=== PATIENT | male | born 1950 | race Caucasian/White ===

== ENCOUNTER 2023-05-03 11:11 | Outpatient (AMB) | payer MEDICARE, SELFPAY ==
--- NOTE | 2023-05-03 11:14 | HO.NEPHOV ---
HPI HPI Comments History of Present Illness Details I had the pleasure of seeing Peter in follow-up of his chronic kidney disease and hypertension. He recently had been in [place]. At that time he had 1 spike of uncontrolled blood pressure and had to be kept in the hospital overnight. He also had some left breast pain. He is currently not taking his spironolactone. He underwent ultrasound and mammogram. He was found to have a cyst. He is going to undergo further studies. He has not been strict with a low-sodium diet. His creatinine had been near baseline of 1.9 while he was in [place]. He does not have any hematuria, kidney stones, dysuria, pedal edema, shortness of breath, proximal nocturnal dyspnea, orthopnea, nausea, vomiting or diarrhea. He is not taking any nonsteroidal anti-inflammatory medications. He had been on carvedilol in the past which has been discontinued due to low heart rate. His blood pressure is currently well controlled. He has not had any further gout attacks. [facility] Medical History (Updated 05/03/23 @ 11:48 by Fletcher Mckay MD) Essential (primary) hypertension Chronic kidney disease, stage 3a Surgical History (Updated 05/03/23 @ 11:24 by Gale Vitale MA) History of ankle surgery History of knee replacement Family History (Updated 05/03/23 @ 11:23 by Gale Vitale MA) Father Heart disease Hypertension Brother Heart disease Hypertension Social History (Updated 05/03/23 @ 11:22 by Gale Vitale MA) Alcohol intake: never Patient Tobacco Use Status: Never used Tobacco Vital Signs 05/03/23 11:16 Height 5 ft 8 in Weight 168 lb BMI 25.5 BP 134/70 Blood Pressure Location Rt brachial Position Sitting Pulse 57 Pulse Source Pulse Oximeter Physical Exam Vital Signs: Last Vital Signs Pulse 57 05/03/23 11:16 BP 134/70 05/03/23 11:16 BMI result Body Mass Index 25.5 Const General: comfortable and no acute distress Orientation/consciousness: patient oriented x3 HEENT Head: Yes normocephalic Mouth: Normal oral and palatal mucosa present Eyes EOM: EOMs intact bilaterally Neck Neck: Yes supple Resp Auscultation: clear to auscultation bilaterally Cardio Jugular venous distension: no JVD Rate: regular rate GI Palpation (GI): Soft to palpation Auscultation: normal bowel sounds General: Yes no CVA tenderness Back/Spine/Pelvis Back: no CVA tenderness Skin General skin exam: no rashes or lesions noted Neuro General: patient oriented x3 and moves all extremities Extrem General: Yes no pedal edema Assessment & Plan Assessment & Plan (1) Essential (primary) hypertension: Code(s): I10 - Essential (primary) hypertension (2) Chronic kidney disease, stage 3a: Code(s): N18.31 - Chronic kidney disease, stage 3a [place] has chronic kidney disease most likely due to vascular disease. He had a Doppler of his renal arteries in the past which did not show any significant renal artery stenosis. He is compliant with his medications. He should be on a low-sodium diet. He should remain well hydrated. He had a coronary angiogram in the past, the results of which are unavailable for review at the time this office visit. Given 1 episode of spike in blood pressure during his time in [place], I have ordered a renin as well as aldosterone. He is not on any beta-mik given his low heart rate. He is off spironolactone. I plan to repeat is Doppler renal arteries after next visit. He should avoid nonsteroidal anti-inflammatory medications. I did not make any other medication changes today. Follow-up lab work ordered. Time spend with encounter, retrieving data and documentation 31 minutes. Orders: Orders Renin Today I10 - Essential (primary) hypertension, N18.31 - Chronic kidney disease, stage 3a Electrolytes Today I10 - Essential (primary) hypertension, N18.31 - Chronic kidney disease, stage 3a Blood Urea Nitrogen Today I10 - Essential (primary) hypertension, N18.31 - Chronic kidney disease, stage 3a Creatinine Today I10 - Essential (primary) hypertension, N18.31 - Chronic kidney disease, stage 3a Calcium Today I10 - Essential (primary) hypertension, N18.31 - Chronic kidney disease, stage 3a Aldosterone Today I10 - Essential (primary) hypertension, N18.31 - Chronic kidney disease, stage 3a Coding Level of Care Code Est Pt Level 3 (20431) Diagnoses Essential (primary) hypertension I10 Chronic kidney disease, stage 3a N18.31
[2023-05-03 11:16] VITALS: BP 134/70; PULSE 57; BMI 25.5
== END 2023-05-03 11:58 | disposition home or self-care (01) ==
PROVIDERS: Visit Provider Internal Medicine Nephrology
DX: I12.9 Hypertensive chronic kidney disease with stage 1 through stage 4 chronic kidney disease, or unspecified chronic kidney disease (principal); N18.31 Chronic kidney disease, stage 3a
CPT/HCPCS: 99214

== ENCOUNTER → 2023-05-03 11:11 | Outpatient (BNVA) | payer MEDICARE, SELFPAY | PROVIDERS: Visit Provider Internal Medicine Nephrology | DX: I12.9 Hypertensive chronic kidney disease with stage 1 through stage 4 chronic kidney disease, or unspecified chronic kidney disease (principal); N18.31 Chronic kidney disease, stage 3a | CPT/HCPCS: 99212 ==

== ENCOUNTER 2023-06-01 11:10 | Outpatient (AMB) | payer MEDICARE, SELFPAY ==
[2023-06-01 11:35] VITALS: BP 142/70; PULSE 58; O2SAT 97; BMI 26.1
--- NOTE | 2023-06-01 11:35 | HO.NEPHOV_ITS ---
HPI HPI Comments History of Present Illness Details I had the pleasure of seeing Peter in follow-up of his chronic kidney disease and hypertension. He recently had been in [place]. At that time he had 1 spike of uncontrolled blood pressure and had to be kept in the hospital overnight. He also had some left breast pain. He is currently not taking his spironolactone. He underwent ultrasound and mammogram. He was found to have a cyst which is found to be benign. He has not been strict with a low-sodium diet. His creatinine had been near baseline of 1.9 while he was in [place]. He does not have any hematuria, kidney stones, dysuria, pedal edema, shortness of breath, proximal nocturnal dyspnea, orthopnea, nausea, vomiting or diarrhea. He is not taking any nonsteroidal anti-inflammatory medications. He had been on carvedilol in the past which has been discontinued due to low heart rate. His blood pressure is currently well controlled. He has not had any further gout attacks. He had couple of dizzy episodes at home and he stopped his losartan. [facility] Medical History (Updated 05/03/23 @ 11:48 by Fletcher Mckay MD) Essential (primary) hypertension Chronic kidney disease, stage 3a Surgical History History of ankle surgery History of knee replacement Family History Father Heart disease Hypertension Brother Heart disease Hypertension Social History Alcohol intake: never Patient Tobacco Use Status: Never used Tobacco Vital Signs 06/01/23 11:35 Height 5 ft 8 in Weight 171 lb 8 oz BMI 26.1 BP 142/70 H Blood Pressure Location Lt brachial Position Sitting Pulse 58 Pulse Source Pulse Oximeter Pulse Oximetry (%) 97 Oxygen Delivery Method Room Air Physical Exam Vital Signs: Last Vital Signs Pulse 58 06/01/23 11:35 BP 142/70 H 06/01/23 11:35 Pulse Ox 97 06/01/23 11:35 Oxygen Delivery Method Room Air 06/01/23 11:35 BMI result Body Mass Index 26.1 Const General: comfortable and no acute distress Orientation/consciousness: patient oriented x3 HEENT Head: Yes normocephalic Mouth: Normal oral and palatal mucosa present Eyes EOM: EOMs intact bilaterally Neck Neck: Yes supple Resp Auscultation: clear to auscultation bilaterally Cardio Jugular venous distension: no JVD Rate: regular rate GI Palpation (GI): Soft to palpation Auscultation: normal bowel sounds General: Yes no CVA tenderness Back/Spine/Pelvis Back: no CVA tenderness Skin General skin exam: no rashes or lesions noted Neuro General: patient oriented x3 and moves all extremities Extrem General: Yes no pedal edema Assessment & Plan Assessment & Plan (1) Chronic kidney disease, stage 3a: Code(s): N18.31 - Chronic kidney disease, stage 3a (2) Essential (primary) hypertension: Code(s): I10 - Essential (primary) hypertension Plan Peter has chronic kidney disease most likely due to vascular disease. He had a Doppler of his renal arteries in the past which did not show any significant renal artery stenosis. He should be on a low-sodium diet. He should remain well hydrated. He had a coronary angiogram in the past, the results of which are unavailable for review at the time this office visit. Given 1 episode of spike in blood pressure during his time in [place], I have ordered a renin as well as aldosterone which were unremarkable. He is not on any beta-mik given his low heart rate. He is off spironolactone. I plan to repeat is Doppler renal arteries after next visit. He should avoid nonsteroidal anti-inflammatory medications. He has held losartan himself. If his blood pressure is going to go up, I asked him to increase his hydralazine to 50 mg twice daily if necessary. I did not make any other medication changes today. Follow-up lab work ordered. Orders: Orders Creatinine Today I10 - Essential (primary) hypertension, N18.31 - Chronic kidney disease, stage 3a Electrolytes Today I10 - Essential (primary) hypertension, N18.31 - Chronic kidney disease, stage 3a Blood Urea Nitrogen Today I10 - Essential (primary) hypertension, N18.31 - Chronic kidney disease, stage 3a Coding Level of Care Code Est Pt Level 3 (15057) Diagnoses Chronic kidney disease, stage 3a N18.31 Essential (primary) hypertension I10 Results Reviewed Nephrology Results: No Data to Display
== END 2023-06-01 12:03 | disposition home or self-care (01) ==
PROVIDERS: Visit Provider Internal Medicine Nephrology
DX: N18.31 Chronic kidney disease, stage 3a (principal); I10 Essential (primary) hypertension
CPT/HCPCS: 99213

== ENCOUNTER → 2023-06-01 11:10 | Outpatient (BNVA) | payer MEDICARE, SELFPAY | PROVIDERS: Visit Provider Internal Medicine Nephrology | DX: I12.9 Hypertensive chronic kidney disease with stage 1 through stage 4 chronic kidney disease, or unspecified chronic kidney disease (principal); N18.31 Chronic kidney disease, stage 3a | CPT/HCPCS: 99212 ==

== ENCOUNTER 2023-11-02 09:54 | Outpatient (AMB) | payer MEDICARE, SELFPAY ==
--- NOTE | 2023-11-02 10:04 | HO.NEPHOV ---
Vital Signs 11/02/23 10:05 Height 5 ft 8 in Weight 171 lb 8 oz BMI 26.1 BP 130/70 Blood Pressure Location Lt brachial Position Sitting Pulse 58 Pulse Source Pulse Oximeter Pulse Oximetry (%) 97 Oxygen Delivery Method Room Air Intake Visit Reasons: Follow up/ LVM Emergency Specialist Required: No Accompanied by: Self / Same As Patient Allergies amlodipine Allergy (Verified 11/02/23 10:07) Unknown codeine Allergy (Verified 11/02/23 10:07) Unknown Egg Derived Allergy (Verified 11/02/23 10:07) Unknown lisinopril Allergy (Verified 11/02/23 10:07) Unknown peanut Allergy (Verified 11/02/23 10:07) Unknown HPI Comments Details: I had the pleasure of seeing Peter in follow-up of his chronic kidney disease and hypertension. He recently had been in [place]. He also had some left breast pain from spironolactone. He underwent ultrasound and mammogram. He was found to have a cyst which is found to be benign. He has not been strict with a low-sodium diet. His creatinine had been near baseline of 1.9 while he was in [place]. He does not have any hematuria, kidney stones, dysuria, pedal edema, shortness of breath, proximal nocturnal dyspnea, orthopnea, nausea, vomiting or diarrhea. He is not taking any nonsteroidal anti-inflammatory medications. He had been on carvedilol in the past which has been discontinued due to low heart rate. His blood pressure is currently well controlled. He has not had any further gout attacks. He had couple of dizzy episodes at home and he stopped his losartan. [facility]LY [facility] Medical History (Updated 05/03/23 @ 11:48 by Fletcher Mckay MD) Essential (primary) hypertension Chronic kidney disease, stage 3a Surgical History History of ankle surgery History of knee replacement Family History Father Heart disease Hypertension Brother Heart disease Hypertension Social History Alcohol intake: never Patient Tobacco Use Status: Never used Tobacco Physical Exam Vital Signs: Last Vital Signs Pulse 58 11/02/23 10:05 BP 130/70 11/02/23 10:05 Pulse Ox 97 11/02/23 10:05 Oxygen Delivery Method Room Air 11/02/23 10:05 BMI result Body Mass Index 26.1 Const General: comfortable and no acute distress Orientation/consciousness: patient oriented x3 HEENT Head: Yes normocephalic Mouth: Normal oral and palatal mucosa present Eyes EOM: EOMs intact bilaterally Neck Neck: Yes supple Resp Auscultation: clear to auscultation bilaterally Cardio Jugular venous distension: no JVD Rate: regular rate GI Palpation (GI): Soft to palpation Auscultation: normal bowel sounds General: Yes no CVA tenderness Back/Spine/Pelvis Back: no CVA tenderness Skin General skin exam: no rashes or lesions noted Neuro General: patient oriented x3 and moves all extremities Extrem General: Yes no pedal edema Results Reviewed Nephrology Results: No Data to Display Assessment & Plan Assessment & Plan (1) Chronic kidney disease, stage 3a: Code(s): N18.31 - Chronic kidney disease, stage 3a Category: Medical (2) Essential (primary) hypertension: Code(s): I10 - Essential (primary) hypertension Category: Medical Plan Peter has chronic kidney disease most likely due to vascular disease. He had a Doppler of his renal arteries in the past which did not show any significant renal artery stenosis. He should be on a low-sodium diet. He should remain well hydrated. Given 1 episode of spike in blood pressure during his time in [place], I have ordered a renin as well as aldosterone which were unremarkable. He is not on any beta-mik given his low heart rate. He is off spironolactone. I plan to repeat is Doppler renal arteries after next visit . He should avoid nonsteroidal anti-inflammatory medications. He has held losartan himself. I did not make any other medication changes today. Follow-up lab work ordered. Orders: Orders Creatinine Today I10 - Essential (primary) hypertension, N18.31 - Chronic kidney disease, stage 3a Electrolytes Today I10 - Essential (primary) hypertension, N18.31 - Chronic kidney disease, stage 3a Blood Urea Nitrogen Today I10 - Essential (primary) hypertension, N18.31 - Chronic kidney disease, stage 3a Coding Level of Care Code Est Pt Level 4 (64909) Diagnoses Chronic kidney disease, stage 3a N18.31 Essential (primary) hypertension I10
[2023-11-02 10:05] VITALS: BP 130/70; PULSE 58; O2SAT 97; BMI 26.1
== END 2023-11-02 10:25 | disposition home or self-care (01) ==
PROVIDERS: Visit Provider Internal Medicine Nephrology
DX: N18.31 Chronic kidney disease, stage 3a (principal); I10 Essential (primary) hypertension
CPT/HCPCS: 99214

== ENCOUNTER → 2023-11-02 09:54 | Outpatient (BNVA) | payer MEDICARE, SELFPAY | PROVIDERS: Visit Provider Internal Medicine Nephrology | DX: I12.9 Hypertensive chronic kidney disease with stage 1 through stage 4 chronic kidney disease, or unspecified chronic kidney disease (principal); N18.31 Chronic kidney disease, stage 3a | CPT/HCPCS: 99212 ==

== ENCOUNTER 2024-01-27 09:49 | Outpatient (AMB) | payer MEDICARE, SELFPAY ==
--- NOTE | 2024-01-27 10:32 | HO.NEPHOV_ITS ---
Vital Signs 01/27/24 10:33 Height 5 ft 8 in Weight 161 lb BMI 24.5 BP 124/60 Blood Pressure Location Lt brachial Position Sitting Pulse 54 Pulse Source Pulse Oximeter Pulse Oximetry (%) 98 Oxygen Delivery Method Room Air Intake Visit Reasons: 3 mon follow up/ Conf Customer Care Coordinator Required: No Accompanied by: Self / Same As Patient Allergies amlodipine Allergy (Verified 01/27/24 10:35) Unknown codeine Allergy (Verified 01/27/24 10:35) Unknown Egg Derived Allergy (Verified 01/27/24 10:35) Unknown lisinopril Allergy (Verified 01/27/24 10:35) Unknown peanut Allergy (Verified 01/27/24 10:35) Unknown HPI Comments Details: I had the pleasure of seeing Peter in follow-up of his chronic kidney disease and hypertension. He also had some left breast pain from spironolactone. He underwent ultrasound and mammogram. He was found to have a cyst which is found to be benign. He has not been strict with a low-sodium diet. His creatinine had been near baseline of 1.9 while he was in [place]. He does not have any hematuria, kidney stones, dysuria, pedal edema, shortness of breath, proximal nocturnal dyspnea, orthopnea, nausea, vomiting or diarrhea. He is not taking any nonsteroidal anti-inflammatory medications. He had been on carvedilol in the past which has been discontinued due to low heart rate. His blood pressure is currently well controlled. He had recurrent gout attacks. He was taking prednisone as needed. He had his Allopurinol dose increased which was causing him dizziness. So he reduced his Allopurinol to 100 mg daily. He had seen Urology and underwent USS and MRI. He had dizziness with losartan which has been on hold for a long time. He has B/L small renal stones and renal cysts. [facility] Medical History Essential (primary) hypertension Chronic kidney disease, stage 3a Surgical History History of ankle surgery History of knee replacement Family History Father Heart disease Hypertension Brother Heart disease Hypertension Social History Alcohol intake: never Patient Tobacco Use Status: Never used Tobacco Review of Systems Const All systems reviewed & are unremarkable except as noted in HPI and below Physical Exam Vital Signs: Last Vital Signs Pulse 54 01/27/24 10:33 BP 124/60 01/27/24 10:33 Pulse Ox 98 01/27/24 10:33 Oxygen Delivery Method Room Air 01/27/24 10:33 BMI result Body Mass Index 24.5 Const General: comfortable Orientation/consciousness: patient oriented x3 HEENT Head: Yes normocephalic Mouth: Normal oral and palatal mucosa present Eyes EOM: EOMs intact bilaterally Neck Neck: Yes supple Resp Auscultation: clear to auscultation bilaterally Cardio Jugular venous distension: no JVD Rate: regular rate GI Palpation (GI): Soft to palpation Auscultation: normal bowel sounds General: Yes no CVA tenderness Back/Spine/Pelvis Back: no CVA tenderness Skin General skin exam: no rashes or lesions noted Neuro General: patient oriented x3 and moves all extremities Extrem General: Yes no pedal edema Results Reviewed Nephrology Results: No Data to Display Assessment & Plan Assessment & Plan (1) Chronic kidney disease, stage 3a: Code(s): N18.31 - Chronic kidney disease, stage 3a Category: Medical (2) Essential (primary) hypertension: Code(s): I10 - Essential (primary) hypertension Category: Medical (3) Renal calculus: Code(s): N20.0 - Calculus of kidney Category: Medical (4) Renal cyst: Code(s): N28.1 - Cyst of kidney, acquired Category: Medical Plan Peter has chronic kidney disease most likely due to vascular disease. He had a Doppler of his renal arteries in the past which did not show any significant renal artery stenosis. He should be on a low-sodium diet. He should remain well hydrated. Given 1 episode of spike in blood pressure during his time in [place], I have ordered a renin as well as aldosterone which were unremarkable. He is not on any beta-mik given his low heart rate. He is off spironolactone. I plan to repeat is Doppler renal arteries with time. He can take Allopurinol 200 mg daily . He should avoid nonsteroidal anti-inflammatory medications. He has held losartan himself. I did not make any other medication changes today. Follow-up lab work ordered. Orders: Orders Creatinine Today I10 - Essential (primary) hypertension, N18.31 - Chronic kidney disease, stage 3a, N20.0 - Calculus of kidney, N28.1 - Cyst of kidney, acquired Blood Urea Nitrogen Today I10 - Essential (primary) hypertension, N18.31 - Chronic kidney disease, stage 3a, N20.0 - Calculus of kidney, N28.1 - Cyst of kidney, acquired Electrolytes Today I10 - Essential (primary) hypertension, N18.31 - Chronic kidney disease, stage 3a, N20.0 - Calculus of kidney, N28.1 - Cyst of kidney, acquired Coding Level of Care Code Est Pt Level 4 (36533) Diagnoses Chronic kidney disease, stage 3a N18.31 Essential (primary) hypertension I10 Renal calculus N20.0 Renal cyst N28.1
[2024-01-27 10:33] VITALS: BP 124/60; PULSE 54; O2SAT 98; BMI 24.5
== END 2024-01-27 11:04 | disposition home or self-care (01) ==
PROVIDERS: Visit Provider Internal Medicine Nephrology
DX: N18.31 Chronic kidney disease, stage 3a (principal); I10 Essential (primary) hypertension; N20.0 Calculus of kidney; N28.1 Cyst of kidney, acquired
CPT/HCPCS: 99214

== ENCOUNTER → 2024-01-27 09:49 | Outpatient (BNVA) | payer MEDICARE, SELFPAY | PROVIDERS: Visit Provider Internal Medicine Nephrology | DX: I12.9 Hypertensive chronic kidney disease with stage 1 through stage 4 chronic kidney disease, or unspecified chronic kidney disease (principal); N18.31 Chronic kidney disease, stage 3a; N20.0 Calculus of kidney; N28.1 Cyst of kidney, acquired | CPT/HCPCS: 99212 ==

== ENCOUNTER 2024-06-15 11:50 | Outpatient (AMB) | payer MEDICARE, SELFPAY ==
--- NOTE | 2024-06-15 12:10 | HO.NEPHOV_ITS ---
Vital Signs 06/15/24 12:12 Height 5 ft 8 in Weight 169 lb 4 oz BMI 25.7 BP 132/60 Blood Pressure Location Lt brachial Position Sitting Pulse 59 Pulse Source Pulse Oximeter Pulse Oximetry (%) 97 Oxygen Delivery Method Room Air Intake Visit Reasons: 3 mon follow up/Conf Maple Products Maker Required: No Accompanied by: Self / Same As Patient Allergies amlodipine Allergy (Verified 06/15/24 12:12) Unknown codeine Allergy (Verified 06/15/24 12:12) Unknown Egg Derived Allergy (Verified 06/15/24 12:12) Unknown lisinopril Allergy (Verified 06/15/24 12:12) Unknown peanut Allergy (Verified 06/15/24 12:12) Unknown HPI Comments Details: Peter in follow-up of his chronic kidney disease and hypertension. He also had some left breast pain from spironolactone. He underwent ultrasound and mammogram. He was found to have a cyst which is found to be benign. He has not been strict with a low-sodium diet. His creatinine had been near baseline of 1.9. He does not have any hematuria, kidney stones, dysuria, pedal edema, shortness of breath, proximal nocturnal dyspnea, orthopnea, nausea, vomiting or diarrhea. He is not taking any nonsteroidal anti-inflammatory medications. He had been on carvedilol in the past which has been discontinued due to low heart rate. His blood pressure is currently well controlled. He had recurrent gout attacks. He is on Allopurinol & Colchicine . He had seen Urology and underwent USS and MRI. He has B/L small renal stones and renal cysts [facility] Medical History Essential (primary) hypertension Chronic kidney disease, stage 3a Surgical History History of ankle surgery History of knee replacement Family History Father Heart disease Hypertension Brother Heart disease Hypertension Social History Alcohol intake: never Patient Tobacco Use Status: Never used Tobacco Review of Systems Const All systems reviewed & are unremarkable except as noted in HPI and below Physical Exam Vital Signs: Last Vital Signs Pulse 59 06/15/24 12:12 BP 132/60 01/02/25 12:12 Pulse Ox 97 06/15/24 12:12 Oxygen Delivery Method Room Air 06/15/24 12:12 BMI result Body Mass Index 25.7 Const General: comfortable and no acute distress Orientation/consciousness: patient oriented x3 HEENT Head: Yes normocephalic Mouth: Normal oral and palatal mucosa present Eyes EOM: EOMs intact bilaterally Neck Neck: Yes supple Resp Auscultation: clear to auscultation bilaterally Cardio Jugular venous distension: no JVD Rate: regular rate GI Palpation (GI): Soft to palpation Auscultation: normal bowel sounds General: Yes no CVA tenderness Back/Spine/Pelvis Back: no CVA tenderness Skin General skin exam: no rashes or lesions noted Neuro General: patient oriented x3 and moves all extremities Extrem General: Yes no pedal edema Results Reviewed Nephrology Results: No Data to Display Assessment & Plan Assessment & Plan (1) Chronic kidney disease, stage 3a: Code(s): N18.31 - Chronic kidney disease, stage 3a Category: Medical (2) Essential (primary) hypertension: Code(s): I10 - Essential (primary) hypertension Category: Medical (3) Renal calculus: Code(s): N20.0 - Calculus of kidney Category: Medical (4) Renal cyst: Code(s): N28.1 - Cyst of kidney, acquired Category: Medical Plan Peter has chronic kidney disease most likely due to vascular disease. He had a Doppler of his renal arteries in the past which did not show any significant renal artery stenosis. He should be on a low-sodium diet. He should remain well hydrated. Given 1 episode of spike in blood pressure during his time in [place], I have ordered a renin as well as aldosterone which were unremarkable. He is not on any beta-mik given his low heart rate. He is off spironolactone. I plan to repeat is Doppler renal arteries with time. He can take Allopurinol 200 mg daily . He should avoid nonsteroidal anti-inflammatory medications. ( He has stopped losartan ) I did not make any other medication c hanges today. Follow-up lab work ordered. Orders: Orders Creatinine 6 Months I10 - Essential (primary) hypertension, N18.31 - Chronic kidney disease, stage 3a, N20.0 - Calculus of kidney, N28.1 - Cyst of kidney, acquired Blood Urea Nitrogen 6 Months I10 - Essential (primary) hypertension, N18.31 - Chronic kidney disease, stage 3a, N20.0 - Calculus of kidney, N28.1 - Cyst of kidney, acquired Electrolytes 6 Months I10 - Essential (primary) hypertension, N18.31 - Chronic kidney disease, stage 3a, N20.0 - Calculus of kidney, N28.1 - Cyst of kidney, acquired Coding Level of Care Code Est Pt Level 4 (42492) Diagnoses Chronic kidney disease, stage 3a N18.31 Essential (primary) hypertension I10 Renal calculus N20.0 Renal cyst N28.1
[2024-06-15 12:12] VITALS: BP 132/60; PULSE 59; O2SAT 97; BMI 25.7
--- OUTSIDE RECORDS SUMMARY | 2024-06-15 12:58 | XMS_ITS | Continuity of Care Document ---
Author Organization [facility] Address [address] [place] [address] Phone Care Team Providers Care Aba Therapist Name Role Phone Darwin Melo MD Unavailable Unavailable Allergies, Adverse Reactions, Alerts Substance Reaction Status Criticality lisinopril Cough Active No Information amlodipine Swelling Active No Information codeine Active No Information Medications Medication Instructions Dosage Effective Dates (start - stop) Status Comments ROSUVASTATIN CALCIUM 20 MG TAB TAKE 1 TABLET BY MOUTH EVERY DAY - Active HYDROCHLOROTHIAZIDE 25 MG TAB TAKE 1 TABLET BY MOUTH EVERY DAY - Active isosorbide mononitrate ER 60 mg tablet,extended release 24 hr take 1 tablet by oral route every day in the morning 60 MG - Active Edarbi 80 mg tablet take 1 tablet by oral route every day 80 MG - Active allopurinol 200 mg tablet take 1 tablet by oral route every day 200 MG - Active aspirin 81 mg tablet,delayed release take 1 tablet by oral route every day 81 MG - Active allopurinol 100 mg tablet take 1 tablet by oral route every day 100 MG - Active prednisone 10 mg tablet take 1 tablet by oral route as needed - Active Procedures Procedure Date Initial hospital care, moderate 023 Office/outpatient visit,est, mod 2022 TTE W/DOPPLER, COMPLETE Electrocardiogram, complete (ECG) Office/outpatient visit,est, mod 2022 Office/outpatient visit,est, mod Mar-04- 2022 Electrocardiogram, complete (ECG) Office/outpatient visit,est, mod 2021 Office/outpatient visit,est, mod 2020 Office/outpatient visit,est, mod 2020 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 [address], [place], [place], [address] , [place]. tel: [phone] [facility], [address], [place], [place], [address], [place] tel: [phone] No Information 4 Kameron Granados. [address], [place], [place], [address] , [place]. tel: [phone] [facility], [address], [place], [address], [place] tel: [phone] [address] No Information 4 Moses Shetty. [address], [place], [id number] , [place]. tel: [phone] [facility], [address], [place], [place], [address], [place] tel: [phone] No Information 3 Moses Shetty. [address], [place], [place], [address] , [place]. tel: [phone] Initial hospital care, moderate [facility], [address], [place], [place], [address], [place] tel:[phone] [facility] No Information 3 Karen Sam. [address], [place], [place], [address] , [place]. tel:[phone] Referring Provider: Dagoberto Esparza, [address] [place], [address] . tel:[phone] [facility], [address], [place], [place], [address], [place] tel:[phone] [address] No Information 3 Julia Murray. [address], [place], [place], [address] , [place]. tel:[phone] Referring Provider: Diogenes Lopes, [address], [place], [address] . tel:[phone] Office/outpa tient visit,est, mod [facility], [address], [place], [place], [address], [place] tel:[phone] [facility] Hypertension (chief complaint) Essential hypertensionNon rheumatic mitral valve regurgitation Sep- 3 Eric Pollard. [address], [place], [address], [place]. tel: [phone] Referring Provider: Diogenes Lopes, [address], [place], [address] . tel:[phone] [facility], [address], [place], [place], [address], [place] tel:[phone] [facility] Nonrheumatic mitral (valve) insufficiencyAt hscl heart disease of algaaciq coronary artery w/o ang pctrs 3 Raphael Tirado. [address], [place], [address] , [place]. tel: [phone] Referring Provider: Diogenes Lopes, [address], [place], [address] . tel:[phone] [facility], [address], [place], [place], [address], [place] tel: [phone] No Information b-2 3 Leo Green. [address], [place], [place], [address] , [place]. tel: [phone] Office/outpa tient visit,est, [facility], [address], [place], [place], [address], [place] tel:[phone] [facility] [address] Hypertension (chief complaint) Coronary artery disease involving algaaciq coronary artery of algaaciq heart without angina pectorisEssenti al hypertensionMix ed hyperlipidemiaC hronic gout without tophus, unspecified cause, unspecified siteNonrheumati c mitral valve regurgitation 3 Moses Shetty. [address], [place], [place], [address] , [place]. tel: [phone] Referring Provider: Diogenes Lopes, [address], [place], [address] . tel:[phone] Office/outpa tient visit,[facility], [facility], [address], [place], [place], [address], [place] tel:[phone] [facility] [address] Hypertension (chief complaint) Coronary artery disease involving algaaciq coronary artery of algaaciq heart without angina pectorisEssenti al hypertensionMix ed hyperlipidemiaC hronic gout without tophus, unspecified cause, unspecified siteModerate mitral regurgitation Aug-0 2 Ganesh Leos. [address], [place], [place], [address] , [place]. tel: [phone] Referring Provider: Dafne Andersen, [address], [place], [address] . tel:[phone] Office/outpa tient visit,est, [facility], [address], [place], [place], [address], [place] tel: [phone] [facility] Hypertension (chief complaint) Coronary artery disease involving algaaciq coronary artery of algaaciq heart without angina pectorisEssenti al hypertensionMix ed hyperlipidemiaC hronic gout without tophus, unspecified cause, unspecified siteModerate mitral regurgitation 2 Ganesh Leos. [address], [place], [place], [address] , [place]. tel: [phone] Referring Provider: Danfe Andersen, [address], [place], [address] . tel:[phone] Office/outpa tient visit,est, [facility], [address], [place], [place], [address], [place] tel:[phone] [facility] HPI (chief complaint) Coronary artery disease involving algaaciq coronary artery of algaaciq heart without angina pectorisEssenti al hypertensionMix ed hyperlipidemia 1 Ganesh Leos. [address], [place], [place], [address] , [place]. tel: [phone] Referring Provider: Dafne Andersen, [address], [place], [address] . tel:[phone] Office/outpa tient visit,est, [facility], [address], [place], [place], [address], [place] tel:[phone] [facility] No Information Mar-0 1 Eric Pollard. [address], [place], [address], [place]. tel: [phone] Referring Provider: Gustabo Ribeiro MD, [address], [place], [address] . tel:[phone] [facility], [address], [address], tel:[phone] [address] No Information 1 Ganesh Leos. [address], [place], [place], [address] , [place]. tel:[phone] Referring Provider: Dafne Andersen, [address], [place], [address] . tel:[phone] Office/outpa tient visit, [facility], [address], [place], [place], [address], tel:[phone] [facility] HPI (chief complaint) Coronary artery disease involving algaaciq coronary artery of algaaciq heart without angina pectorisEssenti al hypertensionMix ed hyperlipidemia 1 Ganesh Leos. [address], [place], [place], [address] , [place]. tel:[phone] Referring Provider: Dafne Andersen, [address], [place], [address] . tel:[phone] Family History Family Member Type Diagnosis Age At Onset Father Problem myocardial infar ct in 1st degree male relative <55 years 39 Brother Problem Myocardial infarction 60 Payers Payer name Insurance type Covered alliance party ID Authoriza tion(s) Medicare Part B Primary MB [id number] AARP SUPPLEMENT CI [id number] Social History Type Description Quantity Date Captured Comments Sex Male Smoking Status No Information Chief Complaint And Reason For Visit No Information Reason For Referral Reason For Referral No Information History Of Present Illness Encounter Date Complaint History Of Prese nt Illness Hypertension This is a 72-yea r-old male with a history of hyperlipidemia, hypertension, coronary artery disease status post PCI with residual 80% lesion in the right acute marginal, mitral valve prolapse and moderate mitral regurgitation. He presents today for 2 month follow-up of hypertension. At his last visit losartan was switched to a Edarbi. Patient reports that Edarbi was a very high co-pay any only picked up a month supply. He has been alternating taking Edarbi and losartan. His blood pressures remains suboptimally controlled ranging from 128/68 to 165/88. His average blood pressures are in the 150s to 160s systolic. He denies any recurrent extreme elevations as previously noted with systolics in the 200s.Echo completed on September 17 notes normal LV function with moderate mitral valve prolapse involving the posterior leaflet with moderate to severe MR, mild aortic insufficiency and mild left ventricular hypertrophy and normal PA pressures. He denies any symptoms suggestive of congestive heart failure. He does report an inability to lie flat or perform sit ups resulting in a headache of unknown etiology.Labs completed on July 28 note elevated uric acid level of 8.4 and normal thyroid studies. He was started on allopurinol. He denies any recurrent gout symptoms. Hypertension This is a 72-yea r-old male with a history of hyperlipidemia, hypertension, coronary artery disease status post PCI with residual 80% lesion in the right acute marginal, mitral valve prolapse and moderate mitral regurgitation. Presented due to severely elevated blood pressures. He was 2020 with chest pain. Cardiac enzymes and EKG were unremarkable. His blood pressure was still moderately elevated he was most likely due to gastroesophageal reflux. He was switched to enteric-coated aspirin with meals. He had upper endoscopy. Blood pressure has been better controlled on losartan, isosorbide mononitrate and hydrochlorothiazide.Blood pressures been out of control. This has been going on since he had COVID at 1-1/2 months ago. His blood pressure has been as high as 215/90 on multiple occasions. About 2 weeks ago he had some left precordial pulsing sharp pain that was off and on for 2 days. It has since resolved. He has had swelling in the past from amlodipine. He has a history of asthma. An EKG performed interpreted by me reveals normal sinus rhythm, within normal limits.. Hypertension This is a follow -up for blood pressure medications. The patient is a very pleasant 70-year-old gentleman with a prior history of hyperlipidemia, hypertension, coronary artery disease status post PCI with residual 80% lesion of a right acute marginal, mitral valve prolapse and mitral valve regurgitation moderate. He initially presented due to severely elevated blood pressures.He previously admitted to the hospital on 08/12/2020 due to chest pain. Cardiac enzymes and EKG were unremarkable. His blood pressure was still moderately elevated. Was most likely due to GERD. He switched over to taking aspirin enteric-coated with meals and he also underwent endoscopies with his GI doctorBlood pressures were remaining moderately elevated in the 150s to 160 s. He takes that prednisone once a month due to gout exacerbations. He is planning to switch the allopurinol back to feboxustat. We discussed switching him from hydrochlorothiazide to nifedipine given his frequent gout exacerbations. He thought about the side effect of ankle swelling and because he had experience that in the past he did not want to go down that road. He has resumed hydrochlorothiazide. No further gout attacks. Blood pressure has been controlled He has been exercising. We also discussed a low-sodium diet. He denies any alcohol or other pain medications. Hypertension This is routine 6-month follow-up. The patient is a very pleasant 70-year-old gentleman with a prior history of hyperlipidemia, hypertension, coronary artery disease status post PCI with residual 80% lesion of a right acute marginal, mitral valve prolapse and mitral valve regurgitation moderate. He initially presented due to severely elevated blood pressures.He previously admitted to the hospital on 08/12/2020 due to chest pain. Cardiac enzymes and EKG were unremarkable. His blood pressure was still moderately elevated. Was most likely due to GERD. He switched over to taking aspirin enteric-coated with meals and he also underwent endoscopies with his GI doctorHis blood pressure remains moderately elevated in the 150s to 160 s. He takes that prednisone once a month due to gout exacerbations. He is planning to switch the allopurinol back to feboxustat. He has been on hydrochlorothiazide which we can hold at this time to decrease gout exacerbations. He has been exercising. We also discussed a low-sodium diet. He denies any alcohol or other pain medications. We will add on nifedipine at this time.His blood pressure is elevated today. Freeform HPI This is a follow -up visit after hospital discharge. The patient is a very pleasant 70-year-old gentleman with a prior history of hyperlipidemia, hypertension, coronary artery disease status post PCI with residual 80% lesion of a right acute marginal. He initially presented due to severely elevated blood pressures.He recently admitted to the hospital on 08/12/2020 due to chest pain. Cardiac enzymes and EKG were unremarkable. His blood pressure was still moderately elevated. Was most likely due to GERD. He will be following up with a cloth folder hand for possible endoscopy soon. We discussed taking the aspirin enteric-coated with mealsHis blood pressure remains moderately elevated in the 140s to 150s. We discussed possible culprits including the prednisone. He has been exercising. We also discussed a low-sodium diet. He denies any alcohol or other pain medications. We will add on nifedipine at this time.His blood pressure today is 144/60. His EKG shows sinus bradycardia from the hospitalHe also had a recent echocardiogram in May 2020 from his maintenance planner in clinic kit show a preserved left ventricular ejection fraction with moderate mitral regurgitation which is an interval change from mild regurgitation. His blood pressure supposedly at the time was in the 140s systolics. [facility] This is an initi al visit to establish care with our cardiology practice. The patient is a very pleasant 70-year-old gentleman with a prior history of hyperlipidemia, hypertension, coronary artery disease status post PCI with residual 80% lesion of a right acute marginal.The patient has been struggling with elevated blood pressure in the 180s systolics to 200 systolics over the last several weeks. He has not noticed any changes in stress or diet. He has not been exercising for the past year. Otherwise he was previously quite active and fit. He has been experiencing some headaches as well as 2 episodes of reflux type symptoms which reminds him of prior angina.He is on losartan 100 mg daily at this time. We did discuss low-sodium diet extensively. He will be making changes to this. We also will start him on hydrochlorothiazide as well as long-acting nitrate. His heart rate is low which precludes the use of AV claudio mik at this time. He gets leg swelling with amlodipine.His EKG shows normal sinus rhythm.He also had a recent echocardiogram in May 2020 from his maintenance planner in clinic kit show a preserved left ventricular ejection fraction with moderate mitral regurgitation which is an interval change from mild regurgitation. His blood pressure supposedly at the time was in the 140s systolics. Functional Status Date Functional Assessmen t No Information Instructions Date Instruction Additional Infor sunshine Blood Pressure Diary Assessments Type Assessment Date No Information Patient Care Teams Name Effective Dates (start - stop) Status Members No Information
--- OUTSIDE RECORDS SUMMARY | 2024-06-15 12:58 | XMS_ITS ---
Author Name [facility] Organization Unknown History of Medication Use Medication Directions Dispensed Refills Start Date End Date Status polyethylene glycol-electrolytes (NuLYTELY, TRILYTE) 420 g solution 4 06/13/99 99 active allopurinol (ZYLOPRIM) 100 mg tablet Take 200 mg by mouth in the morning. 4 06/13/99 99 active polyethylene glycol-electrolytes (NULYTELY) 420 gram solution Take 4,000 mL by mouth once for 1 dose. Follow office instructions 4 06/13/99 99 active colchicine 0.6 mg tablet Take 0.6 mg by mouth every other day. 4 06/13/99 99 active methylPREDNISolone acetate (DEPO-Medrol) 40 mg/mL injection 40 mg 4 completed allopurinol (ZYLOPRIM) 100 mg tablet Take 1 tablet (100 mg total) by mouth daily. 4 active gadobutrol (GADAVIST) injection 7 mL 7 mL, Intravenous, Once in imaging, contrast, Starting on Keisha 01/20/24 at 1129, For 1 dose, Radiology Appointment 4 completed colchicine (COLCRYS) 0.6 mg tablet 1.2 mg at the first sign of flare, followed by 0.6 mg after 1 hour 4 active tamsulosin (FLOMAX) 0.4 MG capsule Take 1 capsule (0.4 mg total) by mouth daily. 4 active allopurinol (ZYLOPRIM) 300 MG tablet Take 1 tablet (300 mg total) by mouth daily. 4 active tiZANidine (ZANAFLEX) 2 MG tablet Take 1 tablet (2 mg total) by mouth 3 (three) times a day as needed for muscle spasms (in back). 4 active isosorbide mononitrate (IMDUR) 60 MG 24 hr tablet Take 1 tablet (60 mg total) by mouth every morning. 4 active allopurinol (ZYLOPRIM) 100 mg tablet TAKE 2 TABLETS BY MOUTH EVERY DAY 3 active hydrALAZINE (APRESOLINE) 25 MG tablet Take 1 tablet (25 mg total) by mouth twice daily (every 12 hours). 3 active omeprazole (PriLOSEC) 40 mg capsule Take 1 capsule (40 mg total) by mouth in the morning. take 1/2 hour before breakfast. 2 active losartan (COZAAR) 50 mg tablet Take 100 mg by mouth. 2 active ProAir HFA 108 (90 Base) MCG/ACT inhaler Inhale 2 puffs every 4 (four) hours as needed for wheezing. 3 active aspirin 81 MG chewable tablet Chew 1 tablet (81 mg total) daily. 3 active Edarbi 80 MG Tab tablet Take 80 mg by mouth daily. 3 active hydroCHLOROthiazide (HYDRODIURIL) tablet Take 25 mg by mouth. 2 active allopurinol (ZYLOPRIM) 100 mg tablet TAKE 3 TABLETS BY MOUTH DAILY 3 active rosuvastatin (CRESTOR) 20 MG tablet Take 1 tablet (20 mg total) by mouth daily. 3 active losartan (COZAAR) 50 MG tablet Take 1 tablet (50 mg total) by mouth. 3 active isosorbide mononitrate (IMDUR) 30 mg 24 hr tablet TAKE 1 TABLET BY MOUTH EVERY DAY IN THE MORNING 2 active predniSONE (DELTASONE) 5 mg tablet Take 1 tablet by mouth daily as needed. 2 active simvastatin (ZOCOR) 10 mg tablet Take 10 mg by mouth. 2 active EPINEPHrine (EPIPEN) 0.3 mg/0.3 mL injection syringe Inject 0.3 mg into the muscle once daily as needed. 2 active isosorbide mononitrate (IMDUR) 30 MG 24 hr tablet Take 1 tablet (30 mg total) by mouth. 3 active EPINEPHrine 0.3 mg/0.3 mL IJ auto-injection Inject 0.3 mL (0.3 mg total) into the shoulder, thigh, or buttocks once as needed for allergic reaction. 3 active omeprazole (PriLOSEC) 20 mg capsule daily as needed. Takes PRN 2 active predniSONE (DELTASONE) 5 MG tablet TAKE 1 TABLET BY MOUTH EVERY DAY WITH FOOD X5DAYS WITH GOUT FLARES 3 active amLODIPine (NORVASC) 5 mg tablet Take 5 mg by mouth daily. 2 active LORazepam (ATIVAN) 0.5 MG tablet Take 1 tablet (0.5 mg total) by mouth 3 times daily (every 8 hours) as needed for anxiety. 4 active OMEprazole (PriLOSEC) 40 MG capsule Take 1 tablet by mouth daily. 3 active aspirin 81 mg chewable tablet Take 81 mg by mouth daily. 2 active allopurinol (ZYLOPRIM) 100 mg tablet Take 100 mg by mouth daily. 2 active MethylPREDNISolone (MEDROL) 4 mg tablet Take 4 mg by mouth. 2 active OMEprazole (PriLOSEC) 20 MG capsule TAKE 1 CAPSULE BY MOUTH EVERY DAY 3 active Medrol Dosepak 4mg Tablet 3 active Prednisone 10mg tablet 3 active amoxicillin-clavulanate (AUGMENTIN) 875-125 MG per tablet Take 1 tablet by mouth 2 (two) times a day. 3 active losartan (COZAAR) 50 MG tablet Take 2 tablets (100 mg total) by mouth daily. 3 active hydrochlorothiazide (HYDRODIURIL) 25 MG tablet Take 1 tablet (25 mg total) by mouth. 3 active spironolactone (ALDACTONE) 25 MG tablet 02 3 active carvedilol (COREG) 6.25 MG tablet Take 1 tablet (6.25 mg total) by mouth 2 (two) times a day with meals. 3 active rosuvastatin (CRESTOR) 20 mg tablet Take 20 mg by mouth. 2 active Uloric 40mg tablet 3 active EPINEPHrine 0.15 mg/0.3 mL IJ auto-injection Inject 0.3 mL (0.15 mg total) into the shoulder, thigh, or buttocks once as needed for allergic reaction. 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 active 2021-01-28 [facility]Act [facility] History of colonic polyps active 2021-01-28 ProblemAct [facility] Coronary artery disease of [place] artery of [place] heart with stable angina pectoris active 2019-01-27 [facility] Sciatica of right side active 2015-10-11 ProblemAct [facility] 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 active 2019-01-10 [facility] Gastroesophageal reflux disease with apnea active 2020-08-12 ProblemAct [facility] Stage 3 chronic kidney disease, unspecified whether stage 3a or 3b CKD active 2021-11-04 ProblemAct [facility] Left wrist pain active 2016-01-03 ProblemAct [facility] Polyarticular gout active 2015-10-11 Problem[facility] Overweight with body mass index (BMI) 25.0-29.9 active 2018-01-21 ProblemAct [facility] Gastroesophageal reflux disease without esophagitis active 2021-01-28 ProblemAct [facility] Eosinophilic esophagitis active 2024-06-01 ProblemAct [facility] Congenital pes cavus, left foot active 2022-11-23 [facility]Act [facility] [place] - Short Achilles tendon, LEFT active 2024-01-14 EncounterDiagnosisAct [facility] Heel pain active 2024-01-14 ProblemAct [facility] [place] - Short Achilles tendon, RIGHT active 2024-01-14 EncounterDiagnosisAct [facility] Heel pain active 2022-01-22 ProblemAct [facility] T Tinea unguium, onychomycosis active 2023-01-05 ProblemAct [facility] Achilles tendinitis, right leg active 2017-07-30 ProblemAct [facility] Plantar fasciitis active 2024-01-14 EncounterDiagnosisAct [facility] Cellulitis of right toe, paronychia active 2023-01-05 ProblemAct [facility] Idiopathic gout, right ankle and foot active 2017-07-30 [facility]Act [facility] Calcaneal spur, right foot active 2017-07-30 ProblemAct [facility] Ingrowing nail active 2023-01-05 ProblemAct [facility] Congenital pes cavus, right foot active 2022-11-23 ProblemAct [facility] Tendonitis of left ankle active 2022-01-22 ProblemAct [facility] Anginal equivalent active 2023-02-23 ProblemAct [facility] Long-term use of high-risk medication active [facility]Act [facility] Chronic heart failure active 2020-04-12 ProblemAct [facility] Immunizations Vaccine Date Source Lot Number Status Rabies Immune Globulin 05/08/2018 [facility] [id number] co mpleted Rabies 05/08/2018 [facility] [id number] completed Rabies 05/15/2018 [facility] [id number] completed Covid-19 mRNA Dipak-sucrose S easonal Vaccine - myMatrixx 30 mcg/0.3 mL 12 years and older 06/16/2023 [facility] [id number] completed Rabies 05/22/2018 [facility] [id number] completed Zoster Vaccine Recombinant (Shingrix) 08/15/2022 [facility] [id number] completed Rabies 05/11/2018 [facility] [id number] completed Pneumococcal Conjugate 20-Valent 11/04/2021 [facility] [id number] completed Zoster Vaccine Recombinant (Shingrix) 11/18/2021 [facility] [id number] completed Tdap 06/14/2019 [facility] completed
--- OUTSIDE RECORDS SUMMARY | 2024-06-15 12:58 | XMS_ITS | Continuity of Care Document ---
Author Organization [facility] Address [address] [place] [address] Phone Care Team Providers Care Payroll Clerk Name Role Phone Woody Boo MD Unavailable Unavailable Allergies, Adverse Reactions, Alerts Substance Reaction Status Criticality egg yolk Active No Information peanut Active No Information codeine Active No Information Medications Medication Instructions Dosage Effective Dates (start - stop) Status Comments methylprednisolone 4 mg tablets in a dose pack take by oral route as directed per package instructions for 6 days - Active tizanidine 4 mg tablet take 1 tablet by oral route every 8 hours as needed for spasms - Active isosorbide dinitrate 20 mg tablet take 1 tablet by oral route 2 times every day 20 MG - Active hydrochlorothiazide 12.5 mg tablet take 1 tablet by oral route every day 12.5 MG - Active losartan 50 mg tablet take 1 tablet by oral route every day 50 MG - Active aspirin 81 mg tablet,delayed release take 1 tablet by oral route every day 81 MG - Active omeprazole 10 mg capsule,delayed release take 2 capsule by oral route every day before a meal 20 MG - Active lisinopril 5 mg tablet take 1 tablet by oral route every day 5 MG - Active Uloric 40 mg tablet take 1 tablet by oral route every day 40 MG - Active prednisone 1 mg tablet take 5 tablet by oral route every day 5 MG - Active rosuvastatin 10 mg tablet take 1 tablet by oral route every day 10 MG - Active Procedures Procedure Date Translaminar Lumbar\Sacral Or Caudal W/ Image Guidance Fluoro Guide & Local For Diag Or Therap Inj Of Spine DepoMedrol 1mg MRI Cervical Spine Technical Component w /o cntrs Office/outpatient visit,est, high Translaminar Lumbar\Sacral Or Caudal W/ Image Guidance DepoMedrol 1mg Office/outpatient visit,est, high X-ray Exam Of Shoulder 2+ Views - Comple te Office/outpatient visit,est, mod 2023 X-ray exam of neck spine, 4-5 views Office/outpatient visit,est, mod 2023 Translaminar Lumbar\Sacral Or Caudal W/ Image Guidance Methylprednisolone 80 Mg Office/outpatient visit,est, high Translaminar Lumbar\Sacral Or Caudal W/ Image Guidance Methylprednisolone 80 Mg Office/outpatient visit,est, high X_RAY EXAM OF SHOULDER 2 VIEWS-COMPLETE Office/outpatient visit,est, mod 2022 X Ray Exam Hip Unilateral W/ Pelvis If P erf, 2-3 Views Office/outpatient visit,est, mod 2021 Dexamethasone Sod Phos, Decadron 4mg/1mg Toradol Per 15mg Office/outpatient visit,est, mod 2020 Translaminar Lumbar\Sacral Methylprednisolone 80 Mg Office/outpatient visit,est, mod 2020 MRI Lumbar Spine Office/outpatient visit,est, mod 2020 X-ray exam of hand, 3+ views Office/outpatient visit,new, mod 2020 Decadron 4mg/1ml Drain/inject intermed joint/bursa Drain/inject small joint or bursa Office/outpatient visit,est, mod 2020 SoftTec Genu /Donjoy Trom/Genu Train S-H inged Knee Brace Patella Stabilizer Control, Addition To Knee Sleeve SoftTec Genu /Donjoy Trom/Genu Train S-H inged Knee Brace Patella Stabilizer Control, Addition To Knee Sleeve Decadron 4mg Drain/inject major joint or bursa X-ray exam of knee, 3 views Office/outpatient visit,est, mod 2020 X-ray exam of lower spine, complete Office/outpatient visit,new, mod 2019 Decadron 4mg Toradol 15mg Injection, Intramuscular Or Subcutaneous Advance Directives Directive Yes / No Effective Date File Name No Information Encounters Encounter Description Practice Location Reason(s) For Visit Diagnoses Date Provider Providers Copied on Encounter [facility], [address], [place], [place], [address], tel:[phone] [place] - [address] Spinal stenosis, lumbar region with neurogenic claudicationLumb ar radiculopathy Sep-3 4 Ema Mckay. [address], [address], [place], [place], [address] , [place]. tel:[phone] Referring Provider: Woody Boo MD, [address], [place], [address] . tel:[phone] [facility], [address], [place], [place], [address], [place] tel:[phone] [facility] MRI [address] No Information Sep-1 4 Mike Faust. [address], [place], [place], [address] , [place]. tel:[phone] Referring Provider: Woody Boo MD, [address], [place], [address] . tel:[phone] Office/outpa tient visit,[facility], [address], [place], [place], [address], [place] tel:[phone] [address] cervical spine (chief complaint) lumbar spine (chief complaint) Spinal stenosis, lumbar region with neurogenic claudicationCerv ical painLumbar radiculopathy Sep-1 6-202 4 Ema Mckay. [address], [address], [place], [place], [address] , [place]. tel: [phone] Referring Provider: Woody Boo MD, [address], [place], [address] . tel:[phone] [facility], [address], [place], [address], [place] tel:[phone] [place] - Procedure [address] Lumbar radiculopathySpi nal stenosis, lumbar region with neurogenic claudication Apr-0 8 4 Ema Mckay. [address], [address], [place], [place], [address] , [place]. tel: [phone] Referring Provider: Woody Boo MD, [address], [place], [address] . tel:[phone] Office/outpa tient visit,[facility], [address], [place], [place], [address], [place] tel:[phone] cervical spine (chief complaint) lumbar spine (chief complaint) Lumbar radiculopathySpi nal stenosis, lumbar region with neurogenic claudicationCerv ical pain Apr-0 3-202 4 Ema Mckay. [address], [address], [place], [place], [address] , [place]. tel: [phone] Referring Provider: Woody Boo MD, [address], [place], [address] . tel:[phone] Office/outpa tient visit,[facility], [address], [place], [place], [address], [place] tel:[phone] - [address] left shoulder pain (chief complaint) Body mass index [BMI] 25.0-25.9, adultPain of left scapulaAcute pain of left shoulderCervical pain 4 Alfredo Katz. [address], [place], [place], [address] , [place]. [phone] Referring Provider: Sterling Batista, [address], [place], [address] . tel:[phone] Office/outpa tient visit,[facility], [address], [place], [place], [address], [place] tel:[phone] lumbar spine (chief complaint) cervical spine (chief complaint) Lumbar radiculopathySpi nal stenosis, lumbar region with neurogenic claudicationCerv ical pain 4 Ema Mckay. [address], [address], [place], [address] , [place]. tel:[phone] Referring Provider: Woody Boo MD, [address], [place], [address] . tel:[phone] [facility], [address], [place], [place], [address], [place] tel:[phone] [place] - [address] Lumbar radiculopathySpi nal stenosis, lumbar region with neurogenic claudication 3 Ema Mckay. [address], [address], [place], [place], [address] , [place]. [phone] Referring Provider: Woody Boo MD, [address], [place], [address] . tel:[phone] [facility], [address], [place], [place], [address], [place] tel:[phone] Lumbar radiculopathy 3 Ema Mckay. [address], [address], [place], [place], [address] , [place]. tel:[phone] Referring Provider: Woody Boo MD, [address], [place], [address] . tel:[phone] Office/outpa tient visit,[facility], [address], [place], [place], [address], [place] tel:[phone] lumbar spine (chief complaint) Spinal stenosis, lumbar region with neurogenic claudicationLumb ar radiculopathyCer vical pain 3 Ema Mckay. [address], [address], [place], [place], [address] , [place]. tel:[phone] Referring Provider: Woody Boo MD, [address], [place], [address] . tel:[phone] [facility], [address], [place], [address], [place] tel:[phone] [facility] Procedure [address] Spinal stenosis, lumbar region with neurogenic claudicationLumb ar radiculopathy 3 Ema Mckay. [address], [address], [place], [place], [address] , [place]. tel:[phone] Referring Provider: Woody Boo MD, [address], [place], [address] . tel:[phone] Office/outpa tient visit,[facility], [address], [place], [address], [place] tel:[phone] [place] [address] lumbar spine (chief complaint) Lumbar radiculopathySpi nal stenosis, lumbar region with neurogenic claudication 3 Ema Mckay. [address], [address], [place], [address] , [place]. tel:[phone] Referring Provider: Woody Boo MD, [address], [place], [address] . tel:[phone] Office/outpa tient visit,rust, [facility], [address], [place], [place], [address], [place] tel:[phone] [address] right shoulder pain (chief complaint) Pain in right shoulderThoracic spine pain 3 Earl Murray. [address], [place], [place], [address] , [place]. tel:[phone] Referring Provider: Trevor Bautista, [address], [place], [address] . tel:[phone] Office/outpa tient visit,rust, [facility], [address], [place], [place], [address], [place] tel:[phone] [facility] [address] right hip pain (chief complaint) Pain in right hipPrimary osteoarthritis of right hip 2 Earl Murray. [address], [place], [place], [address] , [place]. [phone] Referring Provider: Trevor Bautista, [address], [place], [address] . tel:[phone] Office/outpa tient visit,[facility], [address], [place], [address], [place] tel:[phone] [place] [address] lumbar spine (chief complaint) Left flank pain 1 Noe CONNER Moore. [address], [place], [address] , [place]. tel: [phone] Referring Provider: Teresa PRIETO, [address], [place], [address] . tel:[phone] [facility], [address], [place], [address], [place] tel:[phone] [place] - Procedure [address] Lumbar radiculopathySpi nal stenosis, lumbar region with neurogenic claudication 1 Ema Mckay. [address], [address], [place], [address] , [place]. tel: [phone] Referring Provider: Woody Boo MD, [address], [place], [address] . tel:[phone] Office/outpa tient visit,rust, [facility], [address], [place], [address], [place] tel:[phone] [facility] [address] lumbar spine (chief complaint) Lumbar radiculopathySpi nal stenosis, lumbar region with neurogenic claudication 1 Ema Mckay. [address], [address], [place], [place], [address] , [place]. tel: [phone] Referring Provider: Woody Boo MD, [address], [place], [address] . tel:[phone] [facility], [address], [place], [address], [place] tel:[phone] [place] - MRI [address] No Information 1 Christi Smith. [address], [place], [place], [address] , [place]. tel: [phone] Referring Provider: Evaristo Batista, [address], [place], [address] . tel:[phone] Office/outpa tient visit,[facility], [address], [place], [place], [address], [place] tel:[phone] [facility] [address] lumbar spine (chief complaint) Lumbar radiculopathy 0 1 Bruce Loera. [address], [place], [place], [address] , [place]. tel: [phone] Referring Provider: Woody Boo MD, [address], [place], [address] . tel:[phone] Office/outpa tient visit,[facility], [address], [place], [place], [address], [place] tel:[phone] [facility] - [address] right hand pain (chief complaint) Right hand painPrimary OA of 1st carpometacarpal joint of right handArthritis of wrist, right 1 Vinod Sorensen. [address], [place], [address] , [place]. tel: [phone] Referring Provider: Franchesca Brock MD, [address], [place], [address] . tel:[phone] Office/outpa tient visit,[facility], [address], [place], [place], [address], [place] tel:[phone] knee pain equally on both sides (chief complaint) Acute pain of left kneeSprain of medial collateral ligament of right knee, initial encounterSprain of medial collateral ligament of left knee, initial encounterHistory of knee replacement procedure of right knee 1 Earl Murray. [address], [place], [place], [address] , [place]. tel: [phone] Referring Provider: Sterling Batista, [address], [place], [address] . tel:[phone] Office/outpa tient visit,[facility], [address], [place], [place], [address], [place] tel:[phone] - [address] left knee pain (chief complaint) Body mass index (BMI) 25.0-25.9, adultAcute pain of left knee 1 Alfredo Katz. [address], [place], [address] , [place]. tel: [phone] Referring Provider: Sterling Batista, [address], [place], [address] . tel:[phone] Office/outpa tient visit,[facility], [address], [place], [address], [place] tel:[phone] [place] [address] lumbar spine (chief complaint) Lumbar radiculopathy 0 Ema Mckay. [address], [address], [place], [place], [address] , [place]. tel:[phone] Referring Provider: Woody Boo MD, [address], [place], [address] . tel:[phone] [facility], [address], [place], [place], [address], tel:[phone] [facility] 400 No Information 0 Ema Mckay. [address], [address], [place], [address] , [place]. tel: [phone] Family History Family Member Type Diagnosis Age At Onset No Information Payers Payer name Insurance type Covered alliance party ID Alfredo juares(s) MEDICARE MB [id number] [facility] SUPPLEMENT CI [id number] Social History Type Description Quantity Date Captured Comments Alcohol Use Details Unknown Caffeine Use Details Unknown Tobacco Use Status No Information Smoking Status No Information Sex Male Vital Signs Date / Time: Height Weight BMI Pulse Rate Blood Pressure Temperature Respiratory Rate Body Surface Area Head Circumference Head Circ. Percentile Wt./Sukhdev. Percentile BMI percentile Pulse Ox Inhaled Ox 11:30 AM 68.00 in 77.111 kg (170.00 lbs) 25.8 5 kg/m eter (2) 51 /min 160/76 mm[Hg] 96.80 F 98 % 12:39 PM 68.00 in 50 /min 165/66 mm[Hg] 98 % Chief Complaint And Reason For Visit No Information Reason For Referral Reason For Referral No Information Plan Of Treatment Date Type Action Status Goal Dietary manageme nt education, guidance, and counseling completed Goal Dietary manageme nt education, guidance, and counseling completed Referral Ordered: MRI of cervical spine W/o Contrast spine, cervical ordered Referral Ordered: X-ray Exam Of Shoulder 2+ Views - Complete LT ordered Referral Ordered: X-ray exam of neck spine, 4-5 views ordered Referral Ordered: X_RAY EXAM OF SHOULDER 2 VIEWS-COMPLETE RT ordered Referral Ordered: X Ray Exam Hip Unilateral W/ Pelvis If Perf, 2-3 Views RT ordered Referral Ordered: MRI of lumbar spine W/o Cntrst spine, lumbar ordered Referral Ordered: X-ray exam of hand, 3+ views RT hand ordered Referral Ordered: X-ray exam of knee, 3 views LT ordered Referral Ordered: X-ray exam of lower spine, complete ordered Patient Education Knee Pain or Injury: Ca re Instructions completed Patient Education A Healthy Lifestyle: Ca re Instructions completed History Of Present Illness Encounter Date Complaint History Of Prese nt Illness lumbar spine Mickey Washington is a 73 year old male. He presents with pain. Patient presents for a clinical recheck. Patient had a L3/4, L4/5 Translaminar injection performed by Dr. Boo on 09/20/23 and reports 80% relief. The symptoms occur constantly. The problem is fluctuating. Currently the patient states that the symptoms are moderate. The pain is described as aching. The patient is experiencing pain in the following location: lower back. He rates his current pain as 7/10. The pain radiates to the lower extremities on the right side. The symptoms are aggravated by daily activities. cervical spine Mickey Washington is a 73 year old male. He presents with pain. Patient presents for a clinical recheck. Patient says his pain only occurs when golfing. The symptoms occur rarely. The problem is fluctuating. Currently the patient states that the symptoms are moderate. The pain is described as aching, burning and sharp. The patient is experiencing pain in the following location: neck. He rates his worst pain as 7/10. He rates his current pain as 0/10. The pain radiates to the shoulder blades on the right and left side equally. The symptoms are aggravated by golfing. cervical spine Mickey Washington is a 73 year old male. He presents with pain. Patient states he has done therapy on his own with no relief. He would like ot discuss an injection as an option The symptoms occur constantly. The problem is fluctuating. Currently the patient states that the symptoms are mild-moderate. The pain is described as aching, deep and dull. The patient is experiencing pain in the following location: neck. He rates his current pain as 6/10. The pain does not radiate. The symptoms are aggravated by daily activities. In addition to cervical spine the patient is also experiencing stiffness. lumbar spine Mickey Washington is a 73 year old male. He presents with pain. Patient states he has done therapy on his own with no relief. He would like ot discuss an injection as an option The symptoms occur constantly. The problem is fluctuating. Currently the patient states that the symptoms are mild-moderate. The pain is described as aching, deep and dull. The patient is experiencing pain in the following location: lower back. He rates his current pain as 7/10. The pain radiates to the lower extremities on the right side. The symptoms are aggravated by daily activities. In addition to lumbar spine the patient is also experiencing decreased mobility. left shoulder pain Mr Washington is a 73 year old male who complains of left shoulder pain. He presents with pain on the left side. He states that the symptoms have been acute non-traumatic and began 2 months ago. Patient complains of onset of left posterior shoulder/scapular pain beginning 2 months ago. He denies injury or trauma to the left shoulder. He is very active in golfing and believes his symptoms to be caused by overuse. He has no prior history of left shoulder injury but is currently under the care of Dr. Boo for cervical spine symptoms, last evaluated in 06/2023. Xrays of the cervical spine are on file; PT was ordered at this visit. Patient has been taking OTC NSAIDs and self-medicating with prednisone, which has been prescribed for management of gout. He reports improvement in pain with prednisone and rest but symptoms return when he resumes golfing. He denies radicular pain. The symptoms occur intermittently. Currently the patient states that the symptoms are moderate-severe. The pain is described as aching and throbbing. The symptoms occur with activity. He rates his current pain as 7/10. The symptoms are aggravated by daily activities, lifting, pulling, pushing, repetitive activities, sleeping on the affected side and sports. Mickey states that the symptoms are relieved by rest. cervical spine Mickey Washington is a 73 year old male. He presents with pain. Patient reports on and off pain for years that has become worse overtime without injury The symptoms occur constantly. The problem is fluctuating. Currently the patient states that the symptoms are mild-moderate. The pain is described as aching, deep and dull. The patient is experiencing pain in the following location: neck. He rates his current pain as 7/10. The pain does not radiate. The symptoms are aggravated by daily activities. In addition to cervical spine the patient is also experiencing stiffness. lumbar spine Mickey Washington is a 73 year old male. He presents with pain. Patient is s/p a Translaminar Lumbar three-four, Lumbar four-five injection performed by Dr. Boo on 04/21/2023 and reports 100% relief. He states he is doing well and denies any pain or discomfort at this time. The problem is stable. The patient is experiencing pain in the following location: lower back. He rates his current pain as 0/10. The pain does not radiate. He denies having any associated symptoms. lumbar spine Mickey Washington is a 72 year old male. Patient presents today for clinical recheck of his lumbar spine. He had an epidural on 07/29/22 which provided 80% relief. He reports he aggravated his back about 1 month ago while playing golf. He presents with pain. The symptoms occur intermittently. The problem is fluctuating. Currently the patient states that the symptoms are moderate-severe. The pain is described as aching. The patient is experiencing pain in the following location: lower back. He rates his current pain as 6/10. The pain radiates to the lower extremities on the right side. The symptoms are aggravated by daily activities. Mickey states that the symptoms are relieved by rest and injections. lumbar spine Mickey Washington is a 72 year old male. He presents with pain. Patient had a L3/4, L4/5 Translaminar injection performed by Dr. Boo on 08/14/20. Patient presents for a clinical recheck. Patient says his pain began to return in May 2022. The symptoms occur intermittently. The problem is fluctuating. Currently the patient states that the symptoms are moderate. The pain is described as aching. The patient is experiencing pain in the following location: lower back. He rates his worst pain as 8/10. He rates his current pain as 5/10. The pain does not radiate. The symptoms are aggravated by daily activities and sports. right shoulder pain Mickey bragg is a 72 year old male. Patient presents today with right shoulder pain that started in May when he was playing golf. He denies any recent treatment for this problem. He presents with pain on the right side. The symptoms occur constantly with intermittent worsening. The problem is fluctuating. Currently the patient states that the symptoms are moderate. The pain is described as aching. The patient is experiencing pain in the following location: entire shoulder on the right side. The symptoms are aggravated by daily activities. Mickey states that the symptoms are relieved by rest. right hip pain Mickey Washington is a 71 year old male. Patient presents with right hip pain that began about 1-2 wks ago without injury or fall. He plays golf and feels it gets re-aggravated when he plays. He denies radiating pain. He presents with pain on the right side. The symptoms occur intermittently. The problem is fluctuating. Currently the patient states that the symptoms are mild-moderate. The pain is described as discomforting. The symptoms occur intermittently. The patient is experiencing pain in the following location: lateral region on the right side. He rates his worst pain as 7/10. He rates his current pain as 2/10. The pain does not radiate. The symptoms are aggravated by repetitive activities and golf and twisting. Mickey states that the symptoms are relieved by rest. In addition to right hip pain the patient is also experiencing decreased mobility. lumbar spine Mickey Washington is a 70 year old male. He presents with pain. The symptoms occur intermittently. The problem is unchanged. The pain is described as aching. The symptoms occur intermittently. He also reports additional pain in the left flank. He rates his current pain as 5/10. The pain does not radiate. The symptoms are aggravated by daily activities. Mickey states that the symptoms are relieved by rest. In addition to lumbar spine the patient is also experiencing decreased mobility. lumbar spine Mickey Washington is a 70 year old male. He presents with pain. The symptoms occur intermittently. The problem is unchanged. Currently the patient states that the symptoms are mild-moderate. The pain is described as aching. The symptoms occur continuously. The patient is experiencing pain in the following location: lower back. He rates his current pain as 8/10. The patient has had a previous MRI. lumbar spine Mickey Washington is a 70 year old male. He presents with pain. Patient last saw Dr. Boo on 05/17/20 where he prescribed PT and neurontin and patient reports 0% relief. Patient states his pain has gotten worse. The symptoms occur constantly. The problem is fluctuating. Currently the patient states that the symptoms are moderate. The pain is described as sharp and shooting. The symptoms occur continuously. He rates his current pain as 8/10. The pain does not radiate. The symptoms are aggravated by daily activities and walking. Mickey states that the symptoms are relieved by rest. In addition to lumbar spine the patient is also experiencing decreased mobility. right hand pain Mickey Washington is a 70 year old male. Patient presents for right hand pain ongoing for 3 weeks. 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 He states was referred by Dr. Elliott. He presents with pain on the right side. The symptoms occur intermittently. The problem is fluctuating. Currently the patient states that the symptoms are mild-moderate. The pain is described as aching. The symptoms occur intermittently. The symptoms are aggravated by daily activities. Mickey states that the symptoms are relieved by rest. In addition to right hand pain the patient is also experiencing decreased mobility. knee pain equally on both sides Mickey Washington is a 70 year old male. Patient presents with bilateral knee pain. He has seen Sterlign Fuentes PA-C who gave him a cortisone injection on 06/20/20. He reports very mild improvement after the injection but this has worn off. He continues to have daily constant medial pain in both knees. His right knee was replaced in [place] in November of 2019. He has been taking Prednisone which provides some relief. He presents with pain on the right and left side equally. He states that the symptoms have been chronic non-traumatic. The symptoms occur constantly. The problem is unchanged. Currently the patient states that the symptoms are moderate. The pain is described as aching and discomforting. The symptoms occur continuously. He also reports additional pain in the entire knee region on the right and left side equally. He rates his current pain as 6/10. The pain does not radiate. The symptoms are aggravated by daily activities, walking and movement. Mickey states that the symptoms are relieved by NSAIDs. In addition to knee pain equally on both sides the patient is also experiencing decreased mobility and tenderness. The patient has had a previous x-ray. He has been treated with a corticosteroid injection on the left side. left knee pain Mr Washington is a 69 year old male who complains of left knee pain. He presents with pain on the left side. He states that the symptoms have been acute non-traumatic and began 2 to 3 months ago. Patient complains of chronic left knee pain worsening over the past several months. He is s/p right total knee replacement 3 months ago in [place] and has a history of left knee arthroscopic surgery more than 5 years ago. Since worsening of pain, patient has been applying Voltaren Gel. The symptoms occur constantly with intermittent worsening. Currently the patient states that the symptoms are moderate-severe. The pain is described as aching, discomforting and localized. The symptoms occur continuously. The patient is experiencing pain in the following location: anterior aspect of knee on the left side. He rates his current pain as 9/10. The pain does not radiate. The symptoms are aggravated by daily activities, movement, walking, standing and sports. Mickey states that the symptoms are relieved by no specific activity. In addition to left knee pain the patient is also experiencing limping and joint pain. lumbar spine Mickey Washington is a 69 year old male. He presents with pain. He states that the symptoms have been chronic non-traumatic. The problem is fluctuating. Currently the patient states that the symptoms are moderate-severe. The pain is described as aching. The symptoms occur continuously. The patient is experiencing pain in the following location: lower back. He rates his worst pain as 7/10. He rates his current pain as 5/10. The pain does not radiate. The symptoms are aggravated by daily activities. Mickey states that the symptoms are relieved by rest. In addition to lumbar spine the patient is also experiencing decreased mobility. Functional Status Date Functional Assessmen t Pain Score 7/10 Pain Score 0/10 Instructions Date Instruction Additional Infor mation Low back and right l eg pain with worsening severity over years with now worsening pain with sitting. Xray is benign. I ordered PT and neurontin.His pain persists despite PT and medicationMRI demonstrates stenosis L3-4, L4-5I performed an epidural 08/2020 with 100% reliefThe pain has returned since 05/2022I repeated the epidural 07/29/2022 with 80% relief and repeat epidural 04/2023 provided 80% reliefThe pain has returnedI repeated the epidural 09/2023 with 80% relief but return of painProcedure notes reviewed MRI images and reports were discussed with the patient. Extensive discussion and treatment options was performed with the patient. Epidurals were discussed along with the risks and benefits.I discussed laminectomy foraminotomy L3-4, L4-5 with risks and benefits discussedSurgery is indicated due to pain refractory to PT, epidurals, medication and time All questions were answered. Risks and benefits were discussed. Alternatives discussed. Procedure described in detail. We will proceed forward in May. Discussion with patient ensued with regards to whether surgery is to be performed at the hospital versus outpatient surgery center. Risks and benefits of both were described, along with discussion of increased occurence of nosocomial infection and morbidity at the hospital as compared with an outpatient setting. The patient wished to proceed forward with surgery at an outpatient facility. Thus, [facility] the [facility] in the interim Related to Spinal stenosis, lumbar region with neurogenic claudication Neck pain, trapezial pain, interscapular pain refractory to PTPT notes reviewedWe discussed targeted epiduralI will order MRI Related to Cervical pain Neck pain, trapezial pain, interscapular pain refractory to PTPT notes reviewedWe discussed targeted epiduralI will order MRI Related to Cervical pain Low back and right l eg pain with worsening severity over years with now worsening pain with sitting. Xray is benign. I ordered PT and neurontin.His pain persists despite PT and medicationMRI demonstrates stenosis L3-4, L4-5I performed an epidural 08/2020 with 100% reliefThe pain has returned since 05/2022I repeated the epidural 07/29/2022 with 80% relief and repeat epidural 04/2023 provided 80% reliefThe pain has returnedProcedure notes reviewed MRI images and reports were discussed with the patient. Extensive discussion and treatment options was performed with the patient. Epidurals were discussed along with the risks and benefits. Decision for epidural was made. I will perform this myself. We will proceed forward. It should be noted that pain level of patient is marked with >7 on VAS scale, had prior marked improvement from the epidural (75%), the pain has been refractory to formal PT and the patient has been performing ongoing physician directed home exercise program over at least 6 weeksTO BE CLEAR, THE PATIENT HAS BEEN DOING THERAPY EXERCISES INSTRUCTED THROUGH [facility] AT LEAST 3 TIMES WEEKLY, WITH WORSENING PAIN AND NOW INTOLERANCE TO THE EXERCISES DUE TO PAIN.Of note the level of function increased for at least two weeks and the patient was able to decrease the amount of medication used and therapy for at least 2 weeks Related to Lumbar radiculopathy The x-rays were revi ewed with the patient. I believe his symptoms are coming from his neck and not his shoulder. I prescribed a Medrol Dosepak for him. He has taken in the past without adverse side effect. Tizanidine 4 mg tablets were also prescribed for him to use but only at home due to possible sedation. We talked about a cervical pillow that may aid his sleep quality. Shoulder rolls and chin tucks were also prescribed. Heat may also help him loosen up. He will follow-up with Dr. Fuller in 2 weeks if symptoms persist Related to Cervical pain Dietary management e ducation, guidance, and counseling Related to Body mass index [BMI] 25.0-25.9, adult Low back and right l eg pain with worsening severity over years with now worsening pain with sitting. Xray is benign. I ordered PT and neurontin.His pain persists despite PT and medicationMRI demonstrates stenosis L3-4, L4-5I performed an epidural 08/2020 with 100% reliefThe pain has returned since 05/2022I repeated the epidural 07/29/2022 with 80% reliefHe returns after 8 monthsI repeated the epidural 04/2023 with 80% reliefHe returns with neck pain, trapezial painXray demonstrates anterior syndesmophytesProcedure notes reviewed MRI images and reports were discussed with the patient. Extensive discussion and treatment options was performed with the patient. Epidurals were discussed along with the risks and benefits. I will order PT cervical Related to Lumbar radiculopathy Low back and right l eg pain with worsening severity over years with now worsening pain with sitting. Xray is benign. I ordered PT and neurontin.His pain persists despite PT and medicationMRI demonstrates stenosis L3-4, L4-5I performed an epidural 08/2020 with 100% reliefThe pain has returned since 05/2022I repeated the epidural 07/29/2022 with 80% reliefHe returns after 8 monthsProcedure notes reviewed MRI images and reports were discussed with the patient. Extensive discussion and treatment options was performed with the patient. Epidurals were discussed along with the risks and benefits. Decision for epidural was made. I will perform this myself. We will proceed forward. It should be noted that pain level of patient is marked with >7 on VAS scale, had prior marked improvement from the epidural (75%), the pain has been refractory to formal PT and the patient has been performing ongoing physician directed home exercise program over at least 6 weeksTO BE CLEAR, THE PATIENT HAS BEEN DOING THERAPY EXERCISES INSTRUCTED THROUGH [facility] AT LEAST 3 TIMES WEEKLY, WITH WORSENING PAIN AND NOW INTOLERANCE TO THE EXERCISES DUE TO PAIN.Of note the level of function increased for at least two weeks and the patient was able to decrease the amount of medication used and therapy for at least 2 weeks Related to Lumbar radiculopathy Low back and right l eg pain with worsening severity over years with now worsening pain with sitting. Xray is benign. I ordered PT and neurontin.His pain persists despite PT and medicationMRI demonstrates stenosis L3-4, L4-5I performed an epidural 08/2020 with 100% reliefThe pain has returned since 05/2022I repeated the epidural 07/29/2022 with 80% reliefHe returns after 8 monthsProcedure notes reviewed MRI images and reports were discussed with the patient. Extensive discussion and treatment options was performed with the patient. Epidurals were discussed along with the risks and benefits. Decision for epidural was made. I will perform this myself. We will proceed forward. It should be noted that pain level of patient is marked with >7 on VAS scale, had prior marked improvement from the epidural (75%), the pain has been refractory to formal PT and the patient has been performing ongoing physician directed home exercise program over at least 6 weeksTO BE CLEAR, THE PATIENT HAS BEEN DOING THERAPY EXERCISES INSTRUCTED THROUGH [facility] AT LEAST 3 TIMES WEEKLY, WITH WORSENING PAIN AND NOW INTOLERANCE TO THE EXERCISES DUE TO PAIN.Of note the level of function increased for at least two weeks and the patient was able to decrease the amount of medication used and therapy for at least 2 weeks Related to Lumbar radiculopathy Low back and right l eg pain with worsening severity over years with now worsening pain with sitting. Xray is benign. I ordered PT and neurontin.His pain persists despite PT and medicationMRI demonstrates stenosis L3-4, L4-5I performed an epidural 08/2020 with 100% reliefThe pain has returned since 05/2022 MRI images and reports were discussed with the patient. Extensive discussion and treatment options was performed with the patient. Epidurals were discussed along with the risks and benefits. Decision for epidural was made. I will perform this myself. We will proceed forward. It should be noted that pain level of patient is marked with >7 on VAS scale, had prior marked improvement from the epidural (75%), the pain has been refractory to formal PT and the patient has been performing ongoing physician directed home exercise program over at least 6 weeksTO BE CLEAR, THE PATIENT HAS BEEN DOING THERAPY EXERCISES INSTRUCTED THROUGH [facility] AT LEAST 3 TIMES WEEKLY, WITH WORSENING PAIN AND NOW INTOLERANCE TO THE EXERCISES DUE TO PAIN.Of note the level of function increased for at least two weeks and the patient was able to decrease the amount of medication used and therapy for at least 2 weeks Related to Lumbar radiculopathy I discussed my findi ng as well as the x-rays with the patient. While he does have a fair amount of arthritis in the glenohumeral joint. He does not have pain associated with the shoulder glenohumeral joint at all. His pain is more in the periscapular area and medial border of the scapula and upper thoracic spine. He states he injured his golfing and felt like he pulled a muscle. We discussed that this type of pain is not typically related with a primary shoulder pathology. This could be referred pain from the cervical spine versus thoracic spine versus truly a muscle pull. We discussed treatment options and recommendations. We discussed the pain likely comes from inflammation and he is quite irritated. I recommended a Medrol Dosepak to be followed by nonsteroidal anti-inflammatories. I reviewed the patient's medication list and we have discussed any potential conflicts or contraindications to anti-inflammatory use. I have recommended Mobic 15 mg by mouth daily with food. I have reinforced GI precautions. I have recommended taking it for at least 3 weeks and then weaning off as tolerated. I have cautioned against long-term use of nonsteroidal anti-inflammatories with the increased risk of harmful side effects with long-term use. I recommended physical therapy with modalities to try to help alleviate the problem. If his pain persist, I would recommend follow-up with Dr. Boo who he has seen in the past for his spine for further work-up and treatment options Related to Thoracic spine pain I discussed my findi ngs as well as the x-rays with the patient. He has evidence of flareup of his right hip arthritis. Ironically, his left hip is worse on the x-ray but it has [place] no pain with motion, therefore it is not flared up. He has had a history of lumbar issues, but his symptoms are reproduced with range of motion of the hip, therefore I do feel that the symptoms are coming from the hip flareup. We discussed treatment options including surgical intervention with hip replacement versus conservative management. The patient prefers conservative management at this time. We discussed all of the other conservative options. We discussed the risks and benefits of intramuscular injection. The patient wished to proceed. Therefore he had an intramuscular injection under sterile conditions with dexamethasone and Toradol. He tolerated that well. A Band-Aid was placed. We discussed his medication list and any potential contraindications or interactions. I recommended a Medrol dose pack followed by nonsteroidal anti-inflammatories. I have recommended Mobic 15 mg by mouth daily with food. I have reinforced GI precautions. I have recommended taking it for at least 3 weeks and then weaning off as tolerated. I have cautioned against long-term use of nonsteroidal anti-inflammatories with the increased risk of harmful side effects with long-term use. We discussed activity modification. I would expect his symptoms to improve once inflammation is calmed down. Follow-up as needed. Related to Primary osteoarthritis of right hip Low back and right l eg pain with worsening severity over years with now worsening pain with sitting. Xray is benign. I ordered PT and neurontin.His pain persists despite PT and medicationMRI demonstrates stenosis L3-4, L4-5 MRI images and reports were discussed with the patient. Extensive discussion and treatment options was performed with the patient. Epidurals were discussed along with the risks and benefits. Decision for epidural was made. I will perform this myself. We will proceed forward. Related to Lumbar radiculopathy patient returns to t he office today with complaints of continued low back pain. Patient denies lower extremity radicular complaints. He has been using prednisone intermittently for gouty arthritis and getting some relief of his low back pain. He is also using gabapentin 300 mg daily with no relief. He has tried a course of physical therapy which gave him some temporary relief but does continue to have breakthrough low back pain. His exam today demonstrates no evidence of focal weakness. Since the patient has been intractable to conservative management MRI will be ordered without contrast. Patient will return to Dr. Boo following the MRI completion. We did not renew the anti-inflammatories today as the patient is telling me his lab work related to kidney function has been elevated. Continue gabapentin as prescribed. Tramadol 50 mg #28 one tablet every 6 hours for pain control. Related to Lumbar radiculopathy The patient's pathol ogy was discussed in great detail including natural history and the likely etiology. The x-rays were reviewed with the patient. The patient was encouraged to ask questions and all questions were answered.After discussing risks, benefits, and alternatives, the patient elected to proceed with conservative treatment of the thumb CMC arthritis. Should conservative treatment fail, we may consider surgery. We will begin with a corticosteroid injection to the thumb carpometacarpal joint (see procedure note below). In addition we'll provide the patient with a hand-based thumb spica support brace to help with pain.Patient will follow-up as needed for evaluation of symptoms, possible re-injection, and discussion about continuing with nonoperative versus operative treatment.Procedure Note:Prior to corticosteroid injection(s), risks, common side effects, and expected benefits were reviewed. Discussion of risks and side effects included but were not limited to transient elevation in blood glucose, flushing, infection, bleeding, skin discoloration, or allergic reaction. Patient was counseled that multiple or frequently repeated injections into the same joint/site are generally discouraged. A temporary increase in pain for 24-72 hours is expected, diabetic patients should especially expect an increase in blood glucose levels for a transient period of time. All questions were answered to patient's satisfaction and they wished to proceed. Verbal consent obtained. Sterile technique was utilized with Chloraprep for skin. Band-Aid(s) applied following injection(s). Injection(s) well tolerated and without apparent complication. The following injection(s) was/were provided:.5 cc of Dexamethasone 4mg/ml and 1 cc of 2% lidocaine was injected into the right thumb CMC joint through an injection point at the juncture of the glabrous and non-glabrous skin.Also,.5 cc of Dexamethasone 4mg/ml and 1 cc of 2% lidocaine was injected into the right wrist radiocarpal joint through an injection point distal to Junior's tubercle dorsally. 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 The x-rays were reviewed with the patient. The patient was encouraged to ask questions and all questions were answered.After discussing risks, benefits, and alternatives, the patient elected to proceed with conservative treatment of the thumb CMC arthritis. Should conservative treatment fail, we may consider surgery. We will begin with a corticosteroid injection to the thumb carpometacarpal joint (see procedure note below). In addition we'll provide the patient with a hand-based thumb spica support brace to help with pain.Patient will follow-up as needed for evaluation of symptoms, possible re-injection, and discussion about continuing with nonoperative versus operative treatment.Procedure Note:Prior to corticosteroid injection(s), risks, common side effects, and expected benefits were reviewed. Discussion of risks and side effects included but were not limited to transient elevation in blood glucose, flushing, infection, bleeding, skin discoloration, or allergic reaction. Patient was counseled that multiple or frequently repeated injections into the same joint/site are generally discouraged. A temporary increase in pain for 24-72 hours is expected, diabetic patients should especially expect an increase in blood glucose levels for a transient period of time. All questions were answered to patient's satisfaction and they wished to proceed. Verbal consent obtained. Sterile technique was utilized with Chloraprep for skin. Band-Aid(s) applied following injection(s). Injection(s) well tolerated and without apparent complication. The following injection(s) was/were provided:.5 cc of Dexamethasone 4mg/ml and 1 cc of 2% lidocaine was injected into the right thumb CMC joint through an injection point at the juncture of the glabrous and non-glabrous skin.Also,.5 cc of Dexamethasone 4mg/ml and 1 cc of 2% lidocaine was injected into the right wrist radiocarpal joint through an injection point distal to Junior's tubercle dorsally. Related to Primary OA of 1st carpometacarpal joint of right hand Patient's left knee exam is benign. He has no laxity but does have irritation of the MCL and tenderness over the medial epicondyle. He may have strained his MCL with golfing, but there is no instability. We have discussed treatment options. We discussed icing the knees on a regular basis. We discussed use of anti-inflammatory medications. I recommended a knee brace that will give both compressive and structural support for both knees. We also discussed the importance of maintaining good flexibility and strengthening exercises for both quadriceps. Follow-up in 6 weeks for clinical recheck. Related to Sprain of medial collateral ligament of left knee, initial encounter I discussed my findi ngs and the x-rays with the patient. His right total knee replacement has good range of motion and has no swelling no signs of any complication. He has no laxity but does have irritation of the MCL and tenderness over the medial epicondyle. He may have strained his MCL with golfing, but there is no instability. We have discussed treatment options. We discussed icing the knees on a regular basis. We discussed use of anti-inflammatory medications. I recommended a knee brace that will give both compressive and structural support for both knees. We also discussed the importance of maintaining good flexibility and strengthening exercises for both quadriceps. Follow-up in 6 weeks for clinical recheck. Related to Sprain of medial collateral ligament of right knee, initial encounter I offered a cortison e injection to the knee and he consented. In the sitting position the anterolateral joint line was prepped with Betadine. A refrigerant spray proceeded injection of 1 cc of 4 mg dexamethasone, 2 cc of Marcaine and 2 cc of lidocaine. Tolerated the procedure well and usual postinjection instructions including icing to the injection site were discussed. Up in 2-3 weeks for reevaluation. Related to Acute pain of left knee Dietary management e ducation, guidance, and counseling Related to Body mass index [BMI] 25.0-25.9, adult Low back and right l eg pain with worsening severity over years with now worseningpain with sitting. Xray is benign. An extensive discussion was performed with the patient about their symptoms, images, diagnosis and treatment options. A complex medical discussion of treatment choices such as PT, home exercise, epidurals, medication, pain management, lifestyle and activity modification, and possible surgical intervention was performed. All patient questions were answered. I will order PT and neurontin Related to Lumbar radiculopathy Assessments Type Assessment Date assessment Spinal stenosis, lumbar region w ith neurogenic claudication assessment Lumbar radiculopathy Patient Care Teams Name Effective Dates (start - stop) Status Members No Information
== END 2024-06-15 12:31 | disposition home or self-care (01) ==
PROVIDERS: Visit Provider Internal Medicine Nephrology
DX: N18.31 Chronic kidney disease, stage 3a (principal); I10 Essential (primary) hypertension; N20.0 Calculus of kidney; N28.1 Cyst of kidney, acquired
CPT/HCPCS: 99214

== ENCOUNTER → 2024-06-15 11:50 | Outpatient (BNVA) | payer MEDICARE, SELFPAY | PROVIDERS: Visit Provider Internal Medicine Nephrology | DX: I12.9 Hypertensive chronic kidney disease with stage 1 through stage 4 chronic kidney disease, or unspecified chronic kidney disease (principal); N18.31 Chronic kidney disease, stage 3a; N20.0 Calculus of kidney; N28.1 Cyst of kidney, acquired | CPT/HCPCS: 99212 ==

== ENCOUNTER 2024-11-07 09:34 | Outpatient (AMB) | payer MEDICARE, SELFPAY ==
--- NOTE | 2024-11-07 09:38 | HO.NEPHOV ---
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 He has H/O some left breast pain from spironolactone. He underwent ultrasound and mammogram. He was found to have a cyst which is found to be benign. He has not been strict with a low-sodium diet. His creatinine had been near baseline of 1.9. He does not have any hematuria, kidney stones, dysuria, pedal edema, shortness of breath, proximal nocturnal dyspnea, orthopnea, nausea, vomiting or diarrhea. He is not taking any nonsteroidal anti-inflammatory medications. He had been on carvedilol in the past which has been discontinued due to low heart rate. His blood pressure is currently well controlled. He had recurrent gout attacks. He is on Allopurinol & Colchicine . He had seen Urology and underwent USS and MRI. He has B/L small renal stones and renal cysts. He had back surgery in [place]. [facility] Medical History Essential (primary) hypertension Chronic kidney disease, stage 3a Surgical History History of ankle surgery History of knee replacement Family History Father Heart disease Hypertension Brother Heart disease Hypertension Social History Alcohol intake: never Patient Tobacco Use Status: Never used Tobacco Review of Systems Const All systems reviewed & are unremarkable except as noted in HPI and below Physical Exam Vital Signs: Last Vital Signs Pulse 53 11/07/24 09:40 BP 140/60 H 11/07/24 09:40 Pulse Ox 97 11/07/24 09:40 Oxygen Delivery Method Room Air 11/07/24 09:40 BMI result Body Mass Index 24.6 Const General: comfortable and no acute distress Orientation/consciousness: patient oriented x3 HEENT Head: Yes normocephalic Mouth: Normal oral and palatal mucosa present Eyes EOM: EOMs intact bilaterally Neck Neck: Yes supple Resp Auscultation: clear to auscultation bilaterally Cardio Jugular venous distension: no JVD Rate: regular rate GI Palpation (GI): Soft to palpation Auscultation: normal bowel sounds General: Yes no CVA tenderness Back/Spine/Pelvis Back: no CVA tenderness Skin General skin exam: no rashes or lesions noted Neuro General: patient oriented x3 and moves all extremities Extrem General: Yes no pedal edema Results Reviewed Nephrology Results: No Data to Display Assessment & Plan Assessment & Plan (1) Renal cyst: Code(s): N28.1 - Cyst of kidney, acquired Category: Medical (2) Renal calculus: Code(s): N20.0 - Calculus of kidney Category: Medical (3) Essential (primary) hypertension: Code(s): I10 - Essential (primary) hypertension Category: Medical (4) Chronic kidney disease, stage 3a: Code(s): N18.31 - Chronic kidney disease, stage 3a Category: Medical Plan Peter has chronic kidney disease most likely due to vascular disease. He had a Doppler of his renal arteries in the past which did not show any significant renal artery stenosis. He should be on a low-sodium diet. He should remain well hydrated. He is not on any beta-mik given his low heart rate. He is off spironolactone. I plan to repeat is Doppler renal arteries with time. He can take Allopurinol 300 mg daily . He should avoid nonsteroidal anti-inflammatory medications. ( He has stopped losartan ) I did not make any other medication changes today. Follow-up lab work ordered. Orders: Orders Creatinine 3 Months I10 - Essential (primary) hypertension, N18.31 - Chronic kidney disease, stage 3a, N20.0 - Calculus of kidney, N28.1 - Cyst of kidney, acquired Blood Urea Nitrogen 3 Months I10 - Essential (primary) hypertension, N18.31 - Chronic kidney disease, stage 3a, N20.0 - Calculus of kidney, N28.1 - Cyst of kidney, acquired Electrolytes 3 Months I10 - Essential (primary) hypertension, N18.31 - Chronic kidney disease, stage 3a, N20.0 - Calculus of kidney, N28.1 - Cyst of kidney, acquired Calcium 3 Months I10 - Essential (primary) hypertension, N18.31 - Chronic kidney disease, stage 3a, N20.0 - Calculus of kidney, N28.1 - Cyst of kidney, acquired Coding Level of Care Code Est Pt Level 4 (59350) Diagnoses Renal cyst N28.1 Renal calculus N20.0 Essential (primary) hypertension I10 Chronic kidney disease, stage 3a N18.31
[2024-11-07 09:40] VITALS: BP 130/60; PULSE 53; O2SAT 97; BMI 24.6
--- OUTSIDE RECORDS SUMMARY | 2024-11-07 10:11 | XMS_ITS | Encounter Summary ---
Author Organization [facility] Address [address] [place] [address] Care Team Providers Care Non Garment Sewing Machine Operator Name Role Phone Audie Cota MD Unavailable [phone] Ankita Vinson [facility] Unavailable Gerardo Leblanc MD Unavailable Rolando Topete MD Unavailable Danielle Stubbs MD Unavailable Juan Manuel Patino MD Unavailable Fletcher Mckay MD Unavailable Nerissa Pham MD Primary Care Provider + Victor Hugo Leigh MD Unavailable [phone] Nerissa Pham MD Unavailable [phone] Encounter Details Date Type Department Care Team (Late st Contact Info) Description 05/19/[address] [phone] Nerissa Pham MD 2 [facility] [address] [id number] Social History Tobacco Use Types Packs/Day Years Used Date Smoking Tobacco: Never Smokeless Tobacco: Never Alcohol Use Standard Drinks/Week Comments Not Currently 0 (1 standard drink = 0.6 oz pur e alcohol) rarely AUDIT-C Answer Date Recorded Q1: How often do you have a drink containing alcohol? Never 02/24/2023 Q2: How many drinks containi ng alcohol do you have on a typical day when you are drinking? Patient does not drink Q3: How often do you have si x or more drinks on one occasion? Never 02/24/2023 PHQ-2 Answer Date Recorded PHQ-2 Total Score 0 11/04/2021 Sex and Gender Information Value Date Recorded Sex Assigned at Male 11/06/2022 4:25 PM EDT Legal Sex Male 2:53 PM EDT Gender Identity Male 11/06/2022 4:25 PM EDT Sexual Orientation Heterosexual (straight) 11/06 4:25 PM EDT documented as of this encounter Plan of Treatment Upcoming Encounters Date Type Department Care Team (Late st Contact Info) Description 11/23/2024 2:30 PM EDT Consult [facility] Plastic & Reconstructive Surgery [address] [place] [phone] Cheli Lopez PA-C [address] [address] Ad Lubin MD [address] [place] [phone] 11/29/2024 10:30 AM EDT Office Visit [facility] [address] [phone] Nerissa Pham MD [address] [address] 02/06/2025 9:20 AM EDT Office Visit [facility] Rheumatology [address] [phone] Maximino Gomez MD 31 [facility] [address] [place] [address] documented as of this encounter Visit Diagnoses Not on filedocumented in this encounter Care Teams Non Garment Sewing Machine Operator Relationship Specialty Start Date End Date Nerissa Pham MD [address] [facility] [address] [place] [address] PCP - General Internal Medicine 11/06/20 Nerissa Pham MD [address] [facility] [address] [place] [address] PCP - MSSP Attributed 12/12/22 Audie Cota MD 85 [facility] [address] [place] [address] Cardiovascular Disease 01/11/19 Ankita Vinson, [facility] [address] [facility] 4 [place] [address] [facility] Community Broommaking Supervisor 06/23/19 Gerardo Leblanc MD [address] [place] [phone] Ophthalmology 07/04/19 Rolando Topete MD [address] [facility] [address] [place] [address] Cardiovascular Disease 07/10/19 Danielle Stubbs MD [address] [place] [address] [place] [address] Dermatology 07/10/19 Juan Manuel Patino MD [address] [place] [address] Physician Pulmonary Medicine 09/22/19 Fletcher Mckay MD [address] [place] [address] Physician Nephrology 03/18/20 Victor Hugo Leigh MD [address] [place] [address] Neurology 11/05/22 documented as of this encounter
== END 2024-11-07 10:02 | disposition home or self-care (01) ==
LOC: HO.HKAS 09:35
PROVIDERS: Visit Provider Internal Medicine Nephrology
DX: N28.1 Cyst of kidney, acquired (principal); N20.0 Calculus of kidney; I10 Essential (primary) hypertension; N18.31 Chronic kidney disease, stage 3a
CPT/HCPCS: 99214

== ENCOUNTER → 2024-11-07 09:34 | Outpatient (BNVA) | payer MEDICARE, SELFPAY | PROVIDERS: Visit Provider Internal Medicine Nephrology | DX: I12.9 Hypertensive chronic kidney disease with stage 1 through stage 4 chronic kidney disease, or unspecified chronic kidney disease (principal); N18.31 Chronic kidney disease, stage 3a; N28.1 Cyst of kidney, acquired; N20.0 Calculus of kidney | CPT/HCPCS: 99212 ==

== ENCOUNTER 2025-02-06 10:33 | Outpatient (AMB) | payer MEDICARE, SELFPAY ==
--- OUTSIDE RECORDS SUMMARY | 2024-09-22 06:12 | XMS_ITS | Continuity of Care Document ---
Author Organization [facility] Address [address] [place] [address] Phone Care Team Providers Care Surveying Teacher Name Role Phone Kaylie Bernard APRN Unavailable Unavaila ble Allergies, Adverse Reactions, Alerts Substance Reaction Status Criticality lisinopril Cough Active No Information amlodipine Swelling Active No Information codeine Active No Information Medications Medication Instructions Dosage Effective Dates (start - stop) Status Comments allopurinol 200 mg tablet take 1 tablet by oral route every day 200 MG - Active ROSUVASTATIN CALCIUM 20 MG TAB TAKE 1 TABLET BY MOUTH EVERY DAY - Active HYDROCHLOROTHIAZIDE 25 MG TAB TAKE 1 TABLET BY MOUTH EVERY DAY - Active isosorbide mononitrate ER 60 mg tablet,extended release 24 hr take 1 tablet by oral route every day in the morning 60 MG - Active aspirin 81 mg tablet,delayed release take 1 tablet by oral route every day 81 MG - Active prednisone 10 mg tablet take 1 tablet by oral route as needed - Active allopurinol 200 mg tablet take 1 tablet by oral route every day 200 MG - No Longer Active allopurinol 100 mg tablet take 1 tablet by oral route every day 100 MG - No Longer Active Procedures Procedure Date Electrocardiogram, complete (ECG) Office/outpatient visit,est, mod 2024 Initial hospital care, moderate - 023 Office/outpatient visit,est, mod 2022 TTE W/DOPPLER, COMPLETE Electrocardiogram, complete (ECG) Office/outpatient visit,est, mod 2022 Office/outpatient visit,est, mod 2021 Electrocardiogram, complete (ECG) Office/outpatient visit,est, mod 2021 Office/outpatient visit,est, mod 2020 Office/outpatient visit,est, mod 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 [address], [place], [place], [address] , [place]. tel:[phone] Referring Provider: [address], [place], [address] . tel:[phone] Office/outpa tient visit,est, mod [facility], [address], [place], [place], [address], [place] tel:[phone] [facility] Preop (chief complaint) Essential hypertensionNon rheumatic mitral valve regurgitationCo ronary artery disease involving [place] coronary artery of [place] heart without angina pectorisMixed hyperlipidemiaP reoperative cardiovascular examination 5 Joana Lott. [address], [address], [place], [place], [address] , [place]. tel:[phone] Referring Provider: Diogenes Lopes, [address], [place], [address] . tel:[phone] [facility], [address], [place], [place], [address], [place] tel: [phone] [facility] No Information 4 Kameron Granados. [address], [place], [place], [address] , [place]. tel: [phone] [facility], [address], [place], [place], [address], [place] tel: [phone] [facility] No Information 4 Moses Shetty. [address], [place], [place], [address] , [place]. tel: [phone] [facility], [address], [place], [place], [address], [place] tel: [phone] [address] [facility] [employer] [facility] No Information 3 Moses Shetty. [address], [address], [place], [place], [address] , [place]. tel: [phone] Initial hospital care, moderate [facility], [address], [place], [place], [address], [place] tel: [phone] [facility] No Information 3 Ezlydia Flaco. [address], [place], [place], [address] , [place]. tel: [phone] Referring Provider: Dagoberto Llanes MD Isai[facility], [address] [place], [address] . tel:[phone] Office/outpa tient visit,est, mod [facility], [address], [place], [place], [address], [place] tel:[phone] [facility] [address] Hypertension (chief complaint) Essential hypertensionNon rheumatic mitral valve regurgitation 3 Eric Pollard. [address], [place], [address], [place]. tel: [phone] Referring Provider: Diogenes Lopes, [address], [place], [address] . tel:[phone] [facility], [address], [place], [place], [address], [place] tel:[phone] [facility] Nonrheumatic mitral (valve) insufficiencyAt [facility] heart disease of [place] coronary artery w/o ang pctrs 3 Raphael Candida. [address], [address], [place], [place], [address] , [place]. tel: [phone] Referring Provider: Diogenes Lopes, [address], [place], [address] . tel:[phone] [facility], [address], [place], [place], [address], [place] tel: [phone] [facility] No Information 3 Leo Boonery. [address], [address], [place], [place], [address] , [place]. tel: [phone] Office/outpa tient visit,est, [facility], [address], [place], [place], [address], [place] tel:[phone] [facility] Hypertension (chief complaint) Coronary artery disease involving [place] coronary artery of [place] heart without angina pectorisEssenti al hypertensionMix ed hyperlipidemiaC hronic gout without tophus, unspecified cause, unspecified siteNonrheumati c mitral valve regurgitation 3 Moses Shetty. [address], [place], [place], [address] , [place]. tel: [phone] Referring Provider: Diogenes Lopes, [address], [place], [address] . tel:[phone] Office/outpa tient visit,est, [facility], [address], [place], [place], [address], [place] tel:[phone] [facility] Hypertension (chief complaint) Coronary artery disease involving [place] coronary artery of [place] heart without angina pectorisEssenti al hypertensionMix ed hyperlipidemiaC hronic gout without tophus, unspecified cause, unspecified siteModerate mitral regurgitation 2 Ganesh Leos. [address], [place], [place], [address] , [place]. tel:[phone] Referring Provider: Dafne Andersen, [address], [place], [address] . tel:[phone] Office/outpa tient visit,est, [facility], [address], [place], [place], [address], [place] tel:[phone] [facility] Hypertension (chief complaint) Coronary artery disease involving [place] coronary artery of [place] heart without angina pectorisEssenti al hypertensionMix ed hyperlipidemiaC hronic gout without tophus, unspecified cause, unspecified siteModerate mitral regurgitation 2 Ganesh Leos. [address], [place], [place], [address] , [place]. [phone] Referring Provider: Dafne Andersen, [address], [place], [address] . tel:[phone] Office/outpa tient visit,est, [facility], [address], [place], [place], [address], [place] tel:[phone] [facility] Freeform HPI (chief complaint) Coronary artery disease involving [place] coronary artery of [place] heart without angina pectorisEssenti al hypertensionMix ed hyperlipidemia 1 Ganesh Leos. [address], [place], [place], [address] , [place]. tel: [phone] Referring Provider: Dafne Andersen, [address], [place], [address] . tel:[phone] [facility], [address], [place], [place], [address], [place] tel: [phone] [facility] No Information Aug-0 1 Eric Pollard. [address], [address], [place], [address], [place]. tel: [phone] Referring Provider: Gustabo Ribeiro MD, [address], [place], [address] . tel:[phone] [facility], [address], [place], [place], [address], [place] tel: [phone] [address] No Information 1 Ganesh Leos. [address], [place], [place], [address] , [place]. tel: [phone] Referring Provider: Dafne Andersen, [address], [place], [address] . tel:[phone] Office/outpa tient visit, [facility], [address], [place], [place], [address], [place] tel: [phone] [facility] [address] Freeform HPI (chief complaint) Coronary artery disease involving [place] coronary artery of [place] heart without angina pectorisEssenti al hypertensionMix ed hyperlipidemia 1 Ganesh Leos. [address], [place], [place], [address] , [place]. tel: [phone] Referring Provider: Dafne Andersen, [address], [place], [address] . tel:[phone] Family History Family Member Type Diagnosis Age At Onset Father Problem myocardial infar ct in 1st degree male relative <55 years 39 Brother Problem Myocardial infarction 60 Payers Payer name Insurance type Covered republican ID Alfredo juares(s) Medicare Part B Primary MB [id number] AARP SUPPLEMENT CI [id number] Social History Type Description Quantity Date Captured Comments Sex Male Smoking Status No Information Chief Complaint And Reason For Visit No Information Reason For Referral Reason For Referral No Information Plan Of Treatment Date Type Action Status Appointment [facility] [place] BOOKED History Of Present Illness Encounter Date Complaint History Of Prese nt Illness Preop This is a 74-yea r-old male with a history of hyperlipidemia, hypertension, coronary artery disease status post PCI with residual 80% lesion in the right acute marginal, mitral valve prolapse and moderate mitral regurgitation. Patient presents today for preoperative clearance prior to undergoing laminectomy foraminotomy of the L3-L5 on 10/10/[address] Boo. He was last evaluated in office in September of 2022. 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 Cota in [place].Patient underwent repeat cardiac catheterization in February 2023 revealing no significant obstructive disease, mild disease in the LAD and distal RCA, mild InStent restenosis in prior left circumflex stent, mild InStent restenosis in prior mid RCA stent.Echo completed on September 17, 2022 notes normal LV function with moderate mitral valve prolapse involving the posterior leaflet with moderate to severe MR, mild aortic insufficiency and mild left ventricular hypertrophy and normal PA pressures. Transesophageal echocardiogram on 01/13/2023 revealed EF 61%, mild LVH, middle scallop (p2) of the posterior leaflet is severely prolapse with [id number] eccentric regurgitation, ER 080.2 cm2, mild AR.Repeat echo in April 2023 revealed ejection fraction 64%, mild LAE, mild MR, mild prolapse of the posterior mitral leaflet, mild AR. He denies any symptoms suggestive of congestive heart failure. Patient's blood pressure is under excellent control with isosorbide 60 mg daily and hydrochlorothiazide 25 mg daily.He was on rosuvastatin 20 mg daily for hyperlipidemia. No recent lipid panel for review.Patient is happy to report he feels well from a cardiac perspective. He denies any anginal complaints in the setting of CAD or symptoms of CHF in the setting of valvular disease. He is able to complete greater than 4 metabolic equivalents without exertional symptoms. He is returning to [place] in October and plans to follow up with his ob gyn physician assistant there. He plans to return to [place] in February. Patient denies any chest pain, shortness of breath, orthopnea, PND, palpitations, lightheadedness, dizziness, near-syncope/syncope. Hypertension This is a 72-yea r-old male [...] this time.His blood pressure is elevated today. [facility] This is a follow -up visit after [...] He will be following up with a pmp for possible endoscopy soon. We discussed taking [...] recent echocardiogram in May 2020 from his ob gyn physician assistant in [place] show a preserved left ventricular ejection fraction with moderate mitral regurgitation which is an interval change from mild regurgitation. His blood pressure supposedly at the time was in the 140s systolics. [facility] This is an initi al [...] recent echocardiogram in May 2020 from his ob gyn physician assistant in [place] show a preserved left [...]
--- OUTSIDE RECORDS SUMMARY | 2024-10-18 09:43 | XMS_ITS | Continuity of Care Document ---
Author Organization [facility] Address [address] [place] [address] Phone Care Team Providers Care Nick Setter Name Role Phone Evaristo Phelps Unavailable Unavailable Allergies, Adverse Reactions, Alerts Substance Reaction Status Criticality egg yolk Active No Information peanut Active No Information codeine Active No Information Medications Medication Instructions Dosage Effective Dates (start - stop) Status Comments tramadol 50 mg tablet take 1 tablet by oral route every 6 hours as needed to begin after surgery - Active acute pain exception tizanidine 4 mg tablet take 1 tablet by oral route every 8 hours as needed for spasms - Active isosorbide dinitrate 20 mg tablet take 1 tablet by oral route 2 times every day 20 MG - Active hydrochlorothiazide 12.5 mg tablet take 1 tablet by oral route every day 12.5 MG - Active aspirin 81 mg tablet,delayed release take 1 tablet by oral route every day 81 MG - Active omeprazole 10 mg capsule,delayed release take 2 capsule by oral route every day before a meal 20 MG - Active prednisone 1 mg tablet take 5 tablet by oral route every day 5 MG - Active rosuvastatin 10 mg tablet take 1 tablet by oral route every day 10 MG - Active cyclobenzaprine 10 mg tablet take 1 tablet by oral route 2 times every day to begin after surgery - No Longer Active Procedures Procedure Date Postop followup visit Laminectomy/foraminotomy Laminectomy/foraminotomy Addtl Level Apr -22-2025 Laminectomy/foraminotomy Laminectomy/foraminotomy Addtl Level Sep Office/outpatient visit,est, high Office/outpatient visit,est, high Office/outpatient visit,est, high Translaminar Lumbar\Sacral Or Caudal W/ Image Guidance DepoMedrol 1mg MRI Cervical Spine Technical Component [...] Date Provider Providers Copied on Encounter [facility], [address], [place], [place], [address], tel:[phone] [address] lumbar spine (chief complaint) Body mass index [BMI] 25.0-25.9, adultLumbar radiculopathy 5 Bruce Loera. [address], [place], [place], [address] , . tel:[phone] Referring Provider: Evaristo Batista, [address], [place], [address] . tel:[phone] [facility], [address], [place], [place], [address], tel:[phone] [facility] No Information Sep- 5 Ema Mckay. [address], [place], [place], [address] , [place]. tel: [phone] Referring Provider: Woody Boo MD, [address], [place], [address] . tel:[phone] [facility], [address], [place], [place], [address], [place] tel:[phone] [facility] [place] No Information 5 Bruce Loera. [address], [address], [place], [place], [address] , [place]. tel: [phone] Referring Provider: Woody Boo MD, [address], [place], [address] . tel:[phone] Office/outpa tient visit,est, high [facility], [address], [place], [place], [address], [place] tel:[phone] [facility] 400 lumbar spine (chief complaint) Body mass index [BMI] 25.0-25.9, adultLumbar radiculopathy Apr- 5 Bruce Loera. [address], [place], [place], [address] , [place]. tel: [phone] Referring Provider: Evaristo Batista, [address], [place], [address] . tel:[phone] [facility], [address], [place], [place], [address], [place] tel:[phone] [facility] [address] Lumbar radiculopathy Apr-0 5 Ema Mckay. [address], [address], [place], [place], [address] , [place]. tel: [phone] Referring Provider: Woody Boo MD, [address], [place], [address] . tel:[phone] Office/outpa tient visit,[facility], [address], [place], [place], [address], tel:[phone] [facility] 400 lumbar spine (chief complaint) Spinal stenosis, lumbar region with neurogenic claudicationLumb ar radiculopathy Mar-1 5 Ema Mckay. [address], [address], [place], [place], [address] , [place]. tel: [phone] Referring Provider: Woody Boo MD, [address], [place], [address] . tel:[phone] [facility], [address], [place], [place], [address], tel:[phone] [facility] 400 Spinal stenosis, lumbar region with neurogenic claudication Mar-0 5 Ema Mckay. [address], [address], [place], [place], [address] , [place]. tel: [phone] Referring Provider: Woody Boo MD, [address], [place], [address] . tel:[phone] Office/outpa tient visit,[facility], [address], [place], [place], [address], [place] tel:[phone] [facility] 400 cervical spine (chief complaint) lumbar spine (chief complaint) Lumbar radiculopathySpi nal stenosis, lumbar region with neurogenic claudication Feb-2 5 Ema Mckay. [address], [address], [place], [place], [address] , [place]. tel: [phone] Referring Provider: Woody Boo MD, [address], [place], [address] . tel:[phone] [facility], [address], [place], [address], [place] tel:[phone] [facility] [address] Spinal stenosis, lumbar region with neurogenic claudicationLumb ar radiculopathy Sep-3 0- 4 Ema Mckay. [address], [address], [place], [place], [address] , [place]. tel:[phone] Referring Provider: Woody Boo MD, [address], [place], [address] . tel:[phone] [facility], [address], [place], [place], [address], [place] tel:[phone] [facility] [address] No Information Sep-1 4 Mike Faust. [address], [address], [place], [place], [address] , [place]. tel:[phone] Referring Provider: Woody Boo MD, [address], [place], [address] . tel:[phone] Office/outpa tient visit,est, high [facility], [address], [place], [address], [place] tel:[phone] [place] [facility] [address] cervical spine (chief complaint) lumbar spine (chief complaint) Spinal stenosis, lumbar region with neurogenic claudicationCerv ical painLumbar radiculopathy Sep-1 4 Ema Mckay. [address], [address], [place], [address] , [place]. tel:[phone] Referring Provider: Woody Boo MD, [address], [place], [address] . tel:[phone] [facility], [address], [place], [place], [address], [place] tel:[phone] [facility] [address] Lumbar radiculopathySpi nal stenosis, lumbar region with neurogenic claudication Apr-0 4 Ema Mckay. [address], [place], [address] , [place]. tel:[phone] Referring Provider: Woody Boo MD, [address], [place], [address] . tel:[phone] Office/outpa tient visit,[facility], [address], [place], [address], [place] tel:[phone] [facility] [address] cervical spine (chief complaint) lumbar spine (chief complaint) Lumbar radiculopathySpi nal stenosis, lumbar region with neurogenic claudicationCerv ical pain Apr-0 4 Ema Mckay. [address], [address], [place], [place], [address] , [place]. tel:[phone] Referring Provider: Woody Boo MD, [address], [place], [address] . tel:[phone] Office/outpa tient visit,[facility], [address], [place], [place], [address], [place] tel:[phone] [facility] left shoulder pain (chief complaint) Body mass index [BMI] 25.0-25.9, adultPain of left scapulaAcute pain of left shoulderCervical pain Mar-2 4 Alfredo Katz. [address], [address], [place], [place], [address] , [place]. tel:[phone] Referring Provider: Sterling Batista, [address], [place], [address] . tel:[phone] Office/outpa tient visit,[facility], [address], [place], [place], [address], [place] tel:[phone] lumbar spine (chief complaint) cervical spine (chief complaint) Lumbar radiculopathySpi nal stenosis, lumbar region with neurogenic claudicationCerv ical pain 4 Ema Mckay. [address], [address], [place], [address] , [place]. tel:[phone] Referring Provider: Woody Boo MD, [address], [place], [address] . tel:[phone] [facility], [address], [place], [place], [address], [place] tel:[phone] [facility] [address] Lumbar radiculopathySpi nal stenosis, lumbar region with neurogenic claudication 3 Ema Mckay. [address], [address], [place], [place], [address] , [place]. tel:[phone] Referring Provider: Woody Boo MD, [address], [place], [address] . tel:[phone] [facility], [address], [place], [address], [place] tel:[phone] Lumbar radiculopathy 3 Ema Mckay. [address], [address], [place], [address] , [place]. tel:[phone] Referring Provider: Woody Boo MD, [address], [place], [address] . tel:[phone] Office/outpa tient visit,est, high [facility], [address], [place], [place], [address], [place] tel:[phone] lumbar spine (chief complaint) Spinal stenosis, lumbar region with neurogenic claudicationLumb ar radiculopathyCer vical pain Mar- 3 Ema Mckay. [address], [address], [place], [address] , [place]. tel:[phone] Referring Provider: Woody Boo MD, [address], [place], [address] . tel:[phone] [facility], [address], [place], [place], [address], [place] tel:[phone] [facility] [address] Spinal stenosis, lumbar region with neurogenic claudicationLumb ar radiculopathy 3 Ema Mckay. [address], [address], [place], [place], [address] , [place]. tel:[phone] Referring Provider: Woody Boo MD, [address], [place], [address] . tel:[phone] Office/outpa tient visit,[facility], [address], [place], [place], [address], [place] tel:[phone] lumbar spine (chief complaint) Lumbar radiculopathySpi nal stenosis, lumbar region with neurogenic claudication 3 Ema Mckay. [address], [address], [place], [address] , [place]. tel:[phone] Referring Provider: Woody Boo MD, [address], [place], [address] . tel:[phone] Office/outpa tient visit,[facility], [address], [place], [place], [address], [place] tel:[phone] [facility] 400 right shoulder pain (chief complaint) Pain in right shoulderThoracic spine pain 3 Earl Murray. [address], [address], [place], [place], [address] , [place]. tel:[phone] Referring Provider: Trevor Bautista, [address], [place], [address] . tel:[phone] Office/outpa tient visit,[facility], [address], [place], [place], [address], [place] tel:[phone] [place] [facility] [address] right hip pain (chief complaint) Pain in right hipPrimary osteoarthritis of right hip 2 Earl Murray. [address], [address], [place], [place], [address] , [place]. tel:[phone] Referring Provider: Trevor Bautista, [address], [place], [address] . tel:[phone] Office/outpa tient visit,[facility], [address], [place], [place], [address], [place] tel:[phone] [facility] [address] lumbar spine (chief complaint) Left flank pain Aug- 1 Kusum Moore. [address], [address], [place], [place], [address] , [place]. tel:[phone] Referring Provider: Teresa PRIETO, [address], [place], [address] . tel:[phone] [facility], [address], [place], [place], [address], [place] tel:[phone] [facility] Procedure [address] Lumbar radiculopathySpi nal stenosis, lumbar region with neurogenic claudication Aug-0 1 Ema Mckay. [address], [place], [place], [address] , [place]. tel:[phone] Referring Provider: Woody Boo MD, [address], [place], [address] . tel:[phone] Office/outpa tient visit,[facility], [address], [place], [place], [address], [place] tel:[phone] [facility] [address] lumbar spine (chief complaint) Lumbar radiculopathySpi nal stenosis, lumbar region with neurogenic claudication 1 Ema Mckay. [address], [place], [place], [address] , [place]. tel: [phone] Referring Provider: Woody Boo MD, [address], [place], [address] . tel:[phone] [facility], [address], [place], [address], [place] tel:[phone] [facility] MRI [address] No Information 1 Christi Smith. [address], [place], [place], [address] , [place]. tel: [phone] Referring Provider: Evaristo Batista, [address], [place], [address] . tel:[phone] Office/outpa tient visit,[facility], [address], [place], [place], [address], [place] tel:[phone] lumbar spine (chief complaint) Lumbar radiculopathy Feb-0 1 Bruce Loera. [address], [address], [place], [place], [address] , [place]. tel: [phone] Referring Provider: Woody Boo MD, [address], [place], [address] . tel:[phone] Office/outpa tient visit,[facility], [address], [place], [place], [address], [place] tel:[phone] right hand pain (chief complaint) Right hand painPrimary OA of 1st carpometacarpal joint of right handArthritis of wrist, right Feb-0 1 Vinod Sorensen. [address], [place], [place], [address] , [place]. tel: [phone] Referring Provider: Franchesca Brock MD, [address], [place], [address] . tel:[phone] Office/outpa tient visit,[facility], [address], [place], [place], [address], [place] tel:[phone] knee pain equally on both sides (chief complaint) Acute pain of left kneeSprain of medial collateral ligament of right knee, initial encounterSprain of medial collateral ligament of left knee, initial encounterHistory of knee replacement procedure of right knee 1 Earl Murray. [address], [place], [place], [address] , [place]. tel: [phone] Referring Provider: Sterling Batista, [address], [place], [address] . tel:[phone] Office/outpa tient visit,[facility], [address], [place], [place], [address], [place] tel:[phone] [address] [facility] [address] left knee pain (chief complaint) Body mass index (BMI) 25.0-25.9, adultAcute pain of left knee 1 Alfredo Katz. [address], [address], [place], [address] , [place]. tel: [phone] Referring Provider: Sterling Batista, [address], [place], [address] . tel:[phone] Office/outpa tient visit,[facility], [address], [place], [place], [address], [place] tel:[phone] [facility] [address] lumbar spine (chief complaint) Lumbar radiculopathy 0 Ema Mckay. [address], [place], [place], [address] , [place]. tel: [phone] Referring Provider: Woody Boo MD, [address], [place], [address] . tel:[phone] [facility], [address], [place], [place], [address], tel:[phone] [address] No Information 0 Ema Mckay. [address], [place], [place], [address] , [place]. tel: [phone] Family History Family Member Type Diagnosis Age At Onset No Information Payers Payer name Insurance type Covered republican ID Authoriza tivirgin[place](s) MEDICARE [id number] [facility] SUPPLEMENT CI [id number] Social History Type Description Quantity Date Captured Comments Alcohol Use Details No Caffeine Use Details soda Tobacco Use Status Current non-smoker Smoking Status Never smoker Sex Male Vital Signs Date / Time: Height Weight BMI Pulse Rate Blood Pressure Temperature Respiratory Rate Body Surface Area Head Circumference Head Circ. Percentile Wt./Sukhdev. Percentile BMI percentile Pulse Ox Inhaled Ox 1:59 PM 68.00 in 77.111 kg (170.00 lbs) 25.8 5 kg/m eter (2) 1.92 meter(2) Chief Complaint And Reason For Visit From encounter dated '10/18/2024 13:43'. lumbar spine (chief complaint). Description: Mickey [facility] is a 74 year old male. Patient is s/plaminectomy foraminotomy L3-4, L4-5 performed at [facility] by Dr Boo on 10/03/24. Patient stated he received 60% relief from procedure. He presents with pain. The symptoms occur intermittently. The problem is better. Currently the patient states that the symptoms are mild. The pain is described as zap feeling. The symptoms occur anytime. He rates his worst pain as 4/10. He rates his current pain as1/10. The pain radiates to the lower back. The symptoms are aggravated by daily activities. Reason For Referral Reason For Referral No Information Plan Of Treatment Date Type Action Status Goal Lifestyle education regardin g diet completed Goal Lifestyle education regardin g diet completed Goal Dietary manageme nt education, guidance, [...] X-ray exam of lower spine, complete ordered Appointment [facility] Est Lumbar Amrit BOOKED Patient Education Knee Pain or Injury: Ca re Instructions completed Patient Education A Healthy Lifestyle: Ca re Instructions completed History Of Present Illness Encounter Date Complaint History Of Prese nt Illness lumbar spine Mickey [facility] is a 74 year old male. Patient is s/p laminectomy foraminotomy L3-4, L4-5 performed at [facility] by Dr Boo on 10/03/24. Patient stated he received 60% relief from procedure. He presents with pain. The symptoms occur intermittently. The problem is better. Currently the patient states that the symptoms are mild. The pain is described as zap feeling. The symptoms occur anytime. He rates his worst pain as 4/10. He rates his current pain as 1/10. The pain radiates to the lower back. The symptoms are aggravated by daily activities. Comments: Patien ts concern are with flying. Patient is leaving town on Wednesday. lumbar spine Mr Washington is a 74 year old male who complains of lumbar spine. Patient is here for pre-op. Patient is scheduled for laminectomy foraminotomy L3-4, L4-5 with risks to b e done at [facility] by Dr Boo on 10/03/24. Patient denies history of MRSA or STAPH in the past. Patients' medications, allergies and histories were updated today. Patient denies cold symptoms, SOB, fever or allergies to metals. Patient agrees to a blood transfusion if needed. Patient denies DVT or blood clots in the past. He presents with pain. The problem is fluctuating. Currently the patient states that the symptoms are moderate. The pain is described as aching. The patient is experiencing pain in the following location: lower back. He also reports additional pain in the lower extremity on the right side. He rates his worst pain as 9/10. He rates his current pain as 5/10. The symptoms are aggravated by daily activities. Mickey states that the symptoms are relieved by rest. lumbar spine Mickey [facility] is a 74 year old male. Patient presents for a clinical recheck. Patient wants to discuss cancelling surgery because his radiating pain disappeared 2 weeks ago without any cause or reason. Patient states as of right now I do not need surgery. He presents with pain. The symptoms occur constantly. The problem is fluctuating. Currently the patient states that the symptoms are mild. The pain is described as aching and deep. The patient is experiencing pain in the following location: lower back. He rates his worst pain as 3/10. He rates his current pain as 2/10. The pain does not radiate. The symptoms are aggravated by daily activities. In addition to lumbar spine the patient is also experiencing decreased mobility. cervical spine Mickey Washington is a 74 year old male. He presents with pain. Patient presents for a clinical recheck. The symptoms occur constantly. The problem is fluctuating. The pain is described as aching. The patient is experiencing pain in the following location: neck. He rates his worst pain as 5/10. He rates his current pain as 5/10. The pain does not radiate. The symptoms are aggravated by daily activities. lumbar spine Mickey Washington is a 74 year old male. He presents with pain. Patient presents for a clinical recheck. Patient had a L3/4, L4/5 Translaminar injection performed by Dr. Boo on 03/13/24 and reports 50% relief. The symptoms occur constantly. The problem is fluctuating. The pain is described as aching. The patient is experiencing pain in the following location: lower back. He rates his worst pain as 8/10. He rates his current pain as 6/10. The pain radiates to the lower extremities on the right side. The symptoms are aggravated by daily activities. In addition to lumbar spine the patient is also experiencing decreased mobility. cervical spine Mickey Washington is a 73 [...] equally. The symptoms are aggravated by golfing. lumbar spine Mickey Washington is a 73 [...] that the symptoms are relieved by rest. lumbar spine Mickey Washington is a 73 [...] radiate. He denies having any associated symptoms. cervical spine Mickey Washington is a 73 [...] stiffness. lumbar spine Mickey Washington is a 72 [...] with bilateral knee pain. He has seen Sterling Fuentes PA-C who gave him a cortisone injection on 06/20/20. He reports very mild improvement after the injection but this has worn off. He continues to have daily constant medial pain in both knees. His right knee was replaced in [place] in November of 2019. He has been [...] total knee replacement 3 months ago in [place] and has a history of left knee [...] mobility. Functional Status Date Functional Assessmen t No Information Instructions Date Instruction Additional Infor sunshine . Patient is s/p ballard inectomy foraminotomy L3-4, L4-5 performed at [facility] by Dr Boo on 10/03/24 Low back and right leg pain with worsening severity over years with [...] 09/2023 with 80% relief but return of painI repeated the epidural Procedure notes reviewed MRI images and reports were discussed with the patient. Extensive discussion and treatment options was performed with the patient. Epidurals were discussed along with the risks and benefits.I again discussed laminectomy foraminotomy L3-4, L4-5 . . Patient stated he received 60% relief from procedure. Patient continues to have low residual back pain. His lower extremity radicular complaints have completely resolved. He is ambulating much longer distances now. He is happy with the results of the surgery. He is taking no pain medication. Examination today demonstrates the posterior lumbar incision to be well-healed. Motor strength is 5/5. Sensory exam is intact. Patient ambulates without antalgia. Patient will continue no bending lifting or twisting. He may discontinue brace immobilization. No lifting greater than 10 pounds. Patient will return in 4 weeks for his 8-week postoperative visit. Related to Lumbar radiculopathy Lifestyle education regarding di et Related to Body mass index [BMI] 25.0-25.9, adult Patient is scheduled for laminectomy foraminotomy L3-4, L4-5 with risks to b e done at [facility] by Dr Boo on 10/03/24 for history that includes Low back and right leg pain with worsening severity over years with [...] 09/2023 with 80% relief but return of painI repeated the epidural Procedure notes reviewed MRI images and reports were discussed with the patient. Extensive discussion and treatment options was performed with the patient. Epidurals were discussed along with the risks and benefits.I again discussed laminectomy foraminotomy L3-4, L4-5 . Patient has had medical clearance by history no laboratory work is available for review. We discussed risk complications and alternatives regarding the above-mentioned procedure to include but not limited to what is listed on the consent form the patient has signed in the office today. We discussed preoperative NPO. We discussed preoperative medications. Patient will be seen postoperatively as scheduled. All questions were answered. Patient would like to proceed as outlined above. Patient continues to have right lower extremity pain in an L4-5 distribution.. Patient's postoperative pain medication antibiotics and muscle relaxants will be called into the pharmacy 1 day prior to the surgery. I am ordering an LSO brace [id number] to reduce pain by restricting mobility of the trunk; OR to facilitate healing following a surgical procedure on the spine or related soft tissue; OR to otherwise support weak spinal muscles and/or a deformed spine. Related to Lumbar radiculopathy Lifestyle education regarding di et Related to Body mass index [BMI] 25.0-25.9, [...] 09/2023 with 80% relief but return of painI repeated the epidural Procedure notes reviewed MRI images and reports were discussed with the patient. Extensive discussion and treatment options was performed with the patient. Epidurals were discussed along with the risks and benefits.I again discussed laminectomy foraminotomy L3-4, L4-5 with risks and benefits discussedHis pain has since resolvedWe discussed observation and we will observeMedications were discussed. He will use OTC meds Related to Lumbar radiculopathy Low back and [...] 09/2023 with 80% relief but return of painI repeated the epidural Procedure notes reviewed MRI images and reports were discussed with the patient. Extensive discussion and treatment options was performed with the patient. Epidurals were discussed along with the risks and benefits.I discussed laminectomy foraminotomy L3-4, L4-5 with risks and benefits discussedWe will plan this for I will do IM steroid due to the severe painSurgery is indicated due to pain refractory to PT, epidurals, medication and time Discussion with patient ensued with regards to [...] we will proceed forward with surgery at [facility] Related to Lumbar radiculopathy Low back and [...] [facility] the [facility]ural in the interim [...] Lumbar radiculopathy Assessments Type Assessment Date assessment Body mass index [BMI] 25.0-25.9, adult impression Body mass index [BMI] 25.0-25.9, adult. assessment Lumbar radiculopathy impression Lumbar radiculopathy. 5 Patient Care Teams Name Effective Dates (start - stop) Status Members No Information
--- OUTSIDE RECORDS SUMMARY | 2025-02-05 11:15 | XMS_ITS | Encounter Summary ---
Author Organization [facility] Address [address] [place] [address] Care Team Providers Care Social Sciences Department Chair Name Role Phone Audie Cota MD Unavailable [phone] Ankita Vinson [facility] Unavailable Gerardo Leblanc MD Unavailable Rolando Topete MD Unavailable Danielle Stubbs MD Unavailable [phone] Juan Manuel Patino MD Unavailable Fletcher Mckay MD Unavailable Nerissa Pham MD Primary Care Provider + Victor Hugo Leigh MD Unavailable [phone] Reason for Visit * Reason Comments Nasal Congestion * ENT (Routine) - Closed Specialty Diagnoses / Procedures Referred By Ramona dodson Referred To Contact Otolaryngology Diagnoses Loss of taste Nerissa Pham MD 2 [facility] [address] [place] [address] Phone: tel: fax: [facility] [place] [address] [facility], [place] [address] Phone: tel: fax: Referral ID Status Reason Start Date Expiration Date V isits Requested Visits Authorized [id number] Closed Consult 11/29/2024 11/30/2025 1 1 Encounter Details Date Type Department Care Team (Late st Contact Info) Description 02/05/2025 11:15 AM EDT Office Visit [facility] [place] [address] [facility] [place] [address] Johnathan Bahena MD 15 [facility] [address] [place], [place] [id number] Dysgeusia (Primary Dx); Anosmia; Deviated nasal septum; Chronic rhinitis Social History Tobacco Use Types Packs/Day Years Used Date Smoking Tobacco: Never Smokeless Tobacco: Never Tobacco Cessation:Counseling Given: Not Answered Alcohol Use Standard Drinks/Week Comments Not Currently [...] Answer Date Recorded PHQ-2 Total Score 0 11/29/2024 Sex and Gender Information Value Date Recorded Sex Assigned at Male 11/06/2022 4:25 PM EDT Legal Sex Male 2:53 PM EDT Gender Identity Male 11/06/2022 4:25 PM EDT Sexual Orientation Heterosexual (straight) 11/06 4:25 PM EDT documented as of this encounter Last Filed Vital Signs Vital Sign Reading Time Taken Comments Blood Pressure - - Pulse - - Temperature - - Respiratory Rate - - Oxygen Saturation - - Inhaled Oxygen Concentration - - Weight 73.9 kg (163 lb) 02/05/2025 11:03 AM EDT Height 172.7 cm (5' 8 ) 02/05/2025 11:03 AM EDT Body Mass Index 24.78 02/05/2025 11:03 AM EDT documented in this encounter Progress Notes * Johnathan Bahena MD - 02/05/2025 11:15 AM EDT Images from the original note were not included. 15 [facility], FIRST FLOOR [facility] [address] Loc: [phone] Encounter Date: 02/05/2025 Chief Complaint Patient presents with Nasal Congestion 1. Dysgeusia 2. Anosmia 3. Deviated nasal septum 4. Chronic rhinitis ASSESSMENT AND PLAN Mickey Washington presents with anosmia and ageusia, which began after his back surgery in September. The etiology of his symptoms is unclear, but potential contributing factors include chronic rhinitisand dry mouth. There is no history of recent head imaging to rule out central causes. He has restarted using Flonase for congestion. Nasal endoscopy today shows no polyps, no mucosal lesions, no signs of infection. - Continue using Flonase nasal spray for six weeks - Consider MRI scan of the brain if no improvement or if nasal endoscopy is inconclusive - Follow-up appointment in six weeks to reassess symptoms and treatment efficacy HISTORY OF PRESENT ILLNESS Mickey Washington is a 73-year-old male presenting with a loss of sense of taste and smell. He reports that this issue began following back surgery in September. He has tried using lozenges, sprays, andgum, which have provided minimal improvement. He recently had dental surgery and was evaluated for any issues in the mouth, but none were found. He notes that he can taste some foods like fruit and ice cream, but not others like steak or hamburger. He has also experienced sinus problems and dry mouth, particularly in the mornings, which he attributes to air conditioning. He has recently restartedusing Flonase nasal spray to address his sinus issues. PHYSICAL EXAM The patient was in no acute distress and breathing comfortably on exam. Examination of the ears, nose, oral cavity, oropharynx, and neck was completed and found to be within normal limits with the following notable exceptions and findings highlighted here: - Examination of the ears and mouth conducted - Patient reports using Flonase nasal spray DIAGNOSTIC TESTING REVIEWED A nasal endoscopy is planned to check for nasal polyps or other intranasal pathology. An MRI scan of the brain may be considered if nasal endoscopy is inconclusive or if there is no improvement in symptoms. PROCEDURES Procedure: Diagnostic Nasal Endoscopy Indication: Ongoing sinonasal symptoms not improving with medical strategies and inability to fullyevaluate with anterior nasal exam Description: In order to evaluate the area of concern, and in the context of the patient's symptomsnot fully accounted for by anterior rhinoscopy, a nasal endoscopy was discussed with the patient. Following consent for the procedure, topical 50:50 4% lidocaine/oxymetazoline solution was used as a topical anesthesic and decongestant. After adequate time for this to take effect, an endoscope was used to evaluate the nasal passages, inferior/middle/superior meati, sphenoethmoid recess, nasopharynx, and sinus openings. Please see findings below for details. The endoscope was then removed and thepatient was observed without bleeding and with good respirations. The patient tolerated the procedure was and was discharged home in good condition. Findings: Nasal mucosa: Mild mucosal inflammation. No lesions. Clear nasal secretions throughout Nasal septum: moderate to severely deviated Right nasal turbinate: moderately enlarged Right inferior meatus: No significant inflammation or mucosal lesions Right middle meatus: clear, no significant edema, polyps, or mucopurulence Right superior meatus: clear, no significant edema, polyps, or mucopurulence Right sphenoethmoid recess: clear, no significant edema, polyps or mucopurulence Left nasal turbinate: moderately enlarged Left inferior meatus: No significant inflammation or mucosal lesions Left middle meatus: clear, no significant edema, polyps, or mucopurulence Left superior meatus: clear, no significant edema, polyps, or mucopurulence Left sphenoethmoid recess: clear, no significant edema, polyps or mucopurulence Nasopharynx: visualized without mass or mucosal lesions. Eustachian tubes appear patent.\ Floriculture Teacher Images: Johnathan Bahena 02/05/2025 PAST MEDICAL HISTORY Past Medical History: Diagnosis Date Acid reflux Angina pectoris with exersion Anxiety Arthritis knees Asthma Depression Gout Hyperlipidemia Hypertension Mitral valve prolapse Renal insufficiency Seasonal rhinitis Skin cancer nose Past Surgical History: Procedure Laterality Date CC CORONARY ANGIO W/LV N/A 02/25/2023 Procedure: CORONARY ANGIO W/LV; Surgeon: Zev Mckeon MD; Location: [facility]; Service: Cardiovascular; Laterality: N/A; 7 am arrival time H+P, CONSENT ON ARRIVAL, LABS PENDING CC CORONARY ANGIO W/LV+LT/RT CATH N/A 01/20/2019 Procedure: CC CORONARY ANGIO W/LV+LT/RT CATH; Surgeon: Rolando Topete MD; Location: [facility]; Service: Cardiovascular; Laterality: N/A; CC PERC CORONARY INTERVENTION N/A 02/01/2019 Procedure: PERCUTANEOUS CORONARY INTERVENTION; Surgeon: Rolando Topete MD; Location: [facility];Service: Cardiovascular; Laterality: N/A; Direct Admit! COLONOSCOPY ENDOSCOPY KNEE ARTHROSCOPY right x2 / left x1 MOHS SURGERY nose ORIF ANKLE Left Family History Problem Relation Age of Onset Heart attack Father 39 Heart attack Brother 40 Breast cancer Neg Hx Social History[1] MEDICATIONS Current Medications[2] ALLERGIES Allergies[3] VISIT ORDERS 1. Dysgeusia 2. Anosmia 3. Deviated nasal septum 4. Chronic rhinitis Johnathan Bahena MD [1] Social History Tobacco Use Smoking status: Never Smokeless tobacco: Never Vaping Use Vaping status: Never Used Substance Use Topics Alcohol use: Not Currently Alcohol/week: 0.0 standard drinks of alcohol Comment: rarely Drug use: No [2] Current Outpatient Medications: allopurinol (ZYLOPRIM) 300 MG tablet, TAKE 1 TABLET BY MOUTH EVERY DAY, Disp: 90 tablet, Rfl: 0 aspirin 81 MG chewable tablet, Chew 1 tablet (81 mg total) daily. (Patient not taking: Reported on 01/31/2025), Disp: , Rfl: colchicine (COLCRYS) 0.6 mg tablet, Three times a week on Wednesday, Wednesday and Wednesday, Disp: 45 tablet, Rfl: 1 EPINEPHrine 0.15 mg/0.3 mL IJ auto-injection, Inject 0.3 mL (0.15 mg total) into the shoulder, thigh, or buttocks once as needed for allergic reaction., Disp: 2 Device, Rfl: 1 hydrALAZINE (APRESOLINE) 25 MG tablet, Take 1 tablet (25 mg total) by mouth twice daily (every 12 hours)., Disp: , Rfl: hydroCHLOROthiazide (HYDRODIURIL) 25 MG tablet, TAKE 1 TABLET (25 MG TOTAL) BY MOUTH DAILY., Disp: 90 tablet, Rfl: 3 LORazepam (ATIVAN) 0.5 MG tablet, Take 1 tablet (0.5 mg total) by mouth 3 times daily (every 8 hours) as needed for anxiety. (Patient not taking: Reported on 01/31/2025), Disp: 30 tablet, Rfl: 0 OMEprazole (PriLOSEC) 20 MG capsule, TAKE 1 CAPSULE BY MOUTH EVERY DAY, Disp: 90 capsule, Rfl: 0 predniSONE (DELTASONE) 10 MG tablet, Take 2 tablets (20 mg total) by mouth daily. With food., Disp:10 tablet, Rfl: 0 ProAir HFA 108 (90 Base) MCG/ACT inhaler, Inhale 2 puffs every 4 (four) hours as needed for wheezing., Disp: 1 Inhaler, Rfl: 1 rosuvastatin (CRESTOR) 20 MG tablet, TAKE 1 TABLET BY MOUTH EVERY DAY, Disp: 90 tablet, Rfl: 3 tamsulosin (FLOMAX) 0.4 MG capsule, Take 1 capsule (0.4 mg total) by mouth daily. (Patient not taking: Reported on 01/31/2025), Disp: 90 capsule, Rfl: 3 triamcinolone (NASACORT AQ) 55 MCG/ACT Aerosol nasal spray, 2 sprays into each nostril daily., Disp: 1 each, Rfl: 0 [3] Allergies Allergen Reactions Egg-Derived Products Anaphylaxis and Shortness Of Breath Peanut-Containing Drug Products Anaphylaxis and Other (See Comments) Peanuts Anaphylaxis Amlodipine Swelling Codeine Unknown/Patient and Family Unable to Define, Nausea Only and Other (See Comments) Lisinopril Cough documented in this encounter Plan of Treatment Upcoming Encounters Date Type Department Care Team (Late st Contact Info) Description 02/08/2025 12:00 PM EDT Procedure visit MG PAIN MGMT [id number] [address] [facility] [address] [place] [address] Gerardo Roca MD [address] [facility] 5 [place] [address] 06/04/2025 9:00 AM EST Office Visit [address] [place] [address] Nerissa Pham MD 2 [facility] [address] [place] [address] Scheduled Referrals Name Type Priority Associated Diagnoses Orde r Schedule Amb referral to ENT Outpatient Referral Routine Loss of taste Ordered: 11/29/2024 documented as of this encounter Visit Diagnoses Diagnosis Dysgeusia- Primary Disturbances of sensation of smell and taste Anosmia Disturbances of sensation of smell and taste Deviated nasal septum Chronic rhinitis documented in this encounter Care Teams Social Sciences Department Chair Relationship Specialty Start Date End Date Nerissa Pham MD 2 [facility] [address] [address] PCP - General Internal Medicine 11/06/20 Audie Cota MD 85 [facility] [address] [place] [phone] Cardiovascular Disease 01/11/19 Ankita Vinson, [facility] [address] [facility] 4 [place] [address] [facility] Community Sequ[employer] Winder 06/23/19 Gerardo Leblanc MD [address] [place] [address] Ophthalmology 07/04/19 Rolando Topete MD [address] [place] [address] 10[address] [place] [address] Cardiovascular Disease 07/10/19 Danielle Stubbs MD [address] [place] [address] [place] [address] Dermatology 07/10/19 Juan Manuel Patino MD [address] [place] [address] [place] [address] Physician Pulmonary Disease 09/22/19 Fletcher Mckay MD [address] [place] [address] Physician Nephrology 03/18/20 Victor Hugo Leigh MD [address] [place] [address] Neurology 11/05/22 documented as of this encounter
--- NOTE | 2025-02-06 11:04 | HO.NEPHOV_ITS ---
Vital Signs 02/06/25 11:05 Height 5 ft 8 in Weight 162 lb 2 oz BMI 24.6 BP 142/70 H Blood Pressure Location Lt brachial Position Sitting Pulse 48 L Pulse Source Pulse Oximeter Pulse Oximetry (%) 97 Oxygen Delivery Method Room Air Intake Visit Reasons: 3 mo follow up-Conf [employer] Worker Required: No Accompanied by: Self / Same As Patient Allergies amlodipine Allergy (Verified 02/06/25 11:05) Unknown codeine Allergy (Verified 02/06/25 11:05) Unknown Egg Derived Allergy (Verified 02/06/25 11:05) Unknown lisinopril Allergy (Verified 02/06/25 11:05) Unknown peanut Allergy (Verified 02/06/25 11:05) Unknown HPI Comments Details: Peter in follow-up of his chronic kidney disease and hypertension. He has H/O some left breast pain from spironolactone. He underwent ultrasound and mammogram. He was found to have a cyst which is found to be benign. He has not been strict with a low-sodium diet. His creatinine had been near baseline of 1.9. He does not have any hematuria, kidney stones, dysuria, pedal edema, shortness of breath, proximal nocturnal dyspnea, orthopnea, nausea, vomiting or diarrhea. He is not taking any nonsteroidal anti-inflammatory medications. He had been on carvedilol in the past which has been discontinued due to low heart rate. His blood pressure is currently well controlled. He had recurrent gout attacks. He is on Allopurinol & Colchicine . He had seen Urology and underwent USS and MRI. He has B/L small renal stones and renal cysts. [facility] Medical History Essential (primary) hypertension Chronic kidney disease, stage 3a Surgical History History of ankle surgery History of knee replacement Family History Father Heart disease Hypertension Brother Heart disease Hypertension Social History Alcohol intake: never Patient Tobacco Use Status: Never used Tobacco Review of Systems Const All systems reviewed & are unremarkable except as noted in HPI and below Physical Exam Vital Signs: Last Vital Signs Pulse 48 L 02/06/25 11:05 BP 142/70 H 02/06/25 11:05 Pulse Ox 97 02/06/25 11:05 Oxygen Delivery Method Room Air 02/06/25 11:05 BMI result Body Mass Index 24.6 Const General: comfortable and no acute distress Orientation/consciousness: patient oriented x3 HEENT Head: Yes normocephalic Mouth: Normal oral and palatal mucosa present Eyes EOM: EOMs intact bilaterally Neck Neck: Yes supple Resp Auscultation: clear to auscultation bilaterally Cardio Jugular venous distension: no JVD Rate: regular rate GI Palpation (GI): Soft to palpation Auscultation: normal bowel sounds General: Yes no CVA tenderness Back/Spine/Pelvis Back: no CVA tenderness Skin General skin exam: no rashes or lesions noted Neuro General: patient oriented x3 and moves all extremities Extrem General: Yes no pedal edema Assessment & Plan Assessment & Plan (1) Chronic kidney disease, stage 3a: Code(s): N18.31 - Chronic kidney disease, stage 3a Category: Medical (2) Renal calculus: Code(s): N20.0 - Calculus of kidney Category: Medical (3) Renal cyst: Code(s): N28.1 - Cyst of kidney, acquired Category: Medical (4) Essential (primary) hypertension: Code(s): I10 - Essential (primary) hypertension Category: Medical Plan Peter has chronic kidney disease most likely due to vascular disease. He had a Doppler of his renal arteries in the past which did not show any significant renal artery stenosis. He should be on a low-sodium diet. He should remain well hydrated. He is not on any beta-mik given his low heart rate. He is off spironolactone. I plan to repeat is Doppler renal arteries with time. He can take Allopurinol 300 mg daily . He should avoid nonsteroidal anti-inflammatory medications. ( He has stopped losartan ) I did not make any other medication changes today. Follow-up lab work ordered. Orders: Orders Phosphorus 6 Months I10 - Essential (primary) hypertension, N18.31 - Chronic kidney disease, stage 3a, N20.0 - Calculus of kidney, N28.1 - Cyst of kidney, acquired Creatinine 6 Months I10 - Essential (primary) hypertension, N18.31 - Chronic kidney disease, stage 3a, N20.0 - Calculus of kidney, N28.1 - Cyst of kidney, acquired Blood Urea Nitrogen 6 Months I10 - Essential (primary) hypertension, N18.31 - Chronic kidney disease, stage 3a, N20.0 - Calculus of kidney, N28.1 - Cyst of kidney, acquired Electrolytes 6 Months I10 - Essential (primary) hypertension, N18.31 - Chronic kidney disease, stage 3a, N20.0 - Calculus of kidney, N28.1 - Cyst of kidney, acquired Protein Creatinine Ratio, Ur 6 Months I10 - Essential (primary) hypertension, N18.31 - Chronic kidney disease, stage 3a, N20.0 - Calculus of kidney, N28.1 - Cyst of kidney, acquired Parathyroid Hormone Intact 6 Months I10 - Essential (primary) hypertension, N18.31 - Chronic kidney disease, stage 3a, N20.0 - Calculus of kidney, N28.1 - Cyst of kidney, acquired Vitamin D 25-OH Total 6 Months I10 - Essential (primary) hypertension, N18.31 - Chronic kidney disease, stage 3a, N20.0 - Calculus of kidney, N28.1 - Cyst of kidney, acquired UA and rflx microscopic 6 Months I10 - Essential (primary) hypertension, N18.31 - Chronic kidney disease, stage 3a, N20.0 - Calculus of kidney, N28.1 - Cyst of kidney, acquired Coding Level of Care Code Est Pt Level 4 (21372) Diagnoses Chronic kidney disease, stage 3a N18.31 Renal calculus N20.0 Renal cyst N28.1 Essential (primary) hypertension I10
[2025-02-06 11:05] VITALS: BP 142/70; PULSE 48; O2SAT 97; BMI 24.6
--- OUTSIDE RECORDS SUMMARY | 2025-02-06 11:20 | XMS_ITS | Encounter Summary ---
Author Organization [facility] Address [address] [place] [address] Care Team Providers Care Supervisor Ticket Sales Name Role Phone Audie Cota MD Unavailable [phone] Ankita Vinson [facility] Unavailable Gerardo Leblanc MD Unavailable Rolando Topete MD Unavailable [phone] Danielle Stubbs MD Unavailable Juan Manuel Patino MD Unavailable Fletcher Mckay MD Unavailable Nerissa Pham MD Primary Care Provider + Victor Hugo Leigh MD Unavailable [phone] Nerissa Pham MD Unavailable Reason for Visit * Reason Comments Other Encounter Details Date Type Department Care Team (Late st Contact Info) Description 05/10/2023 Telephone [facility] [address] [place] [address] Linda Lei, BRIANA [address] [facility] [address] [place] [phone] Other Social History Tobacco Use Types Packs/Day Years [...] Procedure visit MG PAIN MGMT [id number] 65 [facility] 435 [place] [address] Gerardo Roca MD 35 [facility] 5 [place] [address] 06/04/2025 9:00 AM EST Office Visit [address] [place] [address] Nerissa Pham MD 2 [facility] [place] [phone] documented as of this encounter Visit Diagnoses Not on filedocumented in this encounter Care Teams Supervisor Ticket Sales Relationship Specialty Start Date End Date Nerissa Pham MD 2 [facility] [address] Garcia [address] [place] [address] PCP - General Internal Medicine 11/06/20 AlNerissa Wolf MD 2 [facility] [address] [address] PCP - MSSP Attributed 12/12/22 4 Audie oCta MD 85 [facility] [address] [place] [address] Cardiovascular Disease 01/11/19 Ankita Vinson, [facility] [address] [facility] 4 [place] [address] [facility] Community Shoe Repair Cobbler 06/23/19 Gerardo Leblanc MD [address] [place] [address] Ophthalmology 07/04/19 Rolando Topete MD [address] [place] [address] 10[address] [place] [address] Cardiovascular Disease 07/10/19 Danielle Stubbs MD [address] [place] [address] Dermatology 07/10/19 Juan Manuel Patino MD [address] [place] [address] Physician Pulmonary Disease 09/22/19 Fletcher Mckay MD [address] [place] [address] Physician Nephrology 03/18/20 Victor Hugo Leigh MD [address] [place] [address] Neurology 11/05/22 documented as of this encounter
--- OUTSIDE RECORDS SUMMARY | 2025-02-06 11:20 | XMS_ITS | Encounter Summary ---
Author Organization [facility] Address [address] [place] [address] Care Team Providers Care Signal Circuit Designer Name Role Phone Audie Cota MD Unavailable [phone] Ankita Vinson [facility] Unavailable Gerardo Leblanc MD Unavailable [phone] Rolando Topete MD Unavailable Danielle Stubbs MD Unavailable Juan Manuel Patino MD Unavailable Fletcher Mckay MD Unavailable Nerissa Pham MD Primary Care Provider + Victor Hugo Leigh MD Unavailable [phone] Nerissa Pham MD Unavailable Encounter Details Date Type Department Care Team (Late st Contact Info) Description 05/17/2023 Scanned Document [facility] [address] [place] [phone] Linda Lei APRN 399 [facility] [address] [place] [address] Social History Tobacco Use Types Packs/Day Years [...] Procedure visit MG PAIN MGMT [id number] 65 [facility] 435 [place] [address] Gerardo Roca MD [address] [address] 06/04/2025 9:00 AM EST Office Visit [address] [place] [address] Nerissa Pham MD 2 [facility] [address] [address] documented as of this encounter Visit Diagnoses Not on filedocumented in this encounter Care Teams Signal Circuit Designer Relationship Specialty Start Date End Date Nerissa Pham MD 2 [facility] Dr Garcia [address] [place] [address] PCP - General Internal Medicine 11/06/20 Nerissa Pham MD 2 [facility] [address] [address] PCP - MSSP Attributed 12/12/22 4 Audie Cota MD 85 [facility] 719 [place] [address] Cardiovascular Disease 01/11/19 Ankita Vinson, [facility] [address] [facility] 4 [place] [address] [facility] Community Engineer Intern 06/23/19 Gerardo Leblanc MD [address] [place] [address] Ophthalmology 07/04/19 Rolando Topete MD [address] [place] [address] 1022 [place] [address] Cardiovascular Disease 07/10/19 Danielle Stubbs MD [address] [place] [address] Dermatology 07/10/19 Juan Manuel Patino MD [address] [place] [address] Physician Pulmonary Disease 09/22/19 Fletcher Mckay MD [address] [place] [address] Physician Nephrology 03/18/20 Victor Hugo Leigh MD [address] [place] [address] Neurology 11/05/22 documented as of this encounter
--- OUTSIDE RECORDS SUMMARY | 2025-02-06 11:20 | XMS_ITS | Clinical Summary ---
Author Organization [facility] Address [address] [place] [address] Care Team Providers Care Metal Casket Maker Name Role Phone Xavier Corey MD Primary Care Provider [phone] Allergies Active Allergy Reactions Criticality Noted Date Comments Codeine Nausea Only Medium 09/05/2019 Egg-Derived Products 11/28/2015 Peanuts 11/28/2015 Medications Medication Sig Dispensed Refills Start Date End Date Status omeprazole (PRILOSEC) 20 MG capsule Take 20 mg by mouth. 0 11/10/2016 Active rosuvastatin (CRESTOR) tablet 20 mg Take 20 mg by mouth daily. 0 06/19/2019 Active lisinopril (PRINIVIL,ZESTRIL) tablet 5 mg Take 5 mg by mouth daily. 0 08/08/2019 Active Albuterol Sulfate (PROAIR HFA IN) Inhale 2 puffs into the lungs daily as needed. 0 Active febuxostat (ULORIC) 40 MG tablet Take 40 mg by mouth daily as needed. 0 Active aspirin EC 81 MG EC tablet Take 1 tablet (81 mg total) by mouth 2 (two) times a day after meals. 84 tablet 0 12/01/2019 Active senna-docusate (PERICOLACE) 8.6-50 MG Take 1 tablet by mouth 2 (two) times a day. 60 tablet 0 12/01/2019 Active oxyCODONE (ROXICODONE) 5 MG immediate release tablet Take 1 tablet (5 mg total) by mouth every 4 (four) hours as needed for pain. 40 tablet 0 12/01/2019 Active methocarbamol (ROBAXIN) 750 MG tablet Take 1 tablet (750 mg total) by mouth 3 (three) times a day as needed (muscle spasms). 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 Family History Medical History Relation Name Comments Heart disease Brother Heart disease Father No Sig Med Hx Mother Relation Name Status Comments Brother Alive Father (Age 62) Mother Alive Social History Tobacco Use Types Packs/Day Years Used Date Smoking Tobacco: Never Smokeless Tobacco: Never Alcohol Use Standard Drinks/Week Comments No 0 (1 standard drink = 0.6 oz pur e alcohol) rarely Sex and Gender Information Value Date Recorded Sex Assigned at Male 09/05/2019 9:18 AM EDT Gender Identity Male 09/05/2019 9:18 AM EDT Sexual Orientation Straight 11/21/2019 2: 06 PM EDT Last Filed Vital Signs Vital Sign Reading Time Taken Comments Blood Pressure 148/61 12/01/2019 8:17 AM EDT Pulse 53 12/01/2019 8:17 AM EDT Temperature 36.7 C (98.1 F) 12/01/2019 8:17 AM EDT Respiratory Rate 20 12/01/2019 8:17 AM EDT Oxygen Saturation 96% 12/01/2019 8:17 AM EDT Inhaled Oxygen Concentration - - Weight 76.2 kg (168 lb) 11/30/2019 6:01 AM EDT Height 172.7 cm (5' 8 ) 11/30/2019 6:01 AM EDT Body Mass Index 25.54 11/30/2019 6:01 AM EDT Plan of Treatment Health Maintenance Due Date Last Done Comments Hepatitis C Screening 1950 COVID-19 Vaccine (#1) 1950 Depression Screening 1962 Preventative Health Evaluation 1968 DTap / Tdap / Td (1 - Tdap) 1969 Colon Cancer Screening (Colonoscopy) 1995 Shingrix-Zoster Vaccine (1 of 2) 2000 Fall Risk Assessment 2015 Pneumococcal Vaccine (1 of 1 - PCV) 2015 Influenza Vaccine (#1) 2025 RSV Adult > 60+ Yrs or Pregn ant (1 - 1-dose 75+ series) 2025 Hepatitis B Vaccines Aged Out No long er eligible based on patient's age to complete this topic RSV Ped < 20 months Aged Out No longe r eligible based on patient's age to complete this topic Medical Devices Implanted Type Area Build Master Device Identifier Shelf Expiration Date Model / Serial / Lot Component Femoral Posterior Stabilized Rt Size 5 Beaded W\Pe - [id number] - [id number] Implanted:Qty: 1 on 11/30/2019 by Andres Pyle MD at [facility] Right: Knee [facility] [employer] 02/29/2024 [id number] / / [id number] Triathlon Tritanium Baseplate Size 6 - [id number] - [id number] Implanted:Qty: 1 on 11/30/2019 by Andres Pyle MD at [facility] and [facility] Right: Knee [employer] 07/30/2024 [id number] / / [id number] Insert Triathlon 6 9mm Posterior Stabilized Bearing X3 - [id number] - [id number] Implanted:Qty: 1 on 11/30/2019 by Andres Pyle MD at [facility] and [facility] Right: Knee [facility] 04/02/2024 [id number] / / [id number] Advance Directives For more information, please contact: [phone] Documents on File Type Date Recorded Patient Dye Room Helper Expl anation Advance Directive and Living Will 11/30/2019 Health Care Instruct ion and Rep Latest Code Status on File Code Status Date Activated Date Inactivated Comments Full Code 11/30/2019 11:48 AM 12/01/2019 4:59 PM This code status was ascertained in the following way: discussion with patient . Code Status History Code Status Date Activated Date Inactivated Comments Full Code 11/30/2019 5:14 AM 11/30/2019 11:48 AM . Care Teams Metal Casket Maker Relationship Specialty Start Date End Date Xavier Corey MD 2 [facility] [address] [place] [address] PCP - General Internal Medicine 12/16/16
--- OUTSIDE RECORDS SUMMARY | 2025-02-06 11:20 | XMS_ITS | Encounter Summary ---
Author Organization [facility] Address [address] [place] [address] Care Team Providers Care Sand Hauler Name Role Phone Audie Cota MD Unavailable [phone] Ankita Vinson [facility] Unavailable [phone] Gerardo Leblanc MD Unavailable Rolando Topete MD Unavailable [phone] Danielle Stubbs MD Unavailable Juan Manuel Patino MD Unavailable Fletcher Mckay MD Unavailable Nerissa Pham MD Primary Care Provider + Victor Hugo Leigh MD Unavailable [phone] Nerissa Pham MD Unavailable [phone] Reason for Visit * Reason Comments Appointment Results Request Encounter Details Date Type Department Care Team (Late st Contact Info) Description 01/10/2024 Telephone [place] [id number] [place] [address] Nerissa Pham MD 2 [facility] [address] [id number] Appointment; Results Request Social History Tobacco Use Types Packs/Day Years [...] Answer Date Recorded PHQ-2 Total Score 0 06/16/2023 Sex and Gender Information Value Date Recorded [...] Procedure visit MG PAIN MGMT [id number] [address] [place] [address] [place] [phone] Gerardo Roca MD [address] [address] 06/04/2025 9:00 AM EST Office Visit [address] [place] [address] Nerissa Pham MD 2 [facility] [address] [address] documented as of this encounter Visit Diagnoses Not on filedocumented in this encounter Care Teams Sand Hauler Relationship Specialty Start Date End Date Nerissa Pham MD 2 [facility] [address] [address] PCP - General Internal Medicine 11/06/20 Nerissa Pham MD 2 [facility] [address] [address] PCP - MSSP Attributed 12/12/22 4 Audie Cota MD 85 [facility] [address] [id number] Cardiovascular Disease 01/11/19 Ankita Vinson, [facility] [address] [place] [address] [facility] 4 [place] [address] [facility] Community Tractor Sweeper Driver 06/23/19 Gerardo Leblanc MD [address] [place] [address] Ophthalmology 07/04/19 Rolando Topete MD [address] [place] [address] 1022 [place] [address] Cardiovascular Disease 07/10/19 Danielle Stubbs MD [address] [place] [address] Dermatology 07/10/19 Juan Manuel Patino MD [address] [place] [address] Physician Pulmonary Disease 09/22/19 Fletcher Mckay MD [address] [place] [address] Physician Nephrology 03/18/20 Victor Hugo Leigh MD [address] [place] [address] Neurology 11/05/22 documented as of this encounter
--- OUTSIDE RECORDS SUMMARY | 2025-02-06 11:20 | XMS_ITS | Encounter Summary ---
Author Organization [facility] Address [address] [place] [address] Care Team Providers Care Leather Patcher Name Role Phone Audie Cota MD Unavailable [phone] Ankita Vinson [facility] Unavailable [phone] Gerardo Leblanc MD Unavailable [phone] Rolando Topete MD Unavailable Danielle Stubbs MD Unavailable [phone] Juan Manuel Patino MD Unavailable Fletcher Mckay MD Unavailable Nerissa Pham MD Primary Care Provider + Victor Hugo Leigh MD Unavailable [phone] Nerissa Pham MD Unavailable Encounter Details Date Type Department Care Team (Late st Contact Info) Description 05/19/[address] [address] Nerissa Pham MD 2 [facility] [address] [id number] Social History Tobacco Use Types Packs/Day Years [...] Procedure visit MG PAIN MGMT [id number] 65 [facility] [address] [facility] 435 [place] [address] Gerardo Roca MD 35 [facility] 5 [place] [address] 06/04/2025 9:00 AM EST Office Visit [address] [place] [phone] Nerissa Pham MD 2 [facility] [place] [phone] documented as of this encounter Visit Diagnoses Not on filedocumented in this encounter Care Teams Leather Patcher Relationship Specialty Start Date End Date Nerissa Pham MD 2 [facility] [address] [address] PCP - General Internal Medicine 11/06/20 Nerissa Pham MD 2 [facility] [address] [address] PCP - MSSP Attributed 12/12/22 4 Audie Cota MD 85 [facility] [place] 719 [place] [address] Cardiovascular Disease 01/11/19 Ankita Vinson, [facility] [address] [facility] 4 [place] [address] [facility] Community Focuser 06/23/19 Gerardo Leblanc MD [address] [place] [address] Ophthalmology 07/04/19 Rolando Topete MD [address] [place] [address] 1022 [place] [address] Cardiovascular Disease 07/10/19 Danielle Stubbs MD [address] [place] [address] Dermatology 07/10/19 Juan Manuel Patino MD [address] [place] [address] Physician Pulmonary Disease 09/22/19 Fletcher Mckay MD [address] [place] [address] Physician Nephrology 03/18/20 Victor Hugo Leigh MD [address] [place] [address] Neurology 11/05/22 documented as of this encounter
--- OUTSIDE RECORDS SUMMARY | 2025-02-06 11:20 | XMS_ITS | Encounter Summary ---
Author Organization [facility] Address [address] [place], [place] [address] Care Team Providers Care Publications Inspector Name Role Phone Audie Cota MD Unavailable [phone] Ankita Vinson [facility] Unavailable Gerardo Leblanc MD Unavailable Rolando Topete MD Unavailable Danielle Stubbs MD Unavailable [phone] Juan Manuel Patino MD Unavailable Fletcher Mckay MD Unavailable Nerissa Pham MD Primary Care Provider + Victor Hugo Leigh MD Unavailable [phone] Cheli Lopez PA-C Unavailable [phone] Nerissa Pham MD Unavailable [phone] Encounter Details Date Type Department Care Team (Late st Contact Info) Description 08/16/2022 Scanned Document [address] [place] [address] Nerissa Pham MD [address] [place] [address] 100 [place], [place] [phone] Social History Tobacco Use Types Packs/Day Years Used Date Smoking Tobacco: Never Smokeless Tobacco: Never Alcohol Use Standard Drinks/Week Comments Not Currently 0 (1 standard drink = 0.6 oz pur e alcohol) rarely PHQ-2 Answer Date Recorded PHQ-2 Total Score [...] Procedure visit MG PAIN MGMT [id number] 65 [facility] 435 [place] [phone] Gerardo Roca MD 35 [facility] 5 [place] [address] 06/04/2025 9:00 AM EST Office Visit [facility] [address] [phone] Nerissa Pham MD 2 [facility] [address] [address] documented as of this encounter Visit Diagnoses Not on filedocumented in this encounter Care Teams Publications Inspector Relationship Specialty Start Date End Date Nerissa Pham MD 2 [facility] [address] [address] PCP - General Internal Medicine 11/06/20 Cheli Lopez PA-C [address] [address] PCP - MSSP Attributed 09/12/22 12/11/22 Al-Nerissa Noble MD 2 [facility] [address] [address] PCP - MSSP Attributed 12/12/22 4 Audie Cota MD 85 [facility] 719 [place] [address] Cardiovascular Disease 01/11/19 Ankita Vinson, [facility] [address] [facility] 4 [place] [address] [facility] Community Production Drilling Machine Operator 06/23/19 Gerardo Leblanc MD [address] [place] [address] Ophthalmology 07/04/19 Rolando Topete MD [address] [place] [address] 1022 [place] [address] Cardiovascular Disease 07/10/19 Danielle Stubbs MD [address] [place] [address] Dermatology 07/10/19 Juan Manuel Patino MD [address] [place] [address] Physician Pulmonary Disease 09/22/19 Fletcher Mckay MD [address] [place] [address] Physician Nephrology 03/18/20 Victor Hugo Leigh MD [address] [place] [address] Neurology 11/05/22 documented as of this encounter
--- OUTSIDE RECORDS SUMMARY | 2025-02-06 11:20 | XMS_ITS | Encounter Summary ---
Author Organization [facility] Address [address] [place] [address] Care Team Providers Care Flatwork Ironer Name Role Phone Audie Cota MD Unavailable [phone] Ankita Vinson [facility] Unavailable [phone] Gerardo Leblanc MD Unavailable Rolando Topete MD Unavailable Danielle Stubbs MD Unavailable [phone] Juan Manuel Patino MD Unavailable Fletcher Mckay MD Unavailable Nerissa Pham MD Primary Care Provider + Victor Hugo Leigh MD Unavailable [phone] Nerissa Pham MD Unavailable [phone] Encounter Details Date Type Department Care Team (Late st Contact Info) Description 12/08/2023 Scanned Document [facility] CARDIOLOGY SCAN Cardiology, Scan Social History Tobacco Use Types Packs/Day Years [...] Procedure visit MG PAIN MGMT [id number] 65 [facility] 435 [place] [phone] Gerardo Roca MD 35 [facility] 5 [place] [address] 06/04/2025 9:00 AM EST Office Visit [facility] 2 [facility] [address] [place] [phone] Nerissa Pham MD 2 [facility] [address] [address] documented as of this encounter Visit Diagnoses Not on filedocumented in this encounter Care Teams Flatwork Ironer Relationship Specialty Start Date End Date Nerissa Pham MD [address] [facility] [address] [place] [address] PCP - General Internal Medicine 11/06/20 Nerissa Pham MD 2 [facility] [address] [address] PCP - MSSP Attributed 12/12/22 4 Audie Cota MD 85 [facility] 719 [place] [address] Cardiovascular Disease 01/11/19 Ankita Vinson, [facility] [address] [place] 4 [place] [address] [facility] Community Die Turner 06/23/19 Gerardo Leblanc MD 178 [place] [address] Ophthalmology 07/04/19 Rolando Topete MD 85 [facility] [address] [place] [id number] Cardiovascular Disease 07/10/19 Danielle Stubbs MD [address] [place] [address] Dermatology 07/10/19 Juan Manuel Patino MD [address] [place] [address] Physician Pulmonary Disease 09/22/19 Fletcher Mckay MD [address] [place] [address] [place] [address] Physician Nephrology 03/18/20 Victor Hugo Leigh MD [address] [place] [address] Neurology 11/05/22 documented as of this encounter
--- OUTSIDE RECORDS SUMMARY | 2025-02-06 11:20 | XMS_ITS | Clinical Summary ---
Author Organization [facility] Address [address] [place] [address] Care Team Providers Care Paper Twister Name Role Phone Audie Cota MD Unavailable [phone] Ankita Vinson [facility] Un[place] Gerardo Leblanc MD Unavailable Rolando Topete MD Unavailable [phone] Danielle Stubbs MD Unavailable [phone] Juan Manuel Patino MD Unavailable Fletcher Mckay MD Unavailable Nerissa Pham MD Primary Care Provider + Victor Hugo Leigh MD Unavailable [phone] Allergies Active Allergy Reactions Criticality Noted Date Comments Amlodipine Swelling Medium 08/09/2020 Codeine Unknown/Patient and Family Unable to Define,Nausea Only,Other (See Comments) Medium 01/02/2011 Egg-Derived Products Anaphylaxis,Shortne ss Of Breath High 04/09/2015 Lisinopril Cough Low 08/09/2020 Peanut-Containing Drug Products Anaphylaxis,Other (See Comments) High 04/09/2015 Peanuts Anaphylaxis High 04/09/2015 Medications aspirin 81 MG chewable tablet Chew 1 tablet (81 mg total) daily. Active EPINEPHrine 0.15 mg/0.3 mL IJ auto-injectionI ndications:Pean ut allergy Inject 0.3 mL (0.15 mg total) into the shoulder, thigh, or buttocks once as needed for allergic reaction. 2 Device 1 06/17/19 21 Active ProAir HFA 108 (90 Base) MCG/ACT inhalerIndicati ons:Shortness of breath Inhale 2 puffs every 4 (four) hours as needed for wheezing. 1 Inhaler 1 11/07/19 21 Active hydrALAZINE (APRESOLINE) 25 MG tablet Take 1 tablet (25 mg total) by mouth twice daily (every 12 hours). 04/15/20 23 Active LORazepam (ATIVAN) 0.5 MG tabletIndicatio ns:Anxiety Take 1 tablet (0.5 mg total) by mouth 3 times daily (every 8 hours) as needed for anxiety. 30 tablet 06/16/19 24 Active Additional Information Patient not taking.Reported on 01/31/2025 tamsulosin (FLOMAX) 0.4 MG capsuleIndicati ons:Benign prostatic hyperplasia with lower urinary tract symptoms, symptom details unspecified Take 1 capsule (0.4 mg total) by mouth daily. 90 capsule 3 01/20/20 24 Active Additional Information Patient not taking.Reported on 01/31/2025 OMEprazole (PriLOSEC) 20 MG capsuleIndicati ons:Gastroesoph ageal reflux disease without esophagitis TAKE 1 CAPSULE BY MOUTH EVERY DAY 90 capsule 02/21/20 24 Active colchicine (COLCRYS) 0.6 mg tabletIndicatio ns:Chronic gout due to renal impairment without tophus, unspecified site,Long-term use of high-risk medication Three times a week on Wednesday, Wednesday and Wednesday 45 tablet 1 06/23/19 25 Active rosuvastatin (CRESTOR) 20 MG tabletIndicatio ns:Coronary artery disease TAKE 1 TABLET BY MOUTH EVERY DAY 90 tablet 3 10/31/19 25 Active triamcinolone (NASACORT AQ) 55 MCG/ACT Aerosol nasal sprayIndication s:Dysfunction of both eustachian tubes 2 sprays into each nostril daily. 1 each 12/07/19 25 Active predniSONE (DELTASONE) 10 MG tabletIndicatio ns:Dysfunction of both eustachian tubes Take 2 tablets (20 mg total) by mouth daily. With food. 10 tablet 12/07/19 25 Active hydroCHLOROthia zide (HYDRODIURIL) 25 MG tabletIndicatio ns:Essential hypertension TAKE 1 TABLET (25 MG TOTAL) BY MOUTH DAILY. 90 tablet 3 01/25/20 25 Active allopurinol (ZYLOPRIM) 300 MG tabletIndicatio ns:Idiopathic chronic gout of multiple sites without tophus TAKE 1 TABLET BY MOUTH EVERY DAY 90 tablet 02/03/20 25 Active febuxostat (ULORIC) 40 MG tabletIndicatio ns:Idiopathic gout, unspecified chronicity, unspecified site Take 1 tablet (40 mg total) by mouth daily. 90 tablet 1 04/12/20 20 2020 Discontinued(R eorder) allopurinol (ZYLOPRIM) 300 MG tabletIndicatio ns:Idiopathic chronic gout of multiple sites without tophus Take 1 tablet (300 mg total) by mouth daily. 90 tablet 1 07/18/19 25 2024 Discontinued hydroCHLOROthia zide (HYDRODIURIL) 25 MG tabletIndicatio ns:Essential hypertension TAKE 1 TABLET (25 MG TOTAL) BY MOUTH DAILY. 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 Assessment & Plan (10/23/2024 10:29 AM EDT): 05/2023 biopsy benign. 07/31/2024 ultrasound performed out of state with benign results Exam benign with no tenderness to palpation on exam, no lymphadenopathy on exam There is no family history of breast cancer. There is low suspicion for breast cancer. Reassurance provided. Patient reports intermittent transient pain, x months, stable. Will refer back for re-evaluation, [place] office. Stage 3b chronic kidney disease 11/04/2021 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 021 History of colonic polyps 01/28/2021 Gastroesophageal reflux disease with apnea 08/12 Hyperlipemia 08/11/2020 Chronic heart failure 04/12/2020 Coronary artery disease of n ative artery of [place] heart with stable angina pectoris 01/27/2019 Overview (01/27/2019): Added automatically from request for surgery [id number] 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 01/11/20 19 Overweight (BMI 25.0-29.9) 01/21/2018 Overweight with body mass index (BMI) 25.0-29.9 01/21/2018 Primary osteoarthritis involving multiple joints 12/16/2016 Left wrist pain 01/03/2016 Primary gout 01/03/2016 Gout of foot 10/11/2015 Sciatica of right side 10/11/2015 Polyarticular gout 10/11/2015 Essential hypertension 04/09/2015 Assessment & Plan (10/23/2024 10:29 AM EDT): Controlled. Stable. Responding to treatment. Continue current treatment. Resolved Problems Problem Noted Date Diagnosed Date Resolved Date Stage 3a chronic kidney disease 10/28/2022 3 01/11/2023 Acute nontraumatic kidney injury 08/11/2020 06/01/2022 Chest pain 08/11/2020 06/01/2022 Essential hypertension 08/11/202011/06 Coronary artery disease 01/20/201905/14 Coronary arteriosclerosis 06/14/2018 Overview (11/06/2020): Added automatically from request for surgery [id number] Degenerative joint disease i nvolving multiple joints 12/16/2016 06/01/2022 Other acute sinusitis 01/03/20162016 Left wrist pain 01/03/2016 06/01/2022 Chronic renal disease, stage 2, mildly decreased glomerular filtration rate between 60-89 mL/min/1.73 square meter 04/09/2015 0 Encounters Date Type Department Care Team Description 02/05/2025 11:15 AM EDT Office Visit [facility] [address] [place] [phone] Johnathan Bahena MD Dysgeusia (Primary Dx); Anosmia; Deviated nasal septum; Chronic rhinitis 02/05/2025 Telephone [facility] [address] [address] Maximino Gomez MD 02/02/[address] [address] Maximino Gomez MD Idiopathic chronic gout of multiple sites without tophus 01/31/2025 11:30 AM EDT Office Visit [facility] [id number] [place] [address] [address] [place] [address] Amber Marshall MD Lucarelli, Richard T, MD Sacroiliac dysfunction (Primary Dx); Spondylosis of lumbar region without myelopathy or radiculopathy 01/31/2025 Travel 01/24/[address] [address] Nerissa Pham MD Essential hypertension 12/25/2024 Scanned Document [address] [place] [address] Shanika Del Valle MA 12/22/2024 10:40 AM EDT Ancillary Procedure [facility] [address] [phone] 12/22/2024 9:15 AM EDT Consult [facility] [address] [phone] Amber Marshall MD Acute low back pain, unspecified back pain laterality, unspecified whether sciatica present (Primary Dx); Facet arthropathy; Sacroiliitis, not elsewhere classified 12/06/2024 9:40 AM EDT Office Visit [facility] [address] [place] [address] Trell Okeefe MD Duncan, Kiersten B, BRIANA Dysfunction of both eustachian tubes (Primary Dx) 12/06/2024 Travel 12/05/2024 Scanned Document [facility] [address] [address] Maximino Gomez MD 11/29/2024 10:30 AM EDT Office Visit [address] [place] [address] Nerissa Pham MD Encounter for Medicare annual wellness exam (Primary Dx); Chronic heart failure, unspecified heart failure type (HCC); Stage 3b chronic kidney disease (HCC); Coronary artery disease of [place] artery of [place] heart with stable angina pectoris ; Essential hypertension ; 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, unspecified laterality; Loss of taste 11/29/2024 Travel 11/23/2024 2:30 PM EDT Consult [facility] [address] [address] Cheli Lopez PA-C Cech, Alex C, MD Subareolar mass of left breast (Primary Dx); Gynecomastia, male; Chronic heart failure, unspecified heart failure type (HCC); Stage 3b chronic kidney disease (HCC) 11/23/2024 Travel 11/07/2024 9:00 AM EDT Office Visit [facility] [address] [address] Maximino Gomez MD 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, unspecified laterality (Primary Dx); Long-term use of high-risk medication; Primary osteoarthritis involving multiple joints 11/07/2024 Scanned Document [facility] [address] [phone] Maximino Gomez MD 11/07/2024 Travel from Last 3 Months Immunizations Immunization Administration Dates Next Due Covid-19 mRNA Dipak-sucrose S easonal Vaccine - Pfizer 30 mcg/0.3 mL 12 years and older 06/16/2023 Pneumococcal Conjugate 20-Valent 11/04/2021 Rabies 05/22/2018, 8,05/11/2018,2017 Rabies Immune Globulin 05/08/2018 Tdap 06/14/2019 Zoster Vaccine Recombinant (Shingrix) 08/15/2022 ,11/18/2021 Family History Medical History Relation Name Comments Heart attack Brother Heart attack Father Breast cancer Neg Hx Relation Name Status Comments Brother Alive Father Social History Tobacco Use Types Packs/Day Years [...] Orientation Heterosexual (straight) 11/06 4:25 PM EDT Last Filed Vital Signs Vital Sign Reading Time Taken Comments Blood Pressure 145/71 01/31/2025 11:12 AM EDT Pulse 55 01/31/2025 11:12 AM EDT Temperature 36.7 C (98.1 F) 12/06/2024 9:50 AM EDT Respiratory Rate 18 12/06/2024 9:50 AM EDT Oxygen Saturation 97% 01/31/2025 11:12 AM EDT Inhaled Oxygen Concentration - - Weight 73.9 kg (163 lb) 02/05/2025 11:03 AM EDT Height 172.7 cm (5' 8 ) 02/05/2025 11:03 AM EDT Body Mass Index 24.78 02/05/2025 11:03 AM EDT Plan of Treatment Upcoming Encounters Date Type Department Care Team (Late st Contact Info) Description 02/08/2025 12:00 PM EDT Procedure visit [facility] [id number] [address] [place] [phone] Gerardo Roca MD [address] [place] [address] 06/04/2025 9:00 AM EST Office Visit [facility] [address] [facility] [address] [place] [phone] Nerissa Pham MD 2 [facility] [address] [place], [place] [phone] Health Maintenance Due Date Last Done Comments Advance Care Planning 1950 RSV Vaccine 60 years and older and Patients (1 - Risk 60-74 years 1-dose series) 2010 Physical 04/09/2016 04/09/2015 COVID-19 Vaccine (2 - 2023- season) 2024 06/16/2023 Annual Wellness Visit 11/30/2025 11/29/2024 , 06/16/2023, 11/04/2021, Additional history exists DTaP/Tdap/Td Vaccines (2 - Td or Tdap) 06/14/2029 06/14/2019 Colonoscopy 12/06/2031 12/05/2021 (Prev iously Completed), 05/18/2018, 05/18/2018 Hepatitis C Virus Screening Completed 11/11/2019 Pneumococcal Vaccines 50+ Completed 11/04/2021 Zoster (Shingles) Vaccine Completed 08/15/2022, 12/2021 Hepatitis B Vaccines Aged Out No long er eligible based on patient's age to complete this topic Influenza Vaccine Discontinued Medical Devices Implanted Type Area Point Of Care Specialist Device Identifier Shelf Expiration Date Model / Serial / Lot Screw Screw Left: Ankle Description:left ankle ORIF in the 1980s details of screw/nail unknown [id number] System Coronary Stent 22mm 2.5mm Rslt [place] Sv [employer]olinx - [id number] Implanted:Qty : 1 on 02/01/2019 by Rolando Topete MD at [facility] Stent N/A: Coronary [employer] MINIMALLY INVASIVE T [id number] 09/05/2020 [id number] / / [id number] Description:CIRC [id number] System Coronary Stent 22mm 3mm Rslt Paolo Med Vessel Biolinx - [id number] Implanted:Qty : 1 on 02/01/2019 by Rolando Topete MD at [facility] Stent N/A: Coronary [employer] MINIMALLY INVASIVE T [id number] 09/05/2020 [id number] / / [id number] Description:RCA Procedures Procedure Name Priority Date/Time Associated Diagnosis Comments XR LUMBAR SPINE COMPLETE W/FLEX,EXT 4+VIEWS Routine 12/22/2024 10:50 AM EDT Acute low back pain, unspecified back pain laterality, unspecified whether sciatica present HEPATITIS C VIRUS (HCV) ANTIBODY Routine 11/11/2019 8:26 AM EDT Essential hypertension Chronic renal disease, stage 2, mildly decreased glomerular filtration rate between 60-89 mL/min/1.73 square meter Routine medical exam HX GASTROENTEROLOGY COLONOSCOPY-SCAN 05/18/2018 from Last 3 Months or Most Recently Relevant to Health Maintenance Results * XR Lumbar spine complete w/Flex,Ext, 4+Views (12/22/2024 10:50 AM EDT) Narrative OA - 12/22/2024 10:50 AM EDT This exam was performed in office at [facility] and images reviewed by orthopedic provider. Any findings are documented within ambulatory encounter note on date of service. Amber Marshall MD IMG DIAGNOSTIC IMAGING ORDER IVÁN Final Result OAH * Hepatitis C Virus (HCV) Antibody (11/11/2019 8:26 AM EDT) Hepatitis C Antibody NON-REACT KWABENA NON-REACT KWABENA [facility] Hepatitis C Antibody (s/co) 0.01 <1.00 [facility] Comment: HCV antibody was non-reactive. There is no laboratory evidence of HCV infection. In most cases, no further action is required. However, if recent HCV exposure is suspected, a test for HCV RNA (test code 10047) is suggested. For additional information please refer to http://education.[facility]/faq/YQM02m7 (This link is being provided for informational/ educational purposes only.) Blood specimen (specimen) Blood specimen / Unknown 11/11/2019 8:26 AM EDT 11/11/2019 8:28 AM EDT Narrative Resulting Agency Comment Performing Organization Information: Site ID: [id number] Name: [facility] Address: [address] [place] [address], [place] [address] Director: Tamara Castellanos MD Xavier Corey MD LAB BLOOD ORDERABLES Final R esult Performing Organization Address [facility] Co de Phone Number [employer] [facility] [place] [address], [place], [place] [id number] * HX GASTROENTEROLOGY COLONOSCOPY-SCAN (05/18/2018) Narrative 05/18/2018 Ordered by an unspecified provider. Generic Provider HX AMB PROCEDURES Edited Result - Final from Last 3 Months or Most Recently Relevant to Health Maintenance Insurance AARP Member Subscriber Plan / Payer (Ef fective 2015-Present) Name:Mickey Washington Relation to Subscriber:Self Name:Mickey Washington Payer ID:Not on file Group ID:Not on file Type:Not on file Address: [place] [id number] MEDICARE PART A & B MEDICARE PART A & B [employer] MEDICARE PART A & B [employer] MEDIC[employer] PART A & B [employer] MEDICARE PART A & B AARP Advance Directives * Full Code (Latest Code Status on File) Date Activated Date Inactivated Comments 02/25/2023 7:08 AM * Full Code Date Activated Date Inactivated Comments 02/01/2019 7:06 AM 12/05/2019 4:54 PM * Full Code Date Activated Date Inactivated Comments 01/20/2019 6:46 AM 02/01/2019 6:39 AM Care Teams Paper Twister Relationship Specialty Start Date End Date Nerissa Pham MD 2 [facility] [address] [address] PCP - General Internal Medicine 11/06/20 Audie Cota MD 85 [facility] [place] [address] [place] [address] Cardiovascular Disease 01/11/19 Ankita Vinson, [employer] ST[employer]ER [address] [facility] 4 [place] [address] [facility] Community Regional Driver 06/23/19 Gerardo Leblanc MD [address] [place] [address] Ophthalmology 07/04/19 Rolando Topete MD [address] [place] [address] 10[address] [place] [address] Cardiovascular Disease 07/10/19 Danielle Stubbs MD [address] [place] [address] Dermatology 07/10/19 Juan Manuel Patino MD [address] [place] [address] [place] [address] Physician Pulmonary Disease 09/22/19 Fletcher Mckay MD [address] [place] [address] Physician Nephrology 03/18/20 Victor Hugo Leigh MD [address] [place] [address] Neurology 11/05/22
--- OUTSIDE RECORDS SUMMARY | 2025-02-06 11:20 | XMS_ITS | Encounter Summary ---
Author Organization [facility] Address [address] [place] [address] Care Team Providers Care Blower Feeder Dyed Raw Stock Name Role Phone Xavier Corey MD Unavailable Unavailable Marisela Jackman [facility] Unavailable Audie Cota MD Unavailable [phone] Xavier Corey MD Primary Care Provider Unava ilable Ankita Vinson [facility] Unavailable Gerardo Leblanc MD Unavailable [phone] Rolando Topete MD Unavailable Danielle Stubbs MD Unavailable Juan Manuel Patino MD Unavailable Juan Manuel Patino MD Unavailable Fletcher Mckay MD Unavailable Nerissa Pham MD Unavailable [phone] Nerissa Pham MD Primary Care Provider + Nerissa Pham MD Unavailable [phone] Rodriguez Granados PA-C Unavailable UnavailNerissa Oconnor MD Unavailable Xavier Corey MD Primary Care Provider Unava ilable Victor Hugo Leigh MD Unavailable [phone] Cheli Lopez PA-C Unavailable Nerissa Pham MD Unavailable [phone] Encounter Details Date Type Department Care Team (Late st Contact Info) Description 05/18/2018 Scanned Document [facility] [address] [place] [phone] Provider, Generic Social History Tobacco Use Types Packs/Day Years Used Date Smoking Tobacco: Never Smokeless Tobacco: Never Alcohol Use Standard Drinks/Week Comments No 0 (1 standard drink = 0.6 oz pur e alcohol) Sex and Gender Information Value Date Recorded [...] [facility] PA[facility] MGMT [id number] [address] [facility] [address] [facility] [address] [place] [phone] Gerardo Roca MD [address] [place] [address] 06/04/2025 9:00 AM EST Office Visit [address] [place] [phone] Nerissa Pham MD 2 [facility] [address] [place], [place] [phone] documented as of this encounter Procedures Procedure Name Priority Date/Time Associated Diagnosis Comments HX GASTROENTEROLOGY UPPER ENDOSCOPY-SCAN 05/18/2018 documented in this encounter Results * HX GASTROENTEROLOGY UPPER ENDOSCOPY-SCAN (05/18/2018) Narrative 05/18/2018 Ordered by an unspecified provider. us Generic Provider HX AMB PROCEDURES Edited Result - Final documented in this encounter Visit Diagnoses Not on filedocumented in this encounter Care Teams Blower Feeder Dyed Raw Stock Relationship Specialty Start Date End Date Xavier Corey MD PCP - MSSP Attributed 12/12/18 06/13/19 Xavier Corey MD 85 [facility] [address] [place] [address] PCP - General Internal Medicine 01/20/19 11/05/20 Nerissa Pham MD [address] [facility] [address] [place] [address] PCP - MSSP Attributed 06/14/19 0 Nerissa Pham MD [address] [facility] [address] [place] [address] PCP - General Internal Medicine 11/06/20 Nerissa Pham MD [address] [facility] [address] [place] [address] PCP - MSSP Attributed 09/12/20 1 Rodriguez Granados PA-C PCP - MSSP Attributed 06/14/21 09/11/21 Nerissa Pham MD [address] [facility] [address] [place] [address] PCP - MSSP Attributed 09/12/21 2 Xavier Corey MD PCP - General 01/19/19 Cheli Lopez PA-C 2 [facility] [place] [address] [address] PCP - MSSP Attributed 09/12/22 12/11/22 Nerissa Pham MD 2 [facility] [address] [address] PCP - MSSP Attributed 12/12/22 4 Marisela Jackman, [facility] [address] [facility] 4 [place] [address] ICP Community Hostess Host 02/02/17 06/23/19 Audie Cota MD [address] [place], [place] [address] [place] [address] Cardiovascular Disease 01/11/19 Ankita Vinson, [facility] [facility] 4 [place] [address] [facility] Community Hostess Host 06/23/19 Gerardo Leblanc MD [address] [place] [address] Ophthalmology 07/04/19 Rolando Topete MD [address] [place] [address] 1022 [place] [address] Cardiovascular Disease 07/10/19 Danielle Stubbs MD [address] [place] [address] [place] [address] Dermatology 07/10/19 Juan Manuel Patino MD [address] [place] [address] [place] [address] Physician Pulmonary Disease 09/22/19 Juan Manuel Patino MD [address] [facility] [place] [address] Physician Pulmonary Disease 10/04/19 10/04/19 Fletcher Mckay MD [address] [place] [address] [place] [address] Physician Nephrology 03/18/20 Victor Hugo Leigh MD [address] [place] [address] Neurology 11/05/22 documented as of this encounter
--- OUTSIDE RECORDS SUMMARY | 2025-02-06 11:20 | XMS_ITS ---
Author Organization [facility] Address [address] [place] [address] Care Team Providers Care Social Sciences Professor Name Role Phone Audie Cota MD Unavailable [phone] Ankita Vinson [facility] Unavailable [phone] Gerardo Leblanc MD Unavailable Rolando Topete MD Unavailable Danielle Stubbs MD Unavailable [phone] Juan Manuel Patino MD Unavailable Fletcher Mckay MD Unavailable Nerissa Pham MD Primary Care Provider + Victor Hugo Leigh MD Unavailable [phone] Active Problems Problem Noted Date Diagnosed Date [...] months, stable. Will refer back for re-evaluation, [place] office. Stage 3b chronic kidney disease 11/04/2021 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 021 History of colonic polyps 01/28/2021 Gastroesophageal reflux disease with apnea 08/12 Hyperlipemia 08/11/2020 Chronic heart failure 04/12/2020 Coronary artery disease of n ative artery of [place] heart with stable angina pectoris 01/27/2019 Overview (01/27/2019): Added automatically from request for surgery [id number] 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 [...] Stable. Responding to treatment. Continue current treatment. Current Treatment and Therapy Plans No current plan information found. Past Treatment and Therapy Plans No past plan information found. Lifetime Dose Tracking * Chemical Lifetime Dose Automatic Entry Manual Entr y Air Kerma-mGy 333 mGy 0 mGy 333 mGy Dose Area Product(DAP)-Gy-cm2 20.6 Gy-cm2 0 Gy-cm2 20.6 Gy-cm2 Resolved Problems Problem Noted Date Diagnosed Date Resolved Date Stage 3a chronic kidney disease 10/28/2022 3 01/11/2023 Acute nontraumatic kidney injury 08/11/2020 06/01/2022 Chest pain 08/11/2020 06/01/2022 Essential hypertension 08/11/202011/06 Coronary artery disease 01/20/201905/14 Coronary arteriosclerosis 06/14/2018 Overview (11/06/2020): Added automatically from request for surgery [id number] Degenerative joint disease i nvolving multiple joints 12/16/2016 06/01/2022 Other acute sinusitis 01/03/20162016 Left wrist pain 01/03/2016 06/01/2022 Chronic renal disease, stage 2, mildly decreased glomerular filtration rate between 60-89 mL/min/1.73 square meter 04/09/2015 0
--- OUTSIDE RECORDS SUMMARY | 2025-02-06 11:20 | XMS_ITS | Encounter Summary ---
Author Organization [facility] Address [address] [place] [address] Care Team Providers Care Housesmith Name Role Phone Audie Cota MD Unavailable [phone] Xavier Corey MD Primary Care Provider Unava ilable Ankita Vinson [facility] Unavailable [phone] Gerardo Leblanc MD Unavailable [phone] Rolando Topete MD Unavailable [phone] Danielle Stubbs MD Unavailable Juan Manuel Patino MD Unavailable Fletcher Mckay MD Unavailable Nerissa Pham MD Unavailable Nerissa Pham MD Primary Care Provider + Nerissa Pham MD Unavailable Rodriguez Granados PA-C Unavailable UnavailNerissa Oconnor MD Unavailable [phone] Victor Hugo Leigh MD Unavailable [phone] Cheli oLpez PA-C Unavailable Nerissa Pham MD Unavailable [phone] Reason for Visit * Reason Comments Appointment Encounter Details Date Type Department Care Team (Late Contact Info) Description 04/15/2020 Telephone [facility] [address] [place] [address] Xavier Corey MD Appointment Social History Tobacco Use Types Packs/Day Years [...] Orientation Heterosexual (straight) 11/06 4:25 PM EDT COVID-19 Exposure Response Date Recorded In the last month, have you been in contact with someone who was confirmed or suspected to have Coronavirus / COVID-19? No / Unsure 04/12/2020 8:40 AM EDT documented as of this encounter Miscellaneous Notes * Telephone Encounter - Shanika Del Valle MA - 04/15/2020 2:03 PM EST Please see below * Telephone Encounter - Shanika Del Valle MA - 04/15/2020 1:53 PM EST Please contact pt to reschedule based on next availability. Add pt to cancellation list as well documented in this encounter Plan of Treatment Upcoming Encounters Date Type Department Care Team (Late st Contact Info) Description 02/08/2025 12:00 PM EDT Procedure visit MG PAIN MGMT [id number] 65 [facility] [address] [place] [address] Gerardo Roca MD 35 [facility] [address] 5 [place] [address] 06/04/2025 9:00 AM EST Office Visit [facility] 2 [facility] 100 [place] [address] Nerissa Pham MD [address] [facility] [address] [place] [address], [place] [address] documented as of this encounter Visit Diagnoses Not on filedocumented in this encounter Care Teams Housesmith Relationship Specialty Start Date End Date Xavier Corey MD 85 [facility] 719 [place] [address] PCP - General Internal Medicine 01/20/19 11/05/20 Nerissa Pham MD 2 [facility] [address] [place] [address] PCP - MSSP Attributed 06/14/19 0 Nerissa Pham MD 2 [facility] [address] [place] [address] PCP - General Internal Medicine 11/06/20 Nerissa Pham MD 2 [facility] [address] [place] [address] PCP - MSSP Attributed 09/12/20 1 Rodriguez Granados PA-C PCP - MSSP Attributed 06/14/21 09/11/21 Nerissa Pham MD 2 [facility] [address] [place] [address] PCP - MSSP Attributed 09/12/21 2 Cheli Lopez PA-C [address] [address] PCP - MSSP Attributed 09/12/22 12/11/22 Nerissa Pham MD 2 [facility] [address] [address] PCP - MSSP Attributed 12/12/22 Audie Cota MD 85 [facility] [address] [place] [id number] Cardiovascular Disease 01/11/19 Ankita Vinson, [facility] [address] [facility] 4 [place] [address] [facility] Community Optimization Specialist 06/23/19 Gerardo Leblanc MD [address] [place] [address] Ophthalmology 07/04/19 Rolando Toepte MD [address] [place] [address] [address] [place] [id number] Cardiovascular Disease 07/10/19 Danielle Stubbs MD [address] [place] [address] Dermatology 07/10/19 Juan Manuel Patino MD [address] [place] [address] Physician Pulmonary Disease 09/22/19 Fletcher Mckay MD [address] [place] [address] Physician Nephrology 03/18/20 Victor Hugo Leigh MD [address] [place] [address] Neurology 11/05/22 documented as of this encounter
--- OUTSIDE RECORDS SUMMARY | 2025-02-06 11:20 | XMS_ITS | Encounter Summary ---
Author Organization [facility] Address [address] [place] [address] Care Team Providers Care Entrepreneurial Finance Professor Name Role Phone Audie Cota MD Unavailable [phone] Ankita Vinson [facility] Unavailable Gerardo Leblanc MD Unavailable [phone] Rolando Topete MD Unavailable Danielle Stubbs MD Unavailable [phone] Juan Manuel Patino MD Unavailable Fletcher Mckay MD Unavailable Nerissa Pham MD Primary Care Provider + Victor Hugo Leigh MD Unavailable [phone] Nerissa Pham MD Unavailable Encounter Details Date Type Department Care Team (Late st Contact Info) Description 05/17/2023 Scanned Document [facility] [place] [address] [place] [address] Linda Lei APRN [address] [facility] [address] [place] [address] Social History Tobacco Use Types Packs/Day Years [...] Procedure visit MG PAIN MGMT [id number] 65 [facility] 435 [place] [address] Gerardo Roca MD [address] [address] 06/04/2025 9:00 AM EST Office Visit [address] [place] [address] Nerissa Pham MD 2 [facility] [address] [address] documented as of this encounter Visit Diagnoses Not on filedocumented in this encounter Care Teams Entrepreneurial Finance Professor Relationship Specialty Start Date End Date Nerissa Pham MD [address] [facility] [address] [place] [address] PCP - General Internal Medicine 11/06/20 Nerissa Pham MD 2 [facility] [address] [address] PCP - MSSP Attributed 12/12/22 4 Audie Cota MD 85 [facility] 719 [place] [address] Cardiovascular Disease 01/11/19 Ankita Vinson, [facility] [address] [facility] 4 [place] [address] [facility] Community Whirley Operator 06/23/19 Gerardo Leblanc MD [address] [place] [address] Ophthalmology 07/04/19 Rolando Topete MD [address] [place] [address] 1022 [place] [address] Cardiovascular Disease 07/10/19 Danielle Stubbs MD [address] [place] [address] Dermatology 07/10/19 Juan Manuel Patino MD [address] [place] [address] Physician Pulmonary Disease 09/22/19 Fletcher Mckay MD [address] [place] [address] Physician Nephrology 03/18/20 Victor Hugo Leigh MD [address] [place] [address] Neurology 11/05/22 documented as of this encounter
--- OUTSIDE RECORDS SUMMARY | 2025-02-06 11:20 | XMS_ITS | Encounter Summary ---
Author Organization [facility] Address [address] [place] [address] Care Team Providers Care Mainframe Systems Programmer Name Role Phone Audie Cota MD Unavailable [phone] Ankita Vinson [facility] Unavailable [phone] Gerardo Leblanc MD Unavailable Rolando Topete MD Unavailable Danielle Stubbs MD Unavailable [phone] Juan Manuel Patino MD Unavailable Fletcher Mckay MD Unavailable Nerissa Pham MD Primary Care Provider + Victor Hugo Leigh MD Unavailable [phone] Nerissa Pham MD Unavailable [phone] Encounter Details Date Type Department Care Team (Late st Contact Info) Description 06/18/2023 Scanned Document [facility] CARDIOLOGY SCAN Cardiology, Scan Social History Tobacco [...] Procedure visit MG PAIN MGMT [id number] 65 [facility] 435 [place] [phone] Gerardo Roca MD 35 [facility] 5 [place] [address] 06/04/2025 9:00 AM EST Office Visit [facility] 2 [facility] [address] [place] [phone] Nerissa Pham MD 2 [facility] [address] [address] documented as of this encounter Visit Diagnoses Not on filedocumented in this encounter Care Teams Mainframe Systems Programmer Relationship Specialty Start Date End Date Nerissa Pham MD 2 [facility] [address] [place] [address] PCP - General Internal Medicine 11/06/20 Nerissa Pham MD 2 [facility] [address] [address] PCP - MSSP Attributed 12/12/22 4 Audie Cota MD 85 [facility] 719 [place] [address] Cardiovascular Disease 01/11/19 Ankita Vinson, [facility] [address] [facility] 4 [place] [address] [facility] Community Designer And Patternmaker 06/23/19 Gerardo Leblanc MD 178 [place] [address] Ophthalmology 07/04/19 Rolando Topete MD 85 [facility] [address] [place] [id number] Cardiovascular Disease 07/10/19 Danielle Stubbs MD [address] [place] [address] Dermatology 07/10/19 Juan Manuel Patino MD [address] [place] [address] Physician Pulmonary Disease 09/22/19 Fletcher Mckay MD [address] [place] [address] [place] [address] Physician Nephrology 03/18/20 Victor Hugo Leigh MD [address] [place] [address] Neurology 11/05/22 documented as of this encounter
--- OUTSIDE RECORDS SUMMARY | 2025-02-06 11:20 | XMS_ITS | Encounter Summary ---
Author Organization [facility] Address [address] [place] [address] Care Team Providers Care Ncr Operator Name Role Phone Audie Cota MD Unavailable [phone] Ankita Vinson [facility] Unavailable [phone] Gerardo Leblanc MD Unavailable [phone] Rolando Topete MD Unavailable Danielle Stubbs MD Unavailable [phone] Juan Manuel Patino MD Unavailable Fletcher Mckay MD Unavailable Nerissa Pham MD Primary Care Provider + Victor Hugo Leigh MD Unavailable [phone] Nerissa Pham MD Unavailable [phone] Encounter Details Date Type Department Care Team (Late st Contact Info) Description 06/04/2023 Scanned Document [facility] CARDIOLOGY SCAN Cardiology, Scan Social History [...] Procedure visit MG PAIN MGMT [id number] 65 [facility] 435 [place] [phone] Gerardo Roca MD [address] [facility] 5 [place] [address] 06/04/2025 9:00 AM EST Office Visit [facility] 2 [facility] [address] [place] [phone] Nerissa Pham MD 2 [facility] [address] [address] documented as of this encounter Visit Diagnoses Not on filedocumented in this encounter Care Teams Ncr Operator Relationship Specialty Start Date End Date Nerissa Pham MD [address] [facility] [address] [place] [address] PCP - General Internal Medicine 11/06/20 Nerissa Pham MD 2 [facility] [address] [address] PCP - MSSP Attributed 12/12/22 4 Audie Cota MD 85 [facility] 719 [place] [address] Cardiovascular Disease 01/11/19 Ankita Vinson, [facility] [address] [place] 4 [place] [address] [facility] Community Cancer Center Director 06/23/19 Gerardo Leblanc MD 178 [place] [address] Ophthalmology 07/04/19 Rolando Topete MD 85 [facility] [address] [place] [phone] Cardiovascular Disease 07/10/19 Danielle Stubbs MD [address] [place] [address] Dermatology 07/10/19 Juan Manuel Patino MD [address] [place] [address] Physician Pulmonary Disease 09/22/19 Fletcher Mckay MD [address] [place] [address] [place] [address] Physician Nephrology 03/18/20 Victor Hugo Leigh MD [address] [place] [address] Neurology 11/05/22 documented as of this encounter
--- OUTSIDE RECORDS SUMMARY | 2025-02-06 11:20 | XMS_ITS | Encounter Summary ---
Author Organization [facility] Address [address] [place] [address] Care Team Providers Care Supervisor Tumblers Name Role Phone Xavier Corey MD Unavailable Unavailable Marisela Jackman [facility] Unavailable Audie Cota MD Unavailable [phone] Xavier Corey MD Primary Care Provider Unava ilable Ankita Vinson [facility] Unavailable Gerardo Leblanc MD Unavailable Rolando Topete MD Unavailable Danielle Stubbs MD Unavailable Juan Manuel Patino MD Unavailable Juan Manuel Patino MD Unavailable Fletcher Mckay MD Unavailable Nerissa Pham MD Unavailable Nerissa Pham MD Primary Care Provider + Nerissa Pham MD Unavailable Rodriguez Granados PA-C Unavailable UnavailNerissa Oconnor MD Unavailable Xavier Corey MD Primary Care Provider Unava ilable Victor Hugo Leigh MD Unavailable [phone] Cheli Lopez PA-C Unavailable [phone] Nerissa Pham MD Unavailable [phone] Encounter Details Date Type Department Care Team (Late st Contact Info) Description 05/18/2018 Scanned Document [facility] 10[address] [place] [address] Provider, Generic Social History Tobacco Use Types [...] Procedure visit MG PAIN MGMT [id number] [address] [facility] [address] [place] [phone] Gerardo Roca MD 35 [facility] 5 [place] [address] 06/04/2025 9:00 AM EST Office Visit [address] [place] [phone] Nerissa Pham MD 2 [facility] 100 [place], [place] [phone] documented as of this encounter Procedures Procedure Name Priority Date/Time Associated Diagnosis Comments HX GASTROENTEROLOGY COLONOSCOPY-SCAN 05/18/2018 documented in this encounter Results * HX GASTROENTEROLOGY COLONOSCOPY-SCAN (05/18/2018) Narrative 05/18/2018 Ordered by an unspecified provider. us Generic Provider HX AMB PROCEDURES Edited Result - Final documented in this encounter Visit Diagnoses Not on filedocumented in this encounter Care Teams Supervisor Tumblers Relationship Specialty Start Date End Date Xavier Corey MD PCP - MSSP Attributed 12/12/18 06/13/19 Xavier Corey MD 85 [facility] [address] [place] [address] PCP - General Internal Medicine 01/20/19 11/05/20 Nerissa Pham MD 2 [facility] [address] [address] PCP - MSSP Attributed 06/14/19 0 Nerissa Pham MD [address] [facility] [address] [place] [address] PCP - General Internal Medicine 11/06/20 Nerissa Pham MD 2 [facility] [address] [address] PCP - MSSP Attributed 09/12/20 1 Rodriguez Granados PA-C PCP - MSSP Attributed 06/14/21 09/11/21 Nerissa Pham MD [address] [facility] [address] [place] [address] PCP - MSSP Attributed 09/12/21 2 Xavier Corey MD PCP - General 01/19/19 Cheli Lopez PA-C 2 [facility] [place] [address] [address] PCP - MSSP Attributed 09/12/22 12/11/22 Nerissa Pham MD [address] [facility] [address] [place] [address] PCP - MSSP Attributed 12/12/22 4 Marisela Jackman, [facility] 1290 [facility] 4 [place] [address] ICP Community Guard Chief 02/02/17 06/23/19 Audie Cota MD [address] [place] [address] 719 [place] [address] Cardiovascular Disease 01/11/19 Ankita Vinson, [facility] 1290 [address] [facility] 4 [place] [address] ICP Community Guard Chief 06/23/19 Gerardo Leblanc MD [address] [place] [address] Ophthalmology 07/04/19 Rolando Topete MD [address] [place] [address] 10[address] [place] [id number] Cardiovascular Disease 07/10/19 Danielle Stubbs MD [address] [place] [address] [place] [address] Dermatology 07/10/19 Juan Manuel Patino MD [address] [place] [address] [place] [address] Physician Pulmonary Disease 09/22/19 Juan Manuel Patino MD 21 [employer] [facility] [employer] [place] [address] Physician Pulmonary Disease 10/04/19 10/04/19 Fletcher Mckay MD [address] [place] [address] [place] [address] Physician Nephrology 03/18/20 Victor Hugo Leigh MD [address] [place] [address] Neurology 11/05/22 documented as of this encounter
--- OUTSIDE RECORDS SUMMARY | 2025-02-06 11:20 | XMS_ITS | Encounter Summary ---
Author Organization [facility] Address [address] [place] [address] Care Team Providers Care Seasoner Name Role Phone Audie Cota MD Unavailable [phone] Xavier Corey MD Primary Care Provider Unava ilable Ankita Vinson [facility] Unavailable [phone] Gerardo Leblanc MD Unavailable Rolando Topete MD Unavailable [phone] Danielle Stubbs MD Unavailable [phone] Juan Manuel Patino MD Unavailable Juan Manuel Patino MD Unavailable Fletcher Mckay MD Unavailable Nerissa Pham MD Unavailable [phone] Nerissa Pham MD Primary Care Provider + Nerissa Pham MD Unavailable [phone] Rodriguez Granados PA-C Unavailable Unavailabl e Nerissa Pham MD Unavailable Victor Hugo Leigh MD Unavailable [phone] Cheli Lopez PA-C Unavailable Nerissa Pham MD Unavailable Encounter Details Date Type Department Care Team (Late st Contact Info) Description 07/04/2019 Scanned Document [address] [phone] Xavier Corey MD Social History Tobacco Use Types Packs/Day Years [...] Procedure visit MG PAIN MGMT [id number] [address] [facility] [address] [facility] 435 [place] [address] Gerardo Roca MD 35 [facility] 5 [place] [address] 06/04/2025 9:00 AM EST Office Visit [address] [phone] Nerissa Pham MD 2 [facility] 100 [place] [address] documented as of this encounter Procedures Procedure Name Priority Date/Time Associated Diagnosis Comments REFERENCE LAB RESULTS-THOCC [facility] Routine 07/04/2019 documented in this encounter Results * REFERENCE LAB RESULTS-THOCC [facility] (07/04/2019) us External Provider MD ALFARO AMB PROCEDURES Final Res ult documented in this encounter Visit Diagnoses Not on filedocumented in this encounter Care Teams Seasoner Relationship Specialty Start Date End Date Xavier Corey MD 85 [facility] [address] [place] [address] PCP - General Internal Medicine 01/20/19 11/05/20 Nerissa Pham MD 2 [facility] [address] [place] [address] PCP - MSSP Attributed 06/14/19 0 Nerissa Pham MD 2 [facility] [address] [place] [address] PCP - General Internal Medicine 11/06/20 Nerissa Pham MD 2 [facility] [address] [place] [address] PCP - MSSP Attributed 09/12/20 1 Rodriguez Granados PA-C PCP - MSSP Attributed 06/14/21 09/11/21 Nerissa Pham MD 2 [facility] [address] [place] [address] PCP - MSSP Attributed 09/12/21 2 Cheli Lopez PA-C [address] [place] [address] PCP - MSSP Attributed 09/12/22 12/11/22 Nerissa Pham MD 2 [facility] [address] [place] [address] PCP - MSSP Attributed 12/12/22 4 Audie Cota MD 85 [facility] 719 [place] [address] Cardiovascular Disease 01/11/19 Ankita Vinson, [facility] [address] [place] [address] [facility] Community Local Area Network Systems Adminstrator 06/23/19 Gerardo Leblanc MD [address] [place] [address] Ophthalmology 07/04/19 Rolando Topete MD [address] [place] [address] 10[address] [place] [id number] Cardiovascular Disease 07/10/19 Danielle Stubbs MD [address] [place] [address] Dermatology 07/10/19 Juan Manuel Patino MD [address] [place] [address] Physician Pulmonary Disease 09/22/19 Juan Manuel Patino MD [address] [place] [address] Physician Pulmonary Disease 10/04/19 10/04/19 Fletcher Mckay MD [address] [place] [address] Physician Nephrology 03/18/20 Victor Hugo Leigh MD [address] [place] [address] Neurology 11/05/22 documented as of this encounter
--- OUTSIDE RECORDS SUMMARY | 2025-02-06 11:20 | XMS_ITS | Encounter Summary ---
Author Organization [facility] Address 100 [place] [address] Care Team Providers Care Credit Balance Specialist Name Role Phone Audie Cota MD Unavailable [phone] Ankita Vinson [facility] Unavailable Gerardo Leblanc MD Unavailable Rolando Topete MD Unavailable [phone] Danielle Stubbs MD Unavailable [phone] Juan Manuel Patino MD Unavailable Fletcher Mckay MD Unavailable Nerissa Pham MD Primary Care Provider + Victor Hugo Leigh MD Unavailable [phone] Nerissa Pham MD Unavailable [phone] Reason for Visit * Reason Comments Appointment Encounter Details Date Type Department Care Team (Late st Contact Info) Description 01/19/2024 Telephone [facility] [address] [place] [address] Provider, MD Adriel [address] [place], [place] [phone] Appointment Social History Tobacco Use Types Packs/Day [...] MGMT [id number] 65 [facility] 435 [place] [address] Gerardo Roca MD 35 [facility] 5 [place] [address] 06/04/2025 9:00 AM EST Office Visit [address] [place] [phone] Nerissa Pham MD 2 [facility] [place] [phone] documented as of this encounter Visit Diagnoses Not on filedocumented in this encounter Care Teams Credit Balance Specialist Relationship Specialty Start Date End Date Nerissa Pham MD 2 Magdy Garcia [address] [place] [address] PCP - General Internal Medicine 11/06/20 Nerissa Pham MD 2 [facility] [address] [address] PCP - MSSP Attributed 12/12/22 4 Audie Cota MD 85 [facility] 719 [place] [address] Cardiovascular Disease 01/11/19 Ankita Vinson, [facility] [address] [facility] 4 [place] [address] [facility] Community Cosmetic Surgeon 06/23/19 Gerardo Leblanc MD [address] [place] [address] Ophthalmology 07/04/19 Rolando Topete MD [address] [place] [address] 1022 [place] [address] Cardiovascular Disease 07/10/19 Danielle Stubbs MD [address] [place] [address] Dermatology 07/10/19 Juan Manuel Patino MD [address] [place] [address] Physician Pulmonary Disease 09/22/19 Fletcher Mckay MD [address] [place] [address] Physician Nephrology 03/18/20 Victor Hugo Leigh MD [address] [place] [address] Neurology 11/05/22 documented as of this encounter
--- OUTSIDE RECORDS SUMMARY | 2025-02-06 11:20 | XMS_ITS | Encounter Summary ---
Author Organization [facility] Address [address] [place] [address] Care Team Providers Care Laminating Machine Operator Name Role Phone Xavier Corey MD Unavailable Unavailable Marisela Jackman [facility] Unavailable Audie Cota MD Unavailable [phone] Xavier Corey MD Primary Care Provider Unava ilable Ankita Vinson [facility] Unavailable [phone] Gerardo Leblanc MD Unavailable Rolando Topete MD Unavailable Danielle Stubbs MD Unavailable Juan Manuel Patino MD Unavailable Juan Manuel Patino MD Unavailable Fletcher Mckay MD Unavailable Nerissa Pham MD Unavailable Nerissa Pham MD Primary Care Provider + Nerissa Pham MD Unavailable [phone] Rodriguez Granados PA-C Unavailable UnavailNerissa Oconnor MD Unavailable Xavier Corey MD Primary Care Provider Unava ilable Victor Hugo Leigh MD Unavailable [phone] Cheli Lopez PA-C Unavailable Nerissa Pham MD Unavailable Encounter Details Date Type Department Care Team (Late st Contact Info) Description 05/18/2018 Scanned Document [facility] 1060 [place] [address] Provider, Generic Social History Tobacco Use Types [...] Procedure visit MG PAIN MGMT [id number] [address] [facility] [address] 435 [place] [phone] Gerardo Roca MD [address] [facility] [address] [facility] 5 [place] [address] 06/04/2025 9:00 AM EST Office Visit [address] [place] [phone] Nerissa Pham MD 2 [facility] 100 [place], [place] [phone] documented as of this encounter Procedures Procedure Name Priority Date/Time Associated Diagnosis Comments HX GASTROENTEROLOGY COLONOSCOPY-SCAN 05/18/2018 documented in this encounter Results * HX GASTROENTEROLOGY COLONOSCOPY-SCAN (05/18/2018) Narrative 05/18/2018 Ordered by an unspecified provider. us Generic Provider HX AMB PROCEDURES Edited Result - Final documented in this encounter Visit Diagnoses Not on filedocumented in this encounter Care Teams Laminating Machine Operator Relationship Specialty Start Date End Date Xavier Corey MD PCP - MSSP Attributed 12/12/18 06/13/19 Xavier Corey MD 85 [facility] [address] [place] [address] PCP - General Internal Medicine 01/20/19 11/05/20 Nerissa Pham MD 2 [facility] [address] [address] PCP - MSSP Attributed 06/14/19 0 Nerissa Pham MD [address] [facility] [address] Garcia [address] [place] [address] PCP - General Internal Medicine 11/06/20 Nerissa Pham MD 2 [facility] [address] [address] PCP - MSSP Attributed 09/12/20 1 Rodriguez Granados PA-C PCP - MSSP Attributed 06/14/21 09/11/21 Nerissa Pham MD [address] [facility] [address] Garcia [address] [place] [address] PCP - MSSP Attributed 09/12/21 2 Xavier Corey MD PCP - General 01/19/19 Cheli Lopez PA-C 2 [facility] [place] [address] [address] PCP - MSSP Attributed 09/12/22 12/11/22 Nerissa Pham MD [address] [facility] [address] [place] [address] PCP - MSSP Attributed 12/12/22 4 Marisela Jackman, [facility] [address] [place] [facility] 4 [place] [address] ICP Community Staff Research Scientist 02/02/17 06/23/19 Audie Cota MD [address] [place] [address] 719 [place] [address] Cardiovascular Disease 01/11/19 Ankita Vinson, [facility] [address] [facility] [facility] 4 [place] [address] ICP Community Staff Research Scientist 06/23/19 Gerardo Leblanc MD [address] [place] [address] Ophthalmology 07/04/19 Rolando Topete MD [address] [place] [address] 1022 [place] [id number] Cardiovascular Disease 07/10/19 Danielle Stubbs MD [address] [place] [address] [place] [address] Dermatology 07/10/19 Juan Manuel Patino MD [address] [place] [address] [place] [address] Physician Pulmonary Disease 09/22/19 Juan Manuel Patino MD 21 [facility] [place] [address] Physician Pulmonary Disease 10/04/19 10/04/19 Fletcher Mckay MD [address] [place] [address] [place] [address] Physician Nephrology 03/18/20 Victor Hugo Leigh MD [address] [place] [address] Neurology 11/05/22 documented as of this encounter
--- OUTSIDE RECORDS SUMMARY | 2025-02-06 11:20 | XMS_ITS | Encounter Summary ---
Author Organization [facility] Address [address] [place] [address] Care Team Providers Care Carpet Inspector Name Role Phone Audie Cota MD Unavailable [phone] Ankita Vinson [facility] Unavailable Gerardo Leblanc MD Unavailable [phone] Rolando Topete MD Unavailable Danielle Stubbs MD Unavailable Juan Manuel Patino MD Unavailable Fletcher Mckay MD Unavailable Nerissa Pham MD Primary Care Provider + Victor Hugo Leigh MD Unavailable [phone] Cheli Lopez PA-C Unavailable [phone] Nerissa Pham MD Unavailable [phone] Encounter Details Date Type Department Care Team (Late st Contact Info) Description 12/09/2022 Scanned Document [facility] CARDIOLOGY SCAN Cardiology, Scan Social History Tobacco [...] MG PAIN MGMT [id number] 65 [facility] 435 [place] [address] Gerardo Roca MD 35 [facility] 5 [place] [address] 06/04/2025 9:00 AM EST Office Visit [facility] [address] [phone] Nerissa Pham MD 2 [facility] [address] [address] documented as of this encounter Visit Diagnoses Not on filedocumented in this encounter Care Teams Carpet Inspector Relationship Specialty Start Date End Date Nerissa Pham MD 2 [facility] [address] [address] PCP - General Internal Medicine 11/06/20 Cheli Lopez PA-C [address] [address] PCP - MSSP Attributed 09/12/22 12/11/22 Nerissa Pham MD 2 [facility] [address] [address] PCP - MSSP Attributed 12/12/22 4 Audie Cota MD [address] [facility] 719 [place] [address] Cardiovascular Disease 01/11/19 Ankita Vinson, [facility] [address] [place] [address] [facility] Community Global Program Manager 06/23/19 Gerardo Leblanc MD [address] [place] [address] Ophthalmology 07/04/19 Rolando Topete MD [address] [facility] 1022 [place] [address] Cardiovascular Disease 07/10/19 Danielle Stubbs MD [address] [place] [address] Dermatology 07/10/19 Juan Manuel Patino MD [address] [place] [address] Physician Pulmonary Disease 09/22/19 Fletcher Mckay MD [address] [place] [address] Physician Nephrology 03/18/20 Victor Hugo Leigh MD [address] [place] [address] Neurology 11/05/22 documented as of this encounter
--- OUTSIDE RECORDS SUMMARY | 2025-02-06 11:20 | XMS_ITS | Encounter Summary ---
Author Organization [facility] Address [address] [place] [address] Care Team Providers Care Ditch Worker Name Role Phone Audie Cota MD Unavailable [phone] Ankita Vinson [facility] Unavailable Gerardo Leblanc MD Unavailable Rolando Topete MD Unavailable [phone] Danielle Stubbs MD Unavailable [phone] Juan Manuel Patino MD Unavailable Fletcher Mckay MD Unavailable Nerissa Pham MD Primary Care Provider + Victor Hugo Leigh MD Unavailable [phone] Nerissa Pham MD Unavailable Reason for Visit * Reason Comments Appointment Encounter Details Date Type Department Care Team (Late st Contact Info) Description 05/12/[address] [address] Linda Lei, BRIANA 399 [facility] [address] [place] [phone] Appointment Social History Tobacco Use Types Packs/Day [...] PAIN MGMT [id number] [address] [facility] 435 [place] [address] Gerardo Roca MD 35 [facility] 5 [place] [address] 06/04/2025 9:00 AM EST Office Visit [address] [place] [address] Nerissa Pham MD 2 [facility] [place] [phone] documented as of this encounter Visit Diagnoses Not on filedocumented in this encounter Care Teams Ditch Worker Relationship Specialty Start Date End Date Nerissa Pham MD [address] [facility] [address] [place] [address] PCP - General Internal Medicine 11/06/20 AlNerissa Wolf MD 2 [facility] [address] [address] PCP - MSSP Attributed 12/12/22 4 Audie Cota MD 85 [facility] 719 [place] [address] Cardiovascular Disease 01/11/19 Ankita Vinson, [facility] [address] [facility] 4 [place] [address] [facility] Community Provider Relations Advocate 06/23/19 Gerardo Leblanc MD [address] [place] [address] Ophthalmology 07/04/19 Rolando Topete MD [address] [place] [address] 1022 [place] [address] Cardiovascular Disease 07/10/19 Danielle Stubbs MD [address] [place] [address] Dermatology 07/10/19 Juan Manuel Patino MD [address] [place] [address] Physician Pulmonary Disease 09/22/19 Fletcher Mckay MD [address] [place] [address] Physician Nephrology 03/18/20 Victor Hugo Leigh MD [address] [place] [address] Neurology 11/05/22 documented as of this encounter
--- OUTSIDE RECORDS SUMMARY | 2025-02-06 11:20 | XMS_ITS | Encounter Summary ---
Author Organization [facility] Address [address] [place] [address] Care Team Providers Care Welding Robot Operator Name Role Phone Audie Cota MD Unavailable [phone] Ankita Vinson [facility] Unavailable [phone] Gerardo Leblanc MD Unavailable Rolando Topete MD Unavailable [phone] Danielle Stubbs MD Unavailable Juan Manuel Patino MD Unavailable Fletcher Mckay MD Unavailable Nerissa Pham MD Primary Care Provider + Victor Hugo Leigh MD Unavailable [phone] Nerissa Pham MD Unavailable Encounter Details Date Type Department Care Team (Late st Contact Info) Description 07/02/2023 Telephone [facility] [address] [place] [address] Linda Lei APRN 399 [facility] 200 [place], [place] [address] Social History Tobacco Use Types Packs/Day Years [...] Procedure visit MG PAIN MGMT [id number] [address] [facility] [address] [facility] 435 [place] [phone] Gerardo Roca MD 35 [facility] 5 [place] [address] 06/04/2025 9:00 AM EST Office Visit [address] [place] [phone] Nerissa Pham MD 2 [facility] [place] [id number] documented as of this encounter Visit Diagnoses Not on filedocumented in this encounter Care Teams Welding Robot Operator Relationship Specialty Start Date End Date Nerissa Pham MD 2 [facility] [address] [address] PCP - General Internal Medicine 11/06/20 Nerissa Pham MD 2 [facility] [address] [address] PCP - MSSP Attributed 12/12/22 4 Audie Cota MD 85 [facility] 719 [place] [address] Cardiovascular Disease 01/11/19 Ankita Vinson, [facility] 12[address] [facility] 4 [place] [address] [facility] Community Baby Attendant 06/23/19 Gerardo Leblanc MD [address] [place] [address] Ophthalmology 07/04/19 Rolando Topete MD [address] [place] [address] 1022 [place] [address] Cardiovascular Disease 07/10/19 Danielle Stubbs MD [address] [place] [address] Dermatology 07/10/19 Juan Manuel Patino MD [address] [place] [address] Physician Pulmonary Disease 09/22/19 Fletcher Mckay MD [address] [place] [address] Physician Nephrology 03/18/20 Victor Hugo Leigh MD [address] [place] [address] Neurology 11/05/22 documented as of this encounter
--- OUTSIDE RECORDS SUMMARY | 2025-02-06 11:20 | XMS_ITS | Encounter Summary ---
Author Organization [facility] Address [address] [place] [address] Care Team Providers Care Repair Operator Name Role Phone Audie Cota MD Unavailable [phone] Ankita Vinson [facility] Unavailable [phone] Gerardo Leblanc MD Unavailable [phone] Rolando Topete MD Unavailable Danielle Stubbs MD Unavailable [phone] Juan Manuel Patino MD Unavailable Fletcher Mckay MD Unavailable Nerissa Pham MD Primary Care Provider + Victor Hugo Leigh MD Unavailable [phone] Cheli Lopez PA-C Unavailable [phone] Nerissa Pham MD Unavailable Reason for Visit * Reason Comments Medication Refill Encounter Details Date Type Department Care Team (Late st Contact Info) Description 11/06/[address] [place] [phone] Nerissa Pham MD [address] [place] [address] 100 [place], [place] [phone] Idiopathic chronic gout without tophus, unspecified site Social History Tobacco Use Types Packs/Day Years [...] Exposure Response Date Recorded In the last 10 days, have yo u been in contact with someone who was confirmed or suspected to have Coronavirus/COVID-19? No / Unsure 11/06/2022 4:25 PM EDT documented as of this encounter Plan of Treatment Upcoming Encounters Date Type Department Care Team (Late st Contact Info) Description 02/08/2025 12:00 PM EDT Procedure visit MG PAIN MGMT [id number] 65 [facility] 435 [place] [phone] Gerardo Roca MD 35 [facility] 5 [place] [address] 06/04/2025 9:00 AM EST Office Visit [address] [place] [address] Nerissa Pham MD 2 [facility] [address] [address] documented as of this encounter Visit Diagnoses Diagnosis Idiopathic chronic gout without tophus, unspecified site documented in this encounter Care Teams Repair Operator Relationship Specialty Start Date End Date Nerissa Pham MD 2 [facility] [address] [address] PCP - General Internal Medicine 11/06/20 Cheli Lopez PA-C 2 [facility] 100 [place] [address] PCP - MSSP Attributed 09/12/22 12/11/22 Nerissa Pham MD 2 [facility] 100 [place] [address] PCP - MSSP Attributed 12/12/22 4 Audie Cota MD 85 [facility] 719 [place] [phone] Cardiovascular Disease 01/11/19 Ankita Vinson, [facility] [place] 12[address] [facility] 4 [place] [address] [facility] Community Director Commercial Sales 06/23/19 Gerardo Leblanc MD [address] [place] [address] Ophthalmology 07/04/19 Rolando Topete MD 85 [facility] 1022 [place] [address] Cardiovascular Disease 07/10/19 Danielle Stubbs MD 21 [facility] [place] [address] Dermatology 07/10/19 Juan Manuel Patino MD 21 [facility] [place] [address] Physician Pulmonary Disease 09/22/19 Fletcher Mckay MD [address] [place] [address] Physician Nephrology 03/18/20 Victor Hugo Leigh MD [address] [place] [address] Neurology 11/05/22 documented as of this encounter
--- OUTSIDE RECORDS SUMMARY | 2025-02-06 11:20 | XMS_ITS | Encounter Summary ---
Author Organization [facility] Address [address] [place] [address] Care Team Providers Care Grey Roll Worker Name Role Phone Xavier Corey MD Unavailable Unavailable Marisela Jackman [facility] Unavailable Audie Cota MD Unavailable [phone] Xavier Corey MD Primary Care Provider Unava ilable Ankita Vinson [facility] Unavailable Gerardo Leblanc MD Unavailable Rolando Topete MD Unavailable Danielle Stubbs MD Unavailable Juan Manuel Patino MD Unavailable Juan Manuel Patino MD Unavailable Fletcher Mckay MD Unavailable Nerissa Pham MD Unavailable Nerissa Pham MD Primary Care Provider + Nerissa Pham MD Unavailable Rodriguez Granados PA-C Unavailable UnavailNerissa Oconnor MD Unavailable [phone] Xavier Corey MD Primary Care Provider Unava ilable Victor Hugo Leigh MD Unavailable [phone] Cheli Lopez PA-C Unavailable Nerissa Pham MD Unavailable Encounter Details Date Type Department Care Team (Late st Contact Info) Description 05/18/2018 Scanned Document [facility] 1060 [place] [address] Provider, Generic Social History Tobacco Use Types [...] Procedure visit MG PAIN MGMT [id number] [address] [facility] [address] [place] [phone] Gerardo Roca MD 35 [facility] [address] [facility] 5 [place] [address] 06/04/2025 9:00 AM EST Office Visit [address] [place] [phone] Nerissa Pham MD 2 [facility] 100 [place], [place] [phone] documented as of this encounter Procedures Procedure Name Priority Date/Time Associated Diagnosis Comments HX GASTROENTEROLOGY UPPER ENDOSCOPY-SCAN 05/18/2018 documented in this encounter Results * HX GASTROENTEROLOGY UPPER ENDOSCOPY-SCAN (05/18/2018) Narrative 05/18/2018 Ordered by an unspecified provider. us Generic Provider HX AMB PROCEDURES Edited Result - Final documented in this encounter Visit Diagnoses Not on filedocumented in this encounter Care Teams Grey Roll Worker Relationship Specialty Start Date End Date Xavier Corey MD PCP - MSSP Attributed 12/12/18 06/13/19 Xavier Corey MD 85 [facility] [address] [place] [address] PCP - General Internal Medicine 01/20/19 11/05/20 Nerissa Pham MD [address] [facility] [address] [place] [address] PCP - MSSP Attributed 06/14/19 0 Nerissa Pham MD [address] [facility] [address] [place] [address] PCP - General Internal Medicine 11/06/20 Nerissa Pham MD [address] [facility] [address] [place] [address] PCP - MSSP Attributed 09/12/20 1 Rodriguez Granados PA-C PCP - MSSP Attributed 06/14/21 09/11/21 Nerissa Pham MD [address] [facility] [address] [place] [address] PCP - MSSP Attributed 09/12/21 2 Xavier Corey MD PCP - General 01/19/19 Cheli Lopez PA-C 2 [facility] [place] [address] [address] PCP - MSSP Attributed 09/12/22 12/11/22 Nerissa Pham MD 2 [facility] [address] [address] PCP - MSSP Attributed 12/12/22 4 Marisela Jackman, [facility] 1290 [facility] 4 [place] [address] ICP Community Certified Prosthetist 02/02/17 06/23/19 Audie Cota MD [address] [place], [place] [address] [place] [address] Cardiovascular Disease 01/11/19 Ankita Vinson, [facility] 1290 [facility] 4 [place] [address] ICP Community Certified Prosthetist 06/23/19 Gerardo Leblanc MD [address] [place] [address] Ophthalmology 07/04/19 Rolando Topete MD [address] [place] [address] 1022 [place] [address] Cardiovascular Disease 07/10/19 Danielle Stubbs MD [address] [place] [address] [place] [address] Dermatology 07/10/19 Juan Manuel Patino MD [address] [place] [address] [place] [address] Physician Pulmonary Disease 09/22/19 Juan Manuel Patino MD 21 [facility] [place] [address] Physician Pulmonary Disease 10/04/19 10/04/19 Fletcher Mckay MD [address] [place] [address] [place] [address] Physician Nephrology 03/18/20 Victor Hugo Leigh MD [address] [place] [address] Neurology 11/05/22 documented as of this encounter
--- OUTSIDE RECORDS SUMMARY | 2025-02-06 11:20 | XMS_ITS | Encounter Summary ---
Author Organization [facility] Address [address] [place] [address] Care Team Providers Care Residential Caregiver Name Role Phone Audie Cota MD Unavailable [phone] Ankita Vinson [facility] Unavailable [phone] Gerardo Leblanc MD Unavailable Rolando Topete MD Unavailable [phone] Danielle Sutbbs MD Unavailable Juan Manuel Patino MD Unavailable Fletcher Mckay MD Unavailable Nerissa Pham MD Primary Care Provider + Victor Hugo Leigh MD Unavailable [phone] Cheli Lopez PA-C Unavailable [phone] Nerissa Pham MD Unavailable [phone] Reason for Visit * Reason Onset Date Comments Medication Refill 11/13/2022 Encounter Details Date Type Department Care Team (Late st Contact Info) Description 11/13/[address] [phone] Cheli Lopez PA-C 2 [facility] [address] 100 [place] [address] Otitis, left Social History Tobacco Use Types Packs/Day Years [...] Procedure visit MG PAIN MGMT [id number] 65 [facility] 435 [place] [address] Gerardo Roca MD 35 [facility] 5 [place] [address] 06/04/2025 9:00 AM EST Office Visit [address] [place] [phone] Nerissa Pham MD 2 [facility] [address] [address] documented as of this encounter Visit Diagnoses Diagnosis Otitis, left documented in this encounter Care Teams Residential Caregiver Relationship Specialty Start Date End Date Nerissa Pham MD 2 [facility] [address] [address] PCP - General Internal Medicine 11/06/20 Cheli Lopez PA-C 2 [facility] 100 [place] [address] PCP - MSSP Attributed 09/12/22 12/11/22 Nerissa Pham MD 2 [facility] 100 [place] [address] PCP - MSSP Attributed 12/12/22 4 Audie Cota MD 85 [facility] 719 [place] [phone] Cardiovascular Disease 01/11/19 Ankita Vinson, [facility] 12[address] [address] [facility] Community Distance Learning Program Coordinator 06/23/19 Gerardo Leblanc MD [address] [place] [address] Ophthalmology 07/04/19 Rolando Topete MD [address] [place] [address] 1022 [place] [phone] Cardiovascular Disease 07/10/19 Danielle Stubbs MD [address] [place] [address] Dermatology 07/10/19 Juan Manuel Patino MD [address] [place] [address] Physician Pulmonary Disease 09/22/19 Fletcher Mckay MD [address] [place], [place] [address] Physician Nephrology 03/18/20 Victor Hugo Leigh MD [address] [place] [address] Neurology 11/05/22 documented as of this encounter
--- OUTSIDE RECORDS SUMMARY | 2025-02-06 11:21 | XMS_ITS | Encounter Summary ---
Author Organization [facility] Address [address] [place] [address] Care Team Providers Care Senior Maintenance Machinist Name Role Phone Audie Cota MD Unavailable [phone] Ankita Vinson [facility] Unavailable Gerardo Leblanc MD Unavailable [phone] Rolando Topete MD Unavailable Danielle Stubbs MD Unavailable Juan Manuel Patino MD Unavailable Fletcher Mckay MD Unavailable Nerissa Pham MD Primary Care Provider + Victor Hugo Leigh MD Unavailable [phone] Nerissa Pham MD Unavailable [phone] Reason for Visit * Reason Comments Appointment Referral Encounter Details Date Type Department Care Team (Late st Contact Info) Description 01/20/[address] [address] Provider, Generic Appointment; Referral Social History Tobacco Use Types Packs/Day Years [...] PM EDT documented as of this encounter Miscellaneous Notes * Telephone Encounter - Gerardo Sierra - 01/21/2024 2:02 PM EDT Patient going to [place] documented in this encounter Plan of Treatment Upcoming Encounters Date Type Department Care Team (Late st Contact Info) Description 02/08/2025 12:00 PM EDT Procedure visit MG PAIN MGMT [id number] 65 [facility] [address] [facility] [address] [place] [phone] Gerardo Roca MD 35 [facility] 5 [place] [address] 06/04/2025 9:00 AM EST Office Visit [address] [place] [address] Nerissa Pham MD 2 [facility] [address] [address] documented as of this encounter Visit Diagnoses Not on filedocumented in this encounter Care Teams Senior Maintenance Machinist Relationship Specialty Start Date End Date Nerissa Pahm MD 2 [facility] [address] [address] PCP - General Internal Medicine 11/06/20 Nerissa Pham MD 2 [facility] [address] [address] PCP - MSSP Attributed 12/12/22 4 Audie Cota MD 85 [facility] [address] [id number] Cardiovascular Disease 01/11/19 Ankita Vinson, [facility] [address] [address] [facility] Community Treating Engineer 06/23/19 Gerardo Leblanc MD [address] [place] [address] Ophthalmology 07/04/19 Rolando Topete MD [address] [place] [address] 1022 [place] [address] Cardiovascular Disease 07/10/19 Danielle Stubbs MD [address] [place] [address] Dermatology 07/10/19 Juan Manuel Patino MD [address] [place] [address] Physician Pulmonary Disease 09/22/19 Fletcher Mckay MD [address] [place] [address] Physician Nephrology 03/18/20 Victor Hugo Leigh MD [address] [place] [address] Neurology 11/05/22 documented as of this encounter
--- OUTSIDE RECORDS SUMMARY | 2025-02-06 11:21 | XMS_ITS | Encounter Summary ---
Author Organization [facility] Address [address] [place] [address] Care Team Providers Care Chief Technician Name Role Phone Audie Cota MD Unavailable [phone] Ankita Vinson [facility] Unavailable [phone] Gerardo Leblanc MD Unavailable [phone] Rolando Topete MD Unavailable [phone] Danielle Stubbs MD Unavailable [phone] Juan Manuel Patino MD Unavailable Fletcher Mckay MD Unavailable Nerissa Pham MD Primary Care Provider + Victor Hugo Leigh MD Unavailable [phone] Nerissa Pham MD Unavailable [phone] Encounter Details Date Type Department Care Team (Late st Contact Info) Description 02/23/2023 Scanned Document [facility] CARDIOLOGY SCAN Cardiology, Scan Social History [...] PM EDT documented as of this encounter Functional Status * Audit-C Score Answer Date of Assessment Author 0 02/24/2023 12:58 PM EDT Suzy Conoey RN * Question Answer Date of Assessment Author Q1: How often do you have a drink containing alcohol? Never 02/24/2023 12:58 PM EDT Suzy Cooney RN Q2: How many drinks containing alcohol do you have on a typical day when you are drinking? Patient does not drink 02/24/2023 12:58 PM EDT Suzy Cooney RN Q3: How often do you have six or more drinks on one occasion? Never 02/24/2023 12:58 PM EDT Suzy Cooney RN documented as of this encounter Plan of Treatment Upcoming Encounters Date Type Department Care Team (Late st Contact Info) Description 02/08/2025 12:00 PM EDT Procedure visit MG PAIN MGMT [id number] [address] [facility] [address] [facility] 435 [place] [phone] Gerardo Roca MD 35 [facility] 5 [place] [address] 06/04/2025 9:00 AM EST Office Visit [address] [place] [address] Nerissa Pham MD 2 [facility] 100 [place] [address] documented as of this encounter Visit Diagnoses Not on filedocumented in this encounter Care Teams Chief Technician Relationship Specialty Start Date End Date Nerissa Pham MD [address] [facility] [address] [place] [address] PCP - General Internal Medicine 11/06/20 Nerissa Pham MD [address] [facility] [address] [place] [address] PCP - MSSP Attributed 12/12/22 4 Audie Cota MD 85 [facility] [address] [phone] Cardiovascular Disease 01/11/19 Ankita Vinson, [facility] [address] [facility] 4 [place] [address] [facility] Community Plasterer Maintenance 06/23/19 Gerardo Leblanc MD [address] [place] [address] Ophthalmology 07/04/19 Rolando Topete MD 85 [facility] 1022 [place] [address] Cardiovascular Disease 07/10/19 Danielle Stubbs MD [address] [place] [address] [place] [address] Dermatology 07/10/19 Juan Manuel Patino MD 21 [facility] [place] [address] Physician Pulmonary Disease 09/22/19 Fletcher Mckay MD [address] [place] [address] Physician Nephrology 03/18/20 Victor Hugo Leigh MD [address] [place] [address] Neurology 11/05/22 documented as of this encounter
--- OUTSIDE RECORDS SUMMARY | 2025-02-06 11:21 | XMS_ITS | Encounter Summary ---
Author Organization [facility] Address 100 [place] [address] Care Team Providers Care Residential Sales Manager Name Role Phone Audie Cota MD Unavailable [phone] Ankita Vinson [facility] Unavailable Gerardo Leblanc MD Unavailable Rolando Topete MD Unavailable Danielle Stubbs MD Unavailable Juan Manuel Patino MD Unavailable Fletcher Mckay MD Unavailable Nerissa Pham MD Primary Care Provider + Nerissa Pham MD Unavailable Rodriguez Granados PA-C Unavailable Unavailsheri e Nerissa Pham MD Unavailable Victor Hugo Leigh MD Unavailable [phone] Cheli Lopez PA-C Unavailable [phone] Nerissa Pham MD Unavailable Encounter Details Date Type Department Care Team (Late st Contact Info) Description 01/28/2021 Scanned Document [address] [place], [place] [phone] Gastroenterology, Scan Social History Tobacco Use Types Packs/Day Years Used Date Smoking Tobacco: Never Smokeless Tobacco: Never Alcohol Use Standard Drinks/Week Comments Not Currently 0 (1 standard drink = 0.6 oz pur e alcohol) rarely PHQ-2 Answer Date Recorded PHQ-2 Total Score 0 06/03/2020 Sex and Gender Information Value Date Recorded [...] Procedure visit MG PAIN MGMT [id number] 65 [facility] 435 [place] [phone] Gerardo Roca MD 35 [facility] 5 [place] [address] 06/04/2025 9:00 AM EST Office Visit [facility] 2 [facility] [address] [place] [phone] Nerissa Pham MD 2 [facility] [address] [place] [address] documented as of this encounter Visit Diagnoses Not on filedocumented in this encounter Care Teams Residential Sales Manager Relationship Specialty Start Date End Date Nerissa Pham MD 2 [facility] [address] [address] PCP - General Internal Medicine 11/06/20 Nerissa Pham MD 2 [facility] [address] [address] PCP - MSSP Attributed 09/12/20 1 Rodriguez Granados PA-C PCP - MSSP Attributed 06/14/21 09/11/21 Nerissa Pham MD 2 [facility] [address] [address] PCP - MSSP Attributed 09/12/21 2 Cheli Lopez PA-C [address] [address] PCP - MSSP Attributed 09/12/22 12/11/22 Nerissa Pham MD [address] [place] [address] [address] PCP - MSSP Attributed 12/12/22 4 Audie Cota MD 85 [facility] 719 [place] [address] Cardiovascular Disease 01/11/19 Ankita Vinson, [facility] [address] [facility] 4 [place] [address] [facility] Community Certified Residential Medication Aide 06/23/19 Gerardo Leblanc MD [address] [place] [address] Ophthalmology 07/04/19 Rolando Topete MD 85 [facility] 1022 [place] [address] Cardiovascular Disease 07/10/19 Danielle Stubbs MD [address] [place] [address], [place] [address] Dermatology 07/10/19 Juan Manuel Patino MD [address] [place] [address] Physician Pulmonary Disease 09/22/19 Fletcher Mckay MD [address] [place] [address] [place] [address] Physician Nephrology 03/18/20 Victor Hugo Leigh MD [address] [place] [address] Neurology 11/05/22 documented as of this encounter
--- OUTSIDE RECORDS SUMMARY | 2025-02-06 11:21 | XMS_ITS | Encounter Summary ---
Author Organization [facility] Address [address] [place] [address] Care Team Providers Care Clinical Field Specialist Name Role Phone Audie Cota MD Unavailable [phone] Ankita Vinson [facility] Unavailable Gerardo Leblanc MD Unavailable [phone] Rolando Topete MD Unavailable [phone] Danielle Stubbs MD Unavailable [phone] Juan Manuel Patino MD Unavailable Fletcher Mckay MD Unavailable Nerissa Pham MD Primary Care Provider + Nerissa Pham MD Unavailable Victor Hugo Leigh MD Unavailable [phone] Cheli Lopez PA-C Unavailable Nerissa Pham MD Unavailable [phone] Encounter Details Date Type Department Care Team (Late st Contact Info) Description 12/08/2021 Scanned Document [facility] GASTRO SCAN Trevor Isidro MD 263 [facility] DEPT OF GASTROENTEROLOGY [place], [place] [address] Social History Tobacco Use Types Packs/Day Years [...] Procedure visit MG PAIN MGMT [id number] [address] [facility] [address] [facility] 435 [place] [phone] Gerardo Roca MD 35 [facility] 5 [place] [address] 06/04/2025 9:00 AM EST Office Visit [address] [place] [phone] Nerissa Pham MD 2 [facility] [address] [address] documented as of this encounter Visit Diagnoses Not on filedocumented in this encounter Care Teams Clinical Field Specialist Relationship Specialty Start Date End Date Nerissa Pham MD 2 [facility] [address] [address] PCP - General Internal Medicine 11/06/20 Nerissa Pham MD 2 [facility] [address] Garcia [address] [place] [address] PCP - MSSP Attributed 09/12/21 2 Cheli Lopez PA-C 2 [facility] 100 [place] [address] PCP - MSSP Attributed 09/12/22 12/11/22 Nerissa Pham MD 2 [facility] 100 [place] [address] PCP - MSSP Attributed 12/12/22 4 Audie Cota MD 85 [facility] [address] [phone] Cardiovascular Disease 01/11/19 Ankita Vinson, [facility] [address] [address] [facility] Community Carpet Weaver 06/23/19 Gerardo Leblanc MD [address] [place] [address] Ophthalmology 07/04/19 Rolando Topete MD [address] [place] [address] 1022 [place] [address] Cardiovascular Disease 07/10/19 Danielle Stubbs MD [address] [place] [address] Dermatology 07/10/19 Juan Manuel Patino MD [address] [place] [address] Physician Pulmonary Disease 09/22/19 Fletcher Mckay MD [address] [place] [address] Physician Nephrology 03/18/20 Victor Hugo Leigh MD [address] [place] [address] Neurology 11/05/22 documented as of this encounter
--- OUTSIDE RECORDS SUMMARY | 2025-02-06 11:21 | XMS_ITS | Encounter Summary ---
Author Organization [facility] Address [address] [place] [address] Care Team Providers Care Butter Production Supervisor Name Role Phone Xavier Corey MD Unavailable Unavailable Marisela Jackman [facility] Unavailable Audie Cota MD Unavailable [phone] Xavier Corey MD Primary Care Provider Unava ilable Ankita Vinson [facility] Unavailable Gerardo Leblanc MD Unavailable [phone] Rolando Topete MD Unavailable Danielle Stubbs MD Unavailable Juan Manuel Patino MD Unavailable Juan Manuel Patino MD Unavailable Fletcher Mckay MD Unavailable Nerissa Pham MD Unavailable Nerissa Pham MD Primary Care Provider + Nerissa Pham MD Unavailable Rodriguez Granados PA-C Unavailable UnavailNerissa Oconnor MD Unavailable [phone] Xavier Corey MD Primary Care Provider Unava ilable Victor Hugo Leigh MD Unavailable [phone] Cheli Lopez PA-C Unavailable [phone] Nerissa Pham MD Unavailable [phone] Reason for Referral * Cardiology (Routine) - Closed Specialty Diagnoses / Procedures Referred By Contact Referred To Contact Interventional Cardiology / Cardiology Diagnoses Angina pectoris Audie Cota MD 85 [facility] [address] [place] [address] Phone: tel: fax: Rolando Topete MD 85 [facility] [address] [place] [address] Phone: tel: fax: Referral ID Status Reason Start Date Expiration Date Visits Re quested Visits Authorized [id number] Closed 01/06/2019 01/07/2020 1 1 Comments LEFT HEART CATH ANGINA WITH DE LA ROSA Encounter Details Date Type Department Care Team (Late st Contact Info) Description 01/06/2019 Community Orders Consulting Cardiologists, 85 [facility] [address] [place] [address] Audie Cota MD [address] [place] [address] Angina pectoris (HCC) (Primary Dx) Social History Tobacco Use Types Packs/Day Years [...] Procedure visit MG PAIN MGMT [id number] [address] [facility] [address] [facility] 435 [place] [phone] Gerardo Roca MD 35 [facility] 5 [place] [address] 06/04/2025 9:00 AM EST Office Visit [facility] 2 [facility] [address] [place] [address] Nerissa Pham MD [address] [facility] [address] [place] [address] Scheduled Referrals Name Type Priority Associated Diagnoses Order Schedule Amb Referral to Interventional Cardiology Outpatient Referral Routine Angina pectoris (HCC) Ordered: 01/06/2019 documented as of this encounter Visit Diagnoses Diagnosis Angina pectoris- Primary Other and unspecified angina pectoris documented in this encounter Care Teams Butter Production Supervisor Relationship Specialty Start Date End Date Xavier Corey MD PCP - MSSP Attributed 12/12/18 06/13/19 Xavier Corey MD 85 [facility] [address] [place] [address] PCP - General Internal Medicine 01/20/19 11/05/20 Nerissa Pham MD [address] [facility] [address] [place] [address] PCP - MSSP Attributed 06/14/19 0 Nerissa Pham MD [address] [facility] [address] [place] [address] PCP - General Internal Medicine 11/06/20 Nerissa Pham MD [address] [facility] [address] [place] [address] PCP - MSSP Attributed 09/12/20 1 Rodriguez Granados PA-C PCP - MSSP Attributed 06/14/21 09/11/21 Nerissa Pham MD 2 [facility] 100 [place] [address] PCP - MSSP Attributed 09/12/21 2 Xavier Corey MD PCP - General 01/19/19 Cheli Lopez PA-C [address] [address] PCP - MSSP Attributed 09/12/22 12/11/22 Nerissa Pham MD 2 [facility] [address] [address] PCP - MSSP Attributed 12/12/22 4 Marisela Jackman, [facility] [address] [place] [address] [facility] Community Cognos Bi Developer 02/02/17 06/23/19 Audie Cota MD [address] [place] [address] Cardiovascular Disease 01/11/19 Ankita Vinson, [facility] [address] [place] [address] ICP Community Cognos Bi Developer 06/23/19 Gerardo Leblanc MD [address] [place] [address] Ophthalmology 07/04/19 Rolando Topete MD [address] [place] [address] [place], [place] [address] [place] [address] Cardiovascular Disease 07/10/19 Danielle Stubbs MD [address] [place] [address] [place] [address] Dermatology 07/10/19 Juan Manuel Patino MD [address] [place] [address] Physician Pulmonary Disease 09/22/19 Juan Manuel Patino MD [address] [place] [address] [place] [address] Physician Pulmonary Disease 10/04/19 10/04/19 Fletcher Mckay MD [address] [place] [address] Physician Nephrology 03/18/20 Victor Hugo Leigh MD [address] [place] [address] Neurology 11/05/22 documented as of this encounter
--- OUTSIDE RECORDS SUMMARY | 2025-02-06 11:21 | XMS_ITS | Encounter Summary ---
Author Organization [facility] Address [address] [place] [address] Care Team Providers Care System Dispatcher Name Role Phone Audie Cota MD Unavailable [phone] Ankita Vinson [facility] Unavailable [phone] Gerardo Leblanc MD Unavailable Rolando Topete MD Unavailable Danielle Stubbs MD Unavailable Juan Manuel Patino MD Unavailable Fletcher Mckay MD Unavailable Nerissa Pham MD Primary Care Provider + Nerissa Pham MD Unavailable Victor Hugo Leigh MD Unavailable [phone] Cheli Lopez PA-C Unavailable [phone] Nerissa Pham MD Unavailable [phone] Reason for Visit * Reason Comments Medication Refill Encounter Details Date Type Department Care Team (Late st Contact Info) Description 10/03/[address] [place] [phone] Nerissa Pham MD [address] [facility] [address] [place] [address] Coronary artery disease Social History Tobacco Use Types Packs/Day Years [...] PAIN MGMT [id number] 65 [facility] 435 [place] [phone] Gerardo Roca MD 35 [facility] 5 [place] [address] 06/04/2025 9:00 AM EST Office Visit [facility] 2 [facility] [address] [place] [phone] Nerissa Pham MD [address] [facility] [address] [place] [address] documented as of this encounter Visit Diagnoses Diagnosis Coronary artery disease Coronary atherosclerosis of unspecified type of vessel, north fork or graft documented in this encounter Care Teams System Dispatcher Relationship Specialty Start Date End Date Nerissa Pham MD [address] [facility] [address] [place] [address] PCP - General Internal Medicine 11/06/20 Nerissa Pham MD [address] [facility] [address] [address] PCP - MSSP Attributed 09/12/21 2 Cheli Lopez PA-C [address] [address] PCP - MSSP Attributed 09/12/22 12/11/22 Nerissa Pham MD 2 [facility] [address] [address] PCP - MSSP Attributed 12/12/22 4 Audie Cota MD [address] [place] [address] [address] [phone] Cardiovascular Disease 01/11/19 Ankita Vinson, [facility] [address] [place] [address] [address] [facility] Community Wireless Sales Consultant 06/23/19 Gerardo Leblanc MD [address] [place] [address] Ophthalmology 07/04/19 Rolando Topete MD [address] [place] [address] 1022 [place] [address] Cardiovascular Disease 07/10/19 Danielle Stubbs MD [address] [place] [address] [place] [address] Dermatology 07/10/19 Juan Manuel Patino MD [address] [place] [address] [place] [address] Physician Pulmonary Disease 09/22/19 Fletcher Mckay MD [address] [place] [address] Physician Nephrology 03/18/20 Victor Hugo Leigh MD [address] [place] [address] Neurology 11/05/22 documented as of this encounter
--- OUTSIDE RECORDS SUMMARY | 2025-02-06 11:21 | XMS_ITS | Encounter Summary ---
Author Organization [facility] Address [address] [place] [address] Care Team Providers Care Auto Heater Mechanic Name Role Phone Xavier Corey MD Unavailable Unavailable Xavier Corey MD Unavailable Unavailable Marisela Jackman [facility] Unavailable [phone] Audie Cota MD Unavailable [phone] Xavier Corey MD Primary Care Provider Unava ilable Ankita Vinson [facility] Unavailable [phone] Gerardo Leblanc MD Unavailable [phone] Rolando Topete MD Unavailable Danielle Stubbs MD Unavailable [phone] Juan Manuel Patino MD Unavailable Juan Manuel Patino MD Unavailable Fletcher Mckay MD Unavailable Nerissa Pham MD Unavailable [phone] Nerissa Pham MD Primary Care Provider + Nerissa Pham MD Unavailable [phone] Rodriguez Granados PA-C Unavailable UnavailNerissa Oconnor MD Unavailable [phone] Xavier Corey MD Primary Care Provider Unava ilable Lu Victor Hugo K MD Unavailable [phone] Cheli Lopez PA-C Unavailable [phone] Nerissa Pham MD Unavailable [phone] Reason for Visit * Reason Comments Medication Refill Encounter Details Date Type Department Care Team (Late st Contact Info) Description 11/10/[address] [address] Xavier Corey MD Gastroesophageal reflux disease without esophagitis Social History Tobacco Use Types Packs/Day Years Used Date Smoking Tobacco: Never Alcohol Use Standard Drinks/Week Comments [...] encounter Miscellaneous Notes * Telephone Encounter - Alize Hogan LPN - 11/10/2016 9:20 AM EDT Not a patient in our practice documented in this encounter Plan of Treatment Upcoming Encounters Date Type Department Care Team (Late st Contact Info) Description 02/08/2025 12:00 PM EDT Procedure visit MG PAIN MGMT [id number] [address] [facility] [facility] [address] [place] [phone] Gerardo Roca MD [address] [facility] [address] 5 [place], [place] [id number] 06/04/2025 9:00 AM EST Office Visit [address] [place] [phone] Nerissa Pham MD 2 [facility] [address] [place] [address] documented as of this encounter Visit Diagnoses Diagnosis Gastroesophageal reflux disease without esophagitis Esophageal reflux documented in this encounter Care Teams Auto Heater Mechanic Relationship Specialty Start Date End Date Xavier Corey MD PCP - MSSP Attributed 12/12/18 06/13/19 Xavier Corey MD [address] [place] [address] PCP - General Internal Medicine 01/20/19 11/05/20 Nerissa Pham MD [address] [facility] [place] [address] PCP - MSSP Attributed 06/14/19 0 Nerissa Pham MD [address] [facility] [place] [address] PCP - General Internal Medicine 11/06/20 Nerissa Pham MD [address] [facility] [address] Garcia [address] [place] [address], [place] [address] PCP - MSSP Attributed 09/12/20 1 Rodriguez Granados PA-C PCP - MSSP Attributed 06/14/21 09/11/21 Nerissa Pham MD [address] [facility] [place] [address] PCP - MSSP Attributed 09/12/21 2 Xavier Corey MD PCP - General 01/19/19 Cheli Lopez PA-C [address] [address] PCP - MSSP Attributed 09/12/22 12/11/22 Nerissa Pham MD 2 [facility] [address] [address] PCP - MSSP Attributed 12/12/22 4 Xavier Corey MD 06/24/17 07/01/17 Marisela Jackman, [facility] [address] [place] [address] ICP Community Swimming Instructor 02/02/17 06/23/19 Audie Cota MD 85 [facility] [address] [place] [address] Cardiovascular Disease 01/11/19 Ankita Vinson, [facility] [address] [place] [address] [facility] Community Swimming Instructor 06/23/19 Gerardo Leblanc MD [address] [place] [address] Ophthalmology 07/04/19 Rolando Topete MD [address] [place] [address] 1022 [place] [address] Cardiovascular Disease 07/10/19 Danielle Stubbs MD [address] [place] [address] Dermatology 07/10/19 Juan Manuel Patino MD [address] [place] [address] [place] [address] Physician Pulmonary Disease 09/22/19 Juan Manuel Patino MD [address] [place] [address] [place] [address] Physician Pulmonary Disease 10/04/19 10/04/19 Fletcher Mckay MD [address] [place] [address] [place] [address] Physician Nephrology 03/18/20 Victor Hugo Leigh MD [address] [place] [address] Neurology 11/05/22 documented as of this encounter
--- OUTSIDE RECORDS SUMMARY | 2025-02-06 11:21 | XMS_ITS | Encounter Summary ---
Author Organization [facility] Address [address] [place] [address] Care Team Providers Care Territory Manager Name Role Phone Audie Cota MD Unavailable [phone] [facility] Unavailable Gerardo Leblanc MD Unavailable Rolando Topete MD Unavailable Danielle Stubbs MD Unavailable Juan Manuel Patino MD Unavailable Fletcher Mckay MD Unavailable Nerissa Pham MD Primary Care Provider + Nerissa Pham MD Unavailable [phone] Rodriguez Granados PA-C Unavailable Unavailabl e Nerissa Pham MD Unavailable Victor Hugo Leigh MD Unavailable [phone] Cheli Lopez PA-C Unavailable [phone] Nerissa Pham MD Unavailable [phone] Encounter Details Date Type Department Care Team (Late st Contact Info) Description 01/28/2021 Scanned Document [facility] PRIMARY CARE SCAN Nerissa Pham MD 2 [address] [place] [address] Social History Tobacco Use Types Packs/Day Years [...] Procedure visit MG PAIN MGMT [id number] 65 [facility] 435 [place] [phone] Gerardo Roca MD 35 [facility] 5 [place] [address] 06/04/2025 9:00 AM EST Office Visit [facility] [address] [facility] [address] [place] [phone] Nerissa Pham MD [address] [facility] [address] [place] [address] documented as of this encounter Visit Diagnoses Not on filedocumented in this encounter Care Teams Territory Manager Relationship Specialty Start Date End Date Nerissa Pham MD [address] [facility] [address] [place] [address] PCP - General Internal Medicine 11/06/20 Nerissa Pham MD [address] [facility] [address] [place] [address] PCP - MSSP Attributed 09/12/20 1 Rodriguez Granados PA-C PCP - MSSP Attributed 06/14/21 09/11/21 Nerissa Pham MD [address] [facility] [address] [address] PCP - MSSP Attributed 09/12/21 2 Cheli Lopez PA-C [address] [address] PCP - MSSP Attributed 09/12/22 12/11/22 Nerissa Pham MD [address] [facility] [address] [address] PCP - MSSP Attributed 12/12/22 4 Audie Cota MD 85 [facility] [address] [place] [id number] Cardiovascular Disease 01/11/19 Ankita Vinson, [facility] [address] [facility] 4 [place] [address] [facility] Community Service Support Representative 06/23/19 Gerardo Leblanc MD [address] [place] [address] Ophthalmology 07/04/19 Rolando Topete MD 85 [facility] 1022 [place] [address] Cardiovascular Disease 07/10/19 Danielle Stubbs MD [address] [place] [address] [place] [address] Dermatology 07/10/19 Juan Manuel Patino MD [address] [place] [address] [place] [address] Physician Pulmonary Disease 09/22/19 Fletcher Mckay MD [address] [place] [address] Physician Nephrology 03/18/20 Victor Hugo Leigh MD [address] [place] [address] Neurology 11/05/22 documented as of this encounter
--- OUTSIDE RECORDS SUMMARY | 2025-02-06 11:21 | XMS_ITS | Encounter Summary ---
Author Organization [facility] Address [address] [place] [address] Care Team Providers Care Delivery Of Shopping News Name Role Phone Xavier Corey MD Unavailable Unavailable Marisela Jackman [facility] Unavailable Audie Cota MD Unavailable [phone] Xavier Corey MD Primary Care Provider Unava ilable Ankita Vinson [facility] Unavailable Gerardo Leblanc MD Unavailable Rolando Topete MD Unavailable [phone] Danielle Stubbs MD Unavailable [phone] Juan Manuel Patino MD Unavailable Juan Manuel Patino MD Unavailable Fletcher Mckay MD Unavailable Nerissa Pham MD Unavailable Nerissa Pham MD Primary Care Provider + Nerissa Pham MD Unavailable Rodriguez Granados PA-C Unavailable UnavailNerissa Oconnor MD Unavailable [phone] Xavier Corey MD Primary Care Provider Unava ilable Victor Hugo Leigh MD Unavailable [phone] Cheli Lopez PA-C Unavailable [phone] Nerissa Pham MD Unavailable Encounter Details Date Type Department Care Team (Late st Contact Info) Description 07/30/2017 Scanned Document [address] [place] [phone] Provider, Generic Social History Tobacco Use Types [...] [id number] [address] [facility] [address] [facility] 435 [place] [phone] Gerardo Roca MD [address] [facility] [address] [facility] 5 [place] [address] 06/04/2025 9:00 AM EST Office Visit [address] [place] [phone] Nerissa Pham MD 2 [facility] 100 [place], [place] [phone] documented as of this encounter Visit Diagnoses Not on filedocumented in this encounter Care Teams Delivery Of Shopping News Relationship Specialty Start Date End Date Xavier Corey MD PCP - MSSP Attributed 12/12/18 06/13/19 Xavier Corey MD 85 [facility] 719 [place] [address] PCP - General Internal Medicine 01/20/19 11/05/20 Nerissa Pham MD [address] [facility] [address] [place] [address], [place] [address] PCP - MSSP Attributed 06/14/19 0 Nerissa Pham MD [address] [facility] [address] [place] [address], [place] [address] PCP - General Internal Medicine 11/06/20 Nerissa Pham MD 2 [facility] [address] [place] [address] PCP - MSSP Attributed 09/12/20 1 Rodriguez Granados PA-C PCP - MSSP Attributed 06/14/21 09/11/21 Nerissa Pham MD [address] [facility] [address] [place] [address], [place] [address] PCP - MSSP Attributed 09/12/21 2 Xavier Corey MD PCP - General 01/19/19 Cheli Lopez PA-C [address] [place] [address] PCP - MSSP Attributed 09/12/22 12/11/22 Nerissa Pham MD [address] [facility] [address] [place] [address], [place] [address] PCP - MSSP Attributed 12/12/22 4 Marisela Jackman LCSW [address] [place] [address] [facility] Community Trimmer Buffing Wheel 02/02/17 06/23/19 Audie Cota MD 85 [facility] 719 [place] [address] Cardiovascular Disease 01/11/19 Ankita Vinson, [facility] [address] [place] [address] [facility] Community Trimmer Buffing Wheel 06/23/19 Gerardo Leblanc MD [address] [place] [address] Ophthalmology 07/04/19 Rolando Topete MD [address] [place] [address] 1022 [place] [address] Cardiovascular Disease 07/10/19 Danielle Stubbs MD [address] [place] [address] Dermatology 07/10/19 Juan Manuel Patino MD [address] [place] [address] Physician Pulmonary Disease 09/22/19 Juan Manuel Patino MD [address] [place] [address] Physician Pulmonary Disease 10/04/19 10/04/19 Fletcher Mckay MD [address] [place] [address] Physician Nephrology 03/18/20 Victor Hugo Leigh MD [address] [place] [address] Neurology 11/05/22 documented as of this encounter
--- OUTSIDE RECORDS SUMMARY | 2025-02-06 11:21 | XMS_ITS | Encounter Summary ---
Author Organization [facility] Address [address] [place] [address] Care Team Providers Care Furnace Filler Name Role Phone Audie Cota MD Unavailable [phone] Ankita Vinson [facility] Unavailable Gerardo Leblanc MD Unavailable Rolando Topete MD Unavailable [phone] Danielle Stubbs MD Unavailable Juan Manuel Patino MD Unavailable Fletcher Mckay MD Unavailable Nerissa Pham MD Primary Care Provider + Rodriguez Granados PA-C Unavailable UnavailNerissa Oconnor MD Unavailable Victor Hugo Leigh MD Unavailable [phone] Cheli Lopez PA-C Unavailable [phone] Nerissa Pham MD Unavailable Reason for Visit * Reason Comments Medication Refill Encounter Details Date Type Department Care Team (Late st Contact Info) Description 06/19/[address] [place] [address] Rodriguez Granados PA-C Idiopathic chronic gout without tophus, unspecified site [...] have Coronavirus / COVID-19? No / Unsure 06/19/2021 7:43 AM EST documented as of this encounter Plan of Treatment Upcoming Encounters Date Type Department Care Team (Late st Contact Info) Description 02/08/2025 12:00 PM EDT Procedure visit MG PAIN MGMT [id number] 65 [facility] 435 [place] [phone] Gerardo Roca MD [address] [address] 06/04/2025 9:00 AM EST Office Visit [address] [place] [phone] Nerissa Pham MD 2 [facility] [place] [phone] documented as of this encounter Visit Diagnoses Diagnosis Idiopathic chronic gout without tophus, unspecified site documented in this encounter Care Teams Furnace Filler Relationship Specialty Start Date End Date Nerissa Pham MD [address] [facility] [address] [place] [address] PCP - General Internal Medicine 11/06/20 Rodriguez Granados PA-C PCP - MSSP Attributed 06/14/21 09/11/21 Nerissa Pham MD 2 [facility] [address] [address] PCP - MSSP Attributed 09/12/21 2 Cheli Lopez PA-C [address] [address] PCP - MSSP Attributed 09/12/22 12/11/22 Nerissa Pham MD 2 [facility] [address] [address] PCP - MSSP Attributed 12/12/22 4 Audie Ctoa MD 85 [facility] 719 [place] [address] Cardiovascular Disease 01/11/19 Ankita Vinson, [facility] [address] [address] [facility] Community Concrete Stone Fabricator 06/23/19 Gerardo Lebalnc MD [address] [place] [address] Ophthalmology 07/04/19 Rolando Topete MD 85 [facility] 1022 [place] [address] Cardiovascular Disease 07/10/19 Danielle Stubbs MD [address] [place] [address] Dermatology 07/10/19 Juan Manuel Patino MD [address] [place] [address] [place] [address] Physician Pulmonary Disease 09/22/19 Fletcher Mckay MD [address] [place] [address] [place] [address] Physician Nephrology 03/18/20 Victor Hugo Leigh MD [address] [place] [address] Neurology 11/05/22 documented as of this encounter
--- OUTSIDE RECORDS SUMMARY | 2025-02-06 11:21 | XMS_ITS | Encounter Summary ---
Author Organization [facility] Address [address] [place] [address] Care Team Providers Care Rn Training Name Role Phone Xavier Corey MD Unavailable Unavailable Xavier Corey MD Unavailable Unavailable Marisela Jackman [facility] Unavailable [phone] Audie Cota MD Unavailable [phone] Xavier Corey MD Primary Care Provider Unava ilable Ankita Vinson [facility] Unavailable [phone] Gerardo Leblanc MD Unavailable Rolando Topete MD Unavailable Danielle Stubbs MD Unavailable [phone] Juan Manuel Patino MD Unavailable Juan Manuel Patino MD Unavailable Fletcher Mckay MD Unavailable Nerissa Pham MD Unavailable [phone] Nerissa Pham MD Primary Care Provider + Nerissa Pham MD Unavailable [phone] Rodriguez Granados PA-C Unavailable UnavailNerissa Oconnor MD Unavailable [phone] Xavier Corey MD Primary Care Provider Unava ilable Lu Victor Hugo K MD Unavailable [phone] Cheli Lopez PA-C Unavailable [phone] Nerissa Pham MD Unavailable Encounter Details Date Type Department Care Team (Late st Contact Info) Description 06/05/2015 Scanned Document [place] [address] [place] [phone] Provider, Generic Social History Tobacco Use Types Packs/Day Years Used Date Smoking Tobacco: Never Alcohol Use Standard Drinks/Week Comments Not Asked 0 (1 standard drink = 0.6 oz [...] PAIN MGMT [id number] [address] [facility] [address] [place] [phone] Gerardo Roca MD 35 [facility] 5 [place] [address] 06/04/2025 9:00 AM EST Office Visit [facility] 2 [facility] [address] [place] [phone] Nerissa Pham MD 2 [facility] 100 [place], [place] [phone] documented as of this encounter Procedures Procedure Name Priority Date/Time Associated Diagnosis Comments PATHOLOGY GASTROENTEROLOGY 06/06/2015 HX GASTROENTEROLOGY UPPER ENDOSCOPY-SCAN 06/05/2015 HX GASTROENTEROLOGY UPPER ENDOSCOPY-SCAN 06/05/2015 documented in this encounter Results * PATHOLOGY GASTROENTEROLOGY (06/06/2015) Narrative 06/06/2015 Ordered by an unspecified provider. us Generic Provider [facility] HX PATH PROCEDURES Edited R esult - Final * HX GASTROENTEROLOGY UPPER ENDOSCOPY-SCAN (06/05/2015) Narrative 06/05/2015 Ordered by an unspecified provider. us Generic Provider HX AMB PROCEDURES Edited Result - Final * HX GASTROENTEROLOGY UPPER ENDOSCOPY-SCAN (06/05/2015) Narrative 06/05/2015 Ordered by an unspecified provider. us Generic Provider HX AMB PROCEDURES Edited Result - Final documented in this encounter Visit Diagnoses Not on filedocumented in this encounter Care Teams Rn Training Relationship Specialty Start Date End Date Xavier Corey MD PCP - MSSP Attributed 12/12/18 06/13/19 Xavier Corey MD 85 [facility] 719 [place] [address] PCP - General Internal Medicine 01/20/19 11/05/20 Nerissa Pham MD 2 [facility] [address] [place] [address] PCP - MSSP Attributed 06/14/19 0 Nerissa Pham MD 2 [facility] [address] [place] [address] PCP - General Internal Medicine 11/06/20 Nerissa Pham MD 2 [facility] [address] [place] [address] PCP - MSSP Attributed 09/12/20 1 Rodriguez Granados PA-C PCP - MSSP Attributed 06/14/21 09/11/21 Nerissa Pham MD 2 [facility] 100 [place] [address] PCP - MSSP Attributed 09/12/21 2 Xavier Corey MD PCP - General 01/19/19 Cheli Lopez PA-C [address] [place] [address] PCP - MSSP Attributed 09/12/22 12/11/22 Nerissa Pham MD 2 [facility] [address] [place] [address] PCP - MSSP Attributed 12/12/22 4 Xavier Corey MD 06/24/17 07/01/17 Marisela Jackman, [facility] [address] [address] ICP Community Manager Motor 02/02/17 06/23/19 Audie Cota MD [address] [place] [address] Cardiovascular Disease 01/11/19 Ankita Vinson, [facility] [address] [address] ICP Community Manager Motor 06/23/19 Gerardo Leblanc MD [address] [place] [address] Ophthalmology 07/04/19 Rolando Topete MD [address] [place], [place] [address] [place] [address] Cardiovascular Disease 07/10/19 Danielle Stubbs MD [address] [place], [place] [phone] Dermatology 07/10/19 Juan Manuel Patino MD [address] [place] [address] Physician Pulmonary Disease 09/22/19 Juan Manuel Patino MD [address] [place], [place] [phone] Physician Pulmonary Disease 10/04/19 10/04/19 Fletcher Mckay MD [address] [place] [address] Physician Nephrology 03/18/20 Victor Hugo Leigh MD [address] [place] [address] Neurology 11/05/22 documented as of this encounter
--- OUTSIDE RECORDS SUMMARY | 2025-02-06 11:21 | XMS_ITS | Encounter Summary ---
Author Organization [facility] Address [address] [place] [address] Care Team Providers Care Paster Operator Name Role Phone Xavier Corey MD Unavailable Unavailable Marisela Jackman [facility] Unavailable [phone] Audie Cota MD Unavailable [phone] Xavier Corey MD Primary Care Provider Unava ilable Ankita Vinson [facility] Unavailable [phone] Gerardo Leblanc MD Unavailable [phone] Rolando Topete MD Unavailable [phone] Danielle Stubbs MD Unavailable Juan Manuel Patino MD Unavailable Juan Manuel Patino MD Unavailable Fletcher Mckay MD Unavailable Nerissa Pham MD Unavailable Nerissa Pham MD Primary Care Provider + Nerissa Pham MD Unavailable [phone] Rodriguez Granados PA-C Unavailable UnavailNerissa Oconnor MD Unavailable Xavier Corey MD Primary Care Provider Unava ilable Victor Hugo Leigh MD Unavailable [phone] Cheli Lopez PA-C Unavailable [phone] Nerissa Pham MD Unavailable Encounter Details Date Type Department Care Team (Late st Contact Info) Description 01/06/2019 Scanned Document [address] [place] [phone] Cardiology, Scan Social History Tobacco Use Types [...] Procedure visit MG PAIN MGMT [id number] [address] [facility] [address] [facility] [address] [place] [phone] Gerardo Roac MD [address] [facility] 5 [place] [address] 06/04/2025 9:00 AM EST Office Visit [address] [place] [phone] Nerissa Pham MD 2 [facility] 100 [place], [place] [phone] documented as of this encounter Procedures Procedure Name Priority Date/Time Associated Diagnosis Comments CARDIAC CATHETERIZATION 01/20/2019 documented in this encounter Results * CARDIAC CATHETERIZATION (01/20/2019) Anatomical Region Laterality Modality Other us Scan Cardiology CV CARDIAC CATH ORDERABLES Final Result documented in this encounter Visit Diagnoses Not on filedocumented in this encounter Care Teams Paster Operator Relationship Specialty Start Date End Date Xavier Corey MD PCP - MSSP Attributed 12/12/18 06/13/19 Xavier Corey MD 85 [facility] [address] [place] [address] PCP - General Internal Medicine 01/20/19 11/05/20 Nerissa Pham MD 2 [facility] [address] [address] PCP - MSSP Attributed 06/14/19 0 Nerissa Pham MD 2 [facility] [address] [address] PCP - General Internal Medicine 11/06/20 Nerissa Pham MD 2 [facility] [address] [address] PCP - MSSP Attributed 09/12/20 1 Rodriguez Granados PA-C PCP - MSSP Attributed 06/14/21 09/11/21 Nerissa Pham MD 2 [facility] [address] [place] [address] PCP - MSSP Attributed 09/12/21 2 Xavier Corey MD PCP - General 01/19/19 Cheli Lopez PA-C [address] [address] PCP - MSSP Attributed 09/12/22 12/11/22 Nerissa Pham MD 2 [facility] [address] [address] PCP - MSSP Attributed 12/12/22 4 Marisela Jackman, FLARE BREAKER [address] [facility] 4 [place] [address] ICP Community Clinical Evaluator 02/02/17 06/23/19 Audie Cota MD 85 [facility] [address] [place] [phone] Cardiovascular Disease 01/11/19 Ankita Vinson, [facility] [address] [place] [address] [facility] Community Clinical Evaluator 06/23/19 Gerardo Leblanc MD [address] [place] [address] Ophthalmology 07/04/19 Rolando Topete MD [address] [place] [address] [address] [place] [phone] Cardiovascular Disease 07/10/19 Danielle Stubbs MD [address] [place] [address] Dermatology 07/10/19 Juan Manuel Patino MD [address] [place] [address] Physician Pulmonary Disease 09/22/19 Juan Manuel Patino MD [address] [place] [address] [place] [address] Physician Pulmonary Disease 10/04/19 10/04/19 Fletcher Mckay MD [address] [place] [address] DERMATOLOGY [place] [phone] Physician Nephrology 03/18/20 Victor Hugo Leigh MD [address] [place] [address] Neurology 11/05/22 documented as of this encounter
--- OUTSIDE RECORDS SUMMARY | 2025-02-06 11:21 | XMS_ITS | Encounter Summary ---
Author Organization [facility] Address [address] [place] [address] Care Team Providers Care Onion Topper Name Role Phone Xavier Corey MD Unavailable Unavailable Marisela Jackman [facility] Unavailable Audie Cota MD Unavailable [phone] Xavier Corey MD Primary Care Provider Unava ilable Ankita Vinson [facility] Unavailable Gerardo Leblanc MD Unavailable Rolando Topete MD Unavailable Danielle Stubbs MD Unavailable [phone] Juan Manuel Patino MD Unavailable Juan Manuel Patino MD Unavailable Flecther Mckay MD Unavailable Nerissa Pham MD Unavailable Nerissa Pham MD Primary Care Provider + Nerissa Pham MD Unavailable Rodriguez Granados PA-C Unavailable UnavailNerissa Oconnor MD Unavailable [phone] Xavier Corey MD Primary Care Provider Unava ilable Victor Hugo Leigh MD Unavailable [phone] Cheli Lopez PA-C Unavailable [phone] Nerissa Pham MD Unavailable [phone] Encounter Details Date Type Department Care Team (Late st Contact Info) Description 12/06/2017 Scanned Document [address] [place] [phone] Provider, Generic Social History Tobacco Use Types [...] MG PAIN MGMT [id number] [address] [facility] [address] [facility] 435 [place] [phone] Gerardo Roca MD [address] [facility] [address] [facility] 5 [place] [address] 06/04/2025 9:00 AM EST Office Visit [address] [place] [phone] Nerissa Pham MD 2 [facility] 100 [place], [place] [phone] documented as of this encounter Visit Diagnoses Not on filedocumented in this encounter Care Teams Onion Topper Relationship Specialty Start Date End Date Xavier Corey MD PCP - MSSP Attributed 12/12/18 06/13/19 Xavier Corey MD 85 [facility] 719 [place] [address] PCP - General Internal Medicine 01/20/19 11/05/20 Nerissa Pham MD 2 [facility] [address] [place] [address], [place] [address] PCP - MSSP Attributed 06/14/19 0 Nerissa Pham MD 2 [facility] [address] Garcia [address] [place] [address], [place] [address] PCP - General Internal Medicine 11/06/20 Nerissa Pham MD 2 [facility] [address] [place] [address] PCP - MSSP Attributed 09/12/20 1 Rodriguez Granados PA-C PCP - MSSP Attributed 06/14/21 09/11/21 Nerissa Pham MD 2 [facility] [address] Garcia [address] [place] [address], [place] [address] PCP - MSSP Attributed 09/12/21 2 Xavier Corey MD PCP - General 01/19/19 Cheli Lopez PA-C [address] [place] [address] PCP - MSSP Attributed 09/12/22 12/11/22 Nerissa Pham MD 2 [facility] [address] [place] [address], [place] [address] PCP - MSSP Attributed 12/12/22 4 Marisela Jackman LCSW [address] [place] [address] [facility] Community Assistant Art Director 02/02/17 06/23/19 Audie Cota MD 85 [facility] 719 [place] [address] Cardiovascular Disease 01/11/19 Ankita Vinson, [facility] [address] [place] [address] [facility] Community Assistant Art Director 06/23/19 Gerardo Leblanc MD [address] [place] [address] Ophthalmology 07/04/19 Rolando Topete MD [address] [place] [address] 1022 [place] [address] Cardiovascular Disease 07/10/19 Danielle Stubbs MD [address] [place] [address] Dermatology 07/10/19 Juan Manuel Patino MD [address] [place] [address] Physician Pulmonary Disease 09/22/19 Juan Manuel Patino MD [address] [place] [address] Physician Pulmonary Disease 10/04/19 10/04/19 Fletcher Mckay MD [address] [place] [address] Physician Nephrology 03/18/20 Victor Hugo Leigh MD [address] [place] [address] Neurology 11/05/22 documented as of this encounter
--- OUTSIDE RECORDS SUMMARY | 2025-02-06 11:21 | XMS_ITS | Encounter Summary ---
Author Organization [facility] Address [address] [place] [address] Care Team Providers Care Sinker Puller Name Role Phone Audie Cota MD Unavailable [phone] Ankita Vinson [facility] Unavailable [phone] Gerardo Leblanc MD Unavailable Rolando Topete MD Unavailable Danielle Stubbs MD Unavailable Juan Manuel Patino MD Unavailable Fletcher Mckay MD Unavailable Nerissa Pham MD Primary Care Provider + Nerissa Pham MD Unavailable [phone] Rodriguez Granados PA-C Unavailable Unavailsheri e Nerissa Pham MD Unavailable Victor Hugo Leigh MD Unavailable [phone] Cheli Lopez PA-C Unavailable [phone] Nerissa Pham MD Unavailable Reason for Visit * Reason Comments Medication Refill Encounter Details Date Type Department Care Team (Late st Contact Info) Description 06/10/2021 Refill [address] [phone] Nerissa Pham MD 2 [facility] [address] [phone] Idiopathic chronic gout without tophus, unspecified site [...] [id number] [address] [facility] [address] [facility] 435 [place] [phone] Gerardo Roca MD 35 [facility] 5 [place] [address] 06/04/2025 9:00 AM EST Office Visit [address] [address] Nerissa Pham MD 2 [facility] [address] [address] documented as of this encounter Visit Diagnoses Diagnosis Idiopathic chronic gout without tophus, unspecified site documented in this encounter Care Teams Sinker Puller Relationship Specialty Start Date End Date Nerissa Pham MD 2 [facility] [address] [phone] PCP - General Internal Medicine 11/06/20 Nerissa Pham MD 2 [facility] [address] [place] [address] PCP - MSSP Attributed 09/12/20 1 Rodriguez Granados PA-C PCP - MSSP Attributed 06/14/21 09/11/21 Nerissa Pham MD 2 [facility] [address] [place] [address] PCP - MSSP Attributed 09/12/21 2 Cheli Lopez PA-C [address] [address] PCP - MSSP Attributed 09/12/22 12/11/22 Nerissa Pham MD 2 [facility] [address] [place] [address] PCP - MSSP Attributed 12/12/22 4 Audie Cota MD 85 [facility] 719 [place] [address] Cardiovascular Disease 01/11/19 Ankita Vinson, [facility] [address] [facility] 4 [place] [address] [facility] Community Vehicle Detailer 06/23/19 Gerardo Leblanc MD [address] [place] [address] Ophthalmology 07/04/19 Rolando Topete MD [address] [place] [address] 1022 [place] [address] Cardiovascular Disease 07/10/19 Danielle Stubbs MD [address] [place] [address] Dermatology 07/10/19 Juan Manuel Patino MD [address] [place] [address] Physician Pulmonary Disease 09/22/19 Fletcher Mckay MD [address] [place], [place] [phone] Physician Nephrology 03/18/20 Victor Hugo Leigh MD [address] [place] [address] Neurology 11/05/22 documented as of this encounter
--- OUTSIDE RECORDS SUMMARY | 2025-02-06 11:21 | XMS_ITS | Encounter Summary ---
Author Organization [facility] Address [address] [place] [address] Care Team Providers Care Leadership Program Intern Name Role Phone Xavier Corey MD Unavailable Unavailable Marisela Jackman [facility] Unavailable Audie Cota MD Unavailable [phone] Xavier Corey MD Primary Care Provider Unava ilable Ankita Vinson [facility] Unavailable [phone] Gerardo Leblanc MD Unavailable Rolando Topete MD Unavailable [phone] Danielle Stubbs MD Unavailable [phone] Juan Manuel Patino MD Unavailable Juan Manuel Patino MD Unavailable Fletcher Mckay MD Unavailable Nerissa Pham MD Unavailable Nerissa Pham MD Primary Care Provider + Nerissa Pham MD Unavailable Rodriguez Granados PA-C Unavailable UnavailNerissa Oconnor MD Unavailable Victor Hugo Leigh MD Unavailable [phone] Cheli Lopez PA-C Unavailable [phone] Nerissa Pham MD Unavailable Encounter Details Date Type Department Care Team (Late Contact Info) Description 05/30/2019 Scanned Document [address] 100 [place] [address] Xavier Corey MD Social History Tobacco Use [...] Procedure visit MG PAIN MGMT [id number] [address] [facility] [address] [facility] 435 [place] [phone] Gerardo Roca MD 35 [facility] 5 [place] [address] 06/04/2025 9:00 AM EST Office Visit [address] 100 [place] [address] Nerissa Pham MD 2 [facility] 100 [place], [place] [phone] documented as of this encounter Visit Diagnoses Not on filedocumented in this encounter Care Teams Leadership Program Intern Relationship Specialty Start Date End Date Xavier Corey MD PCP - MSSP Attributed 12/12/18 06/13/19 Xavier Corey MD [address] [place] [address] 719 [place] [address] PCP - General Internal Medicine 01/20/19 11/05/20 Nerissa Pham MD 2 [facility] [address] [place] [address] PCP - MSSP Attributed 06/14/19 0 Nerissa Pham MD 2 [facility] [address] [place] [address] PCP - General Internal Medicine 11/06/20 Nerissa Pham MD 2 [facility] [address] [place] [address] PCP - MSSP Attributed 09/12/20 1 Rodriguez Granados PA-C PCP - MSSP Attributed 06/14/21 09/11/21 Nerissa Pham MD [address] [facility] [address] [place] [address], [place] [address] PCP - MSSP Attributed 09/12/21 2 Cheli Lopez PA-C [address] [place] [address] PCP - MSSP Attributed 09/12/22 12/11/22 Nerissa Pham MD [address] [facility] [address] [place] [address], [place] [address] PCP - MSSP Attributed 12/12/22 4 Marisela Jackman, CHIP SILO TENDER [address] [place] [address] ICP Community Organic Gardening Teacher 02/02/17 06/23/19 Audie Cota MD 85 [facility] 719 [place] [address] Cardiovascular Disease 01/11/19 Ankita Vinson, [facility] [address] [facility] 4 [place] [address] [facility] Community Organic Gardening Teacher 06/23/19 Gerardo Leblanc MD [address] [place] [address] Ophthalmology 07/04/19 Rolando Topete MD [address] [place] [address] [address] [place] [phone] Cardiovascular Disease 07/10/19 Danielle Stubbs MD [address] [place] [address] Dermatology 07/10/19 Juan Manuel Patino MD [address] [place] [address] Physician Pulmonary Disease 09/22/19 Juan Manuel Patino MD [address] [place] [address] Physician Pulmonary Disease 10/04/19 10/04/19 Fletcher Mckay MD [address] [place] [address] Physician Nephrology 03/18/20 Victor Hugo Leigh MD 289 [place] [address] Neurology 11/05/22 documented as of this encounter
--- OUTSIDE RECORDS SUMMARY | 2025-02-06 11:21 | XMS_ITS | Encounter Summary ---
Author Organization [facility] Address [address] [place] [address] Care Team Providers Care Horticulture Instructor Name Role Phone Audie Cota MD Unavailable [phone] Ankita Vinson [facility] Unavailable [phone] Gerardo Leblanc MD Unavailable Rolando Topete MD Unavailable [phone] Danielle Stubbs MD Unavailable Juan Manuel Patino MD Unavailable Fletcher Mckay MD Unavailable Nerissa Pham MD Primary Care Provider + Nerissa Pham MD Unavailable Victor Hugo Leigh MD Unavailable [phone] Cheli Lopez PA-C Unavailable Nerissa Pham MD Unavailable [phone] Reason for Visit * Reason Comments Medication Refill Encounter Details Date Type Department Care Team (Late st Contact Info) Description 01/08/[address] [place] [address] Rodriguez Granados PA-C Primary hypertension Social History Tobacco Use Types Packs/Day Years [...] MG PAIN MGMT [id number] 65 [facility] 435 [place] [phone] Gerardo Roca MD 35 [facility] 5 [place] [address] 06/04/2025 9:00 AM EST Office Visit [address] [place] [phone] Nerissa Pham MD 2 [facility] [address] [place] [address] documented as of this encounter Visit Diagnoses Diagnosis Primary hypertension Unspecified essential hypertension documented in this encounter Care Teams Horticulture Instructor Relationship Specialty Start Date End Date Nerissa Pham MD 2 [facility] [address] Garcia [address] [place] [address] PCP - General Internal Medicine 11/06/20 Nerissa Pham MD 2 [facility] [address] [place] [address] PCP - MSSP Attributed 09/12/21 2 Cheli Lopez PA-C 2 [facility] 100 [place] [address] PCP - MSSP Attributed 09/12/22 12/11/22 Nerissa Pham MD 2 [facility] 100 [place] [address] PCP - MSSP Attributed 12/12/22 4 Audie Cota MD 85 [facility] [address] [place] [phone] Cardiovascular Disease 01/11/19 Ankita Vinson, [facility] [address] [address] [facility] Community Psychiatric Therapist 06/23/19 Gerardo Leblanc MD [address] [place] [address] Ophthalmology 07/04/19 Rolando Topete MD [address] [place] [address] [address] [place] [phone] Cardiovascular Disease 07/10/19 Danielle Stubbs MD [address] [place] [address] Dermatology 07/10/19 Juan Manuel Patino MD [address] [place] [address] Physician Pulmonary Disease 09/22/19 Fletcher Mckay MD [address] [place], [place] [address] Physician Nephrology 03/18/20 Victor Hugo Leigh MD [address] [place] [address] Neurology 11/05/22 documented as of this encounter
--- OUTSIDE RECORDS SUMMARY | 2025-02-06 11:21 | XMS_ITS | Encounter Summary ---
Author Organization [facility] Address [address] [place], [place] [address] Care Team Providers Care School Administrator Name Role Phone Audie Cota MD Unavailable [phone] Ankita Vinson [facility] Unavailable Gerardo Leblanc MD Unavailable Rolando Topete MD Unavailable Danielle Stubbs MD Unavailable [phone] Juan Manuel Patino MD Unavailable Fletcher Mckay MD Unavailable Nerissa Pham MD Primary Care Provider + Victor Hugo Leigh MD Unavailable [phone] Nerissa Pham MD Unavailable [phone] Reason for Visit * Reason Comments Medication Refill Encounter Details Date Type Department Care Team (Late st Contact Info) Description 02/15/2023 Refill [facility] [address] [address] Cheli Lopez PA-C 2 [facility] [address] [place] [address] Idiopathic chronic gout without tophus, unspecified site [...] Procedure visit MG PAIN MGMT [id number] [address] [facility] [address] [facility] 435 [place] [phone] Gerardo Roca MD 35 [facility] 5 [place] [address] 06/04/2025 9:00 AM EST Office Visit [facility] 2 [facility] [address] [place] [phone] Nerissa Pham MD 2 [facility] [address] [place] [address] documented as of this encounter Visit Diagnoses Diagnosis Idiopathic chronic gout without tophus, unspecified site documented in this encounter Care Teams School Administrator Relationship Specialty Start Date End Date Nerissa Pham MD 2 [facility] [address] [place] [address] PCP - General Internal Medicine 11/06/20 Nerissa Pham MD 2 [facility] [address] [place] [address] PCP - MSSP Attributed 12/12/22 4 Audie Cota MD 85 [facility] 719 [place] [address] Cardiovascular Disease 01/11/19 Ankita Vinson, [facility] [address] [place] [address] [facility] Community Postal Mail Carrier 06/23/19 Gerardo Leblanc MD [address] [place] [address] Ophthalmology 07/04/19 Rolando Topete MD 85 [facility] 1022 [place] [address] Cardiovascular Disease 07/10/19 Danielle Stubbs MD [address] [place] [address] Dermatology 07/10/19 Juan Manuel Patino MD [address] [place] [address] Physician Pulmonary Disease 09/22/19 Fletcher Mckay MD [address] [place] [address] Physician Nephrology 03/18/20 Victor Hugo Leigh MD [address] [place] [address] Neurology 11/05/22 documented as of this encounter
--- OUTSIDE RECORDS SUMMARY | 2025-02-06 11:21 | XMS_ITS | Encounter Summary ---
Author Organization Formerly [facility] Address [address] [place] [address] Care Team Providers Care Reference Investigator Name Role Phone Xavier Corey MD Unavailable Unavailable Xavier Corey MD Unavailable Unavailable Marisela Jackman [facility] Unavailable [phone] Audie Cota MD Unavailable [phone] Xavier Corey MD Primary Care Provider Unava ilable Ankita Vinson [facility] Unavailable [phone] Gerardo Leblanc MD Unavailable Rolando Topete MD Unavailable Danielle Stubbs MD Unavailable [phone] Juan Manuel Patino MD Unavailable Juan Manuel Patino MD Unavailable Fletcher Mckay MD Unavailable Nerissa Pham MD Unavailable [phone] Nerissa Pham MD Primary Care Provider + Nerissa Pham MD Unavailable [phone] Rodriguez Granados PA-C Unavailable UnavailNerissa Oconnor MD Unavailable [phone] Xavier Corey MD Primary Care Provider Unava ilable Lu Victor Hugo K MD Unavailable [phone] Cheli Lopez PA-C Unavailable [phone] Nerissa Pham MD Unavailable Encounter Details Date Type Department Care Team (Late st Contact Info) Description 04/05/2015 Scanned Document [place] [id number] [place] [phone] Provider, Generic Social History Tobacco Use Types Packs/Day Years Used Date Smoking Tobacco: Never Assessed Sex and Gender Information Value Date Recorded [...] Procedure visit MG PAIN MGMT [id number] [address] [facility] [address] [place] [phone] Gerardo Roca MD 35 [facility] 5 [place] [address] 06/04/2025 9:00 AM EST Office Visit [address] [place] [phone] Nerissa Pham MD 2 [facility] 100 [place] [address] documented as of this encounter Procedures Procedure Name Priority Date/Time Associated Diagnosis Comments ECG 12-LEAD 04/09/2015 documented in this encounter Results * ECG 12-LEAD (04/09/2015) Narrative 04/09/2015 Ordered by an unspecified provider. us Generic Provider ECG ORDERABLES Edited Result - Final documented in this encounter Visit Diagnoses Not on filedocumented in this encounter Care Teams Reference Investigator Relationship Specialty Start Date End Date Xavier Corey MD PCP - MSSP Attributed 12/12/18 06/13/19 Xavier Corey MD 85 [facility] 719 [place] [address] PCP - General Internal Medicine 01/20/19 11/05/20 Nerissa Pham MD 2 [facility] [address] [place] [address] PCP - MSSP Attributed 06/14/19 0 Nerissa Pham MD 2 [facility] [address] [place] [address] PCP - General Internal Medicine 11/06/20 Nerissa Pham MD 2 [facility] [address] [address] PCP - MSSP Attributed 09/12/20 1 Rodriguez Granados PA-C PCP - MSSP Attributed 06/14/21 09/11/21 Nerissa Pham MD [address] [facility] [address] [place] [address] PCP - MSSP Attributed 09/12/21 2 Xavier Corey MD PCP - General 01/19/19 Cheli Lopez PA-C 2 [facility] [place] [address] [address] PCP - MSSP Attributed 09/12/22 12/11/22 Nerissa Pham MD 2 [facility] [address] [address] PCP - MSSP Attributed 12/12/22 4 Xavier Corey MD 06/24/17 07/01/17 [facility] [address] [place] [address] [employer] Community Python Web Developer 02/02/17 06/23/19 Audie Cota MD [address] [place], [place] [address] [place] [address] Cardiovascular Disease 01/11/19 Ankita Vinson, [facility] [address] [place] [address] [facility] Community Python Web Developer 06/23/19 Gerardo Leblanc MD [address] [place] [address] Ophthalmology 07/04/19 Rolando Topete MD [address] [place] [address] 1022 [place] [address] Cardiovascular Disease 07/10/19 Danielle Stubbs MD [address] [place] [address] [place] [address] Dermatology 07/10/19 Juan Manuel Patino MD [address] [place] [address] [place] [address] Physician Pulmonary Disease 09/22/19 Juan Manuel Patino MD 21 [facility] [address] Physician Pulmonary Disease 10/04/19 10/04/19 Fletcher Mckay MD [address] [place] [address] [place] [address] Physician Nephrology 03/18/20 Victor Hugo Leigh MD [address] [place] [address] Neurology 11/05/22 documented as of this encounter
--- OUTSIDE RECORDS SUMMARY | 2025-02-06 11:21 | XMS_ITS | Encounter Summary ---
Author Organization [facility] Address [address] [place] [address] Care Team Providers Care Entry Level Installation Technician Name Role Phone Audie Cota MD Unavailable [phone] Ankita Vinson [facility] Unavailable Gerardo Leblanc MD Unavailable Rolando Topete MD Unavailable Danielle Stubbs MD Unavailable Juan Manuel Patino MD Unavailable Fletcher Mckay MD Unavailable Nerissa Pham MD Primary Care Provider + Victor Hugo Leigh MD Unavailable [phone] Nerissa Pham MD Unavailable Encounter Details Date Type Department Care Team (Late st Contact Info) Description 01/19/2023 Scanned Document [facility] OPTHALMOLOGY SCAN Ophthalmology, Scan Social History Tobacco Use Types Packs/Day [...] MG PAIN MGMT [id number] 65 [facility] 435 [place] [phone] Gerardo Roca MD 35 [facility] 5 [place] [address] 06/04/2025 9:00 AM EST Office Visit [facility] [address] [phone] Nerissa Pham MD 2 [facility] [place] [phone] documented as of this encounter Visit Diagnoses Not on filedocumented in this encounter Care Teams Entry Level Installation Technician Relationship Specialty Start Date End Date Nerissa Pham MD 2 [facility] [address] [address] PCP - General Internal Medicine 11/06/20 Nerissa Pham MD 2 [facility] [address] [address] PCP - MSSP Attributed 12/12/22 4 Audie Cota MD 85 [facility] 719 [place] [address] Cardiovascular Disease 01/11/19 Ankita Vinson, ORTHOPEDIC NURSE [address] [facility] 4 [place] [address] [employer] Community Cushion Mat Maker 06/23/19 Gerardo Leblanc MD 178 [place] [address] Ophthalmology 07/04/19 Rolando Topete MD 85 [facility] 1022 [place] [address] Cardiovascular Disease 07/10/19 Danielle Stubbs MD 21 [facility] [place] [address] Dermatology 07/10/19 Juan Manuel Patino MD 21 [facility] [place] [address] Physician Pulmonary Disease 09/22/19 Fletcher Mckay MD 21 [place] [address] Physician Nephrology 03/18/20 Victor Hugo Leigh MD [address] [place] [address] Neurology 11/05/22 documented as of this encounter
--- OUTSIDE RECORDS SUMMARY | 2025-02-06 11:21 | XMS_ITS | Encounter Summary ---
Author Organization Formerly [facility] Address [address] [place] [address] Care Team Providers Care Block Hacker Name Role Phone Xavier Corey MD Primary Care Provider Ruth vailable Encounter Details Date Type Department Care Team (Late st Contact Info) Description 12/09/2021 Orders Only [facility] Department of Gastroenterology [address] [place] [address] Trevor Isidro MD Social History Tobacco Use Types Packs/Day Years Used Date Smoking Tobacco: Never Smokeless Tobacco: Never Alcohol Use Standard Drinks/Week Comments Not Currently 0 (1 standard drink = 0.6 oz pur e alcohol) Sex and Gender Information Value Date Recorded Sex Assigned at Not on file Legal Sex Male 8:15 AM EDT Gender Identity Not on file Sexual Orientation Not on file COVID-19 Exposure Response Date Recorded In the last 10 days, have yo u been in contact with someone who was confirmed or suspected to have Coronavirus/COVID-19? No / Unsure 12/05/2021 12:00 PM EDT documented as of this encounter Plan of Treatment Not on file documented as of this encounter Visit Diagnoses Not on filedocumented in this encounter Care Teams Block Hacker Relationship Specialty Start Date End Date Xavier Corey MD PCP - General Internal Medicine 12/06/18 documented as of this encounter
--- OUTSIDE RECORDS SUMMARY | 2025-02-06 11:21 | XMS_ITS | Clinical Summary ---
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 10/25/2018 Active MethylPREDNISolo ne (MEDROL) 4 mg tablet Take 4 mg by mouth. 10/01/2016 Active omeprazole (PriLOSEC) 20 mg capsule daily as needed. Takes PRN 2 11/28/2018 Active simvastatin (ZOCOR) 10 mg tablet Take 10 mg by mouth. Active amLODIPine (NORVASC) 5 mg tablet Take 5 mg by mouth daily. Active rosuvastatin (CRESTOR) 20 mg tablet Take 20 mg by mouth. 11/18/2020 Active aspirin 81 mg chewable tablet Take 81 mg by mouth in the morning. A couple times/week. Active EPINEPHrine (EPIPEN) 0.3 mg/0.3 mL injection syringe Inject 0.3 mg into the muscle once daily as needed. 06/11/2020 Active hydroCHLOROthiaz ruth ann (HYDRODIURIL) tablet Take 25 mg by mouth. 11/18/2020 Active isosorbide mononitrate (IMDUR) 30 mg 24 hr tablet TAKE 1 TABLET BY MOUTH EVERY DAY IN THE MORNING 11/18/2020 Active losartan (COZAAR) 50 mg tablet Take 100 mg by mouth. Active predniSONE (DELTASONE) 5 mg tablet Take 1 tablet by mouth daily as needed. 04/12/2020 Active colchicine 0.6 mg tablet Take 0.6 mg by mouth every other day. 01/22/2024 Active omeprazole (PriLOSEC) 40 mg capsule Take 1 capsule (40 mg total) by mouth in the morning. 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 01/11/20 19 Family History Medical History Relation Comments Colon cancer Neg Hx Esophageal cancer Neg Hx Stomach cancer Neg Hx Social History Tobacco Use Types Packs/Day Years [...] on file Sexual Orientation Not on file Last Filed Vital Signs Vital Sign Reading Time Taken Comments Blood Pressure 146/66 06/01/2024 12:58 PM EST Pulse 64 06/01/2024 12:58 PM EST Temperature 36.2 C (97.2 F) 12/05/2021 2:40 PM EDT Respiratory Rate 18 12/05/2021 3:10 PM EDT Oxygen Saturation 100% 12/05/2021 3:15 PM EDT Inhaled Oxygen Concentration - - Weight 76.7 kg (169 lb) 06/01/2024 12:58 PM EST Height 170.2 cm (5' 7 ) 06/01/2024 12:58 PM EST Body Mass Index 26.47 06/01/2024 12:58 PM EST Plan of Treatment Health Maintenance Due Date Last Done Comments CT Colonography 1950 FIT-DNA (Cologuard) 1950 FIT 1950 FOBT 1950 Flex Sigmoidoscopy - 5y 1950 HIV Screening 1950 Hepatitis C Screening 1968 COVID-19 Vaccine (2 - 2023- season) 2024 06/16/2023 Influenza Vaccine (#1) 2025 Medicare Annual Wellness (AWV) 11/30/2025 11/29/2024, 06/16/2023, 11/04/2021, Additional history exists DTaP,Tdap,and Td Vaccines (2 - Td or Tdap) 06/14/2029 06/14/2019 Colonoscopy 12/06/2031 12/05/2021, 05/18/2018 Colorectal Cancer Screening 12/06/2031 Pneumococcal Vaccine, 50+ Years Completed 11/04/2021 Zoster Vaccines Completed 08/15/2022, 11/18/2021 HPV Vaccines Aged Out No longer eligi ble based on patient's age to complete this topic Hepatitis A Vaccines Aged Out No long er eligible based on patient's age to complete this topic Meningococcal Vaccine Aged Out No benigno mariely eligible based on patient's age to complete this topic Procedures Procedure Name Priority Date/Time Associated Diagnosis Comments COLONOSCOPY Routine 12/05/2021 1:49 PM EDT Gastroesophageal reflux disease without esophagitis from Last 3 Months or Most Recently Relevant to Health Maintenance Results * COLONOSCOPY (12/05/2021 1:49 PM EDT) 12/05/2021 1:49 PM EDT Narrative [facility] - 12/05/2021 2:44 PM EDT Patient Name: Peter Washington Date of : 1950 Procedure Date: 12/05/2021 1:49 PM Procedure: Colonoscopy Endoscopist: Alex Giraldo (Fellow), Trevor Isidro MD (Doctor) Referring MD: Xavier Corey MD (Referring MD) Indications: High risk colon cancer surveillance: Personal history of non-advanced adenoma, High risk colon cancer surveillance: Personal history of traditional serrated adenoma of the colon, Last colonoscopy: 2018 Attending Participation: I was present and participated during the entire procedure, including non-gunn portions. Procedure: Pre-Anesthesia Assessment: - Sedation was administered by an anesthesia professional. Deep sedation was attained. - The heart rate, respiratory rate, oxygen saturations, blood pressure, adequacy of pulmonary ventilation, and response to care were monitored throughout the procedure. - Sedation was administered by an anesthesia professional. Deep sedation was attained. - The heart rate, respiratory rate, oxygen saturations, blood pressure, adequacy of pulmonary ventilation, and response to care were monitored throughout the procedure. -Endoscopic procedures are exempt from a surgical site marking.Preparation: EKG, pulse, pulse oximetry, and blood pressure were monitored throughout the procedure. Capnography was monitored throughout procedure. The patient was kept NPO for four hours prior to the procedure. An intravenous line was inserted. The -[id number] scope was introduced through the anus and advanced to the terminal ileum, with identification of the appendiceal orifice and IC valve. The terminal ileum, the appendiceal orifice and the rectum were photographed. The entire colon was examined. The colonoscopy was performed without difficulty. The patient tolerated the procedure well. The quality of the bowel preparation was adequate. The quality of the bowel preparation was evaluated using the BBPS ([place] Bowel Preparation Scale) with scores of: Right Colon = 2 (minor amount of residual staining, small fragments of stool and/or opaque liquid, but mucosa seen well), Transverse Colon = 2 (minor amount of residual staining, small fragments of stool and/or opaque liquid, but mucosa seen well) and Left Colon = 2 (minor amount of residual staining, small fragments of stool and/or opaque liquid, but mucosa seen well). The total BBPS score equals 6. The bowel preparation used was bisacodyl tablets and magnesium citrate via split dose instruction. Medicines: Propofol per Anesthesia Findings: The perianal and digital rectal examinations were normal. Multiple small-mouthed diverticula were found in the sigmoid colon. There was no evidence of diverticular bleeding. A 5 mm polyp was found in the sigmoid colon. The polyp was sessile. Polypectomy was attempted, initially using a cold snare. Polyp resection was incomplete with this device. This intervention then required a different device and polypectomy technique. The polyp was removed with a cold biopsy forceps. Resection and retrieval were complete. Estimated blood loss was minimal. Internal hemorrhoids were found during retroflexion. The hemorrhoids were Grade I (internal hemorrhoids that do not prolapse). The exam was otherwise normal throughout the examined colon. The terminal ileum appeared normal. Estimated Blood Loss: Estimated blood loss was minimal. Unplanned Events: No immediate complications. Summary: - Diverticulosis in the sigmoid colon. There was no evidence of diverticular bleeding. - One 5 mm polyp in the sigmoid colon, removed with a cold biopsy forceps. Resected and retrieved. - Internal hemorrhoids. - The examined portion of the ileum was normal. Recommendation: - Patient has a contact number available for emergencies. The signs and symptoms of potential delayed complications were discussed with the patient. Return to normal activities tomorrow. Written discharge instructions were provided to the patient. - Discharge patient to home (ambulatory). - High fiber diet. - No ibuprofen, naproxen, or other non-steroidal anti-inflammatory drugs for 5 days after polyp removal. - Await pathology results. - Repeat colonoscopy (date not yet determined) for surveillance based on pathology results. - The findings and recommendations were discussed with the patient. Procedure Code(s): --- Professional --- 81625, Colonoscopy, flexible; with biopsy, single or multiple Diagnosis Code(s): --- Professional --- Z86.010, Personal history of colonic polyps K57.30, Diverticulosis of large intestine without perforation or abscess without bleeding K63.5, Polyp of colon K64.0, First degree hemorrhoids CPT copyright 2020 [employer]. All rights reserved. The codes documented in this report are preliminary and upon segment assembler review may be revised to meet current compliance requirements. MD Trevor Quintanilla MD 12/05/2021 2:44:52 PM Electronically Authenticated and Edited by: MD Alex Linder, Number of Addenda: [address] [address] Trevor Isidro MD GI PROCEDURE Final Res ult [facility] [address] [place] [address]. [place] [address], [place] [phone] from Last 3 Months or Most Recently Relevant to Health Maintenance Insurance MEDICARE PART A & B [facility] C[facility] OPTIONS Advance Directives For more information, please contact: [phone] Documents on File Type Date Recorded Patient Refuge Manager Expl anation Advance Directives 12/09/2021 11:10 AM Care Teams Student Development Coordinator Relationship Specialty Start Date End Date Xavier Corey MD PCP - General Internal Medicine 12/06/18
--- OUTSIDE RECORDS SUMMARY | 2025-02-06 11:21 | XMS_ITS | Encounter Summary ---
Author Organization [facility] Address [address] [place] [address] Care Team Providers Care Parking Meter Collector Name Role Phone Xavier Corey MD Unavailable Unavailable Marisela Jackman [facility] Unavailable [phone] Audie Cota MD Unavailable [phone] Xavier Corey MD Primary Care Provider Unava ilable Ankita Vinson [facility] Unavailable [phone] Gerardo Leblanc MD Unavailable Rolando Topete MD Unavailable [phone] Danielle Stubbs MD Unavailable [phone] Juan Manuel Patino MD Unavailable Juan Manuel Patino MD Unavailable Fletcher Mckay MD Unavailable Nerissa Pham MD Unavailable [phone] Nerissa Pham MD Primary Care Provider + Nerissa Pham MD Unavailable [phone] Rodriguez Granados PA-C Unavailable UnavailNerissa Oconnor MD Unavailable Victor Hugo Leigh MD Unavailable [phone] Cheli Lopez PA-C Unavailable [phone] Nerissa Pham MD Unavailable [phone] Reason for Visit * Reason Comments Medication Refill Encounter Details Date Type Department Care Team (Late st Contact Info) Description 06/13/[address] [address] Xavier Corey MD Coronary artery disease, angina presence unspecified, unspecified vessel or lesion type, unspecified whether [place] or transplanted heart Social History Tobacco Use Types Packs/Day Years [...] encounter Miscellaneous Notes * Telephone Encounter - Chanda Andres RN - 06/19/2019 4:16 PM EST Duplicate documented in this encounter Plan of Treatment Upcoming Encounters Date Type Department Care Team (Late st Contact Info) Description 02/08/2025 12:00 PM EDT Procedure visit MG PAIN MGMT [id number] [address] [facility] [address] [place] [phone] Gerardo Roca MD 35 [facility] 5 [place], [place] [id number] 06/04/2025 9:00 AM EST Office Visit [address] 100 [place] [address] Nerissa Pham MD 2 [facility] 100 [place], [place] [phone] documented as of this encounter Visit Diagnoses Diagnosis Coronary artery disease, angina presence unspecified, unspecified vessel or lesion type, unspecified whether [place] or transplanted heart documented in this encounter Care Teams Parking Meter Collector Relationship Specialty Start Date End Date Xavier Corey MD PCP - MSSP Attributed 12/12/18 06/13/19 Xavier Corey MD [address] [place] [address] PCP - General Internal Medicine 01/20/19 11/05/20 Nerissa Pham MD [address] [facility] [address] [place] [address], [place] [address] PCP - MSSP Attributed 06/14/19 0 Nerissa Pham MD [address] [facility] [address] [place] [address], [place] [address] PCP - General Internal Medicine 11/06/20 Nerissa Pham MD [address] [facility] [address] [place] [address], [place] [address] PCP - MSSP Attributed 09/12/20 1 Rodriguez Granados PA-C PCP - MSSP Attributed 06/14/21 09/11/21 Nerissa Pham MD [address] [facility] [address] [place] [address], [place] [address] PCP - MSSP Attributed 09/12/21 2 Cheli Lopez PA-C 2 [facility] [place] [address] [place] [address] PCP - MSSP Attributed 09/12/22 12/11/22 Nerissa Pham MD 2 [facility] [address] [address] PCP - MSSP Attributed 12/12/22 4 Marisela Jackman, [facility] [address] [place] [address] [place] Community Gis Application Developer 02/02/17 06/23/19 Audie Cota MD 85 [facility] [address] [place] [phone] Cardiovascular Disease 01/11/19 Ankita Vinson, [facility] [address] [place] [address] [place] Community Gis Application Developer 06/23/19 Gerardo Leblanc MD [address] [place] [address] Ophthalmology 07/04/19 Rolando Topete MD [address] [place] [address] [address] [place] [phone] Cardiovascular Disease 07/10/19 Danielle Stubbs MD [address] [place] [address] [place] [address] Dermatology 07/10/19 Juan Manuel Patino MD [address] [place] [address] [place] [address] Physician Pulmonary Disease 09/22/19 Juan Manuel Patino MD [address] [place], [place] [address]ON[place] [address] Physician Pulmonary Disease 10/04/19 10/04/19 Fletcher Mckay MD [address] [place] [address] [place] [address] Physician Nephrology 03/18/20 Victor Hugo Leigh MD [address] [place] [address] Neurology 11/05/22 documented as of this encounter
--- OUTSIDE RECORDS SUMMARY | 2025-02-06 11:21 | XMS_ITS | Encounter Summary ---
Author Organization [facility] Address [address] [place] [address] Care Team Providers Care City Tax Auditor Name Role Phone Xavier Corey MD Unavailable Unavailable Marisela Jackman [facility] Unavailable Audie Cota MD Unavailable [phone] Xavier Corey MD Primary Care Provider Unava ilable Ankita Vinson [facility] Unavailable [phone] Gerardo Leblanc MD Unavailable [phone] Rolando Topete MD Unavailable Danielle Stubbs MD Unavailable [phone] Juan Manuel Patino MD Unavailable Juan Manuel Patino MD Unavailable Fletcher Mckay MD Unavailable Nerissa Pham MD Unavailable [phone] Nerissa Pham MD Primary Care Provider + Nerissa Pham MD Unavailable Rodriguez Granados PA-C Unavailable UnavailNerissa Oconnor MD Unavailable [phone] Victor Hugo Leigh MD Unavailable [phone] Cheli Lopez PA-C Unavailable Nerissa Pham MD Unavailable Encounter Details Date Type Department Care Team (Late st Contact Info) Description 01/27/2019 Scanned Document [facility] [address] [address] Rolando Topete MD [address] [id number] Social History Tobacco Use Types Packs/Day Years Used Date Smoking Tobacco: Never Smokeless Tobacco: Never Alcohol Use Standard Drinks/Week Comments Yes 0 (1 standard drink = 0.6 oz [...] Procedure visit MG PAIN MGMT [id number] [address] [facility] 435 [place] [address] Gerardo Roca MD 35 [facility] [place] 5 [place] [address] 06/04/2025 9:00 AM EST [facility] Visit [facility] [address] [place] [address] Nerissa Pham MD 2 [facility] 100 [place], [place] [phone] documented as of this encounter Visit Diagnoses Not on filedocumented in this encounter Care Teams City Tax Auditor Relationship Specialty Start Date End Date Xavier Corey MD PCP - MSSP Attributed 12/12/18 06/13/19 Xavier Corey MD [address] [place] [address] PCP - General Internal Medicine 01/20/19 11/05/20 Nerissa Pham MD 2 [facility] [address] 100 [place] [address] PCP - MSSP Attributed 06/14/19 0 Nerissa Pham MD 2 [facility] [place] [address] PCP - General Internal Medicine 11/06/20 Nerissa Pham MD [address] [facility] [address] Garcia [address] [place] [address], [place] [address] PCP - MSSP Attributed 09/12/20 1 Rodriguez Granados PA-C PCP - MSSP Attributed 06/14/21 09/11/21 Nerissa Pham MD [address] [facility] [address] 100 [place] [address] PCP - MSSP Attributed 09/12/21 2 Cheli Lopez PA-C [address] [place] [address] PCP - MSSP Attributed 09/12/22 12/11/22 Nerissa Pham MD [address] [facility] [place] [address] PCP - MSSP Attributed 12/12/22 4 Marisela Jackman, [facility] [address] [place] [address] [facility] Community Oil Heaterman 02/02/17 06/23/19 Audie Cota MD 85 [facility] 719 [place] [address] Cardiovascular Disease 01/11/19 Ankita Vinson, [facility] [address] [place] [address] [facility] Community Oil Heaterman 06/23/19 Gerardo Leblanc MD [address] [place] [address] Ophthalmology 07/04/19 Rolando Topete MD [address] [place] [address] 1022 [place] [address] Cardiovascular Disease 07/10/19 Danielle Stubbs MD [address] [place] [address] Dermatology 07/10/19 Juan Manuel Patino MD [address] [place] [address] Physician Pulmonary Disease 09/22/19 Juan Manuel Patino MD [address] [place] [address] Physician Pulmonary Disease 10/04/19 10/04/19 Fletcher Mckay MD [address] [place] [address] Physician Nephrology 03/18/20 Victor Hugo Leigh MD [address] [place] [address] Neurology 11/05/22 documented as of this encounter
--- OUTSIDE RECORDS SUMMARY | 2025-02-06 11:21 | XMS_ITS | Encounter Summary ---
Author Organization [facility] Address 100 [place] [address] Care Team Providers Care Feed Mill Manager Name Role Phone Audie Cota MD Unavailable [phone] Ankita Vinson [facility] Unavailable [phone] Gerardo Leblanc MD Unavailable [phone] Rolando Topete MD Unavailable Danielle Stubbs MD Unavailable [phone] Juan Manuel Patino MD Unavailable Fletcher Mckay MD Unavailable Nerissa Pham MD Primary Care Provider + Victor Hugo Leigh MD Unavailable [phone] Nerissa Pham MD Unavailable [phone] Encounter Details Date Type Department Care Team (Late st Contact Info) Description 02/01/2024 Telephone [facility] U[facility]ic Surgery [place] 360 [facility] [address] [place] [address] Hugh Hernandez MD 360 [facility] Jose [address] [place] [address] Social History Tobacco Use Types Packs/Day Years [...] encounter Miscellaneous Notes * Telephone Encounter - Hugh Hernandez MD - 02/01/2024 1:04 PM EDT I called the patient and left a voicemail. His MRI of the prostate and renal ultrasound are both normal. documented in this encounter Plan of Treatment Upcoming Encounters Date Type Department Care Team (Late st Contact Info) Description 02/08/2025 12:00 PM EDT Procedure visit MG PAIN MGMT [id number] 65 [facility] 435 [place] [phone] Gerardo Roca MD 35 [facility] 5 [place] [address] 06/04/2025 9:00 AM EST Office Visit [address] [place] [address] Nerissa Pham MD 2 [facility] 100 [place] [address] documented as of this encounter Visit Diagnoses Not on filedocumented in this encounter Care Teams Feed Mill Manager Relationship Specialty Start Date End Date Nerissa Pham MD [address] [facility] [address] [place] [address] PCP - General Internal Medicine 11/06/20 Nerissa Pham MD [address] [facility] [address] [place] [address] PCP - MSSP Attributed 12/12/22 4 Audie Cota MD 85 [facility] 719 [place] [address] Cardiovascular Disease 01/11/19 Ankita Vinson, [facility] [address] [address] [facility] Community General Accountant 06/23/19 Gerardo Leblanc MD [address] [place] [address] Ophthalmology 07/04/19 Rolando Topete MD 85 [facility] 1022 [place] [address] Cardiovascular Disease 07/10/19 Danielle Stubbs MD [address] [place] [address] [place] [address] Dermatology 07/10/19 Juan Manuel Patino MD [address] [place] [address] [place] [address] Physician Pulmonary Disease 09/22/19 Fletcher Mckay MD [address] [place] [address] Physician Nephrology 03/18/20 Victor Hugo Leigh MD [address] [place] [address] Neurology 11/05/22 documented as of this encounter
--- OUTSIDE RECORDS SUMMARY | 2025-02-06 11:21 | XMS_ITS | Encounter Summary ---
Author Organization [facility] Address [address] [place] [address] Care Team Providers Care Electrical/Instrument Technician Name Role Phone Audie Cota MD Unavailable [phone] Ankita Vinson [facility] Unavailable [phone] Gerardo Leblanc MD Unavailable [phone] Rolando Topete MD Unavailable [phone] Danielle Stubbs MD Unavailable [phone] Juan Manuel Patino MD Unavailable Fletcher Mckay MD Unavailable Nerissa Pham MD Primary Care Provider + Rodriguez Granados PA-C Unavailable UnavailNerissa Oconnor MD Unavailable Victor Hugo Leigh MD Unavailable [phone] Cheli Lopez PA-C Unavailable [phone] Nerissa Pham MD Unavailable Reason for Visit * Reason Comments Medication Refill Encounter Details Date Type Department Care Team (Late st Contact Info) Description 06/14/[address] [place] [address] Nerissa Pham MD 2 [facility] [address] [address] Idiopathic chronic gout without tophus, unspecified site [...] Procedure visit MG PAIN MGMT [id number] [address] [facility] [address] [facility] 435 [place] [phone] Gerardo Roca MD 35 [facility] 5 [place] [address] 06/04/2025 9:00 AM EST Office Visit [facility] 2 [facility] [address] [place] [phone] Nerissa Pham MD 2 [facility] [address] [address] documented as of this encounter Visit Diagnoses Diagnosis Idiopathic chronic gout without tophus, unspecified site documented in this encounter Care Teams Electrical/Instrument Technician Relationship Specialty Start Date End Date Nerissa Pham MD [address] [facility] [address] [place] [address] PCP - General Internal Medicine 11/06/20 Rodriguez Granados PA-C PCP - MSSP Attributed 06/14/21 09/11/21 Nerissa Pham MD 2 [facility] [address] [address] PCP - MSSP Attributed 09/12/21 2 Cheli Lopez PA-C [address] [address] PCP - MSSP Attributed 09/12/22 12/11/22 Nerissa Pham MD 2 [facility] [address] [address] PCP - MSSP Attributed 12/12/22 4 Audie Cota MD [address] [place] [address] [address] [place] [id number] Cardiovascular Disease 01/11/19 Ankita Vinson, [facility] [address] [address] [facility] Community Motorcycle Tester 06/23/19 Gerardo Leblanc MD [address] [place] [address] Ophthalmology 07/04/19 Rolando Topete MD [address] [place] [address] 1022 [place] [address] Cardiovascular Disease 07/10/19 Danielle Stubbs MD [address] [place] [address] Dermatology 07/10/19 Juan Manuel Patino MD [address] [place] [address] [place] [address] Physician Pulmonary Disease 09/22/19 Fletcher Mckay MD [address] [place] [address] [place] [address] Physician Nephrology 03/18/20 Victor Hugo Leigh MD [address] [place] [address] Neurology 11/05/22 documented as of this encounter
--- OUTSIDE RECORDS SUMMARY | 2025-02-06 11:21 | XMS_ITS | Encounter Summary ---
Author Organization [facility] Address [address] [place] [address] Care Team Providers Care Customer Service Teller Name Role Phone Xavier Corey MD Unavailable Unavailable Xavier Corey MD Unavailable Unavailable Marisela Jackman [facility] Unavailable [phone] Audie Cota MD Unavailable [phone] Xavier Corey MD Primary Care Provider Unava ilable Ankita Vinson [facility] Unavailable [phone] Gerardo Leblanc MD Unavailable Rolando Topete MD Unavailable Danielle Stubbs MD Unavailable [phone] Juan Manuel Patino MD Unavailable Juan Manuel Patino MD Unavailable Fletcher Mckay MD Unavailable Nerissa Pham MD Unavailable [phone] Nerissa Pham MD Primary Care Provider + Nerissa Pham MD Unavailable [phone] Rodriguez Granados PA-C Unavailable UnavailNerissa Oconnor MD Unavailable [phone] Xavier Corey MD Primary Care Provider Unava ilable Lu Victor Hugo K MD Unavailable [phone] Cheli Lopez PA-C Unavailable [phone] Nerissa Pham MD Unavailable Reason for Visit * Reason Comments Medication Refill Encounter Details Date Type Department Care Team (Late st Contact Info) Description 01/09/[address] [address] Xavier Corey MD Hypercholesteremia Social History Tobacco Use Types Packs/Day Years [...] Procedure visit MG PAIN MGMT [id number] [address] [facility] [address] [facility] 435 [place] [phone] [address] MD 35 [facility] 5 [place] [address] 06/04/2025 9:00 AM EST Office Visit [address] [place] [phone] Nerissa Pham MD 2 [facility] 100 [place], [place] [address] documented as of this encounter Visit Diagnoses Diagnosis Hypercholesteremia Pure hypercholesterolemia documented in this encounter Care Teams Customer Service Teller Relationship Specialty Start Date End Date Xavier Corey MD PCP - MSSP Attributed 12/12/18 06/13/19 Xavier Corey MD [address] [place] [address] [place] [address] PCP - General Internal Medicine 01/20/19 11/05/20 Nerissa Pham MD [address] [facility] [place] [address] PCP - MSSP Attributed 06/14/19 0 Nerissa Pham MD [address] [facility] [place] [address] PCP - General Internal Medicine 11/06/20 Nerissa Pham MD [address] [facility] [place] [address] PCP - MSSP Attributed 09/12/20 1 Rodriguez Granados PA-C PCP - MSSP Attributed 06/14/21 09/11/21 Nerissa Pham MD [address] [facility] [place] [address] PCP - MSSP Attributed 09/12/21 2 Xavier Corey MD PCP - General 01/19/19 Cheli Lopez PA-C [address] [place] [address] PCP - MSSP Attributed 09/12/22 12/11/22 Nerissa Pham MD [address] [facility] [place] [address] PCP - MSSP Attributed 12/12/22 4 Xavier Corey MD 06/24/17 07/01/17 Marisela Jackman, [facility] [address] [address] [facility] Community Instructor Apparel Manufacture 02/02/17 06/23/19 Audie Cota MD [address] [place] [address] 719 [place] [address] Cardiovascular Disease 01/11/19 Ankita Vinson, [facility] [address] [address] [facility] Community Instructor Apparel Manufacture 06/23/19 Gerardo Leblanc MD [address] [place] [address] Ophthalmology 07/04/19 Rolando Topete MD [address] [place], [place] [address] [place] [phone] Cardiovascular Disease 07/10/19 Danielle Stubbs MD [address] [place] [address] Dermatology 07/10/19 Juan Manuel Patino MD [address] [place] [address] Physician Pulmonary Disease 09/22/19 Juan Manuel Patino MD [address] [place] [address] [place] [address] Physician Pulmonary Disease 10/04/19 10/04/19 Fletcher Mckay MD [address] [place] [address] Physician Nephrology 03/18/20 Victor Hugo Leigh MD [address] [place] [address] Neurology 11/05/22 documented as of this encounter
--- OUTSIDE RECORDS SUMMARY | 2025-02-06 11:21 | XMS_ITS | Encounter Summary ---
Author Organization [facility] Address [address] [place] [address] Care Team Providers Care Energy Systems Laboratory Director Name Role Phone Audie Cota MD Unavailable [phone] Ankita Vinson [facility] Unavailable Gerardo Leblanc MD Unavailable [phone] Rolando Topete MD Unavailable Danielle Stubbs MD Unavailable [phone] Juan Manuel Patino MD Unavailable Fletcher Mckay MD Unavailable Nerissa Pham MD Primary Care Provider + Nerissa Pham MD Unavailable Victor Hugo Leigh MD Unavailable [phone] Cheli Lopez PA-C Unavailable [phone] Nerissa Pham MD Unavailable Reason for Visit * Reason Comments Medication Refill Encounter Details Date Type Department Care Team (Late st Contact Info) Description 12/18/[address] [place] [address] Rodriguez Granados PA-C Primary hypertension [...] Procedure visit MG PAIN MGMT [id number] 65 [facility] 435 [place] [phone] Gerardo Roca MD 35 [facility] 5 [place] [address] 06/04/2025 9:00 AM EST Office Visit [address] [place] [phone] Nerissa Pham MD [address] [facility] [address] [place] [address] documented as of this encounter Visit Diagnoses Diagnosis Primary hypertension Unspecified essential hypertension documented in this encounter Care Teams Energy Systems Laboratory Director Relationship Specialty Start Date End Date Nerissa Pham MD [address] [facility] [address] [place] [address] PCP - General Internal Medicine 11/06/20 Nerissa Pham MD [address] [facility] [address] [place] [address] PCP - MSSP Attributed 09/12/21 2 Cheli Lopez PA-C 2 [facility] 100 [place] [address] PCP - MSSP Attributed 09/12/22 12/11/22 Nerissa Pham MD 2 [facility] 100 [place] [address] PCP - MSSP Attributed 12/12/22 4 Audie Cota MD 85 [facility] [address] [place] [phone] Cardiovascular Disease 01/11/19 Ankita Vinson, [facility] [address] [place] [address] [address] [facility] Community Evaluator 06/23/19 Gerardo Leblanc MD [address] [place] [address] Ophthalmology 07/04/19 Rolando Topete MD [address] [place] [address] 1022 [place] [id number] Cardiovascular Disease 07/10/19 Danielle Stubbs MD [address] [place] [address] Dermatology 07/10/19 Juan Manuel Patino MD [address] [place] [address] Physician Pulmonary Disease 09/22/19 Fletcher Mckay MD [address] [place], [place] [address] Physician Nephrology 03/18/20 Victor Hugo Leigh MD [address] [place] [address] Neurology 11/05/22 documented as of this encounter
--- OUTSIDE RECORDS SUMMARY | 2025-02-06 11:22 | XMS_ITS | Encounter Summary ---
Author Organization [facility] Address [address] [facility] 200 [place] [address] Phone Care Team Providers Care Wax Engraver Name Role Phone Nerissa Pham MD Primary Care Provider Unav ailable Encounter Details Date Type Department Care Team (Late st Contact Info) Description 10/27/2022 Telephone [facility] [address] [facility] 200 [place] [address] Annmarie Santos Social History Tobacco Use Types Packs/Day Years Used Date Smoking Tobacco: Never Smokeless Tobacco: Never Alcohol Use Standard Drinks/Week Comments No 0 (1 standard drink = 0.6 oz pur e alcohol) Sex and Gender Information Value Date Recorded Sex Assigned at Not on file Legal Sex Male 4:55 PM EST Gender Identity Not on file Sexual Orientation Not on file documented as of this encounter Miscellaneous Notes * Telephone Encounter - Annmarie Santos - 10/27/2022 2:38 PM EDT PT says that he has kidney failure, 2 wks ago was diagnosed with kidney failure in a hospital in [place]. He says that he has been calling the office trying to reach someone in regards to this but hasn't heard back from anyone. He is agitated that no one has called him back, please advise. [phone] documented in this encounter Plan of Treatment Not on file documented as of this encounter Visit Diagnoses Not on filedocumented in this encounter Care Teams Wax Engraver Relationship Specialty Start Date End Date Nerissa Pham MD [address] [facility] [address] [place] [address] PCP - General Internal Medicine 12/18/20 documented as of this encounter
--- OUTSIDE RECORDS SUMMARY | 2025-02-06 11:22 | XMS_ITS | Encounter Summary ---
Author Organization [facility] Address [address] [place] [address] Care Team Providers Care Castables Worker Name Role Phone Xavier Corey MD Unavailable Unavailable Marisela Jackman [facility] Unavailable Audie Cota MD Unavailable [phone] Xavier Corey MD Primary Care Provider Unava ilable Ankita Vinson [facility] [place] [place] Unavailable [phone] Gerardo Leblanc MD Unavailable Rolando Topete MD Unavailable Danielle Stubbs MD Unavailable [phone] Juan Manuel Patino MD Unavailable Juan Manuel Patino MD Unavailable Fletcher Mckay MD Unavailable Nerissa Pham MD Unavailable [phone] Nerissa Pham MD Primary Care Provider + Nerissa Pham MD Unavailable Rodriguez Granados PA-C Unavailable UnavailNerissa Oconnor MD Unavailable Victor Hugo Leigh MD Unavailable [phone] Cheli Lopez PA-C Unavailable Nerissa Pham MD Unavailable [phone] Encounter Details Date Type Department Care Team (Late Contact Info) Description 04/24/2019 Scanned Document [address] 100 [place] [phone] Xavier Corey MD Social History Tobacco Use [...] MGMT [id number] 65 [facility] 435 [place] [phone] Gerardo Roca MD 35 [facility] 5 [place] [address] 06/04/2025 9:00 AM EST Office Visit [address] 100 [place] [phone] Nerissa Pham MD 2 [facility] 100 [place] [address] documented as of this encounter Visit Diagnoses Not on filedocumented in this encounter Care Teams Castables Worker Relationship Specialty Start Date End Date Xavier Corey MD PCP - MSSP Attributed 12/12/18 06/13/19 Xavier Corey MD [address] [place] [address] [place] [address] PCP - General Internal Medicine 01/20/19 11/05/20 Nerissa Pham MD 2 [facility] [address] [place] [address] PCP - MSSP Attributed 06/14/19 0 Nerissa Pham MD 2 [facility] [address] [place] [address] PCP - General Internal Medicine 11/06/20 Nerissa Pham MD 2 [facility] [address] [place] [address] PCP - MSSP Attributed 09/12/20 1 Rodriguez Granados PA-C PCP - MSSP Attributed 06/14/21 09/11/21 Nerissa Pham MD 2 [facility] [address] [place] [address], [place] [address] PCP - MSSP Attributed 09/12/21 2 Cheli Lopez PA-C [address] [place] [address] PCP - MSSP Attributed 09/12/22 12/11/22 Nerissa Pham MD 2 [facility] [address] [place] [address], [place] [address] PCP - MSSP Attributed 12/12/22 4 Marisela Jackman, REGULATORY COORDINATOR [address] [place] [address] [facility] Community Uniform Maker 02/02/17 06/23/19 Audie Cota MD 85 [facility] 719 [place] [address] Cardiovascular Disease 01/11/19 Ankita Vinson, [facility] [place] [place] [address] [facility] 4 [place] [address] [facility] Community Uniform Maker 06/23/19 Gerardo Leblanc MD [address] [place] [address] Ophthalmology 07/04/19 Rolando Topete MD 85 [facility] [address] [place] [id number] Cardiovascular Disease 07/10/19 Danielle Stubbs MD [address] [place] [address] Dermatology 07/10/19 Juan Manuel Patino MD [address] [place] [address] Physician Pulmonary Disease 09/22/19 Juan Manuel Patino MD [address] [place] [address] Physician Pulmonary Disease 10/04/19 10/04/19 Fletcher Mckay MD [address] [place] [address] Physician Nephrology 03/18/20 Victor Hugo Leigh MD [address] [place] [address] Neurology 11/05/22 documented as of this encounter
--- OUTSIDE RECORDS SUMMARY | 2025-02-06 11:22 | XMS_ITS ---
Author Name [facility] Organization Unknown Results Test Name/Text Value Interpretation Date Range Source WBC # Bld Auto 10.2 Thousand/uL Normal 07/18/2024 3.8 - 1 0.8 [facility] RBC Qn Auto 29.9 pg Normal 07/18/2024 27 - [address] Platelet # Bld Auto 223.0 Thousand/uL Normal 07/18/2024 140 - 400 [facility] Hgb Bld-mCnc 13.8 g/dL Normal 07/18/2024 13.2 - 17.1 [facility] RDW RBC Auto-Rto 13.2 % Normal 07/18/2024 11 - 15 QU EST Hct VFr Bld Auto 41.8 % Normal 07/18/2024 38.5 - 50 QU EST PMV Bld John-Zaki 10.6 fL Normal 07/18/2024 7.5 - 12.5 [facility] RBC Auto-mCnc 33.0 g/dL Normal 07/18/2024 32 - 36 [facility] RBC # Bld Auto 4.62 Million/uL Normal 07/18/2024 4.2 - 5. 8 [facility] MCV RBC Auto 90.5 fL Normal 07/18/2024 80 - 100 [facility] Urate SerPl-mCnc 7.3 mg/dL Normal 07/18/2024 4 - 8 QU EST AST SerPl-cCnc 13.0 U/L Normal 07/18/2024 10 - 35 [facility] Potassium SerPl-sCnc 4.3 mmol/L Normal 07/18/2024 3.5 - 5 .3 [facility] Prot SerPl-mCnc 6.5 g/dL Normal 07/18/2024 6.1 - 8.[address] Albumin SerPl-mCnc 4.5 g/dL Normal 07/18/2024 3.6 - 5.1 [facility] Globulin Ser Calc-mCnc 2.0 g/dL (calc) Normal 07/18/2024 1.9 - 3.7 [facility] BUN/Creat SerPl 16.0 (calc) Normal 07/18/2024 6 - 22 [facility] CO2 SerPl-sCnc 28.0 mmol/L Normal 07/18/2024 20 - 32 QU EST ALP SerPl-cCnc 70.0 U/L Normal 07/18/2024 35 - 144 [facility] Calcium SerPl-mCnc 9.5 mg/dL Normal 07/18/2024 8.6 - 10.3 [facility] Chloride SerPl-sCnc 103.0 mmol/L Normal 07/18/2024 98 - 1 10 [facility] eGFRcr SerPlBld CKD-EPI 2020 37.0 mL/min/1.73m2 Below low normal 07/18/2024 - [facility] Sodium SerPl-sCnc 142.0 mmol/L Normal 07/18/2024 135 - 14 6 [facility] Albumin/Glob SerPl 2.3 (calc) Normal 07/18/2024 1 - 2.5 [facility] ALT SerPl-cCnc 16.0 U/L Normal 07/18/2024 9 - 46 [facility] BUN SerPl-mCnc 31.0 mg/dL Above high normal 07/18/2024 7 - 2 5 [facility] Glucose SerPl-mCnc 88.0 mg/dL Normal 07/18/2024 65 - 139 [facility] Bilirub SerPl-mCnc 0.8 mg/dL Normal 07/18/2024 0.2 - 1.2 [facility] Creat SerPl-mCnc 1.9 mg/dL Above high normal 07/18/2024 0.7 - 1.28 [facility] History of Medication Use Medication Directions Dispensed Refills Start Date End Date Status predniSONE (DELTASONE) 10 MG tablet Take 2 tablets (20 mg total) by mouth daily. With food. 5 active triamcinolone (NASACORT AQ) 55 MCG/ACT Aerosol nasal spray 2 sprays into each nostril daily. 5 active polyethylene glycol-electrolytes (NULYTELY) 420 gram solution Take 4,000 mL by mouth once for 1 dose. Follow office instructions 4 06/02/20 24 active polyethylene glycol-electrolytes (NuLYTELY, TRILYTE) 420 g solution 4 active gadobutrol (GADAVIST) injection 7 mL 7 mL, Intravenous, Once in imaging, contrast, Starting on Keisha 01/20/24 at 1129, For 1 dose, Radiology Appointment 4 01/20/20 24 completed tamsulosin (FLOMAX) 0.4 MG capsule Take 1 capsule (0.4 mg total) by mouth daily. 4 active colchicine (COLCRYS) 0.6 mg tablet Three times a week on Wednesday, Wednesday and Wednesday 4 06/23/19 25 active isosorbide mononitrate (IMDUR) 60 MG 24 hr tablet Take 1 tablet (60 mg total) by mouth every morning. 4 active LORazepam (ATIVAN) 0.5 MG tablet Take 1 tablet (0.5 mg total) by mouth 3 times daily (every 8 hours) as needed for anxiety. 4 active allopurinol (ZYLOPRIM) 100 mg tablet Take 2 tablets (200 mg total) by mouth daily. 3 active hydrALAZINE (APRESOLINE) 25 MG tablet Take 1 tablet (25 mg total) by mouth twice daily (every 12 hours). 3 11/29/19 23 active rosuvastatin (CRESTOR) 20 MG tablet Take 1 tablet (20 mg total) by mouth daily. 3 active predniSONE (DELTASONE) 5 MG tablet TAKE 1 TABLET BY MOUTH EVERY DAY WITH FOOD X5DAYS WITH GOUT FLARES 3 active Edarbi 80 MG Tab tablet Take 80 mg by mouth daily. 3 active allopurinol (ZYLOPRIM) 100 mg tablet TAKE 3 TABLETS BY MOUTH DAILY 3 active hydroCHLOROthiazide (HYDRODIURIL) tablet Take 25 mg by mouth. 1 active isosorbide mononitrate (IMDUR) 30 mg 24 hr tablet TAKE 1 TABLET BY MOUTH EVERY DAY IN THE MORNING 1 active EPINEPHrine (EPIPEN) 0.3 mg/0.3 mL injection syringe Inject 0.3 mg into the muscle once daily as needed. 0 active EPINEPHrine 0.3 mg/0.3 mL IJ auto-injection Inject 0.3 mL (0.3 mg total) into the shoulder, thigh, or buttocks once as needed for allergic reaction. 0 active Uloric 40mg tablet 0 active predniSONE (DELTASONE) 5 mg tablet Take 1 tablet by mouth daily as needed. 0 active omeprazole (PriLOSEC) 20 mg capsule daily as needed. Takes PRN 9 active allopurinol (ZYLOPRIM) 100 mg tablet Take 100 mg by mouth daily. 9 active MethylPREDNISolone (MEDROL) 4 mg tablet Take 4 mg by mouth. 7 active amLODIPine (NORVASC) 5 mg tablet Take 5 mg by mouth daily. active aspirin 81 MG chewable tablet Chew 1 tablet (81 mg total) daily. active losartan (COZAAR) 50 mg tablet Take 100 mg by mouth. active losartan (COZAAR) 50 MG tablet Take 1 tablet (50 mg total) by mouth. active Allergies Allergen Reaction Severity Comment Documented Date Source Statu s AMLODIPINE SWELLING 08/09/2020 [facility] active LISINOPRIL OTHER (SEE COMMENTS) 08/09/2020 [facility] active NUTRITIONAL SUPPLEMENT-FIBER Raw eggs 12/13/2018 [facility] active EGG ANAPHYLAXIS 04/09/2015 [facility] active EGG-DERIVED PRODUCTS SHORTNESS OF BREATH 04/09/2015 [facility] active NUT - UNSPECIFIED ANAPHYLAXIS 04/09/2015 [facility] active PEANUT ANAPHYLAXIS 04/09/2015 [facility] active PEANUTS ANAPHYLAXIS 04/09/2015 [facility] active CODEINE OTHER (SEE COMMENTS) 01/02/2011 [facility] active EGGS OR EGG-DERIVED PRODUCTS SHORTNESS OF BREATH [facility] Problems Problem Status Onset Date Problem Type Date of Resolution Source Subareolar mass of left breast active 2022-06-14 ProblemAct [facility] Left wrist pain active 2016-01-03 ProblemAct [facility] CCT Anginal equivalent active 2023-02-23 ProblemAct CCT Stage 3b chronic kidney disease active 2021-11-04 ProblemAct [facility] Gastroesophageal reflux disease with apnea active 2020-08-12 ProblemAct [facility] Primary gout active 2016-01-03 ProblemAct [facility] 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 active 2021-01-28 ProblemAct [facility] Hyperlipemia active 2020-08-11 ProblemAct [facility] 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 active 2019-01-10 ProblemAct [facility] Essential hypertension active 2015-04-09 ProblemAct [facility] Coronary artery disease of [place] artery of [place] heart with stable angina pectoris active 2019-01-27 ProblemAct [facility] Overweight with body mass index (BMI) 25.0-29.9 active 2018-01-21 ProblemAct [facility] Polyarticular gout active 2015-10-11 ProblemAct [facility] Chronic heart failure active 2020-04-12 ProblemAct [facility] Sciatica of right side active 2015-10-11 ProblemAct [facility] Chronic gout due to renal impairment without tophus active 2024-06-06 ProblemAct [facility] History of colonic polyps active 2021-01-28 ProblemAct [facility] Idiopathic chronic gout of multiple sites without tophus active EncounterDiagnosisAct [facility] Primary osteoarthritis involving multiple joints active 2016-12-16 ProblemAct [facility] Gastroesophageal reflux disease without esophagitis active 2021-01-28 ProblemAct [facility] Eosinophilic esophagitis active 2024-06-01 ProblemAct [facility] Congenital pes cavus, left foot active 2022-11-23 ProblemAct [facility] Idiopathic gout, left ankle and foot active 2022-01-22 ProblemAct [facility] Equinus - Short Achilles tendon, LEFT active 2024-01-14 EncounterDiagnosisAct [facility] Heel pain active 2024-01-14 ProblemAct [facility] T Tendinitis / enthesopathy RIGHT FOOT, capsulitis, periostitis active 2017-07-30 ProblemAct [facility] Equinus - Short Achilles tendon, RIGHT [...] left ankle active 2022-01-22 ProblemAct [facility] Immunizations Vaccine Date Source Lot Number Status Covid-19 mRNA Dipak-sucrose S easonal Vaccine - Pfizer 30 mcg/0.3 mL 12 years and older 06/16/2023 [facility] [id number] completed Covid-19 mRNA Dipak-sucrose S easonal Vaccine - Pfizer 30 mcg/0.3 mL 12 years and older 06/16/2023 [facility] [id number] completed Covid-19 mRNA Dipak-sucrose S easonal Vaccine - Pfizer 30 mcg/0.3 mL 12 years and older 06/16/2023 [facility] [id number] completed Zoster Vaccine Recombinant (Shingrix) 08/15/2022 [facility] [id number] completed Zoster Vaccine Recombinant (Shingrix) 08/15/2022 [facility] [id number] completed Zoster Vaccine Recombinant (Shingrix) 08/15/2022 [facility] [id number] completed Zoster Vaccine Recombinant (Shingrix) 11/18/2021 [facility] [id number] completed Zoster Vaccine Recombinant (Shingrix) 11/18/2021 [facility] [id number] completed Zoster Vaccine Recombinant (Shingrix) 11/18/2021 [facility] [id number] completed Pneumococcal Conjugate 20-Valent 11/04/2021 [facility] [id number] completed Pneumococcal Conjugate 20-Valent 11/04/2021 [facility] [id number] completed Pneumococcal Conjugate 20-Valent 11/04/2021 [facility] [id number] completed Tdap 06/14/2019 CCT completed Tdap 06/14/2019 CCT completed Tdap 06/14/2019 CCT completed Rabies 05/22/2018 CCT [id number] completed Rabies 05/22/2018 CCT [id number] completed Rabies 05/22/2018 CCT [id number] completed Rabies 05/15/2018 [facility] [id number] completed Rabies 05/15/2018 [facility] MO101 completed Rabies 05/15/2018 CCT [id number] completed Rabies 05/11/2018 [facility] [id number] completed Rabies 05/11/2018 [facility] [id number] completed Rabies 05/11/2018 [facility] [id number] completed Rabies 05/08/2018 CCT [id number] completed Rabies 05/08/2018 [facility] [id number] completed Rabies 05/08/2018 [facility] [id number] completed Rabies Immune Globulin 05/08/2018 [facility] [id number] co mpleted Rabies Immune Globulin 05/08/2018 [facility] [id number] co mpleted Rabies Immune Globulin 05/08/2018 [facility] [id number] co mpleted Encounters Encounter Type Encounter Reason Primary Diagnosis Location Date Ambulatory Nasal Congestion Nasal Congestion [facility] 5 Ambulatory Sacrococcygeal disorders, not elsewhere classified Sacrococcygeal disorders, not elsewhere classified [place] [facility] 5 Ambulatory [place] [facility] 5 Ambulatory Low back pain, unspecified Low back pain, unspecified [place] [facility] 5 Ambulatory Unspecified eustachian tube disorder, bilateral Unspecified eustachian tube disorder, bilateral [place] [facility] 5 Ambulatory Encounter for genera l adult medical examination without abnormal findings Encounter for general adult medical examination without abnormal findings [place] [facility] 5 Ambulatory Unspecified lump in left breast, subareolar Unspecified lump in left breast, subareolar [place] [facility] 5 Ambulatory Chronic gout due to renal impairment, unspecified ankle and foot, without tophus (tophi) Chronic gout due to renal impairment, unspecified ankle and foot, without tophus (tophi) [place] [facility] 5 Ambulatory Unspecified lump in left breast, subareolar Unspecified lump in left breast, subareolar [facility] 5 Ambulatory [facility] 5 Ambulatory [facility] 5 [facility]ulatory [facility] 4 Ambulatory Primary generalized (osteo)arthritis Primary generalized (osteo)arthritis [place] [facility] 4 Ambulatory Eosinophilic esophagitis Eosinophilic esophagitis [facility] 4 Ambulatory Solitary cyst of lef t breast Solitary cyst of left breast [place] [facility] 4 Ambulatory Idiopathic chronic gout, multiple sites, without tophus (tophi) Idiopathic chronic gout, multiple sites, without tophus (tophi) [place] [facility] 4 Ambulatory Essential (primary) hypertension Essential (primary) hypertension [facility] 4 Ambulatory Idiopathic chronic gout, multiple sites, without tophus (tophi) Idiopathic chronic gout, multiple sites, without tophus (tophi) [facility] 4 Ambulatory [facility] 4 Ambulatory [facility] 4 Ambulatory Benign prostatic hyperplasia with lower urinary tract symptoms Benign prostatic hyperplasia with lower urinary tract symptoms [facility] 4 Ambulatory Idiopathic chronic gout, multiple sites, without tophus (tophi) Idiopathic chronic gout, multiple sites, without tophus (tophi) [facility] 4 Ambulatory Bandemia Bandemia [facility] 4 Ambulatory Other malaise Other malaise [facility] 4 Ambulatory Low back pain, unspecified Low back pain, unspecified [facility] 4 Ambulatory Melena Melena [facility] 4 Ambulatory [facility] 4 Ambulatory Atherosclerotic hear t disease of [place] coronary artery with other forms of angina pectoris Atherosclerotic heart disease of [place] coronary artery with other forms of angina pectoris [facility] 4 Ambulatory Encounter for genera l adult medical examination without abnormal findings Encounter for general adult medical examination without abnormal findings [place] [facility] 4 Ambulatory [facility] 3 Ambulatory Unspecified lump in left breast, subareolar Unspecified lump in left breast, subareolar [facility] 3 Ambulatory Atherosclerotic hear t disease of [place] coronary artery with other forms of angina pectoris Atherosclerotic heart disease of [place] coronary artery with other forms of angina pectoris [place] [facility] 3 Ambulatory [facility] 3 Ambulatory Atherosclerotic heart disease of [place] coronary artery with other forms of angina pectoris [place] [facility] 3 Emergency Headache, unspecified [facility] 3 Ambulatory [facility] 3 Ambulatory Otitis media, unspecified, left ear [place] [facility] 3 Ambulatory Idiopathic chron ic gout, unspecified site, without tophus (tophi) [place] [facility] 2 Ambulatory Encounter for ot her preprocedural examination [facility] 2 Ambulatory Encounter for ge neral adult medical examination without abnormal findings [place] [facility] 2 Ambulatory Idiopathic chron ic gout, unspecified site, without tophus (tophi) [place] [facility] 2 Care Team Organization Name Specialty Phone Email Start Date End Da te [facility] ANKIT Primary Care 10/23/2024 [facility] PEDRO DIAZ Primary Care 12/08/2023 [facility] 04/16/2023 [facility] 11/14/2022 [facility] CINTHIA DIAZ Primary Care 12/0512/05/2021 [facility] CINTHIA DIAZ Primary Care 12/03 [facility] Luiz Pham Primary Care 11/04/20212021 [facility] LUIZ PHAM Primary Care 11/04/2021 [facility] Jose Ankit Primary Care [facility] CINTHIA DIAZ Primary [facility]
--- OUTSIDE RECORDS SUMMARY | 2025-02-06 11:22 | XMS_ITS | Encounter Summary ---
Author Organization [facility] Address [address] [place] [address] Care Team Providers Care Learning And Development Manager Name Role Phone Audie Cota MD Unavailable [phone] Ankita Vinson [facility] Unavailable Gerardo Leblanc MD Unavailable Rolando Topete MD Unavailable Danielle Stubbs MD Unavailable Juan Manuel Patino MD Unavailable Fletcher Mckay MD Unavailable Nerissa Pham MD Primary Care Provider + Victor Hugo Leigh MD Unavailable [phone] Encounter Details Date Type Department Care Team (Late st Contact Info) Description 02/05/2025 Telephone [facility] Rheumatology [place] [address] [place] [address] Maximino Gomez MD [address] [place] [phone] Social History Tobacco Use Types Packs/Day Years [...] encounter Miscellaneous Notes * Telephone Encounter - Sadia Roca MA - 02/05/2025 8:38 AM EDT Left voice message for patient to call us back regarding blood work. documented in this encounter Plan of Treatment Upcoming Encounters Date Type Department Care Team (Late st Contact Info) Description 02/08/2025 12:00 PM EDT Procedure visit MG PAIN MGMT [id number] [address] [facility] [address] [place] [phone] Gerardo oRca MD 35 [facility] 5 [place] [address] 06/04/2025 9:00 AM EST Office Visit [address] [place] [phone] Nerissa Pham MD 2 Magdy Garcia [address] [place] [id number] documented as of this encounter Visit Diagnoses Not on filedocumented in this encounter Care Teams Learning And Development Manager Relationship Specialty Start Date End Date Nerissa Pham MD 2 Magdy Garcia [address] [place] [address] PCP - General Internal Medicine 11/06/20 Audie Cota MD 85 [facility] [address] [place] [id number] Cardiovascular Disease 01/11/19 Ankita Vinson, [facility] 12[address] T[address]anya [address] [facility] 4 [place] [address] [facility] Community Bridal Gown Fitter 06/23/19 Gerardo Leblanc MD [address] [place] [address] Ophthalmology 07/04/19 Rolando Topete MD [address] [place] [address] [address] [place] [place] [id number] Cardiovascular Disease 07/10/19 Danielle Stubbs MD [address] [place] [address] Dermatology 07/10/19 Juan Manuel Patino MD [address] [place] [address] Physician Pulmonary Disease 09/22/19 Fletcher Mckay MD [address] [place] [address] Physician Nephrology 03/18/20 Victor Hugo Leigh MD [address] [place] [address] Neurology 11/05/22 documented as of this encounter
--- OUTSIDE RECORDS SUMMARY | 2025-02-06 11:22 | XMS_ITS | Encounter Summary ---
Author Organization [facility] Address [address] [place] [address] Care Team Providers Care Vp Marketing Services And Skin Name Role Phone Audie Cota MD Unavailable [phone] Ankita Vinson [facility] Unavailable Gerardo Leblanc MD Unavailable Rolando Topete MD Unavailable [phone] Danielle Stubbs MD Unavailable Juan Manuel Patino MD Unavailable Fletcher Mckay MD Unavailable Nerissa Pham MD Primary Care Provider + Nerissa Pham MD Unavailable Victor Hugo Leigh MD Unavailable [phone] Cheli Lopez PA-C Unavailable [phone] Nerissa Pham MD Unavailable Encounter Details Date Type Department Care Team (Late st Contact Info) Description 01/08/2022 Scanned Document [address] [facility] [place] [address] Pulmonary, Scan Social History Tobacco Use Types Packs/Day [...] Procedure visit MG PAIN MGMT [id number] 65 [facility] [address] [place] [phone] Gerardo Roca MD 35 [facility] 5 [place] [address] 06/04/2025 9:00 AM EST Office Visit [facility] [address] [phone] Nerissa Pham MD 2 [facility] [address] [address] documented as of this encounter Visit Diagnoses Not on filedocumented in this encounter Care Teams Vp Marketing Services And Skin Relationship Specialty Start Date End Date Nerissa Pham MD 2 [facility] [address] [address] PCP - General Internal Medicine 11/06/20 Nerissa Pham MD 2 [facility] [address] [address] PCP - MSSP Attributed 09/12/21 2 Cheli Lopez PA-C [address] [place] [address] PCP - MSSP Attributed 09/12/22 12/11/22 Nerissa Pham MD [address] [address] PCP - MSSP Attributed 12/12/22 4 Audie Cota MD 85 [facility] 719 [place] [address] Cardiovascular Disease 01/11/19 Ankita Vinson, [facility] [address] [address] [facility] Community Electronics Technician Apprentice 06/23/19 Gerardo Leblanc MD [address] [place] [address] Ophthalmology 07/04/19 Rolando Topete MD [address] [place] [address] 1022 [place] [address] Cardiovascular Disease 07/10/19 Danielle Stubbs MD [address] [place] [address] Dermatology 07/10/19 Juan Manuel Patino MD [address] [place] [address] Physician Pulmonary Disease 09/22/19 Fletcher Mckay MD [address] [place] [address] Physician Nephrology 03/18/20 Victor Hugo Leigh MD [address] [place] [address] Neurology 11/05/22 documented as of this encounter
--- OUTSIDE RECORDS SUMMARY | 2025-02-06 11:22 | XMS_ITS | Encounter Summary ---
Author Organization [facility] Address [address] [place] [address] Care Team Providers Care Bricklayer Sewer Name Role Phone Audie Cota MD Unavailable [phone] Ankita Vinson [facility] Unavailable Gerardo Leblanc MD Unavailable Rolando Topete MD Unavailable Danielle Stubbs MD Unavailable Juan Manuel Patino MD Unavailable Fletcher Mckay MD Unavailable Nerissa Pham MD Primary Care Provider + Victor Hugo Leigh MD Unavailable [phone] Encounter Details Date Type Department Care Team (Late st Contact Info) Description 12/05/2024 Scanned Document [facility] Rheumatology [address] [phone] Maximino Gomez MD [address] [place] [address] Social History Tobacco Use Types Packs/Day Years [...] Procedure visit MG PAIN MGMT [id number] 65 [facility] [address] [place] [phone] Gerardo Roca MD 35 [facility] 5 [place] [address] 06/04/2025 9:00 AM EST Office Visit [facility] [address] [phone] Nerissa Pham MD 2 [facility] [address] [address] documented as of this encounter Visit Diagnoses Not on filedocumented in this encounter Care Teams Bricklayer Sewer Relationship Specialty Start Date End Date Nerissa Pham MD 2 [facility] [address] [address] PCP - General Internal Medicine 11/06/20 Audie Cota MD [address] [place] [address] 719 [place] [address] Cardiovascular Disease 01/11/19 Ankita Vinson, [facility] [facility] 4 [place] [address] [facility] Community Concrete Products Machine Operator 06/23/19 Gerardo Leblanc MD [address] [place] [address] Ophthalmology 07/04/19 Rolando Topete MD 85 [facility] 1022 [place] [address] Cardiovascular Disease 07/10/19 Danielle Stubbs MD [address] [facility] [place] [address] Dermatology 07/10/19 Juan Manuel Patino MD [address] [facility] [place] [address] Physician Pulmonary Disease 09/22/19 Fletcher Mckay MD [address] [facility] [place] [address] Physician Nephrology 03/18/20 Victor Hugo Leigh MD [address] [place] [address] Neurology 11/05/22 documented as of this encounter
--- OUTSIDE RECORDS SUMMARY | 2025-02-06 11:22 | XMS_ITS | Encounter Summary ---
Author Organization [facility] Address [address] [place] [address] Care Team Providers Care Party Plan Sales Consultant Name Role Phone Xavier Corey MD Unavailable Unavailable Marisela Jackman [facility] Unavailable [phone] Audie Cota MD Unavailable [phone] Xavier Corey MD Primary Care Provider Unava ilable Ankita Vinson [facility] Unavailable [phone] Gerardo Leblanc MD Unavailable Rolando Topete MD Unavailable Danielle Stubbs MD Unavailable [phone] Juan Manuel Patino MD Unavailable Juan Manuel Patino MD Unavailable Fletcher Mckay MD Unavailable Nerissa Pham MD Unavailable Nerissa Pham MD Primary Care Provider + Nerissa Pham MD Unavailable Rodriguez Granados PA-C Unavailable UnavailNerissa Oconnor MD Unavailable Victor Hugo Leigh MD Unavailable [phone] Cheli Lopez PA-C Unavailable Nerissa Pham MD Unavailable Encounter Details Date Type Department Care Team (Late Contact Info) Description 04/24/2019 Scanned Document [address] 100 [place] [phone] Xavier Corey MD Social History Tobacco Use [...] Procedure visit MG PAIN MGMT [id number] 65 [facility] 435 [place] [phone] Gerardo Roca MD 35 [facility] 5 [place] [address] 06/04/2025 9:00 AM EST Office Visit [address] 100 [place] [phone] Nerissa Pham MD 2 [facility] 100 [place] [address] documented as of this encounter Visit Diagnoses Not on filedocumented in this encounter Care Teams Party Plan Sales Consultant Relationship Specialty Start Date End Date Xavier Corey MD PCP - MSSP Attributed 12/12/18 06/13/19 Xavier Corey MD [address] [place] [address] [place] [address] PCP - General Internal Medicine 01/20/19 11/05/20 Nerissa Pham MD 2 [facility] [address] [place] [address] PCP - MSSP Attributed 06/14/19 0 Nerissa Pham MD 2 [facility] [address] [place] [address] PCP - General Internal Medicine 11/06/20 Nerissa Pham MD 2 [facility] [address] [place] [address] PCP - MSSP Attributed 09/12/20 1 Rodriguez Granados PA-C PCP - MSSP Attributed 06/14/21 09/11/21 Nerissa Pham MD [address] [facility] [address] [place] [address], [place] [address] PCP - MSSP Attributed 09/12/21 2 Cheli Lopez PA-C [address] [place] [address] PCP - MSSP Attributed 09/12/22 12/11/22 Nerissa Pham MD [address] [facility] [address] Garcia [address] [place] [address], [place] [address] PCP - MSSP Attributed 12/12/22 4 Marisela Jackman, RAW MILL OPERATOR [address] [place] [address] [facility] Community Land Mobile Radio Technician 02/02/17 06/23/19 Audie Cota MD 85 [facility] 719 [place] [address] Cardiovascular Disease 01/11/19 Ankita Vinson, [facility] [address] [facility] 4 [place] [address] [facility] Community Land Mobile Radio Technician 06/23/19 Gerardo Leblanc MD [address] [place] [address] Ophthalmology 07/04/19 Rolando Topete MD 85 [facility] [address] [place] [id number] Cardiovascular Disease 07/10/19 Danielle Stubbs MD [address] [place] [address] Dermatology 07/10/19 Juan Manuel Patino MD [address] [place] [address] Physician Pulmonary Disease 09/22/19 Juan Manuel Patino MD [address] [place] [address] Physician Pulmonary Disease 10/04/19 10/04/19 Fletcher Mckay MD [address] [place] [address] Physician Nephrology 03/18/20 Victor Hugo Leigh MD [address] [place] [address] Neurology 11/05/22 documented as of this encounter
--- OUTSIDE RECORDS SUMMARY | 2025-02-06 11:22 | XMS_ITS | Encounter Summary ---
Author Organization [facility] Address [address] [place] [address] Care Team Providers Care Fire Crew Specialist Name Role Phone Audie Cota MD Unavailable [phone] Ankita Vinson [facility] Unavailable Gerardo Leblanc MD Unavailable Rolando Topete MD Unavailable Danielle Stubbs MD Unavailable Juan Manuel Patino MD Unavailable Fletcher Mckay MD Unavailable Nerissa Pham MD Primary Care Provider + Victor Hugo Leigh MD Unavailable [phone] Encounter Details Date Type Department Care Team (Late st Contact Info) Description 12/25/2024 Scanned Document [address] [place] [address] [place] [address] [place] [address] Social History Tobacco Use Types Packs/Day Years [...] Procedure visit MG PAIN MGMT [id number] 65 [facility] 435 [place] [phone] Gerardo Roca MD 35 [facility] 5 [place] [address] 06/04/2025 9:00 AM EST Office Visit [facility] 2 [facility] 100 [place] [phone] Nerissa Pahm MD 2 [facility] [address] [address] documented as of this encounter Visit Diagnoses Not on filedocumented in this encounter Care Teams Fire Crew Specialist Relationship Specialty Start Date End Date Nerissa Pham MD 2 [facility] [address] [address] PCP - General Internal Medicine 11/06/20 Audie Cota MD 85 [facility] 719 [place] [address] Cardiovascular Disease 01/11/19 Ankita Vinson, [facility] [address] [place] [address] [facility] Community Engineering Director 06/23/19 Gerardo Leblanc MD 178 [place] [address] Ophthalmology 07/04/19 Rolando Topete MD 85 [facility] 1022 [place] [address] Cardiovascular Disease 07/10/19 Danielle Stubbs MD 21 [place] [address] Dermatology 07/10/19 Juan Manuel Patino MD 21 [facility] [place] [place] [address] Physician Pulmonary Disease 09/22/19 Fletcher Mckay MD [address] [place] [address] Physician Nephrology 03/18/20 Victor Hugo Leigh MD [address] [place] [address] Neurology 11/05/22 documented as of this encounter
--- OUTSIDE RECORDS SUMMARY | 2025-02-06 11:22 | XMS_ITS | Encounter Summary ---
Author Organization [facility] Address 100 [place] [address] Care Team Providers Care Furniture Servicer Name Role Phone Audie Cota MD Unavailable [phone] Ankita Vinson [facility] Unavailable Gerardo Leblanc MD Unavailable Rolando Topete MD Unavailable [phone] Danielle Stubbs MD Unavailable Juan Manuel Patino MD Unavailable Fletcher Mckay MD Unavailable Nerissa Pham MD Primary Care Provider + Nerissa Pham MD Unavailable Victor Hugo Leigh MD Unavailable [phone] Cheli Lopez PA-C Unavailable [phone] Nerissa Pham MD Unavailable [phone] Encounter Details Date Type Department Care Team (Late st Contact Info) Description 12/08/2021 Scanned Document [facility] GA[facility] Trevor Isidro MD 263 [facility] DEPT OF GASTROENTEROLOGY [place], [place] [phone] Social History Tobacco Use Types Packs/Day Years [...] Procedure visit MG PAIN MGMT [id number] [address] [facility] [address] [facility] 435 [place] [phone] Gerardo Roca MD 35 [facility] 5 [place] [address] 06/04/2025 9:00 AM EST Office Visit [address] [place] [phone] Nerissa Pham MD 2 [facility] [address] [address] documented as of this encounter Visit Diagnoses Not on filedocumented in this encounter Care Teams Furniture Servicer Relationship Specialty Start Date End Date Nerissa Pham MD 2 [facility] [address] [address] PCP - General Internal Medicine 11/06/20 Nerissa Pham MD [address] [facility] [address] Garcia [address] [place] [address] PCP - MSSP Attributed 09/12/21 2 Cheli Lopez PA-C 2 [facility] 100 [place] [address] PCP - MSSP Attributed 09/12/22 12/11/22 Nerissa Pham MD 2 [facility] 100 [place] [address] PCP - MSSP Attributed 12/12/22 4 Audie Cota MD 85 [facility] [address] [place] [phone] Cardiovascular Disease 01/11/19 Ankita Vinson, [facility] [address] [address] [facility] Community Printing Mechanist 06/23/19 Gerardo Leblanc MD [address] [place] [address] Ophthalmology 07/04/19 Rolando Topete MD [address] [place] [address] 1022 [place] [address] Cardiovascular Disease 07/10/19 Danielle Stubbs MD [address] [place] [address] Dermatology 07/10/19 Juan Manuel Patino MD [address] [place] [address] Physician Pulmonary Disease 09/22/19 Fletcher Mckay MD [address] [place] [address] Physician Nephrology 03/18/20 Victor Hugo Leigh MD [address] [place] [address] Neurology 11/05/22 documented as of this encounter
--- OUTSIDE RECORDS SUMMARY | 2025-02-06 11:22 | XMS_ITS | Clinical Summary ---
Author Organization [facility] Address 100 [facility] [address] [place] [address] Phone Care Team Providers Care Playground Equipment Erector Name Role Phone Nerissa Pham MD Primary Care Provider Unav ailable Allergies Active Allergy Reactions Criticality Noted Date Comments Amlodipine Swelling Medium 08/09/2020 Codeine Nausea Only,Other (s ee comments) Medium 01/02/2011 Egg-Derived Products Anaphylaxis,Shortne ss of breath High 04/09/2015 Lisinopril Other (see comments) Low 08/09/2020 Peanut-Containing Drug Products Anaphylaxis,Other (see comments) High 04/09/2015 Medications rosuvastatin (CRESTOR) 20 MG tablet Take 1 tablet by mouth 1 (one) time each day Active allopurinol (ZYLOPRIM) 100 MG tablet Take 1 tablet by mouth 1 (one) time each day 11/06/2020 Active omeprazole (PriLOSEC) [address] capsule Take 1 capsule by mouth 1 (one) time each day 10/09/2020 Active losartan (COZAAR) 50 MG tablet Take 50 mg by mouth 1 (one) time each day Active spironolactone (ALDACTONE) 25 MG tablet Take 0.5 tablets (12.5 mg total) by mouth 1 (one) time each day 45 tablet 3 12/02/2022 Active hydrALAZINE 25 MG tablet Take 1 tablet (25 mg total) by mouth in the morning and 1 tablet (25 mg total) in the evening and 1 tablet (25 mg total) before bedtime. 270 tablet 3 12/02/2022 Active Active Problems Problem Noted Date Diagnosed Date Non-rheumatic mitral regurgitation 11/24/2022 Acute nontraumatic kidney injury 10/28/2022 Stage 3a chronic kidney disease 10/28/2022 Chery's esophagus 01/28/2021 History of polyp of colon 01/28/2021 Acute nontraumatic kidney injury 08/11/2020 Coronary arteriosclerosis 06/14/2018 Overview (12/18/2020): Added automatically from request for surgery [id number] Chronic kidney disease 12/16/2016 Essential hypertension 04/09/2015 Resolved Problems Problem Noted Date Diagnosed Date Resolved Date Gastroesophageal reflux disease with apnea 08/12/2020 12/04/2020 Chest pain 08/11/2020 12/04/2020 Hyperlipidemia 08/11/2020 12/04/2020 Chronic heart failure 04/12/20202020 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 01/10/2019 12/04/2020 Dyspnea on exertion 07/01/2018 12/05/19 Palpitations 07/01/2018 12/04/2020 Body mass index 25-29 - overweight 01/21/2018 12/04/2020 Degenerative joint disease i nvolving multiple joints 12/16/2016 12/04/2020 Hyperuricemia 12/16/2016 12/04/2020 Pain of left wrist 01/03/2016 Gouty arthritis of multiple sites 10/11/2015 12/04/2020 Sciatica of right side 10/11/201512/04 Immunizations Immunization Administration Dates Next Due Rabies, Unspecified 05/22/2018,05/15/2018,2017,05/08/2018 Shingrix 08/15/2022,11/18/2021 Tdap 06/14/2019 Family History Medical History Relation Comments Heart disease Father Hypertension Father Relation Status Comments Father Mother Alive Social History Tobacco Use Types Packs/Day Years Used Date Smoking Tobacco: Never Smokeless Tobacco: Never Tobacco Cessation:Counseling Given: Not Answered Alcohol Use Standard Drinks/Week Comments No 0 (1 standard drink = 0.6 oz pur e alcohol) Sex and Gender Information Value Date Recorded Sex Assigned at Not on file Legal Sex Male 4:55 PM EST Gender Identity Not on file Sexual Orientation Not on file Last Filed Vital Signs Vital Sign Reading Time Taken Comments Blood Pressure 124/54 11/24/2022 4:32 PM EDT Pulse 71 11/24/2022 4:32 PM EDT Temperature - - Respiratory Rate - - Oxygen Saturation 98% 12/18/2020 9:38 AM EDT Inhaled Oxygen Concentration - - Weight 79.1 kg (174 lb 6.4 oz) 11/24/2022 4:32 P M EDT Height 174 cm (5' 8.5 ) 02/08/2020 12:00 PM EDT Body Mass Index 26.13 02/08/2020 12:00 PM EDT Plan of Treatment Health Maintenance Due Date Last Done Comments Pneumococcal Vaccine: 50+ Ye ars (1 of 2 - PCV) 1969 Colorectal Cancer Screening: Annual FOBT 1999 Colorectal Cancer Screening: Sigmoidoscopy 1999 Influenza Vaccine (#1) 2025 Colorectal Cancer Screening: Colonoscopy 12/06/2031 12/05/2021 Hepatitis B Vaccine Aged Out No longe r eligible based on patient's age to complete this topic Insurance [facility] Medicare [facility] Medicare Care Teams Playground Equipment Erector Relationship Specialty Start Date End Date Nerissa Pham MD 2 Magdy Garcia [address] [place] [address], [place] [address] PCP - General Internal Medicine 12/18/20
--- OUTSIDE RECORDS SUMMARY | 2025-02-06 11:22 | XMS_ITS | Patient Health Record ---
Author Organization [facility] Address [address] [place] [id number] Care Team Providers Care Cyber Engineer Name Role Phone CINTHIA DIAZ Primary Care Provider ROSEMARIE Rivas Unavailable [phone] Allergies Allergen (clinical drug ingredient) Drug/Non Drug Allergy documented on EMR Reaction Allergy Type Onset Date Status Eggs (uncoded) Unknown Allergy Activ e Peanuts (uncoded) Unknown Allergy Ac tive Reason For Referral No Information Medications Medication SIG (Take, Route, Fr equency, Duration) Notes Start Date End Date Status omeprazole Active simvastatin Active amLODIPine Active Voltaren Topical 1% as directed applied topically 4 times a day; Duration: 30 Active Problems Problem Type SNOMED Code ICD Code Onset Dates Problem Status W/U Status Risk Notes Problem Pure hypercholesterolemia (620322497) Pure hypercholesterolemia (E78.0) Active confirmed Problem Essential hypertension (69045654) Essential (primary) hypertension (I10) Active confirmed Problem Asthma (321664062) Other asthma (J45.998) Active confirmed Problem Gastro-esophageal reflux disease without esophagitis (417404703) Gastro-esophageal reflux disease without esophagitis (K21.9) Active confirmed Problem Primary osteoarthritis (535623684) Unilateral primary osteoarthritis, right knee (M17.11) Active confirmed Problem Osteoarthritis of knee (224471033) Unilateral primary osteoarthritis, left knee (M17.12) Active confirmed Problem Osteoarthritis of knee (099225109) Osteoarthritis of knee, unspecified (M17.9) Active confirmed Problem Artificial knee join t present (967397556665) Presence of right artificial knee joint (Z96.651) Active confirmed Plan Of Treatment Pending Test Test Name Order Date MRI L-Spine 11/10/2012 Work Note 12/01/2019 Insurance Providers Payer Name Payer Address Payer Phone Subscriber Number Group Number Insured Name Patient Relationship to Insured Coverage Start Date Coverage End Date MEDICARE [address] KARINA ELDER [id number] JENNIFER GO (ARACELIS) Self - patient is the insured [employer] [address] [place] [address] [id number] DONAVAN JENNIFER (ARACELIS) Self - patient is the insured Medical (General) History Medical History History ICD Code Loose body in knee, right knee Other tear of medial meniscu s, current injury, right knee, subsequent encounter Other tear of lateral menisc us, current injury, right knee, subsequent encounter Sprain of anterior cruciate ligament of right knee, subsequent encounter Other asthma J45.998 Essential (primary) hypertension I10 Pure hypercholesterolemia E78.0 Gastro-esophageal reflux disease without esophagitis K21.9 Surgical History Surgery Date(Month/Year) B/L knee sx Left ankle sx Hospitalization History Reason Date(Month/Year) for above listed
--- OUTSIDE RECORDS SUMMARY | 2025-02-06 11:22 | XMS_ITS | Clinical Summary ---
Author Organization [facility] Address [address] [place] [address] Care Team Providers Care Electric Stove Mechanic Name Role Phone Xavier Corey MD Primary Care Provider [phone] Surgical History Surgery Date Site/Laterality Comments FOOT SURGERY Left PROCEDURE:FOOT SURGERY;COMMENT:ORIF KNEE SURGERY PROCEDURE:KNEE SURGERY;COMMENT:SCOPE OTHER SURGICAL HISTORY PROCEDURE:MOHS SURGERY;COMMENT:NOSE CATARACT EXTRACTION W/ INTRAOCULAR LENS IMPLANT PROCEDURE:CATARACT EXTRACTION W/ INTRAOCULAR LENS IMPLANT COLONOSCOPY PROCEDURE:COLONOSCOPY ERCP PROCEDURE:ERCP CARDIAC CATHETERIZATION 01/2019 PROCEDURE:CARDIAC CATHETERIZATION;COMMENT:ARY X 2 UPPER GASTROINTESTINAL ENDOSCOPY PROCEDURE:UPPER GASTROINTESTINAL ENDOSCOPY TOTAL KNEE ARTHROPLASTY 11/30/2019 Right PROCEDURE:TOTAL KNEE ARTHROPLASTY;COMMENT:Procedur e: REPLACEMENT TOTAL KNEE; Surgeon: Andres Pyle MD; [facility] Service: Orthopedics; Laterality: Right; Medical History Medical History Date Comments Hypertension DX:Hypertension Gout DX:Gout Elevated cholesterol DX:Elevated cholesterol [place] (dyspnea on exertion) DX:[place] (dyspnea on exertion) Asthma DX:Asthma Coronary artery disease DX:Coron bradley artery disease GERD (gastroesophageal reflux disease) DX:GERD (gastroesophageal reflux disease) Renal insufficiency DX:Renal ins ufficiency Anesthesia DX:Anesthesia;CO MMENT:slow to wake Cancer (CMS/HCC V24, CMS/HCC V28) DX:Cancer (HCC);COMMENT:melanoma-nose Anxiety DX:Anxiety Renal insufficiency DX:Renal ins ufficiency Osteoarthritis DX:Osteoarthriti s Left ventricular hypertrophy DX: Left ventricular hypertrophy;COMMENT:PER CARDIO NOTE Mitral regurgitation DX:Mitral r egurgitation;COMMENT:WITH PROLAPSE PER CARDIO NOTE CKD (chronic kidney disease) DX: CKD (chronic kidney disease);COMMENT:STAGE 2 PER CARDIO NOTE Family History Medical History Relation Name Comments Heart disease Brother Heart disease Father No Known Problems Mother Relation Name Status Comments Brother Alive Father (Age 62) Mother Alive Social History Tobacco Use Types Packs/Day Years Used Date Smoking Tobacco: Never Smokeless Tobacco: Never Alcohol Use Standard Drinks/Week Comments No 0 (1 standard drink = 0.6 oz pur e alcohol) Sex and Gender Information Value Date Recorded Sex Assigned at Not on file Legal Sex Male 5:19 AM EST Gender Identity Not on file Sexual Orientation Not on file Obstetrics History Plan of Treatment Health Maintenance Due Date Last Done Comments DTaP,Tdap,and Td Vaccines (1 - Tdap) 1969 Pneumococcal Vaccine: 50+ Ye ars (1 of 1 - PCV) 2000 Zoster Vaccines (1 of 2) 2000 COVID-19 Vaccine ( - 2023-2 5 season) 2024 Depression Screening 06/14/2024 Influenza Vaccine (#1) 2025 RSV Immunization Adult Patie nts (1 - 1-dose 75+ series) 2025 HIB Vaccines Aged Out No longer eligi ble based on patient's age to complete this topic HPV Vaccines Aged Out No longer eligi ble based on patient's age to complete this topic Hepatitis A Vaccines Aged Out No long er eligible based on patient's age to complete this topic Hepatitis B Vaccines Aged Out No long er eligible based on patient's age to complete this topic IPV Vaccines Aged Out No longer eligi ble based on patient's age to complete this topic MMR Vaccines Aged Out No longer eligi ble based on patient's age to complete this topic Meningococcal ACWY Vaccine Aged Out N o longer eligible based on patient's age to complete this topic Meningococcal B Vaccine Aged Out No l onger eligible based on patient's age to complete this topic RSV Immunization Patients Un loren 20 months Aged Out No longer eligible b ased on patient's age to complete this topic Varicella Vaccines Aged Out No longer eligible based on patient's age to complete this topic Medical Devices Implanted Type Area Stereo Plotter Operator Device Identifier Shelf Expiration Date Model / Serial / Lot Component Femoral Posterior Stabilized Rt Size 5 Beaded W\Pe - [id number] Implanted:Qty: 1 on 11/30/2019 by Andres Pyle MD Right: Knee [employer] 02/29/2024 5516-[id number] / / [id number] Triathlon Tritanium Baseplate Size 6 - [id number] Implanted:Qty: 1 on 11/30/2019 by Andres Pyle MD Right: Knee [employer] 07/30/2024 5536-[id number] / / [id number] Insert Triathlon 6 9mm Posterior Stabilized Bearing X3 - [id number] Implanted:Qty: 1 on 11/30/2019 by Andres Pyle MD Right: Knee [employer] 04/02/2024 [id number]-G-[id number] / / [id number] Care Teams Electric Stove Mechanic Relationship Specialty Start Date End Date Xavier Corey MD [address] [place] [address] PCP - General Internal Medicine 12/16/16
--- OUTSIDE RECORDS SUMMARY | 2025-02-06 11:22 | XMS_ITS | Encounter Summary ---
Author Organization [facility] Address [address] [place] [address] Care Team Providers Care Film Rental Clerk Name Role Phone Xavier Corey MD Unavailable Unavailable Marisela Jackman [facility] Unavailable Audie Cota MD Unavailable [phone] Xavier Corey MD Primary Care Provider Unava ilable Ankita Vinson [facility] Unavailable [phone] Gerardo Leblanc MD Unavailable Rolando Topete MD Unavailable [phone] Danielle Stubbs MD Unavailable [phone] Juan Manuel Patino MD Unavailable Juan Manuel Patino MD Unavailable Fletcher Mckay MD Unavailable Nerissa Pham MD Unavailable [phone] Nerissa Pham MD Primary Care Provider + Nerissa Pham MD Unavailable [phone] Rodriguez Granados PA-C Unavailable UnavailNerissa Oconnor MD Unavailable Victor Hugo Leigh MD Unavailable [phone] Cheli Lopez PA-C Unavailable Nerissa Pham MD Unavailable Encounter Details Date Type Department Care Team (Late Contact Info) Description 03/15/2019 Scanned Document [address] 100 [place] [phone] Xavier Corey MD Social History Tobacco Use [...] PAIN MGMT [id number] [address] [facility] 435 [place] [phone] Gerardo Roca MD 35 [facility] 5 [place] [address] 06/04/2025 9:00 AM EST Office Visit [address] 100 [place] [phone] Nerissa Pham MD 2 [facility] 100 [place] [address] documented as of this encounter Visit Diagnoses Not on filedocumented in this encounter Care Teams Film Rental Clerk Relationship Specialty Start Date End Date Xavier Corey MD PCP - MSSP Attributed 12/12/18 06/13/19 Xavier Corey MD [address] [place] [address] [place] [address] PCP - General Internal Medicine 01/20/19 11/05/20 Nerissa Pham MD 2 [facility] [address] [place] [address] PCP - MSSP Attributed 06/14/19 0 Nerissa Pham MD 2 [facility] [address] [place] [address] PCP - General Internal Medicine 11/06/20 Nerissa Pham MD 2 [facility] [address] [place] [address] PCP - MSSP Attributed 09/12/20 1 Rodriguez Granados PA-C PCP - MSSP Attributed 06/14/21 09/11/21 Nerissa Pham MD 2 [facility] Dr Garcia [address] [place] [address], [place] [address] PCP - MSSP Attributed 09/12/21 2 Cheli Lopez PA-C [address] [place] [address] PCP - MSSP Attributed 09/12/22 12/11/22 Nerissa Pham MD 2 [facility] Dr Garcia [address] [place] [address], [place] [address] PCP - MSSP Attributed 12/12/22 4 Marisela Jackman, DEALER DEVELOPMENT MANAGER [address] [place] [address] [facility] Community Mechanical Designer 02/02/17 06/23/19 Audie Cota MD 85 [facility] 719 [place] [address] Cardiovascular Disease 01/11/19 Ankita Vinson, [facility] [address] [facility] 4 [place] [address] [facility] Community Mechanical Designer 06/23/19 Gerardo Leblanc MD [address] [place] [address] Ophthalmology 07/04/19 Rolando Topete MD 85 [facility] 10[address] [place] [id number] Cardiovascular Disease 07/10/19 Danielle Stubbs MD [address] [place] [address] Dermatology 07/10/19 Juan Manuel Patino MD [address] [place] [address] Physician Pulmonary Disease 09/22/19 Juan Manuel Patino MD [address] [place] [address] Physician Pulmonary Disease 10/04/19 10/04/19 Fletcher Mckay MD [address] [place] [address] Physician Nephrology 03/18/20 Victor Hugo Leigh MD [address] [place] [address] Neurology 11/05/22 documented as of this encounter
--- OUTSIDE RECORDS SUMMARY | 2025-02-06 11:22 | XMS_ITS | Encounter Summary ---
Author Organization [facility] Address 100 [place] [address] Care Team Providers Care Household Appliance Installer Name Role Phone Audie Cota MD Unavailable [phone] Ankita Vinson [facility] Unavailable [phone] Gerardo Leblanc MD Unavailable [phone] Rolando Topete MD Unavailable Danielle Stubbs MD Unavailable [phone] Juan Manuel Patino MD Unavailable Fletcher Mckay MD Unavailable Nerissa Pham MD Primary Care Provider + Victor Hugo Leigh MD Unavailable [phone] Reason for Visit * Reason Comments Medication Refill Encounter Details Date Type Department Care Team (Late st Contact Info) Description 02/02/2025 Refill [facility] Rheumatology [place] [address] [place], [place] [phone] Maximino Gomez MD [address] [place] [address] 206 [place] [address] Idiopathic chronic gout of multiple sites without tophus Social History Tobacco Use Types Packs/Day Years [...] Procedure visit MG PAIN MGMT [id number] 65 [facility] 435 [place] [address] Gerardo Roca MD 35 [facility] 5 [place] [address] 06/04/2025 9:00 AM EST Office Visit [address] [place] [phone] Nerissa Pham MD 2 [facility] [address] [address] documented as of this encounter Visit Diagnoses Diagnosis Idiopathic chronic gout of multiple sites without tophus documented in this encounter Care Teams Household Appliance Installer Relationship Specialty Start Date End Date Nerissa Pham MD 2 [facility] [address] [address] PCP - General Internal Medicine 11/06/20 Audie Cota MD 85 [facility] 719 [place] [address] Cardiovascular Disease 01/11/19 Ankita Vinson, [facility] [address] [place] [address] [facility] Community Line Construction Supervisor 06/23/19 Gerardo Leblanc MD [address] [place] [address] Ophthalmology 07/04/19 Rolando Topete MD [address] [place] [address] 1022 [place] [address] Cardiovascular Disease 07/10/19 Danielle Stubbs MD [address] [place] [address] Dermatology 07/10/19 Juan Manuel Patino MD [address] [place] [address] Physician Pulmonary Disease 09/22/19 Fletcher Mckay MD [address] [place] [address] Physician Nephrology 03/18/20 Victor Hugo Leigh MD [address] [place] [address] Neurology 11/05/22 documented as of this encounter
--- OUTSIDE RECORDS SUMMARY | 2025-02-06 11:22 | XMS_ITS | Encounter Summary ---
Author Organization [facility] Address [address] [place] [address] Care Team Providers Care Installation Superintendent Name Role Phone Audie Cota MD Unavailable [phone] Ankita Vinson [facility] Unavailable Gerardo Leblanc MD Unavailable Rolando Topete MD Unavailable Danielle Stubbs MD Unavailable Juan Manuel Patino MD Unavailable Fletcher Mckay MD Unavailable Nerissa Pham MD Primary Care Provider + Victor Hugo Leigh MD Unavailable [phone] Encounter Details Date Type Department Care Team (Late st Contact Info) Description 11/07/2024 Scanned Document [facility] Rheumatology [address] [address] Maximino Gomez MD [address] [place] [address] Social History Tobacco Use Types Packs/Day [...] Procedure visit MG PAIN MGMT [id number] 65 [facility] 435 [place] [phone] Gerardo Roca MD 35 [facility] 5 [place] [address] 06/04/2025 9:00 AM EST Office Visit [facility] [address] [phone] Nerissa Pham MD 2 [facility] [address] [address] documented as of this encounter Visit Diagnoses Not on filedocumented in this encounter Care Teams Installation Superintendent Relationship Specialty Start Date End Date Nerissa Pham MD 2 [facility] [address] [address] PCP - General Internal Medicine 11/06/20 Audie Cota MD [address] [place] [address] 719 [place] [address] Cardiovascular Disease 01/11/19 Ankita Vinson, [facility] [address] [facility] [facility] 4 [place] [address] [facility] Community Warp Tester 06/23/19 Gerardo Leblanc MD 178 [place] [address] Ophthalmology 07/04/19 Rolando Topete MD 85 [facility] 1022 [place] [address] Cardiovascular Disease 07/10/19 Danielle Stubbs MD 21 [facility] [place] [address] Dermatology 07/10/19 Juan Manuel Patino MD 21 [facility] [place] [address] Physician Pulmonary Disease 09/22/19 Fletcher Mckay MD 21 [facility] [place] [address] Physician Nephrology 03/18/20 Victor Hugo Leigh MD [address] [place] [address] Neurology 11/05/22 documented as of this encounter
== END 2025-02-06 11:30 | disposition home or self-care (01) ==
PROVIDERS: PCP Internal Medicine; Visit Provider Internal Medicine Nephrology
DX: N18.31 Chronic kidney disease, stage 3a (principal); N20.0 Calculus of kidney; N28.1 Cyst of kidney, acquired; I10 Essential (primary) hypertension
CPT/HCPCS: 99214

== ENCOUNTER → 2025-02-06 10:33 | Outpatient (BNVA) | payer MEDICARE, SELFPAY | PROVIDERS: Visit Provider Internal Medicine Nephrology | DX: I12.9 Hypertensive chronic kidney disease with stage 1 through stage 4 chronic kidney disease, or unspecified chronic kidney disease (principal); N18.31 Chronic kidney disease, stage 3a; N20.0 Calculus of kidney; N28.1 Cyst of kidney, acquired | CPT/HCPCS: 99212 ==

== ENCOUNTER 2025-06-12 10:07 | Outpatient (AMB) | payer MEDICARE, SELFPAY ==
[2025-06-12 10:59] VITALS: BP 124/62; PULSE 71; O2SAT 97; BMI 24.8
--- NOTE | 2025-06-12 10:59 | HO.NEPHOV_ITS ---
Vital Signs 06/12/25 10:59 Height 5 ft 8 in Weight 163 lb BMI 24.8 BP 124/62 Blood Pressure Location Rt brachial Position Sitting Pulse 71 Pulse Source Pulse Oximeter Pulse Oximetry (%) 97 Oxygen Delivery Method Room Air Intake Visit Reasons: 3mon f/u w/labs-LVM Japanese Interpreter Required: No Accompanied by: Self / Same As Patient Allergies amlodipine Allergy (Verified 06/12/25 11:02) Unknown codeine Allergy (Verified 06/12/25 11:02) Unknown Egg Derived Allergy (Verified 06/12/25 11:02) Unknown lisinopril Allergy (Verified 06/12/25 11:02) Unknown peanut Allergy (Verified 06/12/25 11:02) Unknown HPI Comments Details: Peter in follow-up of his chronic kidney disease and hypertension. He has H/O some left breast pain from spironolactone. He underwent ultrasound and mammogram. He was found to have a cyst which is found to be benign. He has not been strict with a low-sodium diet. His creatinine had been near baseline of 1.9. He does not have any hematuria, kidney stones, dysuria, pedal edema, shortness of breath, proximal nocturnal dyspnea, orthopnea, nausea, vomiting or diarrhea. He is not taking any nonsteroidal anti-inflammatory medications. He had been on carvedilol in the past which has been discontinued due to low heart rate. His blood pressure is currently well controlled. He had recurrent gout attacks. He is on Allopurinol & Colchicine . He had seen Urology and underwent USS and MRI. He has B/L small renal stones and renal cysts.He had tooth extraction and feels he has been having mouth dryness and hawa oral numbness. He has seen multiple dentists/neurologists. He thinks its due to hydralazine and D/Jonathon it and went back on losartan. [facility] Medical History (Updated 01/27/24 @ 11:00 by Fletcher Mckay MD) Essential (primary) hypertension Chronic kidney disease, stage 3a Surgical History (Updated 06/12/25 @ 11:01 by ANTHONY Duncan) History of back surgery (~09/2024) History of ankle surgery History of knee replacement Family History Father Heart disease Hypertension Brother Heart disease Hypertension Social History Alcohol intake: never Patient Tobacco Use Status: Never used Tobacco Review of Systems Const All systems reviewed & are unremarkable except as noted in HPI and below Physical Exam Vital Signs: Last Vital Signs Pulse 71 06/12/25 10:59 BP 124/62 06/12/25 10:59 Pulse Ox 97 06/12/25 10:59 Oxygen Delivery Method Room Air 06/12/25 10:59 BMI result Body Mass Index 24.8 Const General: comfortable and no acute distress Orientation/consciousness: patient oriented x3 HEENT Head: Yes normocephalic Mouth: Normal oral and palatal mucosa present Eyes EOM: EOMs intact bilaterally Neck Neck: Yes supple Resp Auscultation: clear to auscultation bilaterally Cardio Jugular venous distension: no JVD Rate: regular rate GI Palpation (GI): Soft to palpation Auscultation: normal bowel sounds General: Yes no CVA tenderness Back/Spine/Pelvis Back: no CVA tenderness Skin General skin exam: no rashes or lesions noted Neuro General: patient oriented x3 and moves all extremities Extrem General: Yes no pedal edema Assessment & Plan Assessment & Plan (1) Chronic kidney disease, stage 3a: Code(s): N18.31 - Chronic kidney disease, stage 3a Category: Medical (2) Essential (primary) hypertension: Code(s): I10 - Essential (primary) hypertension Category: Medical Plan Peter has chronic kidney disease most likely due to vascular disease. He had a Doppler of his renal arteries in the past which did not show any significant renal artery stenosis. He should be on a low-sodium diet. He should remain well hydrated. He is not on any beta-mik given his low heart rate. He is off spironolactone. I plan to repeat is Doppler renal arteries with time. He can take Allopurinol 300 mg daily . He should avoid nonsteroidal anti-inflammatory medications. I did not make any other medication changes today. Follow-up lab work ordered. Orders: Orders Electrolytes 2 Months I10 - Essential (primary) hypertension, N18.31 - Chronic kidney disease, stage 3a Blood Urea Nitrogen 2 Months I10 - Essential (primary) hypertension, N18.31 - Chronic kidney disease, stage 3a Creatinine 2 Months I10 - Essential (primary) hypertension, N18.31 - Chronic kidney disease, stage 3a Coding Level of Care Code Est Pt Level 4 (50618) Diagnoses Chronic kidney disease, stage 3a N18.31 Essential (primary) hypertension I10
--- OUTSIDE RECORDS SUMMARY | 2025-06-12 13:22 | XMS_ITS | Encounter Summary ---
Author Organization [facility] Address [address] [place] [address] Care Team Providers Care Debeader Name Role Phone Audie Cota MD Unavailable [phone] Ankita Vinson [facility] Unavailable Gerardo Leblanc MD Unavailable Rolando Topete MD Unavailable Danielle Stubbs MD Unavailable [phone] Juan Manuel Patino MD Unavailable Fletcher Mckay MD Unavailable Nerissa Pham MD Primary Care Provider + Victor Hugo Leigh MD Unavailable [phone] Nerissa Pham MD Unavailable Nerissa Pham MD Unavailable Encounter Details Date Type Department Care Team (Late st Contact Info) Description 05/17/[address] [facility] Breast Care & Surgery [place] 894 967 [place] [phone] Linda Lei, CART ATTENDANT [address] [facility] [address] [place] [address] Social History Tobacco Use Types Packs/Day Years [...] Care Team (Late st Contact Info) Description 10/10/2025 9:00 AM EDT Office Visit [facility] Department Of Neurology [place] [address] [place] [phone] Victor Hugo Leigh MD [address] [place] [address] 10/29/2025 8:45 AM EDT Office Visit [address] [phone] Nerissa Pham MD [address] [facility] [address] [place] [address] documented as of this encounter Visit Diagnoses Not on filedocumented in this encounter Care Teams Debeader Relationship Specialty Start Date End Date Nerissa Pham MD [address] [facility] [address] [place] [address] PCP - General Internal Medicine 11/06/20 Nerissa Pham MD [address] [facility] [address] [place] [address] PCP - MSSP Attributed 12/12/22 4 Nerissa Pham MD [address] [facility] [address] [place] [address] PCP - MSSP Attributed 09/12/24 Audie Cota MD 85 [facility] [address] [place] [phone] Cardiovascular Disease 01/11/19 Ankita Vinson, [facility] [address] [facility] 4 [place] [address] [facility] Community Power Grader Operator 06/23/19 Gerardo Leblanc MD [address] [place] [address] Ophthalmology 07/04/19 Rolando Topete MD [address] [place] [address] [address] [place] [phone] Cardiovascular Disease 07/10/19 Danielle Stubbs MD [address] [place] [address] [place] [address] Dermatology 07/10/19 Juan Manuel Patino MD [address] [place] [address] [place] [address] Physician Pulmonary Disease 09/22/19 Fletcher Mckay MD [address] [place] [address] Physician Nephrology 03/18/20 Victor Hugo Leigh MD [address] [place] [address] Neurology 11/05/22 documented as of this encounter
--- OUTSIDE RECORDS SUMMARY | 2025-06-12 13:22 | XMS_ITS | Encounter Summary ---
Author Organization [facility] Address [address] [place] [place] [address] Care Team Providers Care Preventative Maintenance Technician Name Role Phone Audie Cota MD Unavailable [phone] Ankita Vinson [facility] Unavailable Gerardo Leblanc MD Unavailable Rolando Topete MD Unavailable Danielle Stubbs MD Unavailable Juan Manuel Patino MD Unavailable Fletcher Mckay MD Unavailable Nerissa Pham MD Primary Care Provider + Victor Hugo Leigh MD Unavailable [phone] Nerissa Pham MD Unavailable Nerissa Pham MD Unavailable Encounter Details Date Type Department Care Team (Late st Contact Info) Description 05/17/2023 Scanned Document [facility] Breast Care & Surgery [place] [address] [place] [phone] Linda Lei, HOST/HOSTESS RESTAURANT [address] [place] [address] Social History Tobacco Use Types Packs/Day Years [...] Description 10/10/2025 9:00 AM EDT Office Visit [facility] Department Of Neurology [place] [address] [place] [phone] Victor Hugo Leigh MD [address] [place] [address] 10/29/2025 8:45 AM EDT Office Visit [address] [address] Nerissa Pham MD 2 [facility] [address] [place] [address] documented as of this encounter Visit Diagnoses Not on filedocumented in this encounter Care Teams Preventative Maintenance Technician Relationship Specialty Start Date End Date Nerissa Pham MD 2 [facility] [address] Garcia [address] [place] [address] PCP - General Internal Medicine 11/06/20 Nerissa Pham MD 2 [facility] [address] [place] [address] PCP - MSSP Attributed 12/12/22 4 Nerissa Pham MD 2 [facility] [address] [place] [address] PCP - MSSP Attributed 09/12/24 Audie Cota MD 85 [facility] [address] [place] [phone] Cardiovascular Disease 01/11/19 Ankita Vinson, [facility] [address] [facility] 4 [place] [address] [facility] Community X Ray Equipment Tester 06/23/19 Gerardo Leblanc MD [address] [place] [address] Ophthalmology 07/04/19 Rolando Topete MD [address] [place] [address] [address] [place] [phone] Cardiovascular Disease 07/10/19 Danielle Stubbs MD [address] [place] [address] [place] [address] Dermatology 07/10/19 Juan Manuel Patino MD [address] [place] [address] [place] [address] Physician Pulmonary Disease 09/22/19 Fletcher Mckay MD [address] [place] [address] Physician Nephrology 03/18/20 Victor Hugo Leigh MD [address] [place] [address] Neurology 11/05/22 documented as of this encounter
--- OUTSIDE RECORDS SUMMARY | 2025-06-12 13:22 | XMS_ITS | Encounter Summary ---
Author Organization [facility] Address [address] [facility] 200 [place] [address] Phone Care Team Providers Care Lead Informatica Developer Name Role Phone Nerissa Pham MD Primary Care Provider Unav ailable Encounter Details Date Type Department Care Team (Late st Contact Info) Description 10/27/2022 Telephone [facility] [address] [facility] [facility] 200 [place] [address] Annmarie Santos Social History Tobacco [...] with kidney failure in a hospital in [place]. He says that he has been calling the office trying to reach someone in regards to this but hasn't heard back from anyone. He is agitated that no one has called him back, please advise. [phone] documented in this encounter Plan of Treatment Not on file documented as of this encounter Visit Diagnoses Not on filedocumented in this encounter Care Teams Lead Informatica Developer Relationship Specialty Start Date End Date Nerissa Pham MD [address] [facility] [address] [place] [address] PCP - General Internal Medicine 12/18/20 documented as of this encounter
--- OUTSIDE RECORDS SUMMARY | 2025-06-12 13:22 | XMS_ITS | Encounter Summary ---
Author Organization Formerly [facility] Address [address] [place] [address] Care Team Providers Care Timber Management Technician Name Role Phone Xavier Corey MD Unavailable Unavailable Marisela Jackman [facility] Unavailable Audie Cota MD Unavailable [phone] Xavier Corey MD Primary Care Provider Unava ilable Ankita Vinson [facility] Unavailable [phone] Gerardo Leblanc MD Unavailable Rolando Topete MD Unavailable Danielle Stubbs MD Unavailable [phone] Juan Manuel Patino MD Unavailable Juan Manuel Patino MD Unavailable Fletcher Mckay MD Unavailable Nerissa Pham MD Unavailable Nerissa Pham MD Primary Care Provider + Nerissa Pham MD Unavailable [phone] Rodriguez Granados PA-C Unavailable UnavailNerissa Oconnor MD Unavailable Victor Hugo Leigh MD Unavailable [phone] Cheli Lopez PA-C Unavailable Nerissa Pham MD Unavailable [phone] Nerissa Pham MD Unavailable [phone] Encounter Details Date Type Department Care Team (Late st Contact Info) Description 05/30/2019 Scanned Document [address] [address] Xavier Corey MD Social History Tobacco [...] documented as of this encounter Functional Status documented as of this encounter Plan of Treatment Upcoming Encounters Date Type Department Care Team (Late st Contact Info) Description 10/10/2025 9:00 AM EDT Office Visit [facility] Department Of Neurology [place] [address] [place] [phone] Victor Hugo Leigh MD [address] [place] [address] 10/29/2025 8:45 AM EDT Office Visit [address] [phone] Nerissa Pham MD [address] [phone] documented as of this encounter Visit Diagnoses Not on filedocumented in this encounter Care Teams Timber Management Technician Relationship Specialty Start Date End Date Xavier Corey MD PCP - MSSP Attributed 12/12/18 06/13/19 Xavier Corey MD [address] [place] [address] [place] [address] PCP - General Internal Medicine 01/20/19 11/05/20 Nerissa Pham MD 2 [facility] [address] [place] [address] PCP - MSSP Attributed 06/14/19 0 Nerissa Pham MD 2 [facility] [address] [place] [address] PCP - General Internal Medicine 11/06/20 Nerissa Pham MD 2 [facility] [address] [place] [address] PCP - MSSP Attributed 09/12/20 1 Rodriguez Granados PA-C PCP - MSSP Attributed 06/14/21 09/11/21 Nerissa Pham MD 2 [facility] [address] [place] [address] PCP - MSSP Attributed 09/12/21 2 Cheli Lopez PA-C [address] [place] [address] PCP - MSSP Attributed 09/12/22 12/11/22 Nerissa Pham MD [address] [facility] [address] [place] [address], [place] [address] PCP - MSSP Attributed 12/12/22 4 Nerissa Pham MD 2 [facility] [address] [address] PCP - MSSP Attributed 09/12/24 Marisela Jackman, [facility] [address] [facility] 4 [place] [address] ICP Community Jackscrew Worker 02/02/17 06/23/19 Audie Cota MD [address] [place] [address] [address] [phone] Cardiovascular Disease 01/11/19 Ankita Vinson, [facility] [address] [facility] 4 [place] [address] ICP Community Jackscrew Worker 06/23/19 Gerardo Leblanc MD [address] [place] [address] Ophthalmology 07/04/19 Rolando Topete MD [address] [place], [place] [address] [place] [address] Cardiovascular Disease 07/10/19 Danielle Stubbs MD [address] [place] [address] Dermatology 07/10/19 Juan Manuel Patino MD [address] [place] [address] Physician Pulmonary Disease 09/22/19 Juan Manuel Patino MD [address] [place] [address] Physician Pulmonary Disease 10/04/19 10/04/19 Fletcher Mckay MD [address] [place] [address] Physician Nephrology 03/18/20 Victor Hugo Leigh MD [address] [place] [address] Neurology 11/05/22 documented as of this encounter
--- OUTSIDE RECORDS SUMMARY | 2025-06-12 13:23 | XMS_ITS | Encounter Summary ---
Author Organization [facility] Address [address] [place] [address] Care Team Providers Care Bilingual Research Interviewer Name Role Phone Audie Cota MD Unavailable [phone] Ankita Vinson [facility] Unavailable Gerardo Leblanc MD Unavailable Rolando Topete MD Unavailable Danielle Stubbs MD Unavailable [phone] Juan Manuel Patino MD Unavailable Fletcher Mckay MD Unavailable Nerissa Pham MD Primary Care Provider + Victor Hugo Leigh MD Unavailable [phone] Nerissa Pham MD Unavailable Encounter Details Date Type Department Care Team (Late st Contact Info) Description 05/03/2025 Scanned Document [facility] Department Of Neurology [place] [address] [place] [address] Victor Hugo Leigh MD [address] [place] [address] Social History Tobacco Use Types Packs/Day Years Used Date Smoking Tobacco: Never Smokeless Tobacco: Never Alcohol Use Standard Drinks/Week Comments Not Currently 0 (1 standard drink = 0.6 oz pur e alcohol) rarely PHQ-2 Answer Date Recorded PHQ-2 Total Score 0 11/29/2024 Social Connection and Isolation Panel Answer Date Recorded In a typical week, how many times do you talk on the phone with family, friends, or neighbors? Patient declined 05/02/2025 Frequency of Social Gatherings with Friends and Family Not on file 05/02/2025 Attends Restorationism Services Not on file 05/02 Active Member of Clubs or Organizations Not on f ile 05/02/2025 Attends Club or Organization Meetings Not on yamile e 05/02/2025 Marital Status Not on file 05/02/2025 AUDIT-C Answer Date Recorded Q1: How often do you have a drink containing alc ohol? Patient declined 05/02/2025 Average Number of Drinks Not on file 025 Frequency of Binge Drinking Not on file 04/14 Hunger Vital Sign Answer Date Recorded Within the past 12 months, y ou worried that your food would run out before you got the money to buy more. Patient declined Within the past 12 months, t he food you bought just didn't last and you didn't have money to get more. Patient declined PRAPARE - Transportation Answer Date Re corded In the past 12 months, has l ack of transportation kept you from medical appointments or from getting medications? Patient declined 05/02/2025 In the past 12 months, has l ack of transportation kept you from meetings, work, or from getting things needed for daily living? Patient declined 05/02/2025 Housing Stability Vital Sign Answer Efra e Recorded In the last 12 months, was t here a time when you were not able to pay the mortgage or rent on time? Patient declined 05/02/20 25 Number of Times Moved in the Last Year Not on fi le 05/02/2025 At any time in the past 12 m [facility], were you homeless or living in a residential (including now)? Patient declined 05/02/2025 [facility] Utilities Answer Date Recorded In the past 12 months has th e electric, gas, oil, or water company threatened to shut off services in your home? Patient declined 05/02/2025 Sex and Gender Information Value Date Recorded Sex Assigned at Male 11/06/2022 4:25 PM EDT Legal Sex Male 2:53 PM EDT Gender Identity Male 11/06/2022 4:25 PM EDT Sexual Orientation Heterosexual (straight) 11/06 4:25 PM EDT documented as of this encounter Plan of Treatment Upcoming Encounters Date Type Department Care Team (Late st Contact Info) Description 10/10/2025 9:00 AM EDT Office Visit [facility] Department Of Neurology [place] [address] [place] [address] Victor Hugo Leigh MD [address] [place] [phone] 10/29/2025 8:45 AM EDT Office Visit [facility] 2 [facility] 100 [place] [phone] Nerissa Pham MD [address] [facility] [address] [place] [address] documented as of this encounter Visit Diagnoses Not on filedocumented in this encounter Care Teams Bilingual Research Interviewer Relationship Specialty Start Date End Date Nerissa Pham MD [address] [facility] [address] [place] [address] PCP - General Internal Medicine 11/06/20 Nerissa Pham MD [address] [facility] [address] [place] [address] PCP - MSSP Attributed 09/12/24 Audie Cota MD 85 [facility] [address] [place] [address] Cardiovascular Disease 01/11/19 Ankita Vinson, REFERENCE LIBRARY ASSISTANT [address] [address] ICP Community Freezer Operator 06/23/19 Gerardo Leblanc MD [address] [place] [address] Ophthalmology 07/04/19 Rolando Topete MD 85 [facility] 1022 [place] [address] Cardiovascular Disease 07/10/19 Danielle Stubbs MD 21 [facility] [place] [address] Dermatology 07/10/19 Juan Manuel Patino MD 21 [facility] [place] [address] Physician Pulmonary Disease 09/22/19 Fletcher Mckay MD 21 [facility] [place] [address] Physician Nephrology 03/18/20 Victor Hugo Leigh MD [address] [place] [address] Neurology 11/05/22 documented as of this encounter
--- OUTSIDE RECORDS SUMMARY | 2025-06-12 13:23 | XMS_ITS | Encounter Summary ---
Author Organization [facility] Address [address] [place] [address] Care Team Providers Care Educational Psychology Professor Name Role Phone Audie Cota MD Unavailable [phone] Ankita Vinson [facility] Unavailable Gerardo Leblanc MD Unavailable [phone] Rolando Topete MD Unavailable [phone] Danielle Stubbs MD Unavailable [phone] Juan Manuel Patino MD Unavailable Fletcher Mckay MD Unavailable Nerissa Pham MD Primary Care Provider + Victor Hugo Leigh MD Unavailable [phone] Cheli Lopez PA-C Unavailable [phone] Nerissa Pham MD Unavailable Nerissa Pham MD Unavailable [phone] Encounter Details Date Type Department Care Team (Late st Contact Info) Description 12/09/2022 Scanned Document [facility] CARDIOLOGY SCAN Cardiology, Scan Social History [...] Description 10/10/2025 9:00 AM EDT Office Visit [facility] Department Of Neurology [place] [address] [place] [address] Victor Hugo Leigh MD [address] [place] [phone] 10/29/2025 8:45 AM EDT Office Visit [facility] [address] [phone] Nerissa Pham MD [address] [facility] [address] [place] [address] documented as of this encounter Visit Diagnoses Not on filedocumented in this encounter Care Teams Educational Psychology Professor Relationship Specialty Start Date End Date Nerissa Pham MD [address] [facility] [address] [place] [address] PCP - General Internal Medicine 11/06/20 Cheli Lopez PA-C [address] [address] PCP - MSSP Attributed 09/12/22 12/11/22 Nerissa Pham MD [address] [facility] [address] [place] [address] PCP - MSSP Attributed 12/12/22 4 Nerissa Pham MD 2 [facility] [address] [address] PCP - MSSP Attributed 09/12/24 Audie Cota MD 85 [facility] 719 [place] [address] Cardiovascular Disease 01/11/19 Ankita Vinson, [facility] [address] [address] [facility] Community Web Site Designer 06/23/19 Gerardo Leblanc MD [address] [place] [address] Ophthalmology 07/04/19 Rolando Topete MD [address] [place] [address] 1022 [place] [address] Cardiovascular Disease 07/10/19 Danielle Stubbs MD [address] [place] [address] Dermatology 07/10/19 Juan Manuel Patino MD [address] [place] [address] Physician Pulmonary Disease 09/22/19 Fletcher Mckay MD [address] [place], [place] [phone] Physician Nephrology 03/18/20 Victor Hugo Leigh MD [address] [place] [address], [place] [address] Neurology 11/05/22 documented as of this encounter
--- OUTSIDE RECORDS SUMMARY | 2025-06-12 13:23 | XMS_ITS | Encounter Summary ---
Author Organization [facility] Address [address] [place] [address] Care Team Providers Care Tractor Trailer Truck Driver Name Role Phone Audie Cota MD Unavailable [phone] Ankita Vinson [facility] Unavailable [phone] Gerardo Leblanc MD Unavailable Rolando Topete MD Unavailable [phone] Danielle Stubbs MD Unavailable [phone] Juan Manuel Patino MD Unavailable Fletcher Mckay MD Unavailable Nerissa Pham MD Primary Care Provider + Victor Hugo Leigh MD Unavailable [phone] Nerissa Pham MD Unavailable Nerissa Pham MD Unavailable Encounter Details Date Type Department Care Team (Late st Contact Info) Description 06/18/2023 Scanned Document [facility] CARDIOLOGY SCAN Cardiology, Scan Social History Tobacco [...] Description 10/10/2025 9:00 AM EDT Office Visit [facility] Department Of Neurology [place] [address] [place] [address] Victor Hugo Leigh MD [address] [place] [address] 10/29/2025 8:45 AM EDT Office Visit [facility] 2 [facility] [address] [place] [phone] Nerissa Pham MD [address] [facility] [address] [place] [address] documented as of this encounter Visit Diagnoses Not on filedocumented in this encounter Care Teams Tractor Trailer Truck Driver Relationship Specialty Start Date End Date Nerissa Pham MD [address] [facility] [address] [place] [address] PCP - General Internal Medicine 11/06/20 Nerissa Pham MD [address] [facility] [address] [place] [address] PCP - MSSP Attributed 12/12/22 4 Nerissa Pham MD 2 [facility] [address] [address] PCP - MSSP Attributed 09/12/24 Audie Cota MD 85 [facility] [address] [place] [phone] Cardiovascular Disease 01/11/19 Ankita Vinson, CAMERA SYSTEMS ENGINEER [address] [facility] 4 [place] [address] [facility] Community Surgical Scrub Tech 06/23/19 Gerardo Leblanc MD [address] [place] [address] Ophthalmology 07/04/19 Rolando Topete MD [address] [place] [address] 1022 [place] [address] Cardiovascular Disease 07/10/19 Danielle Stubbs MD [address] [place] [address] Dermatology 07/10/19 Juan Manuel Patino MD [address] [place] [address] Physician Pulmonary Disease 09/22/19 Fletcher Mckay MD [address] [place] [address] Physician Nephrology 03/18/20 Victor Hugo Leigh MD [address] [place] [address] Neurology 11/05/22 documented as of this encounter
--- OUTSIDE RECORDS SUMMARY | 2025-06-12 13:23 | XMS_ITS ---
Author Organization [facility] Address [address] [place] [address] Care Team Providers Care Accounting Support Specialist Name Role Phone Audie Cota MD Unavailable [phone] Ankita Vinson [facility] Unavailable Gerardo Leblanc MD Unavailable Rolando Topete MD Unavailable Danielle Stubbs MD Unavailable Juan Manuel Patino MD Unavailable Fletcher Mckay MD Unavailable Nerissa Pham MD Primary Care Provider + Victor Hugo Leigh MD Unavailable [phone] Nerissa Pham MD Unavailable [phone] Active Problems Problem Noted Date Diagnosed Date 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 Will refer back for re-evaluation, [place] office. 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 021 History of colonic polyps 01/28/2021 Gastroesophageal reflux disease with apnea 08/12 Hyperlipemia 08/11/2020 Chronic heart failure 04/12/2020 Coronary artery disease of n ative artery of [place] heart with stable angina pectoris 01/27/2019 Overview (01/27/2019): Added automatically from request for surgery [id number] 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 01/11/20 19 Overweight (BMI 25.0-29.9) 01/21/2018 Overweight with body mass index (BMI) 25.0-29.9 01/21/2018 Primary osteoarthritis involving multiple joints 12/16/2016 Left wrist pain 01/03/2016 Primary gout 01/03/2016 Gout of foot 10/11/2015 Sciatica of right side 10/11/2015 Polyarticular gout 10/11/2015 Essential hypertension 04/09/2015 Assessment & Plan (05/02/2025 11:27 AM EST): Above goal, patient attributes this to stress of ongoing issues with mouth/taste/smell Monitor at home. Follow up with PCP in May as scheduled if normalized at home If persistently high at home call for follow up appointment Assessment & Plan (10/23/2024 10:29 AM EDT): [...] Product(DAP)-Gy-cm2 20.6 Gy-cm2 0 Gy-cm2 20.6 Gy-cm2 Fluoro Time 34.7 minutes 0 minutes 34.7 minutes Resolved Problems Problem Noted Date Diagnosed Date Resolved Date Stage 3a chronic kidney disease 10/28/2022 3 01/11/2023 Acute nontraumatic kidney injury 08/11/2020 06/01/2022 Chest pain 08/11/2020 06/01/2022 Essential hypertension 08/11/202011/06 Coronary artery disease 01/20/201905/14 Coronary arteriosclerosis 06/14/2018 Overview (11/06/2020): Added automatically from request for surgery [id number] Degenerative joint disease i nvolving multiple joints 12/16/2016 06/01/2022 Other acute sinusitis 01/03/20162016 Left wrist pain 01/03/2016 06/01/2022 Chronic renal disease, stage 2, mildly decreased glomerular filtration rate between 60-89 mL/min/1.73 square meter 04/09/2015 0
--- OUTSIDE RECORDS SUMMARY | 2025-06-12 13:23 | XMS_ITS | Encounter Summary ---
Author Organization [facility] Address [address] [place] [address] Care Team Providers Care Risk Management Analyst Name Role Phone Audie Cota MD Unavailable [phone] Ankita Vinson [facility] Unavailable [phone] Gerardo Leblanc MD Unavailable Rolando Topete MD Unavailable [phone] Danielle Stubbs MD Unavailable [phone] Juan Manuel Patino MD Unavailable Fletcher Mckay MD Unavailable Nerissa Pham MD Primary Care Provider + Victor Hugo Leigh MD Unavailable [phone] Nerissa Pham MD Unavailable [phone] Nerissa Pham MD Unavailable Encounter Details Date Type Department Care Team (Late st Contact Info) Description 02/23/2023 Scanned Document [facility] CARDIOLOGY SCAN Cardiology, Scan Social History [...] as of this encounter Functional Status * AUDIT-C Score Answer Date of Assessment Author 0 02/24/2023 12:58 PM EDT Suzy Cooney RN * Question Answer Date of Assessment Author AUDIT-C Total Score - Male 0 02/24/2023 12:58 PM EDT Suzy Cooney RN Q1: How often do you have a [...] 02/24/2023 12:58 PM EDT Suzy Cooney RN * Level of Risk per Screen Answer Date of Assessment Author Low Risk 02/25/2023 7:23 AM EDT Annmarie Suarez RN documented as of this encounter Plan of Treatment Upcoming Encounters Date Type Department Care Team (Late st Contact Info) Description 10/10/2025 9:00 AM EDT Office Visit [facility] Department Of Neurology [place] [address] [place] [phone] Victor Hugo Leigh MD [address] [place] [address] 10/29/2025 8:45 AM EDT Office Visit [address] [place] [address] Nerissa Pham MD 2 [facility] [address] [place] [address] documented as of this encounter Visit Diagnoses Not on filedocumented in this encounter Care Teams Risk Management Analyst Relationship Specialty Start Date End Date Nerissa Pham MD 2 [facility] [address] [place] [address] PCP - General Internal Medicine 11/06/20 Nerissa Pham MD 2 [facility] [address] [address] PCP - MSSP Attributed 12/12/22 4 Nerissa Pham MD 2 [facility] [address] [address] PCP - MSSP Attributed 09/12/24 Audie Cota MD 85 [facility] [address] [place] [phone] Cardiovascular Disease 01/11/19 Ankita Vinson, [facility] [address] [facility] 4 [place] [address] [facility] Community Billing Machine Operator 06/23/19 Gerardo Leblanc MD [address] [place] [address] Ophthalmology 07/04/19 Rolando Topete MD 85 [facility] 1022 [place] [address] Cardiovascular Disease 07/10/19 Danielle Stubbs MD [address] [place] [address] [place] [address] Dermatology 07/10/19 Juan Manuel Patino MD [address] [place] [address] [place] [address] Physician Pulmonary Disease 09/22/19 Fletcher Mckay MD [address] [place] [address] Physician Nephrology 03/18/20 Victor Hugo Leigh MD [address] [place] [address] Neurology 11/05/22 documented as of this encounter
--- OUTSIDE RECORDS SUMMARY | 2025-06-12 13:23 | XMS_ITS | Encounter Summary ---
Author Organization Formerly [facility] Address [address] [place] [address] Care Team Providers Care Buffing Wheel Presser Name Role Phone Audie Cota MD Unavailable [phone] Ankita Vinson [facility] Unavailable Gerardo Leblanc MD Unavailable Rolando Topete MD Unavailable Danielle Stubbs MD Unavailable [phone] Juan Manuel Patino MD Unavailable Fletcher Mckay MD Unavailable Nerissa Pham MD Primary Care Provider + Nerissa Pham MD Unavailable [phone] Rodriguez Granados PA-C Unavailable Unavailabl e Nerissa Pham MD Unavailable [phone] Victor Hugo Leigh MD Unavailable [phone] Cheli Lopez PA-C Unavailable Nerissa Pham MD Unavailable [phone] Nerissa Pham MD Unavailable [phone] Encounter Details Date Type Department Care Team (Late st Contact Info) Description 01/28/2021 Scanned Document [facility] PRIMARY CARE SCAN Nerissa Pham MD 2 [facility] [address] Garcia [address] [place] [address] Social History Tobacco Use Types Packs/Day Years [...] Description 10/10/2025 9:00 AM EDT Office Visit [facility] Department Of Neurology [place] [address] [place] [address] Victor Hugo Leigh MD [address] [place] [address] 10/29/2025 8:45 AM EDT Office Visit [facility] 2 [facility] [address] [place] [phone] Nerissa Pham MD 2 [facility] [address] Garcia [address] [place] [address] documented as of this encounter Visit Diagnoses Not on filedocumented in this encounter Care Teams Buffing Wheel Presser Relationship Specialty Start Date End Date Nerissa Pham MD [address] [place] [address] PCP - General Internal Medicine 11/06/20 Nerissa Pham MD 2 [facility] [address] [address] PCP - MSSP Attributed 09/12/20 1 Rodriguez Granados PA-C PCP - MSSP Attributed 06/14/21 09/11/21 Nerissa Pham MD 2 [facility] [address] [address] PCP - MSSP Attributed 09/12/21 2 Cheli Lopez PA-C [address] [address] PCP - MSSP Attributed 09/12/22 12/11/22 Nerissa Pham MD 2 [facility] [address] [address] PCP - MSSP Attributed 12/12/22 4 Nerissa Pham MD 2 [facility] [address] [address] PCP - MSSP Attributed 09/12/24 Audie Cota MD [address] [place] [address] 719 [place] [address] Cardiovascular Disease 01/11/19 Ankita Vinson, [facility] [address] [address] [facility] Community Still Operator 06/23/19 Gerardo Leblanc MD [address] [place] [address] Ophthalmology 07/04/19 Rolando Topete MD [address] [place] [address] Cardiovascular Disease 07/10/19 Danielle Stubbs MD 21 [facility] [place] [place] [address] Dermatology 07/10/19 Juan Manuel Patino MD [address] [place] [address] [place] [address] Physician Pulmonary Disease 09/22/19 Fletcher Mckay MD [address] [place] [address] [place] [address] Physician Nephrology 03/18/20 Victor Hugo Leigh MD [address] [place] [address] Neurology 11/05/22 documented as of this encounter
--- OUTSIDE RECORDS SUMMARY | 2025-06-12 13:23 | XMS_ITS | Encounter Summary ---
Author Organization [facility] Address [address] [place] [address] Care Team Providers Care Genetic Supervisor Name Role Phone Audie Cota MD Unavailable [phone] Ankita Vinson [facility] Unavailable Gerardo Leblanc MD Unavailable Rolando Topete MD Unavailable [phone] Danielle Stubbs MD Unavailable Juan Manuel Patino MD Unavailable Fletcher Mckay MD Unavailable Nerissa Pham MD Primary Care Provider + Nerissa Pham MD Unavailable Victor Hugo Leigh MD Unavailable [phone] Cheli Lopez PA-C Unavailable [phone] Nerissa Pham MD Unavailable [phone] Nerissa Pham MD Unavailable [phone] Encounter Details Date Type Department Care Team (Late st Contact Info) Description 12/08/2021 Scanned Document [facility] GASTRO SCAN Trevor Isidro MD [address] [facility] Jose [address] [place] [address] Social History Tobacco Use Types Packs/Day Years [...] Description 10/10/2025 9:00 AM EDT Office Visit [facility] Department Of Neurology [place] [address] [place] [address] Victor Hugo Leigh MD [address] [place] [address] 10/29/2025 8:45 AM EDT Office Visit [facility] [address] [phone] Nerissa Pham MD 2 [facility] [address] Garcia [address] [place] [address] documented as of this encounter Visit Diagnoses Not on filedocumented in this encounter Care Teams Genetic Supervisor Relationship Specialty Start Date End Date Nerissa Pham MD 2 [facility] [address] Garcia [address] [place] [address] PCP - General Internal Medicine 11/06/20 Nerissa Pham MD 2 [facility] [address] [place] [address] PCP - MSSP Attributed 09/12/21 2 Cheli Lopez PA-C [address] [address] PCP - MSSP Attributed 09/12/22 12/11/22 Nerissa Pham MD 2 [facility] [address] [address] PCP - MSSP Attributed 12/12/22 4 Nerissa Pham MD [address] [address] PCP - MSSP Attributed 09/12/24 Audie Cota MD [address] [place] [address] [address] [place] [id number] Cardiovascular Disease 01/11/19 Ankita Vinson, [facility] [address] [address] [facility] Community Prize Jacker 06/23/19 Gerardo Leblanc MD [address] [place] [address] Ophthalmology 07/04/19 Rolando Topete MD [address] [place] [address] 1022 [place] [address] Cardiovascular Disease 07/10/19 Danielle Stubbs MD [address] [place] [address] [place] [address] Dermatology 07/10/19 Juan Manuel Patino MD [address] [place] [address] [place] [address] Physician Pulmonary Disease 09/22/19 Fletcher Mckay MD [address] [place] [address] Physician Nephrology 03/18/20 Victor Hugo Leigh MD [address] [place], [place] [address] Neurology 11/05/22 documented as of this encounter
--- OUTSIDE RECORDS SUMMARY | 2025-06-12 13:23 | XMS_ITS | Encounter Summary ---
Author Organization [facility] Address [address] [place] [address] Care Team Providers Care Distance Education Director Name Role Phone Xavier Corey MD Unavailable Unavailable Marisela Jackman [facility] Unavailable [phone] Audie Cota MD Unavailable [phone] Xavier Corey MD Primary Care Provider Unava ilable Ankita Vinson [facility] Unavailable [phone] Gerardo Leblanc MD Unavailable [phone] Rolando Topete MD Unavailable Danielle Stubbs MD Unavailable [phone] Juan Manuel Patino MD Unavailable Juan Manuel Patino MD Unavailable Fletcher Mckay MD Unavailable Nerissa Pham MD Unavailable Nerissa Pham MD Primary Care Provider + Nerissa Pham MD Unavailable Rodriguez Granados PA-C Unavailable UnavailNerissa Oconnor MD Unavailable [phone] Victor Hugo Leigh MD Unavailable [phone] Cheli Lopez PA-C Unavailable Nerissa Pham MD Unavailable Nerissa Pham MD Unavailable [phone] Encounter Details Date Type Department Care Team (Late st Contact Info) Description 01/27/2019 Scanned Document [facility] Cardiac Laboratory [place] 85 [facility] [address] [place] [address] Rolando Topete MD 85 [facility] 1022 [place], [place] [id number] Social History Tobacco Use Types Packs/Day Years [...] Description 10/10/2025 9:00 AM EDT Office Visit [facility] Department Of Neurology [place] [address] [place] [phone] Victor Hugo Leigh MD [address] [place] [address] 10/29/2025 8:45 AM EDT Office Visit [address] [place] [address] Nerissa Pham MD [address] [place] [address] [address] [place] [address] documented as of this encounter Visit Diagnoses Not on filedocumented in this encounter Care Teams Distance Education Director Relationship Specialty Start Date End Date Xavier Corey MD PCP - MSSP Attributed 12/12/18 06/13/19 Xavier Corey MD [address] [place] [address] PCP - General Internal Medicine 01/20/19 11/05/20 Nerissa Pham MD [address] [facility] [address] Garcia [address] [place] [address], [place] [address] PCP - MSSP Attributed 06/14/19 0 Nerissa Pham MD [address] [facility] [address] Garcia [address] [place] [address], [place] [address] PCP - General Internal Medicine 11/06/20 Nerissa Pham MD [address] [facility] [address] Garcia [address] [place] [address], [place] [address] PCP - MSSP Attributed 09/12/20 1 Rodriguez Granados PA-C PCP - MSSP Attributed 06/14/21 09/11/21 Nerissa Pham MD [address] [facility] [address] Garcia [address] [place] [address], [place] [address] PCP - MSSP Attributed 09/12/21 2 Cheli Lopez PA-C [address] [place] [address] PCP - MSSP Attributed 09/12/22 12/11/22 Nerissa Pham MD [address] [facility] [address] Garcia [facility] [place] [address] PCP - MSSP Attributed 12/12/22 4 Nerissa Pham MD 2 [facility] [address] [address] PCP - MSSP Attributed 09/12/24 Marisela Jackman, [facility] [address] [employer] [place] 4 [place] [address] ICP Community Patient Safety Coordinator 02/02/17 06/23/19 Audie Cota MD 85 [facility] 719 [place] [address] Cardiovascular Disease 01/11/19 Ankita Vinson, [facility] 1290 [place] [address] [employer] [address] [address] [facility] Community Patient Safety Coordinator 06/23/19 Gerardo Leblanc MD [address] [place] [address] Ophthalmology 07/04/19 Rolando Topete MD [address] [place] [address] 1022 [place] [address] Cardiovascular Disease 07/10/19 Danielle Stubbs MD [address] [place] [address] [place] [address] Dermatology 07/10/19 Juan Manuel Patino MD [address] [place] [address] [place] [address] Physician Pulmonary Disease 09/22/19 Juan Manuel Patino MD [address] [place] [address] [place] [address] Physician Pulmonary Disease 10/04/19 10/04/19 Fletcher Mckay MD [address] [place] [address] Physician Nephrology 03/18/20 Victor Hugo Leigh MD [address] [place], [place] [address] Neurology 11/05/22 documented as of this encounter
--- OUTSIDE RECORDS SUMMARY | 2025-06-12 13:23 | XMS_ITS | Encounter Summary ---
Author Organization Formerly [facility] Address [address] [place] [address] Care Team Providers Care Quarter Supervisor Name Role Phone Audie Cota MD Unavailable [phone] Ankita Vinson [facility] Unavailable Gerardo Leblanc MD Unavailable Rolando Topete MD Unavailable [phone] Danielle Stubbs MD Unavailable Juan Manuel Patino MD Unavailable Fletcher Mckay MD Unavailable Nerissa Pham MD Primary Care Provider + Nerissa Pham MD Unavailable Victor Hugo Leigh MD Unavailable [phone] Cheli Lopez PA-C Unavailable Nerissa Pham MD Unavailable Nerissa Pham MD Unavailable [phone] Encounter Details Date Type Department Care Team (Late st Contact Info) Description 01/08/2022 Scanned Document [address] [place] [address] Pulmonary, Scan Social History Tobacco [...] Description 10/10/2025 9:00 AM EDT Office Visit [facility] Department Of Neurology [place] 160 [place] [address] Victor Hugo Leigh MD [address] [place] [address] 10/29/2025 8:45 AM EDT Office Visit [facility] 2 [facility] [address] [place] [phone] Nerissa Pham MD [address] [facility] [address] Garcia [address] [place] [address] documented as of this encounter Visit Diagnoses Not on filedocumented in this encounter Care Teams Quarter Supervisor Relationship Specialty Start Date End Date Nerissa Pham MD [address] [facility] [address] Garcia [address] [place] [address] PCP - General Internal Medicine 11/06/20 Nerissa Pham MD [address] [facility] [address] [place] [address] PCP - MSSP Attributed 09/12/21 2 Cheli Lopez PA-C [address] [address] PCP - MSSP Attributed 09/12/22 12/11/22 Nerissa Pham MD 2 [facility] [address] [address] PCP - MSSP Attributed 12/12/22 4 Nerissa Pham MD [address] [address] PCP - MSSP Attributed 09/12/24 Audie Cota MD 85 [facility] 7[address] [place] [id number] Cardiovascular Disease 01/11/19 Ankita Vinson, [facility] 1290 [place] Cirilo [facility] 4 [place] [address] [facility] Community Tire Maintenance Technician 06/23/19 Gerardo Leblanc MD [address] [place] [address] Ophthalmology 07/04/19 Rolando Topete MD 85 [facility] 1022 [place] [address] Cardiovascular Disease 07/10/19 Danielle Stubbs MD [address] [place] [address] [place] [address] Dermatology 07/10/19 Juan Manuel Patino MD [address] [place] [address] Physician Pulmonary Disease 09/22/19 Fletcher Mckay MD [address] [place] [address] Physician Nephrology 03/18/20 Victor Hugo Leigh MD [address] [place] [address] Neurology 11/05/22 documented as of this encounter
--- OUTSIDE RECORDS SUMMARY | 2025-06-12 13:23 | XMS_ITS | Encounter Summary ---
Author Organization [facility] Address [address] [place] [address] Care Team Providers Care Dielectric Embossing Machine Operator Name Role Phone Xavier Corey MD Unavailable Unavailable Marisela Jackman [facility] Unavailable [phone] Audie Cota MD Unavailable [phone] Xavier Corey MD Primary Care Provider Unava ilable Ankita Vinson [facility] Unava ilable Victor Hugo Leigh MD Unavailable [phone] Cheli Lopez PA-C Unavailable Nerissa Pham MD Unavailable Nerissa Pham MD Unavailable Encounter Details Date Type Department Care Team (Late st Contact Info) Description 05/18/2018 Scanned Document [address] [address] Provider, Generic Social History Tobacco Use Types [...] 10/10/2025 9:00 AM EDT Office Visit [facility] Department Of Neurology [place] [address] [place] [address] Victor Hugo Leigh MD [address] [place] [address] 10/29/2025 8:45 AM EDT Office Visit [address] [place] [phone] Nerissa Pham MD 2 [facility] 100 [place], [place] [phone] documented as of this encounter Procedures Procedure Name Priority Date/Time Associated Diagnosis Comments HX GASTROENTEROLOGY COLONOSCOPY-SCAN 05/18/2018 documented in this encounter Results * HX GASTROENTEROLOGY COLONOSCOPY-SCAN (05/18/2018) Narrative 05/18/2018 Ordered by an unspecified provider. us Generic Provider HX AMB PROCEDURES Edited Result - Final documented in this encounter Visit Diagnoses Not on filedocumented in this encounter Care Teams Dielectric Embossing Machine Operator Relationship Specialty Start Date End Date Xavier Corey MD PCP - MSSP Attributed 12/12/18 06/13/19 Xavier Corey MD [address] [place] [address] [place] [address] PCP - General Internal Medicine 01/20/19 11/05/20 Nerissa Pham MD 2 [facility] [address] [address] PCP - MSSP Attributed 06/14/19 0 Nerissa Pham MD 2 [facility] [address] [address] PCP - General Internal Medicine 11/06/20 Nerissa Pham MD 2 [facility] [address] [address] PCP - MSSP Attributed 09/12/20 1 Rodrgiuez Granados PA-C PCP - MSSP Attributed 06/14/21 09/11/21 Nerissa Pham MD 2 [facility] [address] [address] PCP - MSSP Attributed 09/12/21 2 Xavier Corey MD PCP - General 01/19/19 Cheli Lopez PA-C [address] [address] PCP - MSSP Attributed 09/12/22 12/11/22 Nerissa Pham MD 2 [facility] 100 [place] [address] PCP - MSSP Attributed 12/12/22 Nerissa Pham MD 2 [facility] 100 [place] [address] PCP - MSSP Attributed 09/12/24 Marisela Jackman, [facility] [address] [place] [address] ICP Community Program Officer 02/02/17 06/23/19 Audie Cota MD 85 [facility] 719 [place] [address] Cardiovascular Disease 01/11/19 Ankita Vinson, [facility] 12[address] T[address] katia [address] [place] [address] [facility] Community Program Officer 06/23/19 Gerardo Leblanc MD [address] [place] [address] Ophthalmology 07/04/19 Rolando Topete MD 85 [facility] 1022 [place] [address] Cardiovascular Disease 07/10/19 Danielle Stubbs MD [address] [place] [address] Dermatology 07/10/19 Juan Manuel Patino MD [address] [place] [address] [place] [address] Physician Pulmonary Disease 09/22/19 Juan Manuel Patino MD [address] [place] [address] [place] [address] Physician Pulmonary Disease 10/04/19 10/04/19 Fletcher Mckay MD [address] [place] [address] [place] [address] Physician Nephrology 03/18/20 Victor Hugo Leigh MD [address] [place] [address] Neurology 11/05/22 documented as of this encounter
--- OUTSIDE RECORDS SUMMARY | 2025-06-12 13:23 | XMS_ITS | Encounter Summary ---
Author Organization [facility] Address [address] [place] [address] Care Team Providers Care Real Estate Acquisition Analyst Name Role Phone Xavier Corey MD Unavailable Unavailable Marisela Jackman [facility] Unavailable Audie Cota MD Unavailable [phone] Xavier Corey MD Primary Care Provider Unava ilable Ankita Vinson [facility] Unavailable Gerardo Leblanc MD Unavailable Rolando Topete MD Unavailable Danielle Stubbs MD Unavailable Juan Manuel Patino MD Unavailable Juan Manuel Patino MD Unavailable Fletcher Mckay MD Unavailable Nerissa Pham MD Unavailable Nerissa Pham MD Primary Care Provider + Nerissa Pham MD Unavailable Rodriguez Granados PA-C Unavailable UnavailNerissa Oconnor MD Unavailable [phone] Xavier Corey MD Primary Care Provider Unava ilable Victor Hugo Legih MD Unavailable [phone] Cheli Lopez PA-C Unavailable Nerissa Pham MD Unavailable Nerissa Pham MD Unavailable Encounter Details Date Type Department Care Team (Late st Contact Info) Description 05/18/2018 Scanned Document [address] [address] Provider, Generic Social History Tobacco Use Types [...] 9:00 AM EDT Office Visit [facility] Department Of Neurology [place] [address] [place] [address] Victor Hugo Leigh MD [address] [place] [address] 10/29/2025 8:45 AM EDT Office Visit [address] [place] [phone] Nerissa Pham MD 2 [facility] 100 [place], [place] [phone] documented as of this encounter Procedures Procedure Name Priority Date/Time Associated Diagnosis Comments HX GASTROENTEROLOGY UPPER ENDOSCOPY-SCAN 05/18/2018 documented in this encounter Results * HX GASTROENTEROLOGY UPPER ENDOSCOPY-SCAN (05/18/2018) Narrative 05/18/2018 Ordered by an unspecified provider. us Generic Provider HX AMB PROCEDURES Edited Result - Final documented in this encounter Visit Diagnoses Not on filedocumented in this encounter Care Teams Real Estate Acquisition Analyst Relationship Specialty Start Date End Date Xavier Corey MD PCP - MSSP Attributed 12/12/18 06/13/19 Xavier Corey MD [address] [place] [address] PCP - General Internal Medicine 01/20/19 11/05/20 Nerissa Pham MD [address] [facility] [address] [place] [address] PCP - MSSP Attributed 06/14/19 0 Nerissa Pham MD 2 [facility] [address] [address] PCP - General Internal Medicine 11/06/20 Nerissa Pham MD 2 [facility] [address] [address] PCP - MSSP Attributed 09/12/20 1 Rodriguez Granados PA-C PCP - MSSP Attributed 06/14/21 09/11/21 Nerissa Pham MD 2 [facility] [address] [address] PCP - MSSP Attributed 09/12/21 2 Xavier Corey MD PCP - General 01/19/19 Cheli Lopez PA-C [address] [address] PCP - MSSP Attributed 09/12/22 12/11/22 Nerissa Pham MD 2 [facility] [address] [address] PCP - MSSP Attributed 12/12/22 4 Nerissa Pham MD 2 [facility] [address] [place] [address] PCP - MSSP Attributed 09/12/24 Marisela Jackman, [facility] [address] [place] [address] ICP Community Information Systems Project Manager 02/02/17 06/23/19 Audie Cota MD [address] [place] [address] 719 [place] [address] Cardiovascular Disease 01/11/19 Ankita Vinson, [facility] [address] 4 [place] [address] ICP Community Information Systems Project Manager 06/23/19 Gerardo Leblanc MD [address] [place] [address] Ophthalmology 07/04/19 Rolando Topete MD 85 [facility] 1022 [place] [address] Cardiovascular Disease 07/10/19 Danielle Stubbs MD [address] [place] [address] Dermatology 07/10/19 Juan Manuel Patino MD [address] [place] [address] [place] [address] Physician Pulmonary Disease 09/22/19 Juan Manuel Patino MD [address] [place] [address] [place] [address] Physician Pulmonary Disease 10/04/19 10/04/19 Fletcher Mckay MD [address] [place] [address] [place] [address] Physician Nephrology 03/18/20 Victor Hugo Leigh MD [address] [place] [address] Neurology 11/05/22 documented as of this encounter
--- OUTSIDE RECORDS SUMMARY | 2025-06-12 13:23 | XMS_ITS | Clinical Summary ---
Author Organization Formerly [facility] Address [address] [place] [address] Care Team Providers Care Director Child Development Center Name Role Phone Audie Cota MD Unavailable [phone] Ankita Vinson [facility] Unavailable [phone] Gerardo Leblanc MD Unavailable [phone] Rolando Topete MD Unavailable [phone] Danielle Stubbs MD Unavailable Juan Manuel Patino MD Unavailable Fletcher Mckay MD Unavailable Nerissa Pham MD Primary Care Provider + Victor Hugo Leigh MD Unavailable [phone] Nerissa Pham MD Unavailable [phone] Allergies Active Allergy Reactions Criticality Noted Date Comments Amlodipine Swelling Medium 08/09/2020 Codeine Unknown/Patient and Family Unable to Define,Nausea Only,Other (See Comments) Medium 01/02/2011 Egg Protein-Containing Drug Products Anaphylaxis,Shortness Of Breath High 04/09/2015 Egg Solids, Whole Unknown/Patient and Family Unable to Define Medium 05/28/2025 Lisinopril Cough Low 08/09/2020 Peanut-Containing Drug Products Anaphylaxis,Other (See Comments) High 04/09/2015 Peanuts Anaphylaxis,Rash/Alf matiti s High 04/09/2015 Medications aspirin 81 MG chewable tablet Chew 1 tablet (81 mg total) daily. Active EPINEPHrine 0.15 mg/0.3 mL IJ auto-injectionI ndications:Pean ut allergy Inject 0.3 mL (0.15 mg total) into the shoulder, thigh, or buttocks once as needed for allergic reaction. 2 Device 1 06/17/19 21 Active hydrALAZINE (APRESOLINE) 25 MG tablet Take 1 tablet (25 mg total) by mouth twice daily (every 12 hours). 04/15/20 23 Active LORazepam (ATIVAN) 0.5 MG tabletIndicatio ns:Anxiety Take 1 tablet (0.5 mg total) by mouth 3 times daily (every 8 hours) as needed for anxiety. 30 tablet 06/16/19 24 Active Additional Information Patient not taking.Reported on 06/04/2025 OMEprazole (PriLOSEC) 20 MG capsuleIndicati ons:Gastroesoph ageal [...] nostril daily. 1 each 12/07/19 25 Active hydroCHLOROthia zide (HYDRODIURIL) 25 MG tabletIndicatio ns:Essential hypertension TAKE 1 TABLET (25 MG TOTAL) BY MOUTH DAILY. 90 tablet 3 01/25/20 25 Active allopurinol (ZYLOPRIM) 300 MG tabletIndicatio ns:Idiopathic chronic gout of multiple sites without tophus TAKE 1 TABLET BY MOUTH EVERY DAY 90 tablet 02/03/20 25 Active benzonatate (TESSALON) 200 MG capsuleIndicati ons:Viral URI with cough Take 1 capsule (200 mg total) by mouth 3 (three) times a day as needed for cough. 20 capsule 05/28/20 25 Active albuterol (PROVENTIL HFA; VENTOLIN HFA) 108 (90 Base) MCG/ACT inhalerIndicati ons:Viral URI with cough Inhale 2 puffs 4 times daily (every 6 hours) as needed for wheezing. 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 With food. 60 tablet 06/04/20 25 Active losartan (COZAAR) 25 MG tabletIndicatio ns:Essential hypertension Take 1 tablet (25 mg total) by mouth daily. 90 tablet 3 06/04/20 25 2025 Active febuxostat (ULORIC) 40 MG tabletIndicatio ns:Idiopathic gout, unspecified chronicity, unspecified site Take 1 tablet (40 mg total) by mouth daily. 90 tablet 1 04/12/20 20 2020 Discontinued(R eorder) ProAir HFA 108 (90 Base) MCG/ACT inhalerIndicati ons:Shortness of breath Inhale 2 puffs every 4 (four) hours as needed for wheezing. 1 Inhaler 1 11/07/19 21 2024 Discontinued tamsulosin (FLOMAX) 0.4 MG capsuleIndicati ons:Benign prostatic hyperplasia with lower urinary tract symptoms, symptom details unspecified Take 1 capsule (0.4 mg total) by mouth daily. 90 capsule 3 01/20/20 24 2024 Discontinued predniSONE (DELTASONE) 10 MG tabletIndicatio ns:Dysfunction of both eustachian tubes Take 2 tablets (20 mg total) by mouth daily. With food. 10 tablet 12/07/19 25 2024 Discontinued(R eorder) predniSONE (DELTASONE) 10 MG tabletIndicatio ns:Dysfunction of both eustachian tubes Take 2 tablets (20 mg total) by mouth daily. With food. 10 tablet 05/24/202024 Discontinued(R eorder) Active Problems Problem Noted Date Diagnosed Date [...] months, stable. Will refer back for re-evaluation, [place] office. 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 021 History of colonic polyps 01/28/2021 Gastroesophageal reflux disease with apnea 08/12 Hyperlipemia 08/11/2020 Chronic heart failure 04/12/2020 Coronary artery disease of n ative artery of [place] heart with stable angina pectoris 01/27/2019 Overview (01/27/2019): Added automatically from request for surgery [id number] 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 [...] (11/06/2020): Added automatically from request for surgery [id number] Degenerative joint disease i nvolving multiple joints 12/16/2016 06/01/2022 Other acute sinusitis 01/03/20162016 Left wrist pain 01/03/2016 06/01/2022 Chronic renal disease, stage 2, mildly decreased glomerular filtration rate between 60-89 mL/min/1.73 square meter 04/09/2015 0 Encounters Date Type Department Care Team Description 06/04/2025 9:00 AM EST Office Visit [address] [place] [address] Nerissa Pham MD Coronary artery disease of [place] artery of [place] heart with stable angina pectoris (Primary Dx); Essential hypertension; 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, unspecified laterality; Neuropathy 05/30/2025 12:40 PM EST Consult [facility] Department Of Neurology [place] [address] [place] [address] Victor Hugo Leigh MD Right facial numbness (Primary Dx) 05/28/2025 8:15 AM EST Office Visit [facility] [address] [facility] [address] Trell Okeefe MD Lapierre, Kathryn, APRN Viral URI with cough (Primary Dx) 05/22/2025 10:29 AM EST - 05/22/2025 9:34 PM EST Emergency [facility] Emergency Department [address] [place] [address] Xavier Lerma MD Paresthesias (Primary Dx) Discharge Disposition: Home or Self Care 05/03/2025 Scanned Document [facility] Department Of Neurology [address] [address] Victor Hugo Leigh MD 05/02/2025 9:00 AM EST Office Visit [address] [place] [address] Cheli Lopez PA-C Anosmia (Primary Dx); Dysgeusia; History of metal allergy; Paresthesias; Numbness of tongue; Stage 3b chronic kidney disease (HCC); Essential hypertension from Last 3 Months Immunizations Immunization Administration Dates Next Due Covid-19 mRNA Dipak-sucrose S easonal Vaccine - [employer] 30 mcg/0.3 mL 12 years and older [...] the phone with family, friends, or neighbors? More than three times a week 06/04/2025 Frequency of Social Gatherin gs with Friends and Family Not on file 06/04/2025 Attends Congregation Services Not on file 06/04 Active Member of Clubs or Organizations Not on f ile 06/04/2025 Attends Club or Organization Meetings Not on yamile e 06/04/2025 Marital Status Not on file 06/04/2025 AUDIT-C Answer Date Recorded Q1: How often do you have a drink containing alc ohol? Never 06/04/2025 Average Number of Drinks Not on file 025 Frequency of Binge Drinking Not on file 05/15 Hunger Vital Sign Answer Date Recorded Within the past 12 months, y ou worried that your food would run out before you got the money to buy more. Never true 06/04/20 25 Within the past 12 months, t he food you bought just didn't last and you didn't have money to get more. Never true 06/04/2025 PRAPARE - Transportation Answer Date Re corded In the past 12 months, has l ack of transportation kept you from medical appointments or from getting medications? No 06/04/2025 Lack of Transportation (Non-Medical) Not on file 06/04/2025 Housing Stability Vital Sign Answer Efra e Recorded In the last 12 months, was t here a time when you were not able to pay the mortgage or rent on time? No 06/04/2025 In the past 12 months, how m any times have you moved where you were living? 0 06/04/2025 At any time in the past 12 m [facility], were you homeless or living in a [place] health care facility (including now)? No 06/04/2025 [facility] Utilities Answer Date Recorded In the past 12 months has e electric, gas, oil, or water company threatened to shut off services in your home? No 06/04/2025 Education Answer Date Recorded What is the highest level of school you have completed or the highest degree you have received? Associate degree: academic program 06/04/2025 Sex and Gender Information Value Date Recorded Sex Assigned at Male 11/06/2022 4:25 PM EDT Legal Sex Male 2:53 PM EDT Gender Identity Male 11/06/2022 4:25 PM EDT Sexual Orientation Heterosexual (straight) 11/06 4:25 PM EDT Last Filed Vital Signs Vital Sign Reading Time Taken Comments Blood Pressure 143/71 06/04/2025 8:40 AM EST Pulse 49 06/04/2025 8:40 AM EST Temperature 35.8 C (96.4 F) 06/04/2025 8:35 AM EST Respiratory Rate 16 06/04/2025 8:35 AM EST Oxygen Saturation 97% 06/04/2025 8:35 AM EST Inhaled Oxygen Concentration - - Weight 73.6 kg (162 lb 3.2 oz) 06/04/2025 8:35 A M EST Height 172.7 cm (5' 8 ) 06/04/2025 8:35 AM EST Body Mass Index 24.66 06/04/2025 8:35 AM EST Plan of Treatment Upcoming Encounters Date Type Department Care Team (Late st Contact Info) Description 10/10/2025 9:00 AM EDT Office Visit [facility] Department Of Neurology [place] [address] [place] [phone] Victor Hugo Leigh MD [address] [place] [address] 10/29/2025 8:45 AM EDT Office Visit [address] [place] [address] Nerissa Pham MD [address] [facility] [address] [place] [address] Health Maintenance Due Date Last Done Comments Advance Care Planning 1950 RSV Vaccine 50 years and older and Patients (1 - Risk 50-74 years 1-dose series) 2000 Physical 04/09/2016 04/09/2015 COVID-19 Vaccine (2 - Pfizer risk series) 07/07/2023 06/16/2023 Annual Wellness Visit 11/30/2025 11/29/2024 , 06/16/2023, 11/04/2021, Additional history exists DTaP/Tdap/Td Vaccines (2 - Td or Tdap) 06/14/2029 06/14/2019 Colonoscopy 12/06/2031 12/05/2021, 11/13, 12/05/2021 (Previously Completed), Additional history exists Hepatitis C Virus Screening Completed 11/11/2019 Pneumococcal Vaccines 50+ Completed 11/04/2021 Zoster (Shingles) Vaccine Completed 08/15/2022, 12/2021 Hepatitis B Vaccines Aged Out No long er eligible based on patient's age to complete this topic Influenza Vaccine Discontinued Medical Devices Implanted Type Area Oil Well Pumper Device Identifier Shelf Expiration Date Model / Serial / Lot Screw Screw Left: Ankle Description:left ankle ORIF in the details of screw/nail unknown [id number] System Coronary Stent 22mm 2.5mm Rslt Dora Sv Biolinx - [id number] Implanted:Qty : 1 on 02/01/2019 by Rolando Topete MD at [facility] Stent N/A: Coronary [employer] MINIMALLY INVASIVE T [id number] 09/05/2020 [id number] / / [id number] Description:CIRC [id number] System Coronary Stent 22mm 3mm Rslt Paolo Med Vessel Biolinx - [id number] Implanted:Qty : 1 on 02/01/2019 by Rolando Tpoete MD at [facility] Stent N/A: Coronary [employer] MINIMALLY INVASIVE T [id number] 09/05/2020 [id number] / / [id number] Description:RCA Procedures Procedure Name Priority Date/Time Associated Diagnosis Comments POCT RAPID COVID-19 AG (FDA EUA) Routine 05/28/2025 8:54 AM EST Viral URI with cough T4, FREE STAT 05/22/2025 9:04 PM EST VITAMIN B12 STAT 05/22/2025 9:04 PM EST TSH, HIGHLY SENSITIVE STAT 05/22/2025 10:30 AM EST HEMOGLOBIN A1C WITH ESTIMATED AVERAGE GLUCOSE STAT 05/22/2025 10:30 AM EST MAGNESIUM STAT 05/22/2025 10:30 AM EST BASIC METABOLIC PANEL STAT 05/22/2025 10:30 AM EST COMPLETE BLOOD COUNT, WITH DIFFERENTIAL STAT 05/22/2025 10:30 AM EST HEPATITIS C VIRUS (HCV) ANTIBODY Routine 11/11/2019 8:26 AM EDT Essential hypertension Chronic renal disease, stage 2, mildly decreased glomerular filtration rate between 60-89 mL/min/1.73 square meter Routine medical exam HX GASTROENTEROLOGY COLONOSCOPY-SCAN 05/18/2018 from Last 3 Months or Most Recently Relevant to Health Maintenance Results * POCT Rapid COVID-19 Antigen (FDA EUA) (05/28/2025 8:54 AM EST) Pathologist [facility] COVID-19 Rapid Antigen, POC (FDA EUA) Negative Result Comments: A Positive Result does not rule out bacterial infection or co-infection with other viruses. Clinical correlation advised. A Negative Result in symptomatic patients should be considered presumptive and needs confirmation by PCR. Kit Lot Number [id number] [employer] Pass Pass Swab, Nasal Specimen from nose / Unknown 05/28/2025 8:54 AM EST Savannah Maria APRN POINT OF CARE TEST ORDERAB LES Final Result * T4, free (05/22/2025 9:04 PM EST) T4, Free 1.37 0.80 - 1.90 ng/dL 05/22/2025 9:52 PM [facility] Blood Blood specimen / Unknown 05/22/2025 9:04 PM EST 05/22/2025 9:13 PM EST us Xavier Lerma MD LAB BLOOD ORDERABLES Final Result Performing Organization Address City/[facility]/[place] [address], [place] [address] * Vitamin B12 (05/22/2025 9:04 PM EST) Vitamin B12 796 243 - 894 pg/mL 05/22/2025 9:52 PM [facility] Blood Blood specimen / Unknown 05/22/2025 9:04 PM EST 05/22/2025 9:13 PM EST us Xavier Lerma MD LAB BLOOD ORDERABLES Final Result Performing Organization Address [facility] [place] [address], [place] [address] * (ABNORMAL) Hemoglobin A1C with Estimated Average Glucose (05/22/2025 10:30 AM EST) Hemoglobin A1C 5.8(H) <5.7 % 05/23/2025 2:07 AM [facility] Comment: A1c% Interpretation 5.7 - 6.0 Increase risk of diabetes 6.1 - 6.4 Higher risk of diabetes > or = 6.5 Consistent with diabetes Diabetes Care, 33(Supp 1):S1-S61, 2010 Estimated Average Glucose 120 mg/dL 05/23/2025 2:07 AM [facility] Blood specimen / Unknown 05/22/2025 10:30 AM EST 05/22/2025 10:49 AM EST us Tristen PRIETO LAB BLOOD ORDERABLES Final Result [address] [place] [address], [place] [facility] [address] [place] [address] * (ABNORMAL) Complete Blood Count, with Differential (05/22/2025 10:30 AM EST) White Blood Cell Count 12.5(H) 4.0 - 11.0 Thou/uL 05/22/2025 11:07 AM [facility] Platelet Count 202 150 - 450 Thou/uL 05/22/2025 11:07 [facility] Hemoglobin 12.9(L) 13.0 - 17.7 g/dL 05/22/2025 11:07 [facility] Hematocrit 40.2 39.0 - 54.0 % 05/22/2025 11:07 [facility] Red Blood Cell Count 4.48(L) 4.50 - 6.20 Mil/uL 05/22/2025 11:07 [facility] MCV 90 80 - 100 fL 05/22/2025 11:07 [facility] MCH 28.8 27.0 - 31.0 pg 05/22/2025 11:07 [facility] MCHC 32.1 30.0 - 36.0 g/dL 05/22/2025 11:07 [facility] RDW 13.6 11.5 - 14.5 % 05/22/2025 11:07 [facility] MPV 11.1 7.5 - 12.5 fL 05/22/2025 11:07 [facility] Neutrophils Auto 60.2 % 05/22/20 11:07 [facility] Immature Granulocytes 0.6 % 05/22/2025 11:07 [facility] Lymphocytes Auto 24.1 % 05/22/20 11:07 [facility] Monocytes Auto 8.3 % 05/22/2025 11:07 [facility] Eosinophils Auto 5.8 % 05/22/20 11:07 [facility] Basophils Auto 1.0 % 05/22/2025 11:07 [facility] Abs Neutrophils Auto 7.51(H) 2.00 - 7.50 Thou/uL 05/22/2025 11:07 [facility] Abs Immature Granulocytes 0.07 0.00 - 0.10 Thou/uL 05/22/2025 11:07 AM [facility] Abs Lymphocytes Auto 3.01 1.50 - 4.50 Thou/uL 05/22/2025 11:07 AM [facility] Abs Monocytes Auto 1.04 0.20 - 1.50 Thou/uL 05/22/2025 11:07 AM [facility] Abs Eosinophils Auto 0.72(H) 0.00 - 0.70 Thou/uL 05/22/2025 11:07 AM [facility] Abs Basophils Auto 0.12 0.00 - 0.20 Thou/uL 05/22/2025 11:07 AM [facility] Blood Blood specimen / Unknown 05/22/2025 10:30 AM EST 05/22/2025 10:49 AM EST Tristen PRIETO LAB BLOOD ORDERABLES Final Result Performing Organization Address City/[facility]/[place] [address], [place] [address] * TSH, HIGHLY SENSITIVE (05/22/2025 10:30 AM EST) TSH, Highly Sensitive 2.80 0.27 - 4.20 mIU/L 05/22/2025 9:46 PM [facility] 05/22/2025 10:3 0 AM EST 05/22/2025 10:49 AM EST Tristen PRIETO LAB BLOOD [place]ABLES [place] [address], [place] [address] * Magnesium (05/22/2025 10:30 AM EST) Magnesium 1.9 1.6 - 2.7 mg/dL 05/22/2025 11:25 AM [facility] Blood Blood specimen / Unknown 05/22/2025 10:30 AM EST 05/22/2025 10:49 AM EST Tristen PRIETO LAB BLOOD ORDERABLES Final Result [facility] [address] [place] [address], [place] [address] * (ABNORMAL) Basic Metabolic Panel (05/22/2025 10:30 AM EST) Glucose 97 65 - 99 mg/dL 05/22/2025 11:25 AM [facility] Comment:Fasting: <100 mg/dL, Non-Fasting: <200 mg/dL (ADA 2004) Blood Urea Nitrogen (BUN) 25(H) 8 - 21 mg/dL 05/22/2025 11:25 AM [facility] Creatinine 1.81(H) 0.50 - 1.30 mg/dL 05/22/2025 11:25 AM [facility] eGFR 39(L) >59 05/22/2025 11:25 AM [facility] Comment:CKD-EPI (2020) in mL /min/1.73 sq meters. Sodium 141 136 - 145 mmol/L 05/22/2025 11:25 AM [facility] Potassium 3.7 3.4 - 5.3 mmol/L 05/22/2025 11:25 AM [facility] Chloride 105 98 - 107 mmol/L 05/22/2025 11:25 AM [facility] CO2 25 22 - 33 mmol/L 05/22/2025 11:25 AM [facility] Anion Gap 11 7 - 17 05/22/2025 11:25 AM [facility] Calcium 9.3 8.7 - 10.5 mg/dL 05/22/2025 11:25 AM [facility] BUN/Creatinine Ratio 14 10.0 - 25.0 Ratio 05/22/2025 11:25 AM [facility] Blood Blood specimen / Unknown 05/22/2025 10:30 AM EST 05/22/2025 10:49 AM EST Tristen PRIETO LAB BLOOD ORDERABLES Final Result [facility] [address] [place] [address], [facility] [address] [place] [address] * Hepatitis C Virus (HCV) Antibody (11/11/2019 [...] a test for HCV RNA (test code 07735) is suggested. For additional information please refer to http://education.[employer].com/faq/OGU72x7 (This link is being provided for informational/ educational purposes only.) Blood specimen (specimen) Blood specimen / Unknown 11/11/2019 8:26 AM EDT 11/11/2019 8:28 AM EDT Narrative Resulting Agency Comment Performing Organization Information: Site ID: [id number] Name: [employer] Address: [address] [place] [address], [place] [address] Director: Tamara Castellanos MD Xavier Corey MD LAB BLOOD ORDERABLES Final R esult Performing Organization Address [facility] de Phone Number [employer] NL[address] [place] [address], [address] [place], [place] [id number] * HX GASTROENTEROLOGY COLONOSCOPY-SCAN (05/18/2018) Narrative 05/18/2018 Ordered by an unspecified provider. us Generic Provider HX AMB PROCEDURES Edited Result - Final from Last 3 Months or Most Recently Relevant to Health Maintenance Insurance AARP MEDICARE PART A & B MEDICARE PART A & B [facility] MEDICARE PART A & B [facility] MEDICARE PART A & B [facility] MEDICARE PART A & B [facility] Advance Directives * Full Code (Latest Code Status on File) Date Activated Date Inactivated Comments 02/25/2023 7:08 AM 05/22/2025 10:19 AM * Full Code Date Activated Date Inactivated Comments 02/01/2019 7:06 AM 12/05/2019 4:54 PM * Full Code Date Activated Date Inactivated Comments 01/20/2019 6:46 AM 02/01/2019 6:39 AM Care Teams Director Child Development Center Relationship Specialty Start Date End Date Nerissa Pham MD [address] [facility] [address] [place] [address] PCP - General Internal Medicine 11/06/20 Nerissa Pham MD [address] [facility] [address] [place] [address] PCP - MSSP Attributed 09/12/24 Audie Cota MD [address] [place] [address] Cardiovascular Disease 01/11/19 Ankita Vinson, [employer]ING [employer] TENDER [address] [place] [address] [facility] Community Tire Installer 06/23/19 Gerardo Leblanc MD [address] [place] [address] Ophthalmology 07/04/19 Rolando Topete MD [address] [place] [address] [address] [place] [address] Cardiovascular Disease 07/10/19 Danielle Stubbs MD [address] [place] [address] Dermatology 07/10/19 Juan Manuel Patino MD [address] [place] [address] [place] [address] Physician Pulmonary Disease 09/22/19 Fletcher Mckay MD [address] [place] [address] Physician Nephrology 03/18/20 Victor Hugo Leigh MD [address] [place] [address] Neurology 11/05/22
--- OUTSIDE RECORDS SUMMARY | 2025-06-12 13:23 | XMS_ITS | Encounter Summary ---
Author Organization [facility] Address [address] [place] [address] Care Team Providers Care Returned Case Inspector Name Role Phone Audie Cota MD Unavailable [phone] Ankita Vinson [facility] Unavailable Gerardo Leblanc MD Unavailable Rolando Topete MD Unavailable [phone] Danielle Stubbs MD Unavailable [phone] Juan Manuel Patino MD Unavailable Fletcher Mckay MD Unavailable Nerissa Pham MD Primary Care Provider + Victor Hugo Leigh MD Unavailable [phone] Nerissa Pham MD Unavailable [phone] Nerissa Pham MD Unavailable Encounter Details Date Type Department Care Team (Late st Contact Info) Description 01/19/2023 Scanned Document [facility] OPTHALMOLOGY SCAN Ophthalmology, Scan Social History [...] Office Visit [facility] Department Of Neurology [place] [address] [place] [address] Victor Hugo Leigh MD [address] [place] [address] 896[address] 10/29/2025 8:45 AM EDT Office Visit [facility] [address] [place] [address] Nerissa Pham MD [address] [facility] [address] [place] [address] documented as of this encounter Visit Diagnoses Not on filedocumented in this encounter Care Teams Returned Case Inspector Relationship Specialty Start Date End Date Nerissa Pham MD [address] [facility] [address] [place] [address] PCP - General Internal Medicine 11/06/20 Nerissa Pham MD [address] [facility] [address] [place] [address] PCP - MSSP Attributed 12/12/22 4 Nerissa Pham MD [address] [facility] [address] [place] [address] PCP - MSSP Attributed 09/12/24 Audie Cota MD 85 [facility] [address] [place] [address] Cardiovascular Disease 01/11/19 Ankita Vinson, [facility] [address] [place] [address] [facility] Community Seo Strategist 06/23/19 Gerardo Leblanc MD [address] [place] [address] Ophthalmology 07/04/19 Rolando Topete MD 85 [facility] [address] [place] [address] Cardiovascular Disease 07/10/19 Danielle Stubbs MD [address] [place] [address] Dermatology 07/10/19 Juan Manuel Patino MD [address] [place] [address] Physician Pulmonary Disease 09/22/19 Fletcher Mckay MD [address] [place] [address] Physician Nephrology 03/18/20 Victor Hugo Leigh MD [address] [place] [address] Neurology 11/05/22 documented as of this encounter
--- OUTSIDE RECORDS SUMMARY | 2025-06-12 13:23 | XMS_ITS | Encounter Summary ---
Author Organization [facility] Address [address] [place] [address] Care Team Providers Care Fabric Normalizer Name Role Phone Xavier Corey MD Unavailable Unavailable Marisela Jackman [facility] Unavailable [phone] Audie Cota MD Unavailable [phone] Xavier Corey MD Primary Care Provider Unava ilable Ankita Vinson [facility] Unavailable Gerardo Leblanc MD Unavailable Rolando Topete MD Unavailable Danielle Stubbs MD Unavailable [phone] Juan Manuel Patino MD Unavailable Juan Manuel Patino MD Unavailable Fletcher Mckay MD Unavailable Nerissa Pham MD Unavailable Nerissa Pham MD Primary Care Provider + Nerissa Pham MD Unavailable [phone] Rodriguez Granados PA-C Unavailable UnavailNerissa Oconnor MD Unavailable Xavier Corey MD Primary Care Provider Unava ilable Victor Hugo Leigh MD Unavailable [phone] Cheli Lopez PA-C Unavailable Nerissa Pham MD Unavailable [phone] Nerissa Pham MD Unavailable Encounter Details Date Type Department Care Team (Late st Contact Info) Description 01/06/2019 Scanned Document [address] [place] [phone] Cardiology, Scan Social History Tobacco Use Types [...] Description 10/10/2025 9:00 AM EDT Office Visit [facility] Physicians Department Of Neurology [place] [address] [place] [phone] Victor Hugo Leigh MD [address] [place] [address] 10/29/2025 8:45 AM EDT Office Visit [address] [place] [phone] Nerissa Pham MD 2 [facility] 100 [place], [place] [phone] documented as of this encounter Procedures Procedure Name Priority Date/Time Associated Diagnosis Comments CARDIAC CATHETERIZATION 01/20/2019 documented in this encounter Results * CARDIAC CATHETERIZATION (01/20/2019) Anatomical Region Laterality Modality Other us Scan Cardiology CV CARDIAC CATH ORDERABLES Final Result documented in this encounter Visit Diagnoses Not on filedocumented in this encounter Care Teams Fabric Normalizer Relationship Specialty Start Date End Date Xavier Corey MD PCP - MSSP Attributed 12/12/18 06/13/19 Xavier Corey MD 85 [facility] [address] [place] [address] PCP - General Internal Medicine 01/20/19 11/05/20 Nerissa Pham MD [address] [facility] [address] [place] [address] PCP - MSSP Attributed 06/14/19 0 Nerissa Pham MD [address] [facility] [address] [place] [address] PCP - General Internal Medicine 11/06/20 Nerissa Pham MD 2 [facility] [address] [address] PCP - MSSP Attributed 09/12/20 1 Rodriguez Granados PA-C PCP - MSSP Attributed 06/14/21 09/11/21 Nerissa Pham MD [address] [facility] [address] [place] [address] PCP - MSSP Attributed 09/12/21 2 Xavier Corey MD PCP - General 01/19/19 Cheli Lopez PA-C [address] [address] PCP - MSSP Attributed 09/12/22 12/11/22 Nerissa Pham MD [address] [facility] [address] [place] [address] PCP - MSSP Attributed 12/12/22 4 Nerissa Pham MD [address] [facility] [address] [place] [address] PCP - MSSP Attributed 09/12/24 Marisela Jackman, [facility] [address] [employer] 4 [place] [address] ICP Community Grommet Man 02/02/17 06/23/19 Audie Cota MD 85 [facility] [address] [phone] Cardiovascular Disease 01/11/19 Ankita Vinson, [facility] [address] [employer] 4 [place] [address] ICP Community Grommet Man 06/23/19 Gerardo Leblanc MD [address] [place] [address] Ophthalmology 07/04/19 Rolando Topete MD 85 [facility] 1022 [place] [address] Cardiovascular Disease 07/10/19 Danielle Stubbs MD [address] [place] [address] [place] [address] Dermatology 07/10/19 Juan Manuel Patino MD [address] [place] [address] [place] [address] Physician Pulmonary Disease 09/22/19 Juan Manuel Patino MD [address] [place] [address] [place] [address] Physician Pulmonary Disease 10/04/19 10/04/19 Fletcher Mckay MD [address] [place] [address] [place] [address] Physician Nephrology 03/18/20 Victor Hugo Leigh MD [address] [place] [address] Neurology 11/05/22 documented as of this encounter
--- OUTSIDE RECORDS SUMMARY | 2025-06-12 13:23 | XMS_ITS | Encounter Summary ---
Author Organization [facility] Address [address] [place] [address] Care Team Providers Care Air Quality Chemist Name Role Phone Audie Cota MD Unavailable [phone] Ankita Vinson [facility] Unavailable [phone] Gerardo Lebalnc MD Unavailable [phone] Rolando Topete MD Unavailable Danielle Stubbs MD Unavailable [phone] Juan Manuel Patino MD Unavailable Fletcher Mckay MD Unavailable Nerissa Pham MD Primary Care Provider + Nerissa Pham MD Unavailable Rodriguez Granados PA-C Unavailable Unavailabl e Nerissa Pham MD Unavailable Victor Hugo Leigh MD Unavailable [phone] Cheli Lopez PA-C Unavailable Nerissa Pham MD Unavailable Nerissa Pham MD Unavailable [phone] Encounter Details Date Type Department Care Team (Late st Contact Info) Description 01/28/2021 Scanned Document [facility] 80 [facility] [address] [place] [address] Gastroenterology, Scan Social History Tobacco Use Types [...] Description 10/10/2025 9:00 AM EDT Office Visit [facility] Department Of Neurology [place] [address] [place] [address] Victor Hugo Leigh MD [address] [place] [address] 10/29/2025 8:45 AM EDT Office Visit [facility] [address] [phone] eNrissa Pham MD [address] [facility] [address] [place] [address] documented as of this encounter Visit Diagnoses Not on filedocumented in this encounter Care Teams Air Quality Chemist Relationship Specialty Start Date End Date Nerissa Pham MD [address] [facility] [address] [place] [address] PCP - General Internal Medicine 11/06/20 Nerissa Pham MD [address] [facility] [address] [place] [address] PCP - MSSP Attributed 09/12/20 1 Rodriguez Granados PA-C PCP - MSSP Attributed 06/14/21 09/11/21 Nerissa Pham MD 2 [facility] [address] [address] PCP - MSSP Attributed 09/12/21 2 Cheil Lopez PA-C [address] [address] PCP - MSSP Attributed 09/12/22 12/11/22 Nerissa Pham MD 2 [facility] [address] [address] PCP - MSSP Attributed 12/12/22 4 Nerissa Pham MD 2 [facility] [address] [address] PCP - MSSP Attributed 09/12/24 Audie Cota MD [address] [place] [address] 719 [place] [address] Cardiovascular Disease 01/11/19 Ankita Vinson, [facility] [address] [facility] 4 [place] [address] [facility] Community Microbiology Soil Scientist 06/23/19 Gerardo Leblanc MD [address] [place] [address] Ophthalmology 07/04/19 Rolando Topete MD [address] [place] [address] 1022 [place] [address] Cardiovascular Disease 07/10/19 Danielle Stubbs MD 21 [employer] [facility] [employer] [place] [address] Dermatology 07/10/19 Juan Manuel Patino MD 21 [employer] [facility] [facility] [place] [address] Physician Pulmonary Disease 09/22/19 Fletcher Mckay MD [address] [place] [address] Physician Nephrology 03/18/20 Victor Hugo Leigh MD [address] [place] [address] Neurology 11/05/22 documented as of this encounter
--- OUTSIDE RECORDS SUMMARY | 2025-06-12 13:23 | XMS_ITS | Encounter Summary ---
Author Organization [facility] Address [address] [place] [address] Care Team Providers Care Helmet Hat Puncher Name Role Phone Xavier Corey MD Unavailable Unavailable Marisela Jackman [facility] Unavailable Audie Cota MD Unavailable [phone] Xavier Corey MD Primary Care Provider Unava ilable Ankita Vinson [facility] Unavailable Gerardo Leblanc MD Unavailable Rolando Topete MD Unavailable [phone] Danielle Stubbs MD Unavailable Juan Manuel Patino MD Unavailable Juan Manuel Patino MD Unavailable Fletcher Mckay MD Unavailable Nerissa Pham MD Unavailable [phone] Nerissa Pham MD Primary Care Provider + Nerissa Pham MD Unavailable Rodriguez Granados PA-C Unavailable UnavailNerissa Oconnor MD Unavailable Xavier Corey MD Primary Care Provider Unava ilable Victor Hugo Leigh MD Unavailable [phone] Cheli Lopez PA-C Unavailable [phone] Nerissa Pham MD Unavailable Nerissa Pham MD Unavailable [phone] Encounter Details Date Type Department Care Team (Late st Contact Info) Description 05/18/2018 Scanned Document [address] [address] Provider, Generic Social History Tobacco Use Types [...] Description 10/10/2025 9:00 AM EDT Office Visit [facility] Physicians Department Of Neurology [place] [address] [place] [phone] Victor Hugo Leigh MD [address] [place] [address] 10/29/2025 8:45 AM EDT Office Visit [address] [place] [phone] Nerissa Pham MD 2 [facility] 100 [place], [place] [phone] documented as of this encounter Procedures Procedure Name Priority Date/Time Associated Diagnosis Comments HX GASTROENTEROLOGY UPPER ENDOSCOPY-SCAN 05/18/2018 documented in this encounter Results * HX GASTROENTEROLOGY UPPER ENDOSCOPY-SCAN (05/18/2018) Narrative 05/18/2018 Ordered by an unspecified provider. us Generic Provider HX AMB PROCEDURES Edited Result - Final documented in this encounter Visit Diagnoses Not on filedocumented in this encounter Care Teams Helmet Hat Puncher Relationship Specialty Start Date End Date Xavier Corey MD PCP - MSSP Attributed 12/12/18 06/13/19 Xavier Corey MD [address] [place] [address] PCP - General Internal Medicine 01/20/19 11/05/20 Nerissa Pham MD [address] [facility] [address] [place] [address] PCP - MSSP Attributed 06/14/19 0 Nerissa Pham MD 2 [facility] [address] [address] PCP - General Internal Medicine 11/06/20 Nerissa Pham MD 2 [facility] [address] [address] PCP - MSSP Attributed 09/12/20 1 Rodriguez Granados PA-C PCP - MSSP Attributed 06/14/21 09/11/21 Nerissa Pham MD 2 [facility] [address] [address] PCP - MSSP Attributed 09/12/21 2 Xavier Corey MD PCP - General 01/19/19 Cheli Lopez PA-C [address] [address] PCP - MSSP Attributed 09/12/22 12/11/22 Nerissa Pham MD 2 [facility] [address] [address] PCP - MSSP Attributed 12/12/22 4 Nerissa Pham MD 2 [facility] [address] [place] [address] PCP - MSSP Attributed 09/12/24 Marisela Jcakman, [facility] [address] [place] [address] ICP Community Post Tronic Machine Operator 02/02/17 06/23/19 Audie Cota MD [address] [place] [address] 719 [place] [address] Cardiovascular Disease 01/11/19 Ankita Vinson, [facility] [address] [place] [address] ICP Community Post Tronic Machine Operator 06/23/19 Gerardo Leblanc MD [address] [place] [address] Ophthalmology 07/04/19 Rolando Topete MD 85 [facility] 1022 [place] [address] Cardiovascular Disease 07/10/19 Danielle Stubbs MD [address] [place] [address] Dermatology 07/10/19 Juan Manuel Patino MD [address] [place] [address] [place] [address] Physician Pulmonary Disease 09/22/19 Juan Manuel Patino MD [address] [place] [address] [place] [address] Physician Pulmonary Disease 10/04/19 10/04/19 Fletcher Mckay MD [address] [place] [address] [place] [address] Physician Nephrology 03/18/20 Victor Hugo Leigh MD [address] [place] [address] Neurology 11/05/22 documented as of this encounter
--- OUTSIDE RECORDS SUMMARY | 2025-06-12 13:23 | XMS_ITS | Encounter Summary ---
Author Organization [facility] Address 100 [place] [address] Care Team Providers Care Auditor Tax Name Role Phone Audie Cota MD Unavailable [phone] Ankita Vinson [facility] Unavailable [phone] Gerardo Leblanc MD Unavailable Rolando Topete MD Unavailable Danielle Stubbs MD Unavailable Juan Manuel Patino MD Unavailable Fletcher Mckay MD Unavailable Nerissa Pham MD Primary Care Provider + Victor Hugo Leigh MD Unavailable [phone] Nerissa Pham MD Unavailable Nerissa Pham MD Unavailable Encounter Details Date Type Department Care Team (Late st Contact Info) Description 06/04/2023 Scanned Document [facility] CARDIOLOGY SCAN Cardiology, Scan Social [...] Description 10/10/2025 9:00 AM EDT Office Visit [facility] Department Of Neurology [place] 160 [place] [address] Victor Hugo Leigh MD [address] [place] [address] 10/29/2025 8:45 AM EDT Office Visit [facility] 2 [facility] [address] [place] [phone] Nerissa Pham MD [address] [facility] [address] [place] [address] documented as of this encounter Visit Diagnoses Not on filedocumented in this encounter Care Teams Auditor Tax Relationship Specialty Start Date End Date Nerissa Pham MD [address] [facility] [address] [place] [address] PCP - General Internal Medicine 11/06/20 Nerissa Pham MD [address] [facility] [address] [place] [address] PCP - MSSP Attributed 12/12/22 4 Nerissa Pham MD 2 [facility] [address] [address] PCP - MSSP Attributed 09/12/24 Audie Cota MD 85 [facility] [address] [phone] Cardiovascular Disease 01/11/19 Ankita Vinson, LITHOGRAPHER APPRENTICE [address] [facility] 4 [place] [address] [facility] Community Manager Business Operations 06/23/19 Gerardo eLblanc MD [address] [place] [address] Ophthalmology 07/04/19 Rolando Topete MD [address] [place] [address] 1022 [place] [address] Cardiovascular Disease 07/10/19 Danielle Stubbs MD [address] [place] [address] Dermatology 07/10/19 Juan Manuel Patino MD [address] [place] [address] Physician Pulmonary Disease 09/22/19 Fletcher Mckay MD [address] [place] [address] Physician Nephrology 03/18/20 Victor Hugo Leigh MD [address] [place] [address] Neurology 11/05/22 documented as of this encounter
--- OUTSIDE RECORDS SUMMARY | 2025-06-12 13:23 | XMS_ITS | Clinical Summary ---
Author Organization [facility] Prior to 11/11/[address] [place] [address] Care Team Providers Care Agronomy Research Manager Name Role Phone Xavier Corey MD Primary Care Provider [phone] Allergies Active Allergy Reactions Criticality Noted Date [...] this topic Medical Devices Implanted Type Area Nurses Supervisor Device Identifier Shelf Expiration Date Model / Serial / Lot Component Femoral Posterior Stabilized Rt Size 5 Beaded W\Pe - [id number] - [id number] Implanted:Qty: 1 on 11/30/2019 by Andres Pyle MD at [facility] Right: Knee [employer] [employer] 02/29/2024 5516-F-502 / / [id number] Triathlon Tritanium Baseplate Size 6 - [id number] - [id number] Implanted:Qty: 1 on 11/30/2019 by Andres Pyle MD at [facility] Right: Knee [employer] 07/30/2024 5536-B-600 / / [id number] Insert Triathlon 6 9mm Posterior Stabilized Bearing X3 - [id number] - [id number] Implanted:Qty: 1 on 11/30/2019 by Andres Pyle MD at [facility] Right: Knee [employer] 04/02/2024 5532-G-609 / / [id number] Advance Directives For more information, please contact: [phone] Documents on File Type Date Recorded Patient Special Events Director Expl anation Advance Directive and Living Will [...] AM 11/30/2019 11:48 AM . Care Teams Agronomy Research Manager Relationship Specialty Start Date End Date Xavier Corey MD 2 [facility] 100 [place] [address] PCP - General Internal Medicine 12/16/16
--- OUTSIDE RECORDS SUMMARY | 2025-06-12 13:23 | XMS_ITS | Encounter Summary ---
Author Organization [facility] Address [address] [place] [address] Care Team Providers Care Automation Qtp Tester Name Role Phone Audie Cota MD Unavailable [phone] Ankita Vinson [facility] Unavailable Gerardo Leblanc MD Unavailable Rolando Topete MD Unavailable [phone] Danielle Stubbs MD Unavailable [phone] Juan Manuel Patino MD Unavailable Fletcher Mckay MD Unavailable Nerissa Pham MD Primary Care Provider + Victor Hugo Leigh MD Unavailable [phone] Nerissa Pham MD Unavailable [phone] Encounter Details Date Type Department Care Team (Late st Contact Info) Description 11/07/2024 Scanned Document [facility] Rheumatology [address] [address] Maximino Gomez MD [address] [place] [address] Social History Tobacco Use Types Packs/Day [...] Description 10/10/2025 9:00 AM EDT Office Visit [facility] Department Of Neurology [place] [address] [place] [address] Victor Hugo Leigh MD [address] [place] [address] 10/29/2025 8:45 AM EDT Office Visit [address] [address] Nerissa Pham MD [address] [facility] [address] [place] [address] documented as of this encounter Visit Diagnoses Not on filedocumented in this encounter Care Teams Automation Qtp Tester Relationship Specialty Start Date End Date Nerissa Pham MD [address] [facility] [address] [place] [address] PCP - General Internal Medicine 11/06/20 eNrissa Pham MD [address] [facility] [address] [place] [address] PCP - MSSP Attributed 09/12/24 Audie Cota MD 85 [facility] [address] [phone] Cardiovascular Disease 01/11/19 Ankita Vinson, [facility] [address] [facility] 4 [place] [address] [facility] Community Wind Turbine Mechanical Engineer 06/23/19 Gerardo Leblanc MD [address] [place] [address] Ophthalmology 07/04/19 Rolando Topete MD [address] [place] [address] [address] [phone] Cardiovascular Disease 07/10/19 Danielle Stubbs MD [address] [place] [address] Dermatology 07/10/19 Juan Manuel Patino MD [address] [place] [address] [place] [address] Physician Pulmonary Disease 09/22/19 Fletcher Mckay MD [address] [place] [address] Physician Nephrology 03/18/20 Victor Hugo Leigh MD [address] [place] [address] Neurology 11/05/22 documented as of this encounter
--- OUTSIDE RECORDS SUMMARY | 2025-06-12 13:23 | XMS_ITS | Encounter Summary ---
Author Organization [facility] Address [address] [place] [address] Care Team Providers Care Scraper Tender Name Role Phone Xavier Corey MD Unavailable Unavailable Xavier Corey MD Unavailable Unavailable Marislea Jackman [facility] Unavailable [phone] Audie Cota MD Unavailable [phone] Xavier Corey MD Primary Care Provider Unava ilable Ankita Vinson [facility] Unavailable [phone] Gerardo Leblanc MD Unavailable Rolando Topete MD Unavailable Danielle Stubbs MD Unavailable [phone] Juan Manuel Patino MD Unavailable Juan Manuel Patino MD Unavailable Fletcher Mckay MD Unavailable Nerissa Pham MD Unavailable [phone] Nerissa Pham MD Primary Care Provider + Nerissa Pham MD Unavailable [phone] Rodriguez Granados PA-C Unavailable UnavailNerissa Oconnor MD Unavailable [phone] Xavier Corey MD Primary Care Provider Unava ilable Lu Victor Hugo K MD Unavailable [phone] Cheli Lopez PA-C Unavailable [phone] Nerissa Pham MD Unavailable [phone] Nerissa Pham MD Unavailable [phone] Encounter Details Date Type Department Care Team (Late st Contact Info) Description 06/05/2015 Scanned Document [address] [place] [address] Provider, Generic Social History Tobacco Use Types [...] 9:00 AM EDT Office Visit [facility] Department Of Neurology [place] [address] [place] [address] Victor Hugo Leigh MD [address] [place] [address] 10/29/2025 8:45 AM EDT Office Visit [facility] 2 [facility] [address] [place] [phone] Nerissa Pahm MD 2 [facility] 100 [place] [address] documented as of this encounter Procedures Procedure Name Priority Date/Time Associated Diagnosis Comments PATHOLOGY GASTROENTEROLOGY 06/06/2015 HX GASTROENTEROLOGY UPPER ENDOSCOPY-SCAN 06/05/2015 HX GASTROENTEROLOGY UPPER ENDOSCOPY-SCAN 06/05/2015 documented in this encounter Results * PATHOLOGY GASTROENTEROLOGY (06/06/2015) Narrative 06/06/2015 Ordered by an unspecified provider. us Generic Provider C HX PATH PROCEDURES Edited R esult - [...] on filedocumented in this encounter Care Teams Scraper Tender Relationship Specialty Start Date End Date Xavier Corey MD PCP - MSSP Attributed 12/12/18 06/13/19 Xavier Corey MD 85 [place] [address] PCP - General Internal Medicine 01/20/19 11/05/20 Nerissa Pham MD [address] [facility] [address] [place] [address] PCP - MSSP Attributed 06/14/19 0 Nerissa Pham MD [address] [facility] [address] [place] [address] PCP - General Internal Medicine 11/06/20 Nerissa Pham MD 2 Magdy Garcia [address] [place] [address] PCP - MSSP Attributed 09/12/20 1 Rodriguez Granados PA-C PCP - MSSP Attributed 06/14/21 09/11/21 Nerissa Pham MD 2 [facility] [address] [address] PCP - MSSP Attributed 09/12/21 2 Xavier Corey MD PCP - General 01/19/19 Cheli Lopez PA-C [address] [address] PCP - MSSP Attributed 09/12/22 12/11/22 Nerissa Pham MD 2 [facility] [address] [address] PCP - MSSP Attributed 12/12/22 4 Nerissa Pham MD 2 [facility] [address] [place] [address] PCP - MSSP Attributed 09/12/24 Xavier Corey MD 06/24/17 07/01/17 Marisela Jackman, [facility] [address] [place] [facility] [address] [place] [address] [facility] Community Arterial Embalmer 02/02/17 06/23/19 Audie Cota MD [address] [place] [address] Cardiovascular Disease 01/11/19 Ankita Vinson, [facility] [address] [place] [address] [facility] Community Arterial Embalmer 06/23/19 Gerardo Leblanc MD [address] [place] [address] Ophthalmology 07/04/19 Rolando Topete MD 85 [facility] 1022 [place] [address] Cardiovascular Disease 07/10/19 Danielle Stubbs MD [address] [place] [address] Dermatology 07/10/19 Juan Manuel Patino MD [address] [place] [address] Physician Pulmonary Disease 09/22/19 Juan Manuel Patino MD [address] [place] [address] Physician Pulmonary Disease 10/04/19 10/04/19 Fletcher Mckay MD [address] [place] [address] Physician Nephrology 03/18/20 Victor Hugo Leigh MD [address] [place] [address] Neurology 11/05/22 documented as of this encounter
--- OUTSIDE RECORDS SUMMARY | 2025-06-12 13:23 | XMS_ITS | Encounter Summary ---
Author Organization [facility] Address [address] [place] [address] Care Team Providers Care Budget Clerk Name Role Phone Audie Cota MD Unavailable [phone] Xavier Corey MD Primary Care Provider Unava ilable Ankita Vinson [facility] Unavailable [phone] Gerardo Leblanc MD Unavailable [phone] Rolando Topete MD Unavailable Danielle Stubbs MD Unavailable Juan Manuel Patino MD Unavailable Juan Manuel Patino MD Unavailable Fletcher Mckay MD Unavailable Nerissa Pham MD Unavailable Nerissa Pham MD Primary Care Provider + Nerissa Pham MD Unavailable Rodriguez Granados PA-C Unavailable Unavailabl e Nerissa Pham MD Unavailable Victor Hugo Leigh MD Unavailable [phone] Cheli Lopez PA-C Unavailable Nerissa Pham MD Unavailable [phone] Nerissa Pham MD Unavailable Encounter Details Date Type Department Care Team (Late st Contact Info) Description 07/04/2019 Scanned Document [address] [phone] Xavier Corey MD Social History Tobacco Use [...] Office Visit [facility] Department Of Neurology [place] [address] [place] [address] Victor Hugo Leigh MD [address] [place] [address] 10/29/2025 8:45 AM EDT Office Visit [address] [phone] Nerissa Pham MD 2 [facility] [address] [address] documented as of this encounter Procedures Procedure Name Priority Date/Time Associated Diagnosis Comments [facility]FERENCE [facility] [place] Routine 07/04/2019 documented in this encounter Results * REFERENCE [facility] [place] (07/04/2019) us External Provider MD ALFARO AMB PROCEDURES Final Res ult documented in this encounter Visit Diagnoses Not on filedocumented in this encounter Care Teams Budget Clerk Relationship Specialty Start Date End Date Xavier Corey MD [address] [phone] PCP - General Internal Medicine 01/20/19 11/05/20 Nerissa Pham MD 2 [facility] [address] [place] [address], [place] [address] PCP - MSSP Attributed 06/14/19 0 Nerissa Pham MD 2 [facility] [place] [address] PCP - General Internal Medicine 11/06/20 Nerissa Pham MD 2 [facility] [address] [place] [address], [place] [address] PCP - MSSP Attributed 09/12/20 1 Rodriguez Granados PA-C PCP - MSSP Attributed 06/14/21 09/11/21 Nerissa Pham MD 2 [facility] [address] [place] [address], [place] [address] PCP - MSSP Attributed 09/12/21 2 Cheli Lopez PA-C [address] [place] [address] PCP - MSSP Attributed 09/12/22 12/11/22 Nerissa Pham MD 2 [facility] [place] [address] PCP - MSSP Attributed 12/12/22 4 Nerissa Pham MD 2 [facility] [address] [address] PCP - MSSP Attributed 09/12/24 Audie Cota MD 85 [facility] 719 [address] Cardiovascular Disease 01/11/19 Ankita Vinson, JEWELRY FACER [address] [facility] 4 [place] [address] [facility] Community Grinder Dresser 06/23/19 Gerardo Leblanc MD [address] [place] [address] Ophthalmology 07/04/19 Rolando Topete MD [address] [place] [address] 1022 [address] Cardiovascular Disease 07/10/19 Danielle Stubbs MD [address] [place] [address] Dermatology 07/10/19 Juan Manuel Patino MD [address] [place] [address] Physician Pulmonary Disease 09/22/19 Juan Manuel Patino MD [address] [place] [address] Physician Pulmonary Disease 10/04/19 10/04/19 Fletcher Mckay MD [address] [place] [address] Physician Nephrology 03/18/20 Victor Hugo Leigh MD [address] [place] [address] Neurology 11/05/22 documented as of this encounter
--- OUTSIDE RECORDS SUMMARY | 2025-06-12 13:23 | XMS_ITS | Encounter Summary ---
Author Organization [facility] Address [address] [place] [address] Care Team Providers Care Guidance Secretary Name Role Phone Audie Cota MD Unavailable [phone] Ankita Vinson [facility] Unavailable Gerardo Leblanc MD Unavailable [phone] Rolando Topete MD Unavailable [phone] Danielle Stubbs MD Unavailable [phone] Juan Manuel Patino MD Unavailable Fletcher Mckay MD Unavailable Nerissa Pham MD Primary Care Provider + Victor Hugo Leigh MD Unavailable [phone] Cheli Lopez PA-C Unavailable Nerissa Pham MD Unavailable Nerissa Pham MD Unavailable [phone] Encounter Details Date Type Department Care Team (Late st Contact Info) Description 08/16/2022 Scanned Document [address] [place] [address] Nerissa Pham MD 2 [facility] [address] [place] [address] Social History Tobacco Use Types Packs/Day Years [...] Description 10/10/2025 9:00 AM EDT Office Visit [facility] Department Of Neurology [place] [address] [place] [address] Victor Hugo Leigh MD [address] [place] [address] 10/29/2025 8:45 AM EDT Office Visit [facility] [address] [phone] Nerissa Pham MD [address] [facility] [address] [place] [address] documented as of this encounter Visit Diagnoses Not on filedocumented in this encounter Care Teams Guidance Secretary Relationship Specialty Start Date End Date Nerissa Pham MD [address] [facility] [address] [place] [address] PCP - General Internal Medicine 11/06/20 Cheli Lopez PA-C [address] [address] PCP - MSSP Attributed 09/12/22 12/11/22 Nerissa Pham MD [address] [facility] [address] [place] [address] PCP - MSSP Attributed 12/12/22 4 Nerissa Pham MD [address] [facility] [address] [place] [address] PCP - MSSP Attributed 09/12/24 Audie Cota MD 85 [facility] [address] [phone] Cardiovascular Disease 01/11/19 Ankita Vinson, [facility] [address] [facility] 4 [place] [address] [facility] Community Communications Professor 06/23/19 Gerardo Leblanc MD [address] [place] [address] Ophthalmology 07/04/19 Rolando Topete MD [address] [place] [address] [address] [phone] Cardiovascular Disease 07/10/19 Danielle Stubbs MD [address] [place] [address] [place] [address] Dermatology 07/10/19 Juan Manuel Patino MD [address] [place] [address] [place] [address] Physician Pulmonary Disease 09/22/19 Fletcher Mckay MD [address] [place] [address] Physician Nephrology 03/18/20 Victor Hugo Leigh MD [address] [place] [address] Neurology 11/05/22 documented as of this encounter
--- OUTSIDE RECORDS SUMMARY | 2025-06-12 13:23 | XMS_ITS | Patient Health Record ---
Author Organization [facility] Address [address] [place] [id number] Care Team Providers Care Special Education Curriculum Specialist Name Role Phone CINTHIA DIAZ Primary Care Provider ROSEMARIE Rivas Unavailable [phone] Allergies Allergen (clinical drug ingredient) Drug/Non Drug [...] W/U Status Risk Notes Problem Pure hypercholesterolemia (266309985) Pure hypercholesterolemia (E78.0) Active confirmed Problem Essential hypertension (94107375) Essential (primary) hypertension (I10) Active confirmed Problem Asthma (929608246) Other asthma (J45.998) Active confirmed Problem Gastro-esophageal reflux disease without esophagitis (608267061) Gastro-esophageal reflux disease without esophagitis (K21.9) Active confirmed Problem Primary osteoarthritis (581152947) Unilateral primary osteoarthritis, right knee (M17.11) Active confirmed Problem Osteoarthritis of knee (382160106) Unilateral primary osteoarthritis, left knee (M17.12) Active confirmed Problem Osteoarthritis of knee (486830362) Osteoarthritis of knee, unspecified (M17.9) Active confirmed Problem Artificial knee join t present (154794706479) Presence of right artificial knee joint (Z96.651) Active confirmed Plan Of Treatment Pending Test Test Name Order Date MRI L-Spine 11/10/2012 Work Note 12/01/2019 Insurance Providers Payer Name Payer Address Payer Phone Subscriber Number Group Number Insured Name Patient Relationship to Insured Coverage Start Date Coverage End Date MEDICARE [address] KARINA ELDER [id number] JENNIFER GO (ARACELIS) Self - patient is the insured [facility] [employer] [address] [place] [address] [id number] DONAVAN JENNIFER (ARACELIS) Self - patient [...]
--- OUTSIDE RECORDS SUMMARY | 2025-06-12 13:23 | XMS_ITS | Encounter Summary ---
Author Organization [facility] Address [address] [place] [address] Care Team Providers Care Tower Equipment Repairer Name Role Phone Xavier Corey MD Unavailable Unavailable Marisela Jackman [facility] Unavailable Audie Cota MD Unavailable [phone] Xavier Corey MD Primary Care Provider Unava ilable Ankita Vinson [facility] Unavailable Gerardo Leblanc MD Unavailable [phone] Rolando Topete MD Unavailable Danielle Stubbs MD Unavailable [phone] Juan Manuel Patino MD Unavailable Juan Manuel Patino MD Unavailable Fletcher Mckay MD Unavailable Nerissa Pham MD Unavailable [phone] Nerissa Pham MD Primary Care Provider + Nerissa Pham MD Unavailable Rodriguez Granados PA-C Unavailable UnavailNerissa Oconnor MD Unavailable Xavier Corey MD Primary Care Provider Unava ilable Victor Hugo Leigh MD Unavailable [phone] Cheli Lopez PA-C Unavailable [phone] Nerissa Pham MD Unavailable [phone] Nerissa Pham MD Unavailable [phone] Reason for Referral * Cardiology (Routine) - Closed Specialty Diagnoses / Procedures Referred By Contact Referred To Contact Interventional Cardiology / Cardiology Diagnoses Angina pectoris Audie Cota MD 85 [facility] [place] [facility] [address] [place] [address] Phone: tel: fax: Rolando Topete MD 85 [facility] [place] [facility] Suite [facility] [place] [address] Phone: tel: fax: Referral ID Status Reason Start Date Expiration Date Visits Re quested Visits Authorized [id number] Closed 01/06/2019 01/07/2020 1 1 Comments LEFT HEART CATH ANGINA WITH DE LA ROSA Encounter Details Date Type Department Care Team (Late st Contact Info) Description 01/06/2019 Community Orders Consulting Cardiologists, [address] [phone] Audie Cota MD [address] [place] [address] Angina pectoris (HCC) (Primary Dx) Social History [...] 10/10/2025 9:00 AM EDT Office Visit [facility] Department Of Neurology [place] [address] [place] [address] Victor Hugo Leigh MD [address] [place] [address] 10/29/2025 8:45 AM EDT Office Visit [facility] 2 [facility] 100 [place] [phone] Nerissa Pham MD 2 [facility] [address] [place] [address] Scheduled Referrals Name Type Priority Associated Diagnoses Order Schedule Amb Referral to Interventional Cardiology Outpatient Referral Routine Angina pectoris (HCC) Ordered: 01/06/2019 documented as of this encounter Visit Diagnoses Diagnosis Angina pectoris- Primary Other and unspecified angina pectoris documented in this encounter Care Teams Tower Equipment Repairer Relationship Specialty Start Date End Date Xavier Corey MD PCP - MSSP Attributed 12/12/18 06/13/19 Xavier Corey MD 85 [facility] 719 [place] [address] PCP - General Internal Medicine 01/20/19 11/05/20 Nerissa Pham MD 2 [facility] [address] [place] [address] PCP - MSSP Attributed 06/14/19 0 Nerissa Pham MD 2 [facility] [address] [place] [address] PCP - General Internal Medicine 11/06/20 Nerissa Pham MD 2 [facility] [address] [place] [address] PCP - MSSP Attributed 09/12/20 1 Rodriguez Granados PA-C PCP - MSSP Attributed 06/14/21 09/11/21 Nerissa Pham MD 2 [facility] [address] [place] [address] PCP - MSSP Attributed 09/12/21 2 Xavier Corey MD PCP - General 01/19/19 Cheli Lopez PA-C [address] [address] PCP - MSSP Attributed 09/12/22 12/11/22 Nerissa Pham MD 2 [facility] [address] [place] [address] PCP - MSSP Attributed 12/12/22 4 Nerissa Pham MD 2 [facility] [address] [place] [address] PCP - MSSP Attributed 09/12/24 Marisela Jackman, [facility] [address] [place] [address] [facility] Community Engine Assembly Supervisor 02/02/17 06/23/19 Audie Cota MD [address] [place] [address] Cardiovascular Disease 01/11/19 Ankita Vinson, [facility] [address] [place] [address] [facility] Community Engine Assembly Supervisor 06/23/19 Gerardo Leblanc MD 178 [place] [address] Ophthalmology 07/04/19 Rolando Topete MD [address] [place] [address] 1022 [place] [address] Cardiovascular Disease 07/10/19 Danielle Stubbs MD [address] [place] [address] Dermatology 07/10/19 Juan Manuel Patino MD [address] [place] [address] Physician Pulmonary Disease 09/22/19 Juan Manuel Patino MD [address] [place] [address] Physician Pulmonary Disease 10/04/19 10/04/19 Fletcher Mckay MD [address] [place] [address] Physician Nephrology 03/18/20 Victor Hugo Leigh MD [address] [place] [address] Neurology 11/05/22 documented as of this encounter
--- OUTSIDE RECORDS SUMMARY | 2025-06-12 13:23 | XMS_ITS | Encounter Summary ---
Author Organization [facility] Address 100 [place] [address] Care Team Providers Care Solar Resource Assessor Name Role Phone Audie Cota MD Unavailable [phone] Ankita Vinson [facility] Unavailable Gerardo Leblanc MD Unavailable Rolando Topete MD Unavailable Danielle Stubbs MD Unavailable Juan Manuel Patino MD Unavailable Fletcher Mckay MD Unavailable Nerissa Pham MD Primary Care Provider + Victor Hugo Leigh MD Unavailable [phone] Nerissa Pham MD Unavailable [phone] Nerissa Pham MD Unavailable Encounter Details Date Type Department Care Team (Late st Contact Info) Description 12/08/2023 Scanned Document [facility] CARDIOLOGY SCAN Cardiology, Scan Social [...] 10/10/2025 9:00 AM EDT Office Visit [facility] Department Of Neurology [place] [address] [place] [address] Victor Hugo Leigh MD [address] [place] [address] 10/29/2025 8:45 AM EDT Office Visit [facility] [address] [place] [phone] Nerissa Pham MD [address] [facility] [address] [place] [address] documented as of this encounter Visit Diagnoses Not on filedocumented in this encounter Care Teams Solar Resource Assessor Relationship Specialty Start Date End Date Nerissa Pham MD [address] [facility] [address] [place] [address] PCP - General Internal Medicine 11/06/20 Nerissa Pham MD [address] [facility] [address] [place] [address] PCP - MSSP Attributed 12/12/22 4 Nerissa Pham MD 2 [facility] [address] [address] PCP - MSSP Attributed 09/12/24 Audie Cota MD 85 [facility] [address] [phone] Cardiovascular Disease 01/11/19 Ankita Vinson, PRINCIPAL JAVA DEVELOPER [address] [facility] 4 [place] [address] [facility] Community Supervisor Logging 06/23/19 Gerardo Leblanc MD [address] [place] [address] Ophthalmology 07/04/19 Rolando Topete MD [address] [place] [address] 1022 [place] [address] Cardiovascular Disease 07/10/19 Danielle Stubbs MD [address] [place] [address] Dermatology 07/10/19 Juan Manuel Patino MD [address] [place] [address] Physician Pulmonary Disease 09/22/19 Fletcher Mckay MD [address] [place] [address] Physician Nephrology 03/18/20 Victor Hugo Leigh MD [address] [place] [address] Neurology 11/05/22 documented as of this encounter
--- OUTSIDE RECORDS SUMMARY | 2025-06-12 13:23 | XMS_ITS | Encounter Summary ---
Author Organization [facility] Address [address] [place] [address] Care Team Providers Care Chandelier Maker Name Role Phone Xavier Corey MD Unavailable Unavailable Marisela Jackman [facility] Unavailable [phone] Audie Cota MD Unavailable [phone] Xavier Corey MD Primary Care Provider Unava ilable Ankita Vinson [facility] Unavailable Gerardo Leblanc MD Unavailable Rolando Topete MD Unavailable Danielle Stubbs MD Unavailable Juan Manuel Patino MD Unavailable Juan Manuel Patino MD Unavailable Fletcher Mckay MD Unavailable Nerissa Pham MD Unavailable [phone] Nerissa Pham MD Primary Care Provider + Nerissa Pham MD Unavailable Rodriguez Granados PA-C Unavailable UnavailNerissa Oconnor MD Unavailable [phone] Xavier Corey MD Primary Care Provider Unava ilable Victor Hugo Leigh MD Unavailable [phone] Cheli Lopez PA-C Unavailable Nerissa Pham MD Unavailable Nerissa Pham MD Unavailable [phone] Encounter Details Date Type Department Care Team (Late st Contact Info) Description 05/18/2018 Scanned Document [address] [address] Provider, Generic Social History Tobacco Use Types [...] Description 10/10/2025 9:00 AM EDT Office Visit [facility] Department Of Neurology [place] [address] [place] [address] Victor Hugo Leigh MD [address] [place] [address] 10/29/2025 8:45 AM EDT Office Visit [address] [place] [phone] Nerissa Pham MD 2 [facility] 100 [place], [place] [phone] documented as of this encounter Procedures Procedure Name Priority Date/Time Associated Diagnosis Comments HX GASTROENTEROLOGY COLONOSCOPY-SCAN 05/18/2018 documented in this encounter Results * HX GASTROENTEROLOGY COLONOSCOPY-SCAN (05/18/2018) Narrative 05/18/2018 Ordered by an unspecified provider. us Generic Provider HX AMB PROCEDURES Edited Result - Final documented in this encounter Visit Diagnoses Not on filedocumented in this encounter Care Teams Chandelier Maker Relationship Specialty Start Date End Date Xavier Corey MD PCP - MSSP Attributed 12/12/18 06/13/19 Xavier Corey MD [address] [place] [address] [place] [address] PCP - General Internal Medicine 01/20/19 11/05/20 Nerissa Pham MD 2 [facility] [address] [address] PCP - MSSP Attributed 06/14/19 0 Nerissa Pham MD 2 [facility] [address] [address] PCP - General Internal Medicine 11/06/20 Nerissa Pham MD 2 [facility] [address] [address] PCP - MSSP Attributed 09/12/20 1 Rodriguez Granados PA-C PCP - MSSP Attributed 06/14/21 09/11/21 Nerissa Pham MD 2 [facility] [address] [address] PCP - MSSP Attributed 09/12/21 2 Xavier Corey MD PCP - General 01/19/19 Cheli Lopez PA-C [address] [address] PCP - MSSP Attributed 09/12/22 12/11/22 Nerissa Pham MD 2 [facility] 100 [place] [address] PCP - MSSP Attributed 12/12/22 Nerissa Pham MD 2 [facility] 100 [place] [address] PCP - MSSP Attributed 09/12/24 Marisela Jackman, [facility] [address] [place] [address] ICP Community Financial Advocate 02/02/17 06/23/19 Audie Cota MD 85 [facility] 719 [place] [address] Cardiovascular Disease 01/11/19 Ankita Vinson, [facility] [address] [place] [address] [facility] Community Financial Advocate 06/23/19 Gerardo Leblanc MD [address] [place] [address] Ophthalmology 07/04/19 Rolando Topete MD 85 [facility] 1022 [place] [address] Cardiovascular Disease 07/10/19 Danielle Stubbs MD [address] [place] [address] Dermatology 07/10/19 Juan Manuel Patino MD [address] [place] [address] [place] [address] Physician Pulmonary Disease 09/22/19 Juan Manuel Patino MD [address] [place] [address] [place] [address] Physician Pulmonary Disease 10/04/19 10/04/19 Fletcher Mckay MD [address] [place] [address] [place] [address] Physician Nephrology 03/18/20 Victor Hugo Leigh MD [address] [place] [address] Neurology 11/05/22 documented as of this encounter
--- OUTSIDE RECORDS SUMMARY | 2025-06-12 13:23 | XMS_ITS | Clinical Summary ---
Author Organization [facility] Address 100 [facility] 20 0 [place] [address] Phone Care Team Providers Care Ethnology Professor Name Role Phone Nerissa Pham MD Primary Care Provider Unav ailable Allergies Active Allergy Reactions Criticality Noted Date Comments Amlodipine Swelling Medium 08/09/2020 Codeine Nausea Only,Other (s ee comments) Medium 01/02/2011 Egg Protein-Containing Drug Products Anaphylaxis,Shortness of breath High 04/09/2015 Lisinopril Other (see [...] (12/18/2020): Added automatically from request for surgery [id number] Chronic kidney disease 12/16/2016 Essential hypertension 04/09/2015 Resolved Problems Problem Noted Date Diagnosed Date Resolved Date Gastroesophageal reflux disease with apnea 08/12/2020 12/04/2020 Chest pain 08/11/2020 12/04/2020 Hyperlipidemia 08/11/2020 12/04/2020 Chronic heart failure 04/12/20202020 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
--- OUTSIDE RECORDS SUMMARY | 2025-06-12 13:23 | XMS_ITS | Encounter Summary ---
Author Organization [facility] Address [address] [place] [address] Care Team Providers Care Motor And Generator Brush Cutter Name Role Phone Xavier Corey MD Unavailable Unavailable Xavier Corey MD Unavailable Unavailable Marisela Jackman [facility] Unavailable [phone] Audie Cota MD Unavailable [phone] Xavier Corey MD Primary Care Provider Unava ilable Ankita Vinson [facility] Unavailable [phone] Gerardo Leblanc MD Unavailable [phone] Rolando Topete MD Unavailable [phone] Danielle Stubbs MD Unavailable [phone] Juan Manuel Patino MD Unavailable Juan Manuel Patino MD Unavailable Fletcher Mckay MD Unavailable Nerissa Pham MD Unavailable [phone] Nerissa Pham MD Primary Care Provider + Nerissa Pham MD Unavailable [phone] Rodriguez Granados PA-C Unavailable UnavailNerissa Oconnor MD Unavailable [phone] Xavier Corey MD Primary Care Provider Unava ilable Lu Victor Hugo K MD Unavailable [phone] Cheli Lopez PA-C Unavailable Nerissa Pham MD Unavailable [phone] Nerissa Pham MD Unavailable Encounter Details Date Type Department Care Team (Late st Contact Info) Description 04/05/2015 Scanned Document [address] [address] Provider, Generic Social History Tobacco Use Types [...] Description 10/10/2025 9:00 AM EDT Office Visit [facility] Department Of Neurology [place] [address] [place] [phone] Victor Hugo Leigh MD [address] [place] [address] 10/29/2025 8:45 AM EDT Office Visit [address] [place] [phone] Nerissa Pham MD [address] [place] [address] 100 [place], [place] [phone] documented as of this encounter Procedures Procedure Name Priority Date/Time Associated Diagnosis Comments ECG 12-LEAD 04/09/2015 documented in this encounter Results * ECG 12-LEAD (04/09/2015) Narrative 04/09/2015 Ordered by an unspecified provider. us Generic Provider ECG ORDERABLES Edited Result - Final documented in this encounter Visit Diagnoses Not on filedocumented in this encounter Care Teams Motor And Generator Brush Cutter Relationship Specialty Start Date End Date Xavier Corey MD PCP - MSSP Attributed 12/12/18 06/13/19 Xavier Corey MD 85 [facility] [address] [place] [address] PCP - General Internal Medicine 01/20/19 11/05/20 Nerissa Pham MD [address] [facility] [address] [place] [address], [place] [address] PCP - MSSP Attributed 06/14/19 0 Nerissa Pham MD [address] [facility] [address] Garcia [address] [place] [address] PCP - General Internal Medicine 11/06/20 Nerissa Pham MD [address] [facility] [address] Garcia [address] [place] [address] PCP - MSSP Attributed 09/12/20 1 Rodriguez Granados PA-C PCP - MSSP Attributed 06/14/21 09/11/21 Nerissa Pham MD [address] [facility] [address] [place] [address], [place] [address] PCP - MSSP Attributed 09/12/21 2 Xavier Corey MD PCP - General 01/19/19 Cheli Lopez PA-C 2 [facility] [place] [address] [address] PCP - MSSP Attributed 09/12/22 12/11/22 Nerissa Pham MD [address] [place] [address] Dr [address] [place] [address] PCP - MSSP Attributed 12/12/22 4 Nerissa Pham MD [address] [facility] [address] [place] [address] PCP - MSSP Attributed 09/12/24 Xavier Corey MD 06/24/17 07/01/17 [facility] [address] [place] [address] [facility] Community Can Washer 02/02/17 06/23/19 Audie Cota MD [address] [place] [address] 719 [place] [address] Cardiovascular Disease 01/11/19 Ankita Vinson, [facility] [address] [place] [address] [facility] Community Can Washer 06/23/19 Gerardo Leblanc MD [address] [place] [address] Ophthalmology 07/04/19 Rolando Topete MD 85 [facility] 1022 [place] [address] Cardiovascular Disease 07/10/19 Danielle Stubbs MD [address] [place] [address] Dermatology 07/10/19 Juan Manuel Patino MD [address] [place] [address] [place] [address] Physician Pulmonary Disease 09/22/19 Juan Manuel Patino MD [address] [place] [address] [place] [address] Physician Pulmonary Disease 10/04/19 10/04/19 Fletcher Mckay MD [address] [place] [address] [place] [address] Physician Nephrology 03/18/20 Victo rHugo Leigh MD [address] [place] [address] Neurology 11/05/22 documented as of this encounter
--- OUTSIDE RECORDS SUMMARY | 2025-06-12 13:23 | XMS_ITS | Encounter Summary ---
Author Organization On license of [facility] Address [address] [place] [address] Care Team Providers Care Senior Information Security Analyst Name Role Phone Xavier Corey MD Primary Care Provider Ruth vailable Encounter Details Date Type Department Care Team (Late st Contact Info) Description 12/09/2021 Orders Only On license of [facility] Department of Gastroenterology [address] [place] [address] Trevor Isidro MD Social History Tobacco Use [...] filedocumented in this encounter Care Teams Senior Information Security Analyst Relationship Specialty Start Date End Date Xavier Corey MD PCP - General Internal Medicine 12/06/18 documented as of this encounter
--- OUTSIDE RECORDS SUMMARY | 2025-06-12 13:24 | XMS_ITS | Clinical Summary ---
Author Organization [facility] it Address [address] [place] [address] Care Team Providers Care Environmental Control Administrator Name Role Phone Xavire Corey MD Primary Care Provider [phone] Surgical History Surgery Date Site/Laterality Comments FOOT [...] TOTAL KNEE; Surgeon: Andres Pyle MD; [facility] Service: Orthopedics; Laterality: [...] on file Sexual Orientation Not on file Plan of Treatment Health Maintenance Due Date Last Done Comments DTaP,Tdap,and Td Vaccines (1 - Tdap) 1969 Pneumococcal Vaccine: 50+ Ye ars (1 of 1 - PCV) 2000 Zoster Vaccines (1 of 2) 2000 Depression Screening 06/14/2024 COVID-19 Vaccine ( - 2024-2 6 season) 2025 Influenza Vaccine (#1) 2025 RSV Immunization Adult [...] this topic Medical Devices Implanted Type Area Brake Lining Curer Device Identifier Shelf Expiration Date Model / Serial / Lot Component Femoral Posterior Stabilized Rt Size 5 Beaded W\Pe - [id number] Implanted:Qty: 1 on 11/30/2019 by Andres Pyle MD Right: Knee [employer] 02/29/2024 5516-F-502 / / [id number] Triathlon Tritanium Baseplate Size 6 - [id number] Implanted:Qty: 1 on 11/30/2019 by Andres Pyle MD Right: Knee [employer] 07/30/2024 5536-B-600 / / [id number] Insert Triathlon 6 9mm Posterior Stabilized Bearing X3 - [id number] Implanted:Qty: 1 on 11/30/2019 by Andres Pyle MD Right: Knee [employer] 04/02/2024 5532-G-609 / / [id number] Care Teams Environmental Control Administrator Relationship Specialty Start Date End Date Xavier Corey MD [address] [place] [address] PCP - General Internal Medicine 12/16/16
--- OUTSIDE RECORDS SUMMARY | 2025-06-12 13:24 | XMS_ITS | Encounter Summary ---
Author Organization [facility] Address [address] [place] [address] Care Team Providers Care Senior Financial Consultant Name Role Phone Xavier Corey MD Unavailable Unavailable Marisela Jackman [facility] Unavailable Audie Cota MD Unavailable [phone] Xavier Corey MD Primary Care Provider Unava ilable Ankita Vinson [facility] Unavailable [phone] Gerardo Leblanc MD Unavailable [phone] Rolando Topete MD Unavailable Danielle Stubbs MD Unavailable [phone] Juan Manuel Patino MD Unavailable Juan Manuel Patino MD Unavailable Fletcher Mckay MD Unavailable Nerissa Pham MD Unavailable Nerissa Pham MD Primary Care Provider + Nerissa Pham MD Unavailable [phone] Rodriguez Garnados PA-C Unavailable UnavailNerissa Oconnor MD Unavailable [phone] Victor Hugo Leigh MD Unavailable [phone] Cheli Lopez PA-C Unavailable Nerissa Pham MD Unavailable [phone] Nerissa Pham MD Unavailable Encounter Details Date Type Department Care Team (Late st Contact Info) Description 04/24/2019 Scanned Document [address] [phone] Xavier Corey MD Social History Tobacco Use [...] Description 10/10/2025 9:00 AM EDT Office Visit [facility] Department Of Neurology [place] [address] [place] [phone] Victor Hugo Leigh MD [address] [place] [address] 10/29/2025 8:45 AM EDT Office Visit [address] [phone] Nerissa Pham MD [address] [phone] documented as of this encounter Visit Diagnoses Not on filedocumented in this encounter Care Teams Senior Financial Consultant Relationship Specialty Start Date End Date Xavier Corey MD PCP - MSSP Attributed 12/12/18 06/13/19 Xavier Corey MD [address] [place] [address] 719 [place] [address] PCP - General Internal Medicine 01/20/19 11/05/20 Nerissa Pham MD 2 [facility] [address] [place] [address] PCP - MSSP Attributed 06/14/19 0 Nerissa Pham MD 2 [facility] [address] [place] [address] PCP - General Internal Medicine 11/06/20 Nerissa Pham MD 2 [facility] [address] [place] [address] PCP - MSSP Attributed 09/12/20 1 Rodriguez Granados PA-C PCP - MSSP Attributed 06/14/21 09/11/21 Nerissa Pham MD [address] [facility] [address] [place] [address], [place] [address] PCP - MSSP Attributed 09/12/212 2 Cheli Lopez PA-C 2 [facility] [place] [address] [place] [address] PCP - MSSP Attributed 09/12/22 12/11/22 Nerissa Pham MD [address] [place] [address] PCP - MSSP Attributed 12/12/222 4 Nerissa Pham MD [address] [place] [address] PCP - MSSP Attributed 09/12/24 Marisela Jackman, [facility] [address] [place] [address] [facility] Community Business Process Modeler 02/02/17 06/23/19 Audie Cota MD [address] [place] [address] [address] [place] [phone] Cardiovascular Disease 01/11/19 Ankita Vinson, [facility] [address] [place] [address] [facility] Community Business Process Modeler 06/23/19 Gerardo Leblanc MD [address] [place] [address] Ophthalmology 07/04/19 Rolando Topete MD [address] [place] [address] 1022 [place] [address] Cardiovascular Disease 07/10/19 Danielle Stubbs MD [address] [place] [address] [place] [address] Dermatology 07/10/19 Juan Manuel Patino MD [address] [place] [address] Physician Pulmonary Disease 09/22/19 Juan Manuel Patino MD [address] [place] [address] DERMATOLOGY [place] [id number] Physician Pulmonary Disease 10/04/19 10/04/19 Fletcher Mckay MD [address] [place] [address] Physician Nephrology 03/18/20 Victor Hugo Leigh MD [address] [place] [address] Neurology 11/05/22 documented as of this encounter
--- OUTSIDE RECORDS SUMMARY | 2025-06-12 13:24 | XMS_ITS | Clinical Summary ---
Author Organization [facility] Address [address] [place] [address] Care Team Providers Care Tower Equipment Installer Name Role Phone Xavier Corey MD Primary [...] in the morning. 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 An intravenous line was inserted. The -[id number] scope was introduced through the anus and [...] bowel preparation was evaluated using the BBPS ([place] Bowel Preparation Scale) with scores of: Right [...] the patient. Procedure Code(s): --- Professional --- 09990, Colonoscopy, flexible; with biopsy, single or multiple Diagnosis Code(s): --- Professional --- Z86.010, Personal history of colonic polyps K57.30, Diverticulosis of large intestine without perforation or abscess without bleeding K63.5, Polyp of colon K64.0, First degree hemorrhoids CPT copyright 2020 [employer]. All rights reserved. The codes documented in this report are preliminary and upon tray room worker review may be revised to meet current compliance requirements. MD Trevor Quintanilla MD 12/05/2021 2:44:52 PM Electronically Authenticated and Edited by: MD Alex Linder, Number of Addenda: [address] [address] us Trevor Isidro MD GI PROCEDURE Final Res ult [facility] PUL[facility]ARY [address] [place] [address]. [place] [address], [place] [phone] from Last 3 Months or Most Recently Relevant to Health Maintenance Insurance MEDICARE PART A & B [facility] HE[facility] OPTIONS Advance Directives For more information, please contact: [phone] Documents on File Type Date Recorded Patient Senior C Developer Expl anation Advance Directives 12/09/2021 11:10 AM Care Teams Tower Equipment Installer Relationship Specialty Start Date End Date Xavier Corey MD PCP - General Internal Medicine 12/06/18
--- OUTSIDE RECORDS SUMMARY | 2025-06-12 13:24 | XMS_ITS | Encounter Summary ---
Author Organization [facility] Address [address] [place] [address] Care Team Providers Care Skull Chopper Name Role Phone Xavier Corey MD Unavailable Unavailable Marisela Jackman [facility] Unavailable Audie Cota MD Unavailable [phone] Xavier Corey MD Primary Care Provider Unava ilable Ankita Vinson [facility] Unavailable [phone] Gerardo Leblanc MD Unavailable [phone] Rolando Topete MD Unavailable [phone] Danielle Stubbs MD Unavailable Juan Manuel Patino MD Unavailable Juan Manuel Patino MD Unavailable Fletcher Mckay MD Unavailable Nerissa Pham MD Unavailable Nerissa Pham MD Primary Care Provider + Nerissa Pham MD Unavailable Rodriguez Granados PA-C Unavailable UnavailNerissa Oconnor MD Unavailable Xavier Corey MD Primary Care Provider Unava ilable Victor Hugo Leigh MD Unavailable [phone] Cheli Lopez PA-C Unavailable Nerissa Pham MD Unavailable [phone] Nerissa Pham MD Unavailable Encounter Details Date Type Department Care Team (Late st Contact Info) Description 12/06/2017 Scanned Document [address] [place] [phone] Provider, Generic Social History Tobacco Use Types [...] Description 10/10/2025 9:00 AM EDT Office Visit [facility] Department Of Neurology [place] [address] [place] [phone] Victor Hugo Leigh MD [address] [place] [address] 10/29/2025 8:45 AM EDT Office Visit [address] [place] [phone] Nerissa Pham MD 2 [facility] [address] [place], [place] [phone] documented as of this encounter Visit Diagnoses Not on filedocumented in this encounter Care Teams Skull Chopper Relationship Specialty Start Date End Date Xavier Corey MD PCP - MSSP Attributed 12/12/18 06/13/19 Xavier Corey MD [address] [place] [address] [place] [address], [place] [address] PCP - General Internal Medicine 01/20/19 11/05/20 Nerissa Pham MD 2 [facility] [place] [address] PCP - MSSP Attributed 06/14/19 0 Nerissa Pham MD [address] [facility] [place] [address] PCP - General Internal Medicine 11/06/20 Nerissa Pham MD [address] [facility] [address] [place] [address], [place] [address] PCP - MSSP Attributed 09/12/20 1 Rodriguez Granados PA-C PCP - MSSP Attributed 06/14/21 09/11/21 Nerissa Pham MD 2 [facility] [address] [place] [address], [place] [address] PCP - MSSP Attributed 09/12/21 2 Xavier Corey MD PCP - General 01/19/19 Cheli Lopez PA-C [address] [place] [address] PCP - MSSP Attributed 09/12/22 12/11/22 Nerissa Pham MD 2 [facility] [place] [address] PCP - MSSP Attributed 12/12/22 4 Nerissa Pham MD 2 [facility] [address] [address] PCP - MSSP Attributed 09/12/24 Marisela Jackman, [facility] [address] [place] [address] ICP Community Handwriting Expert 02/02/17 06/23/19 Audie Cota MD 85 [facility] [address] [phone] Cardiovascular Disease 01/11/19 Ankita Vinson, [facility] [address] [place] [address] [facility] Community Handwriting Expert 06/23/19 Gerardo Leblanc MD [address] [place] [address] Ophthalmology 07/04/19 Rolando Topete MD [address] [place] [address] 1022 [place] [address] Cardiovascular Disease 07/10/19 Danielle Stubbs MD [address] [place] [address] [place] [address] Dermatology 07/10/19 Juan Manuel Patino MD [address] [place] [address] [place] [address] Physician Pulmonary Disease 09/22/19 Juan Manuel Patino MD [address] [place] [address] [place] [address] Physician Pulmonary Disease 10/04/19 10/04/19 Fletcher Mckay MD [address] [place] [address] [place] [address] Physician Nephrology 03/18/20 Victor Hugo Leigh MD [address] [place], [place] [address] Neurology 11/05/22 documented as of this encounter
--- OUTSIDE RECORDS SUMMARY | 2025-06-12 13:24 | XMS_ITS | Encounter Summary ---
Author Organization [facility] Address [address] [place] [address] Care Team Providers Care Embedded Linux Engineer Name Role Phone Audie Cota MD Unavailable [phone] Ankita Vinson [facility] Unavailable [phone] Gerardo Leblanc MD Unavailable Rolando Topete MD Unavailable Danielle Stubbs MD Unavailable [phone] Juan Manuel Patino MD Unavailable Fletcher Mckay MD Unavailable Nerissa Pham MD Primary Care Provider + Nerissa Pham MD Unavailable Victor Hugo Leigh MD Unavailable [phone] Cheli Lopez PA-C Unavailable Nerissa Pham MD Unavailable [phone] Nerissa Pham MD Unavailable Encounter Details Date Type Department Care Team (Late st Contact Info) Description 12/08/2021 Scanned Document [facility] GASTRO SCAN Trevor Isidro MD [address] [facility] [address] [place] [address] Social History Tobacco Use Types Packs/Day Years [...] Description 10/10/2025 9:00 AM EDT Office Visit [facility] Department Of Neurology [place] [address] [place] [address] Victor Hugo Leigh MD [address] [place] [address] 10/29/2025 8:45 AM EDT Office Visit [facility] [address] [phone] Nerissa Pham MD [address] [facility] [address] [place] [address] documented as of this encounter Visit Diagnoses Not on filedocumented in this encounter Care Teams Embedded Linux Engineer Relationship Specialty Start Date End Date Nerissa Pham MD [address] [facility] [address] [place] [address] PCP - General Internal Medicine 11/06/20 Nerissa Pham MD [address] [facility] [address] [place] [address] PCP - MSSP Attributed 09/12/21 2 Cheli Lopez PA-C [address] [address] PCP - MSSP Attributed 09/12/22 12/11/22 Nerissa Pham MD 2 [facility] [address] [address] PCP - MSSP Attributed 12/12/22 4 Nerissa Pham MD [address] [address] PCP - MSSP Attributed 09/12/24 Audie Cota MD [address] [place] [address] [address] [place] [phone] Cardiovascular Disease 01/11/19 Ankita Vinson, [facility] [address] [address] [facility] Community Senior Program Manager 06/23/19 Gerardo Leblanc MD [address] [place] [address] Ophthalmology 07/04/19 Rolando Topete MD [address] [place] [address] 1022 [place] [address] Cardiovascular Disease 07/10/19 Danielle Stubbs MD [address] [place] [address] [place] [address] Dermatology 07/10/19 Juan Manuel Patino MD [address] [place] [address] [place] [address] Physician Pulmonary Disease 09/22/19 Fletcher Mckay MD [address] [place] [address] Physician Nephrology 03/18/20 Victor Hugo Leigh MD [address] [place], [place] [phone] Neurology 11/05/22 documented as of this encounter
--- OUTSIDE RECORDS SUMMARY | 2025-06-12 13:24 | XMS_ITS | Encounter Summary ---
Author Organization [facility] Address [address] [place] [address] Care Team Providers Care Customer Project Manager Name Role Phone Xavier Corey MD Unavailable Unavailable Marisela Jackman [facility] Unavailable Audie Cota MD Unavailable [phone] Xavier Corey MD Primary Care Provider Unava ilable Ankita Vinson [facility] Unavailable [phone] Gerardo Leblanc MD Unavailable Rolando Topete MD Unavailable Danielle Stubbs MD Unavailable [phone] Juan Manuel Patino MD Unavailable Juan Manuel Patino MD Unavailable Fletcher Mckay MD Unavailable Nerissa Pham MD Unavailable Nerissa Pham MD Primary Care Provider + Nerissa Pham MD Unavailable [phone] Rodriguez Granados PA-C Unavailable UnavailNerissa Oconnor MD Unavailable Victor Hugo Leigh MD Unavailable [phone] Cheli Lopez PA-C Unavailable Nerissa Pham MD Unavailable Nerissa Pham MD Unavailable Encounter Details Date Type Department Care Team (Late st Contact Info) Description 03/15/2019 Scanned Document [address] [phone] Xavier Corey MD Social History Tobacco Use [...] Description 10/10/2025 9:00 AM EDT Office Visit [facility] Physicians Department Of Neurology [place] [address] [place] [phone] Victor Hugo Leigh MD [address] [place] [address] 10/29/2025 8:45 AM EDT Office Visit [address] [phone] Nerissa Pham MD [address] [phone] documented as of this encounter Visit Diagnoses Not on filedocumented in this encounter Care Teams Customer Project Manager Relationship Specialty Start Date End Date Xavier Corey MD PCP - MSSP Attributed 12/12/18 06/13/19 Xavier Corey MD [address] [place] [address] 719 [place] [address] PCP - General Internal Medicine 01/20/19 11/05/20 Nerissa Pham MD 2 [facility] [address] [place] [address] PCP - MSSP Attributed 06/14/19 0 Nerissa Pham MD 2 [facility] [address] [place] [address] PCP - General Internal Medicine 11/06/20 Nerissa Pham MD 2 [facility] [address] [place] [address] PCP - MSSP Attributed 09/12/20 1 Rodriguez Granados PA-C PCP - MSSP Attributed 06/14/21 09/11/21 Nerissa Pham MD 2 [facility] [address] Garcia [address] [place] [address], [place] [address] PCP - MSSP Attributed 09/12/212 2 Cheli Lopez PA-C 2 [facility] [place] [address] [place] [address] PCP - MSSP Attributed 09/12/22 12/11/22 Nerissa Pham MD 2 [facility] [place] [address] PCP - MSSP Attributed 12/12/222 4 Nerissa Pham MD [address] [facility] [place] [address] PCP - MSSP Attributed 09/12/24 Marisela Jackman, [facility] [address] [place] [address] ICP Community Foundation Relations Manager 02/02/17 06/23/19 Audie Cota MD [address] [place] [address] [address] [place] [phone] Cardiovascular Disease 01/11/19 Ankita Vinson, [facility] [address] [employer] [place] [address] ICP Community Foundation Relations Manager 06/23/19 Gerardo Leblanc MD [address] [place] [address] Ophthalmology 07/04/19 Rolando Topete MD [address] [place] [address] 1022 [place] [address] Cardiovascular Disease 07/10/19 Danielle Stubbs MD [address] [place] [address] [place] [address] Dermatology 07/10/19 Juan Manuel Patino MD [address] [place] [address] Physician Pulmonary Disease 09/22/19 Juan Manuel Patino MD [address] [place] [address] DERMATOLOGY [place] [phone] Physician Pulmonary Disease 10/04/19 10/04/19 Fletcher Mckay MD [address] [place] [address] Physician Nephrology 03/18/20 Victor Hugo Leigh MD [address] [place] [address] Neurology 11/05/22 documented as of this encounter
--- OUTSIDE RECORDS SUMMARY | 2025-06-12 13:24 | XMS_ITS | Encounter Summary ---
Author Organization [facility] Address [address] [place] [address] Care Team Providers Care Floor Coverings Salesperson Name Role Phone Audie Cota MD Unavailable [phone] Ankita Vinson [facility] Unavailable [phone] Gerardo Leblanc MD Unavailable Rolando Topete MD Unavailable [phone] Danielle Stubbs MD Unavailable [phone] Juan Manuel Patino MD Unavailable Fletcher Mckay MD Unavailable Nerissa Pham MD Primary Care Provider + Victor Hugo Leigh MD Unavailable [phone] Nerissa Pham MD Unavailable Encounter Details Date Type Department Care Team (Late st Contact Info) Description 12/05/2024 Scanned Document [facility] Rheumatology [address] [phone] Maximino Gomez MD [address] [place] [address] Social History Tobacco Use Types Packs/Day [...] 9:00 AM EDT Office Visit [facility] Department Of Neurology [place] [address] [place] [address] Victor Hugo Leigh MD [address] [place] [address] 10/29/2025 8:45 AM EDT Office Visit [address] [address] Nerissa Pham MD 2 [facility] Dr Garcia [address] [place] [address] documented as of this encounter Visit Diagnoses Not on filedocumented in this encounter Care Teams Floor Coverings Salesperson Relationship Specialty Start Date End Date Nerissa Pham MD 2 [facility] Dr Garcia [address] [place] [address] PCP - General Internal Medicine 11/06/20 Nerissa Pham MD 2 [facility] [address] Garcia [address] [place] [address] PCP - MSSP Attributed 09/12/24 Audie Cota MD 85 [facility] [address] [place] [phone] Cardiovascular Disease 01/11/19 Ankita Vinson, [facility] [address] [facility] 4 [place] [address] [facility] Community Wafer Fabrication Technician 06/23/19 Gerardo Leblanc MD [address] [place] [address] Ophthalmology 07/04/19 Rolando Topete MD [address] [place] [address] 1022 [place] [phone] Cardiovascular Disease 07/10/19 Danielle Stubbs MD [address] [place] [address] Dermatology 07/10/19 Juan Manuel Patino MD [address] [place] [address] [place] [address] Physician Pulmonary Disease 09/22/19 Fletcher Mckay MD [address] [place] [address] Physician Nephrology 03/18/20 Victor Hugo Leigh MD [address] [place] [address] Neurology 11/05/22 documented as of this encounter
--- OUTSIDE RECORDS SUMMARY | 2025-06-12 13:24 | XMS_ITS | Encounter Summary ---
Author Organization [facility] Address [address] [place] [address] Care Team Providers Care Mechanical Maintenance Engineer Name Role Phone Xavier Corey MD Unavailable Unavailable Marisela Jackman [facility] Unavailable Audie Cota MD Unavailable [phone] Xavier Corey MD Primary Care Provider Unava ilable Ankita Vinson [facility] Unavailable [phone] Gerardo Leblanc MD Unavailable Rolando Topete MD Unavailable Danielle Stubbs MD Unavailable [phone] Juan Manuel Patino MD Unavailable Juan Manuel Patino MD Unavailable Fletcher Mckay MD Unavailable Nerissa Pham MD Unavailable [phone] Nerissa Pham MD Primary Care Provider + Nerissa Pham MD Unavailable [phone] Rodriguez Granados PA-C Unavailable UnavailNerissa Oconnor MD Unavailable Victor Hugo Leigh MD Unavailable [phone] Cheli Lopez PA-C Unavailable Nerissa Pham MD Unavailable Nerissa Pham MD Unavailable [phone] Encounter Details Date Type Department Care Team (Late st Contact Info) Description 04/24/2019 Scanned Document [address] [phone] Xavier Corey MD Social History Tobacco Use [...] Description 10/10/2025 9:00 AM EDT Office Visit [facility] Physicians Department Of Neurology [place] [address] [place] [phone] Victor Hugo Leigh MD [address] [place] [address] 10/29/2025 8:45 AM EDT Office Visit [address] [phone] Nerissa Pham MD [address] [phone] documented as of this encounter Visit Diagnoses Not on filedocumented in this encounter Care Teams Mechanical Maintenance Engineer Relationship Specialty Start Date End Date Xavier Corey MD PCP - MSSP Attributed 12/12/18 06/13/19 Xavier Corey MD [address] [place] [address] 719 [place] [address] PCP - General Internal Medicine 01/20/19 11/05/20 Nerissa Pham MD 2 [facility] [address] [place] [address] PCP - MSSP Attributed 06/14/19 0 Nerissa Pham MD 2 [facility] [address] [place] [address] PCP - General Internal Medicine 11/06/20 Nerissa Pham MD 2 [facility] [address] [place] [address] PCP - MSSP Attributed 09/12/20 1 Rodriguez Granados PA-C PCP - MSSP Attributed 06/14/21 09/11/21 Nerissa Pham MD 2 [facility] [address] Garcia [address] [place] [address], [place] [address] PCP - MSSP Attributed 09/12/212 2 Cheli Lopez PA-C 2 [facility] [place] [address] [place] [address] PCP - MSSP Attributed 09/12/22 12/11/22 Nerissa Pham MD 2 [facility] [place] [address] PCP - MSSP Attributed 12/12/222 4 Nerissa Pham MD 2 [facility] [place] [address] PCP - MSSP Attributed 09/12/24 Marisela Jackman, [facility] [address] [employer] [place] [address] [place] [address] ICP Community Floral Assistant 02/02/17 06/23/19 Audie Cota MD [address] [place] [address] 719 [place] [phone] Cardiovascular Disease 01/11/19 Ankita Vinson, [facility] [address] [place] [address] [place] [address] ICP Community Floral Assistant 06/23/19 Gerardo Leblanc MD [address] [place] [address] Ophthalmology 07/04/19 Rolando Topete MD [address] [place] [address] 1022 [place] [address] Cardiovascular Disease 07/10/19 Danielle Stubbs MD [address] [place] [address] [place] [address] Dermatology 07/10/19 Juan Manuel Patino MD [address] [place] [address] Physician Pulmonary Disease 09/22/19 Juan Manuel Patino MD [address] [place] [address] DERMATOLOGY [place] [phone] Physician Pulmonary Disease 10/04/19 10/04/19 Fletcher Mckay MD [address] [place] [address] Physician Nephrology 03/18/20 Victor Hugo Leigh MD [address] [place] [address] Neurology 11/05/22 documented as of this encounter
--- OUTSIDE RECORDS SUMMARY | 2025-06-12 13:24 | XMS_ITS | Encounter Summary ---
Author Organization [facility] Address [address] [place] [address] Care Team Providers Care Commissioner Of Conciliation Name Role Phone Audie Cota MD Unavailable [phone] Ankita Vinson [facility] Unavailable [phone] Gerardo Leblanc MD Unavailable Rolando Topete MD Unavailable Danielle Stubbs MD Unavailable Juan Manuel Patino MD Unavailable Fletcher Mckay MD Unavailable Nerissa Pham MD Primary Care Provider + Victor Hugo Leigh MD Unavailable [phone] Nerissa Pham MD Unavailable Encounter Details Date Type Department Care Team (Late st Contact Info) Description 12/25/2024 Scanned Document [address] [place] [address] Shanika Del Valle [place] 1060 [place] [address] Social History Tobacco Use Types Packs/Day Years [...] Description 10/10/2025 9:00 AM EDT Office Visit [facility] Department Of Neurology [place] [address] [place] [address] Victor Hugo Leigh MD [address] [place] [address] 10/29/2025 8:45 AM EDT Office Visit [address] [address] Nerissa Pham MD [address] [facility] [address] Garcia [address] [place], [place] [phone] documented as of this encounter Visit Diagnoses Not on filedocumented in this encounter Care Teams Commissioner Of Conciliation Relationship Specialty Start Date End Date Nerissa Pham MD 2 Magdy Garcia [address] [place] [address] PCP - General Internal Medicine 11/06/20 Nerissa Pham MD [address] [facility] [address] Jose [address] [place] [address] PCP - MSSP Attributed 09/12/24 Audie Cota MD 85 [facility] [place] 719 [place] [address] Cardiovascular Disease 01/11/19 Ankita Vinson, [facility] [address] [facility] [place] 4 [place] [address] [facility] Community Custom Wood Stair Builder 06/23/19 Gerardo Leblanc MD [address] [place] [address] Ophthalmology 07/04/19 Rolando Topete MD [address] [place] [address] 1022 [place] [phone] Cardiovascular Disease 07/10/19 Danielle Stubbs MD [address] [place] [address] Dermatology 07/10/19 Juan Manuel Patino MD [address] [place] [address] Physician Pulmonary Disease 09/22/19 Fletcher Mckay MD [address] [place] [address] Physician Nephrology 03/18/20 Victor Hugo Leigh MD [address] [place] [address] Neurology 11/05/22 documented as of this encounter
--- OUTSIDE RECORDS SUMMARY | 2025-06-12 13:24 | XMS_ITS | Encounter Summary ---
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 Role Phone Xavier Corey MD Unavailable Unavailable Marisela Jackman [facility] Unavailable Audie Cota MD Unavailable [phone] Xavier Corey MD Primary Care Provider Unava ilable Ankita Vinson [facility] Unavailable [phone] Gerardo Leblanc MD Unavailable Rolando Topete MD Unavailable Danielle Stubbs MD Unavailable Juan Manuel Patino MD Unavailable Juan Manuel Patino MD Unavailable Fletcher Mckay MD Unavailable Nerissa Pham MD Unavailable Nersisa Pham MD Primary Care Provider + Nerissa Pham MD Unavailable Rodriguez Granados PA-C Unavailable UnavailNerissa Oconnor MD Unavailable Xavier Corey MD Primary Care Provider Unava ilable Victor Hugo Leigh MD Unavailable [phone] Cheli Lopez PA-C Unavailable [phone] Nerissa Pham MD Unavailable [phone] Nerissa Pham MD Unavailable [phone] Encounter Details Date Type Department Care Team (Late st Contact Info) Description 07/30/2017 Scanned Document 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 Relationship Specialty Start Date End Date Xavier Corey MD PCP - MSSP Attributed 12/12/18 06/13/19 Xavier Corey MD [address] [place] [address] [place] [address], [place] [address] PCP - General Internal Medicine 01/20/19 11/05/20 Nerissa Pham MD 2 [facility] [place] [address] PCP - MSSP Attributed 06/14/19 0 Nerissa Pham MD 2 [facility] [place] [address] PCP - General Internal Medicine 11/06/20 Nerissa Pham MD [address] [facility] [address] [place] [address], [place] [address] PCP - MSSP Attributed 09/12/20 1 Rodriguez Granados PA-C PCP - MSSP Attributed 06/14/21 09/11/21 Nerissa Pham MD [address] [facility] [address] [place] [address], [place] [address] PCP - MSSP Attributed 09/12/21 2 Xavier Corey MD PCP - General 01/19/19 Cheli Lopez PA-C [address] [place] [address] PCP - MSSP Attributed 09/12/22 12/11/22 Nerissa Pham MD 2 [facility] [place] [address] PCP - MSSP Attributed 12/12/22 4 Nerissa Pham MD 2 [facility] [address] [address] PCP - MSSP Attributed 09/12/24 Marisela Jackman, [facility] [address] [place] [address] ICP 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 Worker 02/02/17 06/23/19 Audie Cota MD 85 [facility] [address] [place] [phone] Cardiovascular Disease 01/11/19 Ankita Vinson, [facility] [address] [place] [address] [facility] 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 Worker 06/23/19 Gerardo Leblanc MD [address] [place] [address] Ophthalmology 07/04/19 Rolando Topete MD [address] [place] [address] 1022 [place] [address] Cardiovascular Disease 07/10/19 Danielle Stubbs MD [address] [place] [address] [place] [address] Dermatology 07/10/19 Juan Manuel Patino MD [address] [place] [address] [place] [address] Physician Pulmonary Disease 09/22/19 Juan Manuel Patino MD [address] [place] [address] [place] [address] Physician Pulmonary Disease 10/04/19 10/04/19 Fletcher Mckay MD [address] [place] [address] [place] [address] Physician Nephrology 03/18/20 Victor Hugo Leigh MD [address] [place], [place] [phone] Neurology 11/05/22 documented as of this encounter
== END 2025-06-12 11:23 | disposition home or self-care (01) ==
LOC: HO.HKAS 10:07
PROVIDERS: PCP Internal Medicine; Visit Provider Internal Medicine Nephrology
DX: N18.31 Chronic kidney disease, stage 3a (principal); I10 Essential (primary) hypertension
CPT/HCPCS: 99214

== ENCOUNTER → 2025-06-12 10:07 | Outpatient (BNVA) | payer MEDICARE, SELFPAY | PROVIDERS: PCP Internal Medicine; Visit Provider Internal Medicine Nephrology | DX: N18.31 Chronic kidney disease, stage 3a (principal); I15.0 Renovascular hypertension | CPT/HCPCS: 99212 ==